=== PATIENT | female | born 1945 | race Caucasian/White ===

== ENCOUNTER 2020-11-16 09:16 | Outpatient (CLI) | payer MEDICARE, SELFPAY ==
--- NOTE | ~2020-11-16 | MM_ITS ---
EXAMINATION: MM screening [facility] w george HISTORY: Screening TECHNIQUE: Craniocaudal and mediolateral oblique 3-D tomosynthesis images were obtained and synthetic 2-D images were generated. CAD analysis was submitted and interpreted. COMPARISON: Comparison to multiple prior studies sequentially, with oldest reviewed study dated 11/12. BREAST PARENCHYMAL COMPOSITION: There are scattered areas of fibroglandular density. FINDINGS: There is no evidence of suspicious mass, calcification, or architectural distortion to sugg est malignancy in either breast. There has been no suspicious interval change. IMPRESSION: 1. No mammographic evidence of malignancy. 2. Recommend routine screening mammography in one year. BI-RADS Category 1: Negative Reviewed, dictated and finalized at location A. EDICAL SCIENTIST
== END 2020-11-16 09:17 | disposition home or self-care (01) ==
LOC: ANHIMG 09:18
PROVIDERS: PCP Family Medicine; Visit Provider Family Medicine
DX: Z12.31 Encounter for screening mammogram for malignant neoplasm of breast (principal)
CPT/HCPCS: 77063; 77067

== ENCOUNTER → 2021-09-26 15:28 | Outpatient (CLI) | payer MEDICARE, SELFPAY ==
--- NOTE | ~2021-09-26 | XR_ITS ---
EXAMINATION: XR knee RT min 4V EXAM DATE: 09/26/2021 16:11 INDICATION: Pain in right knee, Unspecified fall, initial encounter. Bruising and swelling in right k nee. Feels like it once to give out. TECHNIQUE: Right knee lateral, frontal AP, frontal PA tunnel, sunrise projections. Comparison is made to prior examination from 06/03/2019. FINDINGS: No evidence osteochondral defect or joint body in the right knee joint. There is moderate to severe patellofemoral and medial tibial femoral, moderate lateral tibiofemoral primary osteoarthr itis. No sizable joint effusion. There are no acute fractures identified. Compared to 2019, the tibi ofemoral compartment osteoarthritis has progressed. IMPRESSION: Moderate to severe right knee osteoarthritis. Reviewed, dictated and finalized at location A. ID WORKER
--- NOTE | ~2021-09-26 | XR_ITS ---
EXAMINATION: XR ribs RT 2V w CXR 2V EXAM DATE: 09/26/2021 16:10 INDICATION: Pleurodynia. Pt fell on Sunday and again on Sunday. Rib pain under right breast. Bruisi ng and swelling on right knee. Pt states her right knee feels like it wants to give out on her. TECHNIQUE: Frontal projection of the upper right ribs, frontal projection of the lower right ribs, ob lique projection of the right ribs, frontal and lateral chest x-ray(s) for interpretation. Compariso n is made to prior examination from 06/15/2016. FINDINGS: There are no displaced acute right rib fractures identified. Consider educating patient th at even if there is a radiographically occult nondisplaced rib fracture, there is no specific treatme nt other than to refrain from activity that prevents healing. There is no soft tissue abnormality seen. No confluent consolidation, pneumothorax or pleural effus ion suspected. Large bridging endplate osteophytes at some lumbar levels. IMPRESSION: No displaced right rib fractures. Reviewed, dictated and finalized at location A. IKISHA DRIVER
== END ==
PROVIDERS: PCP Family Medicine; Visit Provider Family Medicine
DX: M25.561 Pain in right knee (principal); R07.81 Pleurodynia; W19.XXXA Unspecified fall, initial encounter; M17.11 Unilateral primary osteoarthritis, right knee
CPT/HCPCS: 71046; 71100; 73564

== ENCOUNTER → 2022-01-30 12:12 | Outpatient (CLI) | payer MEDICARE, SELFPAY ==
--- NOTE | ~2022-01-30 | XR_ITS ---
EXAMINATION: XR lumbar spine 2-3V EXAM DATE: 01/30/2022 12:49 INDICATION: Pleurodynia, Dorsalgia . States fall several months ago. TECHNIQUE: Lumber spine frontal, lateral, lateral L5-S1 projections for interpretation. There is no prior study for comparison. FINDINGS: No acute fracture line identified. There is grade 2-3 anterolisthesis L5 on S1, with expect ed to be bilateral pars defects at L5 to allow for this but this is not directly visualized. There is severe mid and lower lumbar facet arthropathy. There is 4 mm anterolisthesis L3 on L4. The vertebral bodies are otherwise aligned. Moderate to severe disc disease from L3 through S1, moderate at L2-3. Large endplate osteophytes. Pelvic surgical clips from lymph node dissection. Paraspinal soft tissue is unremarkable. IMPRESSION: 1. Rowe 2-3 anterolisthesis L5 on S1. 2. Moderate to severe disc disease. 3. Severe facet arthropathy. Reviewed, dictated and finalized at location B.
--- NOTE | ~2022-01-30 | XR_ITS ---
EXAM: XR ribs RT 2V w CXR 2V HISTORY: Pleursoynia, Dorsalgia COMPARISON: 09/26/2021 FINDINGS: Lungs are clear. Unremarkable cardiomediastinal silhouette. Severe degenerative changes in the thoracolumbar spine. No fracture or dislocation. IMPRESSION: No acute cardiopulmonary process. No rib fracture. Reviewed, dictated and finalized at location K.
--- NOTE | ~2022-01-30 | XR_ITS ---
EXAMINATION: XR thoracic spine 2V EXAM DATE: 01/30/2022 12:49 INDICATION: Pleurodynia, Dorsalgia . States fell several months ago. TECHNIQUE: Frontal and lateral projections of the thoracic spine as well as lateral swimmers projecti on of the upper thoracic spine for interpretation. There is no prior study for comparison. FINDINGS: Large bridging endplate osteophytes, diffuse idiopathic skeletal hyperostosis. There is mi ld to moderate mid and lower thoracic disc disease. No fracture line identified through the osteophyt es or vertebral bodies. Paraspinal soft tissue is unremarkable. IMPRESSION: 1. No acute thoracic findings. 2. Large bridging endplate osteophytes. 3. Mild to moderate disc disease. Reviewed, dictated and finalized at location B.
== END ==
PROVIDERS: PCP Family Medicine; Visit Provider Family Medicine
DX: M54.50 Low back pain, unspecified (principal); R07.81 Pleurodynia; M47.814 Spondylosis without myelopathy or radiculopathy, thoracic region; M47.815 Spondylosis without myelopathy or radiculopathy, thoracolumbar region
CPT/HCPCS: 71046; 71100; 72070; 72100

== ENCOUNTER 2022-03-28 15:22 | Outpatient (CLI) | payer MEDICARE, SELFPAY ==
--- NOTE | ~2022-03-28 | MM_ITS ---
EXAMINATION: MM screening [facility] BI w george HISTORY: Screening mammogram TECHNIQUE: Craniocaudal and mediolateral oblique 3-D tomosynthesis images were obtained and synthetic 2-D images were generated. CAD analysis was submitted and interpreted. COMPARISON: 11/16/2020, 10/30/2019. 10/24/2018 BREAST PARENCHYMAL COMPOSITION: The breasts are almost entirely fatty. FINDINGS: Scattered benign-appearing calcifications are present. There is no suspicious mass, calcifi cation, or architectural distortion to suggest malignancy in either breast. There has been no suspici ous interval change. IMPRESSION: 1. No mammographic evidence of malignancy. 2. Recommend routine screening mammography in one year. BI-RADS Category 2: Benign finding(s). Reviewed, dictated and finalized at location A.
--- NOTE | ~2022-03-28 | DEXA_ITS ---
Bone Density Report Name: SOFÍA VANCE Age: 76 Sex: Female Ethnicity: White Date of : 1945 Indication: postmenopausal; screening for osteoporosis; height loss; cancer; hysterectomy; Referring Provider: LILY WARD Study: Bone densitometry was performed. Exam Date: March 28, 2022 Accession number: [id number] Bone Density: Region BMD T-score Z-score Classification AP Spine(L1, L4) 1.376 3.1 5.6 Normal Femoral Neck (Left) 0.888 0.3 2.5 Normal Total Hip (Left) 1.003 0.5 2.4 Normal Femoral Neck (Right) 0.948 0.9 3.0 Normal Total Hip (Right) 0.991 0.4 2.3 Normal Total Hip Mean 0.997 0.5 2.4 Normal World Health Organization criteria for BMD impression classify patients as: Normal (T-score at or above -1.0), Osteopenia (T-score between -1.0 and -2.5), or Osteoporosis (T-score at or below -2.5). 10-year Fracture Risk: FRAX not reported because: All T-scores for Spine Total, Hip Total, Femoral Neck at or above -1.0 Previous Exams: Region Exam Age BMD T-score BMD Change BMD Change Date g/cm2 vs Baseline vs Previous AP Spine (L1,L4) 03/28/2022 76 1.376 3.1 0.028 (2.1%)# 0.028 (2.1%)# 10/06/2011 66 1.348 2.8 Total Hip(Left) 03/28/2022 76 1.003 0.5 -0.150 (-13.0% -0.155 (-13.4% 09/28/2016 71 1.158 1.8 0.004 (0.4%)# 0.004 (0.4%)# 10/06/2011 66 1.154 1.7 Total Hip(Right) 03/28/2022 76 0.991 0.4 -0.105 (-9.6%) -0.158 (-13.8% 09/28/2016 71 1.149 1.7 0.053 (4.8%)# 0.053 (4.8%)# 10/06/2011 66 1.096 1.3 *Denotes significance at 95% confidence level, LSC for AP Spine = 0.022 g/cm2, LSC for Total Hip = 0.027 g/cm2 # Denotes dissimilar scan types or analysis methods Clinical Information Provided by Patient: Has used the following medications: Vitamin D Has the following medical conditions: Cancer, Hysterectomy Patient maximum height was 64 Menopause Age: 58 No regular weight bearing exercise Drinks caffeinated beverages Onset of menses at age 13 Number of children 4 Impression: The patient has normal bone mass. The BMD for the Total Hip(Left) decreased, changing by -13.4% since the last DXA exam. The BMD for the Total Hip(Right) decreased, changing by -13.8% since the last DXA exam. Discussion: LOW RISK OF FRACTURE; BONE DENSITY IS WELL ABOVE THE MINIMUM DESIRABLE LEVEL AND ABOVE AVERAGE FOR AGE AND SEX AT ALL SKELETAL SITES TESTED. This person's bone density is above expecte
== END 2022-03-28 15:23 | disposition home or self-care (01) ==
PROVIDERS: PCP Family Medicine; Visit Provider Physician Assistant
DX: Z12.31 Encounter for screening mammogram for malignant neoplasm of breast (principal); Z78.0 Asymptomatic menopausal state
CPT/HCPCS: 77063; 77067; 77080

== ENCOUNTER → 2022-09-25 16:13 | Outpatient (CLI) | payer MEDICARE, SELFPAY ==
--- NOTE | ~2022-09-25 | XR_ITS ---
XR hip BI wo pelvis DATE: 09/25/2022 16:38 INDICATION: Repeated falls TECHNIQUE: AP and lateral views of each hip COMPARISON: 01/04/2018 CT abdomen pelvis FINDINGS: There is patchy sclerosis and flattening and loss of left femoral head volume, with virtual obliteration of left hip joint space and prominent spurring. The findings suggest left femoral head avascular necrosis with prominent secondary osteoarthritis. There is mild to Normal alignment at the pubic symphysis and sacroiliac joints. Severe degenerative disc disease and i ncluded L5-S1. Status post ventral lower anterior abdominal wall repair. 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 CUTTER IMPRESSION: Avascular necrosis of left femoral head with severe secondary osteo arthritis Mild to moderate right hip osteoarthritis Severe degenerative disc disease at L5-S1
== END ==
PROVIDERS: PCP Family Medicine; Visit Provider Internal Medicine
DX: M25.559 Pain in unspecified hip (principal); M87.852 Other osteonecrosis, left femur; M16.0 Bilateral primary osteoarthritis of hip; M51.37 Other intervertebral disc degeneration, lumbosacral region; R29.6 Repeated falls
CPT/HCPCS: 73521

== ENCOUNTER 2022-09-30 11:20 | Emergency (ER) | payer MEDICARE, SELFPAY ==
[2022-09-30 11:25] VITALS: BP 147/66; PULSE 84; RESP 16; TEMP 36.8; O2SAT 99
[2022-09-30 11:56] VITALS: BP 149/90; PULSE 85; RESP 16; O2SAT 99
--- NOTE | 2022-09-30 12:19 | ED.LOWEXIN ---
HPI - Extremity Injury (Lower) General Chief Complaint: Extremity Injury, Lower Stated Complaint: left hip pain Time Seen by Provider: 09/30/22 12:01 History of Present Illness HPI Narrative: Patient is a 77-year-old female presenting with left hip pain. Patient states that she has had ongoing left hip pain for some time. States that she had a fall approximately 5 days ago. She is currently in physical therapy and they were concerned that she may have broken it so they obtained an outpatient x-ray but the patient has not received any of these results. Patient states that she has been ambulatory but she has to walk very slowly with her walker. States that she needs pain control so that she can sleep. Denies any new falls since the outpatient x-ray. Denies further injuries or complaints. Related Data Home Medications Medication Instructions Recorded Confirmed acetaminophen 650 mg 650 mg PO Q8H 09/12/19 08/25/22 tablet,extended release (Tylenol 8 Hour) aspirin 325 mg tablet 325 mg PO DAILY 09/12/19 08/25/22 cholecalciferol (vitamin D3) 50 2,000 unit PO DAILY 09/12/19 08/25/22 mcg (2,000 unit) tablet Allergies Allergy/AdvReac Type Severity Reaction Status Date / Time No Known Allergies Allergy Verified 09/15/22 09:56 Review of Systems Review of Systems: All systems reviewed & are unremarkable except as noted in HPI and below PMFSH Past Medical History Medical History Adhesive capsulitis of left shoulder (~06/2021) Arthritis Bilateral hand pain Carpal tunnel syndrome Degenerative joint disease (DJD) of lumbar spine Depression Gallbladder disease Generalized osteoarthritis of multiple sites (~2007) GERD (gastroesophageal reflux disease) Hepatitis C antibody test negative (~08/2017) Hypertension IBS (irritable bowel syndrome) Recurrent falls Rheumatoid arthritis with rheumatoid factor of multiple sites without organ or systems involvement (~1999) Weakness Surgical History Surgical History H/O cataract extraction H/O dilation and curettage H/O hernia repair H/O: hysterectomy History of appendectomy Hx of cholecystectomy Family History Family History Father Diabetes mellitus Hypertension Family history of elevated blood lipids, Onset Age: 74 Acute myocardial infarction, Onset Age: 74 Cerebrovascular accident Family history of coronary artery disease Mother Hypertension Family history of elevated blood lipids Cerebrovascular accident Family history of primary malignant neoplasm of liver Family history of malignant neoplasm of ovary Social History Social History Smoking status: Never smoker Alcohol intake: current Alcohol use details: Mixed drinks occasionally Lack of Transportation: No Lack of Food: Never True Current Housing: I Have Housing Concerned About Future Housing: No Difficulty Paying Gas/Electric Bills: No Difficulty Paying for Meds: No Currently Unemployed: No Education: High School Diploma/GED Difficulty w/ Childcare or Family Care: No Exam Narrative: GENERAL: Well-appearing, well-nourished, and in no acute distress. HEAD: Normocephalic, atraumatic. EYES: PERRLA and EOMI. ENT: Nares clear, no rhinorrhea or epistaxis. Mucous membranes moist. NECK: Supple. CHEST: Clear to auscultation. No respiratory distress. HEART: Regular rate and rhythm. No murmur heard. Normal peripheral pulses. ABDOMEN: Soft, nontender, nondistended, normal active bowel sounds. EXTREMITIES: Normal range of motion. No edema. SKIN: Warm, dry, no rash. NEURO: No focal deficits. Alert and oriented x3. PSYCH: Normal mood and affect. Course Vital Signs Vital signs: Vital Signs Temperature 98.2 F 09/30/22 11:25 Pulse Rate 84 09/30/22
[2022-09-30] MEDS: HYDROcodone/acetaminophen (*CRX) 5-325 MG TABLET 1 TAB PO (12:25)
[2022-09-30 14:00] VITALS: RESP 18
== END 2022-09-30 14:00 | disposition home or self-care (01) ==
PROVIDERS: Emergency Provider Emergency Medicine; PCP Family Medicine
DX: M87.052 Idiopathic aseptic necrosis of left femur (principal); M16.12 Unilateral primary osteoarthritis, left hip; I13.10 Hypertensive heart and chronic kidney disease without heart failure, with stage 1 through stage 4 chronic kidney disease, or unspecified chronic kidney disease; N18.30 Chronic kidney disease, stage 3 unspecified; W19.XXXA Unspecified fall, initial encounter
CPT/HCPCS: 99283; A9270

== ENCOUNTER 2022-10-07 22:43 | Emergency (ER) | payer MEDICARE, SELFPAY ==
--- NOTE | ~2022-10-07 | XR_ITS ---
EXAMINATION: XR abdomen/kub 1V INDICATION: Constipation TECHNIQUE: Supine views of the abdomen were obtained on three radiographs. COMPARISON: 09/25/2022, 01/30/2022 FINDINGS: There is a moderate volume of colonic stool. No dilated loops of bowel are evident. There a re surgical clips at the pelvic inlet. Changes of mesh hernia repair are noted in the right pelvis. T here is advanced osteoarthritis of the left hip which demonstrates significant interval worsening sin ce the comparison dated 01/30/2022. Severe lumbar spondylosis is noted. IMPRESSION: 1. Constipation. 2. Advanced osteoarthritis of the left hip with significant interval worsening since 01/30/2022. Reviewed, dictated and finalized at location A. ROOM OPERATOR
[2022-10-07 22:44] VITALS: BP 106/66; PULSE 87; RESP 26; TEMP 36.6; O2SAT 100
[2022-10-07 22:58] LABS: Basophils Percent Auto 0.3 % (0.2-1.2); Eosinophils Percent Auto 0.6 % (0-4.4); Hematocrit 38.9 % (37.0-47.0); Hemoglobin 12.9 g/dL (12.0-15.0); Immature Granulocyte Absolute 0.07 K/mm3 (0.00-0.031); Lymphocytes Percent Auto 15.8 % (18.3-44.2); Mean Corpuscular HGB Conc 33.2 g/dl (32-36); Mean Corpuscular Hemoglobin 32.5 pg (26-34); Mean Platelet Volume 8.1 fl (7.4-10.4); Monocytes Absolute Auto 0.6 K/mm3 (0.1-0.6); Neutrophils Absolute Auto 5.2 K/mm3 (1.3-6.7); Neutrophils Percent Auto 74.3 % (45.5-73.1); Nucleated Red Blood Cells Perc 0.4 % (0.0-0.2); Platelet Count Result 354 k/mm3 (150-375); Red Blood Count 3.97 M/mm3 (4.2-5.4); Red Cell Distribution Width 14.2 % (11.5-14.5)
[2022-10-07 23:09] LABS: Alanine Aminotransferase 20 U/L (6-35); Albumin Level 4.6 g/dL (3.5-5.1); Alkaline Phosphatase 99 U/L (38-126); Anion Gap 13 mmol/L (8-16); Aspartate Amino Transferase 34 U/L (14-36); Bilirubin,Total 0.5 mg/dL (0.2-1.3); Blood Urea Nitrogen 29 mg/dL (7-17); Calcium 9.6 mg/dL (8.4-10.2); Carbon Dioxide 22 mmol/L (22-30); Chloride 94 mmol/L (98-107); Estimated CRCL calculation 33 ml/min; Estimated Glomerular Filt Rate 36; Glucose 153 mg/dL (65-110); Lipase 126 U/L (23-300); Sodium 129 mmol/L (137-145)
[2022-10-08] MEDS: SODIUM CHLORIDE 0.9% IV 1,000 ML 999 ML IV CONT (01:58)
[2022-10-08] MEDS: METHYLNALTREXONE 12 MG/0.6 ML VIAL SUB-Q (01:58)
--- NOTE | 2022-10-08 03:19 | ED.NAVMDI ---
HPI - Nausea/Vomiting/Diarrhea General Chief complaint: Nausea/Vomiting/Diarrhea Stated complaint: N/V/D Time Seen by Provider: 10/08/22 01:22 History of Present Illness HPI Narrative: Patient is a 77-year-old female who presents ER with constipation. Patient recently was seen for a hip injury. She was then evaluated by orthopedic surgery. She has been taking oxycodone to control her pain. She has not been able have a bowel movement for several days. She has been taking evac-bwe-qoghbyy stool softeners without improvement. She has some nausea. No abdominal distention. No fevers or chills or sweats. Related Data Home Medications Medication Instructions Recorded Confirmed acetaminophen 650 mg 650 mg PO Q8H 09/12/19 10/03/22 tablet,extended release (Tylenol 8 Hour) aspirin 325 mg tablet 325 mg PO DAILY 09/12/19 10/03/22 cholecalciferol (vitamin D3) 50 2,000 unit PO DAILY 09/12/19 10/03/22 mcg (2,000 unit) tablet Allergies Allergy/AdvReac Type Severity Reaction Status Date / Time No Known Allergies Allergy Verified 10/03/22 15:00 Review of Systems Review of Systems: All systems reviewed & are unremarkable except as noted in HPI and below Constitutional: Constitutional: Denies chills, Denies fatigue and Denies fever(s) ENT: Denies dysphagia and Denies nasal congestion Cardiovascular: Cardiovascular: Denies chest pain, Denies rapid heart rate and Denies radiating jaw, neck or arm pain Respiratory: Respiratory: Denies cough and Denies dyspnea Gastrointestinal: Gastrointestinal: Reports abdominal pain, Reports constipation, Reports nausea and Denies vomiting Genitourinary: Genitourinary: Denies nocturia and Denies dysuria [facility] Past Medical History Medical History Adhesive capsulitis of left shoulder (~06/2021) Arthritis Bilateral hand pain Carpal tunnel syndrome 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 Depression Gallbladder disease Generalized osteoarthritis of multiple sites (~2007) GERD (gastroesophageal reflux disease) Hepatitis C antibody test negative (~08/2017) HTN (hypertension) Hypertension IBS (irritable bowel syndrome) Recurrent falls Rheumatoid arthritis with rheumatoid factor of multiple sites without organ or systems involvement (~1999) Weakness Surgical History Surgical History H/O cataract extraction H/O dilation and curettage H/O hernia repair H/O: hysterectomy History of appendectomy Hx of cholecystectomy Family History Family History Father Diabetes mellitus Hypertension Family history of elevated blood lipids, Onset Age: 74 Acute myocardial infarction, Onset Age: 74 Cerebrovascular accident Family history of coronary artery disease Mother Hypertension Family history of elevated blood lipids Cerebrovascular accident Family history of primary malignant neoplasm of liver Family history of malignant neoplasm of ovary Social History Social History Smoking status: Never smoker Alcohol intake: current Alcohol use details: Mixed drinks occasionally Lack of Transportation: No Lack of Food: Never True Current Housing: I Have Housing Concerned About Future Housing: No Difficulty Paying Gas/Electric Bills: No Difficulty Paying for Meds: No Currently Unemployed: No Education: High School Diploma/GED Difficulty w/ Childcare or Family Care: No Exam Narrative: GENERAL: Well-appearing, well-nourished, and in no acute distress. HEAD: Normocephalic, atraumatic. EYES: PERRL and EOMI. CHEST: Clear to auscultation. No respiratory distress. HEART: Regular rate and rhythm. Normal peripheral pulses. ABDOMEN: Soft, nontender, nondistended, normal active bowel sounds. EXTREMITIES:
[2022-10-08 04:12] LABS: Mucus Urine Rare /lpf; RBC Urine 0-2 /hpf (0-2); WBC Urine 0-3 /hpf
[2022-10-08 05:39] LABS: Appearance Urine Clear (Clear); Bilirubin Urine 2+ (Negative); Blood Urine Negative (Negative); Glucose Urine UA Negative (Negative); Ketones Urine 1+ mg/dL (Negative); Leukocyte Esterase Ur Negative LEU/UL (Negative); Nitrate Urine Positive (Negative); Protein Urine Trace mg/dL (Negative); Specific Grav Ur >= 1.030 (1.001-1.035)
[2022-10-08 05:41] LABS: Add Urine Microscopic? YES; Color Urine Light Brown (Yellow)
== END 2022-10-08 05:01 | disposition home or self-care (01) ==
PROVIDERS: Emergency Provider Emergency Medicine; PCP Family Medicine
DX: K59.03 Drug induced constipation (principal); T40.2X5A Adverse effect of other opioids, initial encounter; I10 Essential (primary) hypertension; M19.90 Unspecified osteoarthritis, unspecified site; M16.12 Unilateral primary osteoarthritis, left hip; M47.816 Spondylosis without myelopathy or radiculopathy, lumbar region; K21.9 Gastro-esophageal reflux disease without esophagitis; K58.9 Irritable bowel syndrome, unspecified; F32.A Depression, unspecified; Z79.82 Long term (current) use of aspirin; M05.79 Rheumatoid arthritis with rheumatoid factor of multiple sites without organ or systems involvement; Z98.49 Cataract extraction status, unspecified eye; Z90.710 Acquired absence of both cervix and uterus
CPT/HCPCS: 36415; 51701; 74018; 80053; 81001; 83690; 85025; 96360; 96372; 99283; J2212; J7030

== ENCOUNTER 2022-11-10 13:51 | Outpatient (CLI) | payer MEDICARE, SELFPAY ==
--- NOTE | 2022-11-10 15:23 | ECG_ITS ---
Measurements Intervals [place] Rate: 87 P: 95 OR: 134 QRS: 28 QRSD: 83 T: 32 QT: 345 QTc: 415 Interpretive Statements SINUS RHYTHM NONSPECIFIC T-WAVE ABNORMALITY- INFERIOR LEADS BASELINE ARTIFACT- I, II, III, AVR, AVL, AVF, V1-V6 BORDERLINE ECG NO PREVIOUS ECG AVAILABLE FOR COMPARISON Electronically Signed On 11-10-2022 16:03:48 CHILD CARE SITTER by Fletcher Terry D.O.
[2022-11-10 16:20] LABS: Appearance Urine Clear (Clear); Bilirubin Urine Negative (Negative); Blood Urine 1+ (Negative); Color Urine Yellow (Yellow); Glucose Urine UA Negative (Negative); Ketones Urine Negative (Negative); Leukocyte Esterase Ur Trace LEU/UL (Negative); Nitrate Urine Negative (Negative); Protein Urine 1+ mg/dL (Negative); Specific Grav Ur >= 1.030 (1.001-1.035); Urobilinogen Urine 0.2 mg/dL (<2.0); pH Urine 5.5 (5.0-9.0)
[2022-11-10 16:24] LABS: INR 0.9; Prothrombin Time 12.1 Seconds (11.1-14.7)
[2022-11-10 16:25] LABS: Partial Thromboplastin Time 25.1 SECONDS (22.3-36.8)
[2022-11-10 16:26] LABS: Anion Gap 7 mmol/L (8-16); Blood Urea Nitrogen 22 mg/dL (7-17); Calcium 9.3 mg/dL (8.4-10.2); Carbon Dioxide 26 mmol/L (22-30); Chloride 101 mmol/L (98-107); Estimated Glomerular Filt Rate > 60; Glucose 75 mg/dL (65-110); Potassium 4.1 mmol/L (3.4-5.0); Sodium 134 mmol/L (137-145)
[2022-11-10 16:28] LABS: Hemoglobin A1C 5.1 % (<5.7)
[2022-11-10 16:32] LABS: Bacteria Urine Trace /hpf; Mucus Urine Rare /lpf; Squamous Epithelial Cell Urine Occasional /hpf (Few)
[2022-11-10 16:33] LABS: Add Urine Microscopic? YES
[2022-11-10 16:34] LABS: Urine Cotinine NEGATIVE
== END 2022-11-10 13:52 | disposition home or self-care (01) ==
PROVIDERS: Orthopaedic Surgery; PCP Family Medicine; Visit Provider Orthopaedic Surgery
DX: M16.12 Unilateral primary osteoarthritis, left hip (principal); I10 Essential (primary) hypertension; Z01.818 Encounter for other preprocedural examination
CPT/HCPCS: 80048; 80307; 81001; 83036; 85610; 85730; 87077; 87081; 87086; 87186; 93005

== ENCOUNTER 2023-01-04 13:25 | Outpatient (CLI) | payer MEDICARE, SELFPAY ==
[2023-01-04 14:47] LABS: Basophils Percent Auto 0.6 % (0.2-1.2); Hematocrit 35.4 % (37.0-47.0); Hemoglobin 11.5 g/dL (12.0-15.0); Immature Granulocyte Absolute 0.03 K/mm3 (0.00-0.031); Immature Granulocyte Percent A 0.6 % (0-0.5); Lymphocytes Absolute Auto 1.78 K/mm3 (0.9-3.2); Mean Corpuscular HGB Conc 32.5 g/dl (32-36); Mean Corpuscular Hemoglobin 32.8 pg (26-34); Mean Corpuscular Volume 100.9 fl (80-100); Mean Platelet Volume 8.2 fl (7.4-10.4); Monocytes Absolute Auto 0.5 K/mm3 (0.1-0.6); Monocytes Percent Auto 9.1 % (2.6-8.5); Neutrophils Absolute Auto 3.1 K/mm3 (1.3-6.7); Neutrophils Percent Auto 56.7 % (45.5-73.1); Platelet Count Result 324 k/mm3 (150-375); Red Blood Count 3.51 M/mm3 (4.2-5.4); White Blood Count 5.4 K/mm3 (4.5-10.0)
[2023-01-04 15:00] LABS: Albumin Level 4.5 g/dL (3.5-5.1); Anion Gap 8 mmol/L (8-16); Blood Urea Nitrogen 17 mg/dL (7-17); Calcium 9.2 mg/dL (8.4-10.2); Carbon Dioxide 27 mmol/L (22-30); Chloride 98 mmol/L (98-107); Estimated Glomerular Filt Rate > 60; Glucose 109 mg/dL (65-110); Potassium 3.7 mmol/L (3.4-5.0); Sodium 133 mmol/L (137-145)
[2023-01-04 15:05] LABS: Prothrombin Time 12.3 Seconds (11.1-14.7)
[2023-01-04 15:19] LABS: Urine Cotinine NEGATIVE
[2023-01-04 15:55] LABS: Appearance Urine Clear (Clear); Bacteria Urine None Seen /hpf; Bilirubin Urine Negative (Negative); Blood Urine 1+ (Negative); Color Urine Yellow (Yellow); Glucose Urine UA Negative (Negative); Ketones Urine Trace mg/dL (Negative); Leukocyte Esterase Ur Negative LEU/UL (Negative); Need Manual Microscopic Reviewed; Nitrate Urine Negative (Negative); Protein Urine Negative (Negative); Specific Grav Ur 1.018 (1.001-1.035); Squamous Epithelial Cell Urine None seen /hpf (Few); Urobilinogen Urine 0.2 mg/dL (<2.0); WBC Urine 0-5 /hpf
[2023-01-04 15:58] LABS: Add Urine Microscopic? YES
== END 2023-01-04 13:26 | disposition home or self-care (01) ==
LOC: ANHSURGERY 13:31
PROVIDERS: PCP Family Medicine; Visit Provider Orthopaedic Surgery
DX: Z01.812 Encounter for preprocedural laboratory examination (principal); M16.12 Unilateral primary osteoarthritis, left hip
CPT/HCPCS: 80048; 80307; 81001; 82040; 85025; 85610; 85730; 86850; 86900; 86901; 87081

== ENCOUNTER 2023-01-11 09:04 | Observation (INO) | payer MEDICARE, SELFPAY ==
[2022-11-10 14:33] VITALS: BP 135/68; PULSE 82; RESP 16; TEMP 36.6; O2SAT 99; BMI 33.1
--- NOTE | 2022-11-10 14:51 | PC.NURSE ---
Report to the Outpatient Waiting Room, entrance under the green pavilion located off [facility], at time __6:00AM on date __11/24/22 . Planned Procedure Time: _7:30AM . Time changes happen often and if your time is changed the preop area will call you the afternoon before. - You and your visitor will be asked to self-screen and do not enter if you have any COVID symptoms. - Only one visitor is requested with a max of two and NO children visitors are allowed at this time. - The patient visitor may be requested to leave or wait in car when not with patient due to distancing restrictions. - A mask is optional within the hospital. Patients may have clear liquids (water, carbonated beverages, clear teas, apple juice) until 3 hours prior to surgery with a maximum of 20 ounces. - No food from midnight until time of surgery Take the following medications with a SIP of water the morning of surgery: ___NIFEDIPINE, OXYCODONE, VENLAFAXINE Medications to discontinue per physician ___HOLD ASPIRIN & DICLOFENAC PER DR ARGUETA, HOLD ALL VITAMINS/SUPPLEMENTS 3 DAYS PRE-OP- LAST DOSE 11/20/22 Please no make-up, nail equatorial guinean, hairspray, perfume, deodorant, or body powder the day of surgery. No jewelry (including any body piercings) or valuables the day of surgery, leave them at home. Please take a shower or bath the night before, or the morning of, surgery with an antibacterial soap. Wear comfortable, loose fitting clothing. Children are encouraged to wear pajamas. - Jewelry must be removed prior to entering the operating room. Rings and piercings that are not removed may be cut off. - The hospital will not accept responsibility for valuables. - Please leave all valuables, including medications, at home the day of surgery. If you are going home after surgery, a licensed after school driver must drive you home. - NO public transportation without another adult if you receive anesthesia. - We recommend that an adult stay with you for 24 hours following discharge. - We also recommend that you do not drive, make important decision, drink alcoholic beverages, or take any drugs that were not prescribed by your health care provider for at least 24 hours after your discharge time. Follow any additional instructions given to you from your surgeon. If you or anyone in your household have experienced Covid symptoms in the past week, please notify your surgeon or the nurse liaison at the phone number below for possible testing. Telephone instructions given to _PATIENT & SON___and asked if any additional questions and then verbalized understanding. Patient advised to call surgeon office or pre surgery nurse liaison [phone] if any additional questions.
--- NOTE | 2023-01-01 09:30 | PC.NURSE ---
PRE-OP INSTRUCTIONS, PLEASE READ CAREFULLY Report to the Outpatient Waiting Room, entrance under the green pavilion located off [facility], at time _0900_ on date _01/09/23_. Planned Procedure Time: _1100_. PACK SMALL OVERNIGHT BAG AND LEAVE IN THE CAR ALONG WITH YOUR WALKER Time changes happen often and if your time is changed the preop area will call you the afternoon before. - You and your visitor will be asked to self-screen and do not enter if you have any COVID symptoms. - Only one visitor is requested with a max of two and NO children visitors are allowed at this time. - The patient visitor may be requested to leave or wait in car when not with patient due to distancing restrictions. - A mask is optional within the hospital at this time. -VISITING HOURS 8AM-8PM Patients may have clear liquids (water, carbonated beverages, clear teas, apple juice) until 3 hours prior to surgery (0800 AM) with a maximum of 20 ounces. - No food from midnight until time of surgery Take the following medications with a SIP of water the morning of surgery: _NIFEDIPINE, VENLAFAXINE & PAIN PILL IF NEEDED_ DO NOT STOP ANY OF YOUR OTHER PRESCRIPTION MEDICATIONS PRIOR TO SURGERY ?EXCEPT THE FOLLOWING Medications to discontinue per DR. ARGUETA'S INSTRUCTIONS - _ASPIRIN, Date to take last dose 01/04/23 & DICLOFENAC & RINVOQ Date to take last dose 01/05/23 _ Please no make-up, nail monegasque, hairspray, perfume, deodorant, or body powder the day of surgery. No jewelry (including any body piercings) or valuables the day of surgery, leave them at home. Please take a shower or bath the night before, or the morning of, surgery with an antibacterial soap. Wear comfortable, loose fitting clothing. - Jewelry must be removed prior to entering the operating room. Rings and piercings that are not removed may be cut off. - The hospital will not accept responsibility for valuables. - Please leave all valuables, including medications, at home the day of surgery. If you are going home after surgery, a licensed national dedicated truck driver must drive you home. - NO public transportation without another adult if you receive anesthesia. - We recommend that an adult stay with you for 24 hours following discharge. - We also recommend that you do not drive, make important decision, drink alcoholic beverages, or take any drugs that were not prescribed by your health care provider for at least 24 hours after your discharge time. Follow any additional instructions given to you from your surgeon. - CHLORHEXIDINE SHOWER DIRECTED If you or anyone in your household have experienced Covid symptoms in the past week, please notify your surgeon or the nurse liaison at the phone number below for possible testing. Telephone instructions given to _PATIENT_and asked if any additional questions and then verbalized understanding. Patient advised to call surgeon office or pre surgery nurse liaison [phone] if any additional questions.
[2023-01-01 09:37] VITALS: BMI 33.1
--- NOTE | 2023-01-08 10:08 | WPDANESEPPF ---
Anes - Initial Pre Proc Eval Procedure: Operation Date: 01/09/23 07:30 Proposed Procedures p Left Total Hip Arthroplasty - Bryce Ayala MD Date/Time: 01/08/23 10:08 Surgeon: Bryce Ayala MD Pre Op Diagnosis: Left Hip DJD Patient Data Age: 77 Gender: F Height: 1.6 m Weight: 84.9 kg Last Vital Signs Temp 36.6 C 11/10/22 14:33 Pulse 82 11/10/22 14:33 Resp 16 11/10/22 14:33 BP 135/68 11/10/22 14:33 Pulse Ox 99 11/10/22 14:33 O2 Del Method Room Air 11/10/22 14:33 Allergies Allergy/AdvReac Type Severity Reaction Status Date / Time No Known Allergies Allergy Verified 01/01/23 09:24 Home Medications Medication Instructions Recorded Confirmed Type acetaminophen 650 mg 1,300 mg PO BID PRN Pain 09/12/19 01/01/23 History tablet,extended release (Tylenol 8 Hour) aspirin 325 mg tablet 325 mg PO DAILY 09/12/19 01/01/23 History cholecalciferol (vitamin D3) 50 4,000 unit PO DAILY 09/12/19 01/01/23 History mcg (2,000 unit) tablet upadacitinib 15 mg tablet,extended 15 mg PO DAILY #90 tabs 06/06/21 01/01/23 Rx release 24 hr (Rinvoq) atorvastatin 40 mg tablet See Rx Instructions .Route 05/23/22 01/01/23 Rx .COMPLEX #90 tabs diclofenac sodium 1 % topical gel See Rx Instructions .Route 07/24/22 01/01/23 Rx .COMPLEX #100 grams hydroxychloroquine 200 mg tablet 400 mg PO DAILY #180 tabs 09/15/22 01/01/23 Rx (Plaquenil) polyethylene glycol 3350 17 17 g PO DAILY #238 grams 10/08/22 01/01/23 Rx gram/dose oral powder (Miralax) calcium carbonate 500 mg calcium 500 mg PO DAILY PRN Indigestion 11/10/22 01/01/23 History (1,250 mg) chewable tablet nifedipine 60 mg tablet,extended 60 mg PO BID 11/10/22 01/01/23 History release 24 hr sennosides 8.6 mg-docusate sodium 2 tab-cap PO DAILY 11/10/22 01/01/23 History 50 mg tablet chlorhexidine gluconate 4 % 1 applic topical ONCE #237 mL 11/17/22 01/01/23 Rx topical liquid (Hibiclens) oxycodone-acetaminophen 7.5 mg-325 1 tablet PO Q6H PRN pain #30 tabs 11/17/22 01/01/23 Rx mg tablet lisinopril 40 mg tablet 40 mg PO QAM #90 tabs 12/07/22 01/01/23 Rx venlafaxine 75 mg capsule,extended 75 mg PO QAM #90 caps 12/20/22 01/01/23 Rx release 24 hr Patient hx anesthesia problems: none Family hx anesthesia problems: none Results Review: All pre-operative results and documents have been reviewed as part of the pre-operative evaluation. 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 Depression Gallbladder disease Generalized osteoarthritis of multiple sites (~2007) GERD (gastroesophageal reflux disease) Hepatitis C antibody test negative (~08/2017) HTN (hypertension) Hypertension IBS (irritable bowel syndrome) Obstructive sleep apnea (adult) (pediatric) Panic attack Recurrent falls Rheumatoid arthritis with rheumatoid factor of multiple sites without organ or systems involvement (~1999) Weakness Surgical History Surgical History H/O cataract extraction H/O dilation and curettage H/O hernia repair H/O: hysterectomy History of appendectomy Hx of cholecystectomy Family History Family History Father Diabetes mellitus Hypertension Family history of elevated blood lipids, Onset Age: 74 Acute myocardial infarction, Onset Age: 74 Cerebrovascular accident Family history of coronary artery disease Mother Hypertension Family history of elevated blood lipids Cerebrovascular accident Family history of primary malignant neoplasm of liver Family history of malignant neoplasm of ovary Social History Soci
[2023-01-09] VITALS (13 sets, daily range): BP systolic 111–162; BP diastolic 40–87; PULSE 80–98; RESP 15–19; TEMP 36.3–37.3; O2SAT 92–100; BMI 33.5
[2023-01-09] MEDS: ACETAMINOPHEN 500 MG TABLET 1000 MG PO (06:51)
[2023-01-09] MEDS: LACTATED RINGERS 1,000 ML 30 ML IV CONT ×2 (07:00→10:17)
[2023-01-09] MEDS: TRANEXAMIC ACID 1,000MG/ISO100 1,000 MG/100 ML BAG 200 MG IVPB (07:07)
--- NOTE | 2023-01-09 07:11 | WPDHPUPDATE1 ---
History and Physical Update Update Date/Time: 01/09/23 07:11 History and Physical has been reviewed, including an updated exam of the patient. There are NO changes in the patient's condition. Risks, benefits, and alternatives have been discussed and questions answered. Patient agrees to proceed with procedure.
[2023-01-09] MEDS: ceFAZolin 2 GM/D5W 50 ML 2 GM/50 ML BAG IVPB ×3 (07:29→20:50)
[2023-01-09] MEDS: TRANEXAMIC ACID 1,000 MG/10 ML AMPUL 1000 MG IV PUSH (09:38)
--- NOTE | 2023-01-09 10:08 | W.PM.PROC2 ---
Procedure Note - Detailed Date of Procedure 01/09/23 Pre-op Diagnosis Left Hip DJD Post-op Diagnosis Same Procedure Performed L WILLIAM Surgeon Bryce Ayala MD Anesthesia General Description of Procedure THE PATIENT WAS TAKEN TO THE OPERATING ROOM IN STABLE CONDITION AND WAS PLACED IN THE LATERAL DECUBITUS AND THE LEFT LOWER EXTREMITY WAS PREPPED AND DRAPED IN THE STERILE FASHION. INCISION WAS MADE IN THE POSTERIOR LATERAL SIDE OF THE HIP, DOWN TO THE FASCIA LAYER. THE FASCIA WAS INCISED. THE HIP WAS EXPOSED. THE SHORT EXTERNAL ROTATORS WERE EXPOSED. THE SCIATIC NERVE WAS IDENTIFIED. INCISION WAS MADE THROUGH THE SHORT EXTERNAL ROTATORS AND THE CAPSULE OF THE HIP JOINT. THE HIP WAS DISLOCATED. AN OSTEOTOMY WAS MADE TO THE FEMORAL NECK ABOUT 1 CM PROXIMAL TO THE LESSER TROCHANTER. THE ACETABULUM WAS EXPOSED. THERE WAS SEVERE DJD SEEN. THE LATERAL WALL WAS DEFICIENT AND DYSPLASTIC. BEGINNING WITH A 48 REAMER THE ACETABULUM WAS REAMED TO 53 MM. A 53 MM TRIAL WAS PLACED IN 35 DEG OF ABDUCTION AND ANTEVERSION WAS IN ALIGNMENT WITH THE TRANS ACETABULAR LIGAMENT. THE FIT WAS GOOD. THE TRIAL WAS REMOVED. A 54 MM BIOMET G7 COMPONENT WAS THEN TAPPED IN TO PLACE IN 35 DEG OF ABDUCTION AND ANTEVERSION IN ALIGNMENT WITH THE TRANSVERSE ACETABULAR LIGAMENT. THE FIT WAS GOOD. 2 SCREWS WERE PLACED IN THE ACETABULAR COMPONENT AND HAD EXCELLENT BITES. THE CUP WAS STABLE. AN INTRAOPERATIVE XRAY WAS TAKEN AND IT WAS FOUND THAT THE CUP POSITION WAS STABLE AND COVERAGE WAS ACCEPTABLE. THE SCREWS WERE IN GOOD POSITION WELL. THE ACETABULAR LINER WAS PLACED AND CHECKED FOR STABILITY. NEXT THE FEMUR WAS PREPARED WITH INITIAL CANAL FINDER THEN SEQUENTIAL BROACHING WITH A TAPERLOC HIP SYSTEM, UNTIL AN 11 BROACH FIT WELL IN 15 OF ANTEVERSION. A HIGH OFFSET NECK WITH A +6 NECK AND WITH 36 MM HEAD TRIAL WAS PLACED. THE SHUCK TEST WAS EXCELLENT AND THE STABILITY IN FLEXION AND ROTATION WAS EXCELLENT. LEG LENGTHS WERE GROSSLY EQUAL. TRIALS WERE REMOVED. A BIOMET TAPERLOC 11 STEM WAS PLACED WITH A HIGH OFFSET NECK. THE FIT WAS EXCELLENT IN 15 DEG OF ANTEVERSION. A +6 CERAMIC 36 MM CERAMIC HEAD WAS PLACED. THE HIP WAS TRIALED AND THE STABILITY WAS EXCELLENT WERE THE LEG LENGTHS AND THE SHUCK TEST. THE WOUND WAS IRRIGATED WITH STERILE BETADINE AND WATER FOR 3 MIN. THEN WASHED AGAIN. THE CAPSULE AND THE EXTERNAL ROTATORS WERE APPROXIMATED WITH NUMBER 1 VICRYL. THE FASCIA WITH No 2 QUIL AND THE SUB CUTANEOUS LAYER WITH 2-0 ABSORBABLE SUTURE WITH A RUNNING 3-0 SUBCUTICULAR LAYER WELL. DERMABOND WAS PLACED AND STERILE DRESSING WAS APPLIED. PATIENT WAS PLACED BACK ON TO THE SUPINE POSITION AND WAS EXTUBATED Estimated Blood Loss 100 Complications No immediate complications Condition Stable Disposition PACU
[2023-01-09] MEDS: fentaNYL CITRATE INJ (*CRX) 100 MCG/2 ML VIAL 25 MCG IV PUSH ×2 (10:22→10:30)
--- NOTE | 2023-01-09 11:50 | ADMGEN ---
This patient, Shiloh Hester, was admitted to Medical Room 344-01. Patient/family oriented to hospital policies and general routines including ID bracelet, bed and alarms, visiting hours, pain management, procedures, bathroom and other care routines, personal items, smoking policy, room service/diet, and visiting hours. Information on how to activate the Rapid Response Team has been discussed. Patient/Family are encouraged to report perceived risks to care and to ask questions if they do not understand what they are told or what they should do.
[2023-01-09] MEDS: ATORVASTATIN 40 MG TABLET BY MOUTH (12:45)
[2023-01-09] MEDS: PROPARACAINE HCL 0.5% 15 ML OPHTH SOLN 1 DROP EACH EYE (15:21)
[2023-01-09] MEDS: ASPIRIN 325 MG TABLET PO ×2 (15:25→17:28)
[2023-01-09] MEDS: SENNA/DOCUSATE SODIUM TABLET 2 TAB PO (17:27)
[2023-01-09] MEDS: POLYMYXIN/TRIMETHOPRIM OPHTH 10 ML DROPS 1 DROP EACH EYE ×2 (17:28→20:49)
[2023-01-09] MEDS: DICLOFENAC SODIUM 0.1% OPHTH SOLN 2.5 ML BOTTLE 1 DROP EACH EYE (20:49)
[2023-01-09] MEDS: FAMOTIDINE 20 MG TABLET PO (20:50)
[2023-01-10] VITALS (8 sets, daily range): BP systolic 111–135; BP diastolic 47–79; PULSE 58–88; RESP 16–18; TEMP 36.8–37.1; O2SAT 93–99
[2023-01-10] MEDS: HYDROcodone/acetaminophen (*CRX) 7.5-325 MG TABLET 1 TAB PO ×2 (03:41→08:23)
[2023-01-10 05:55] LABS: Basophils Percent Auto 0.3 % (0.2-1.2); Eosinophils Absolute Auto 0.2 K/mm3 (0-0.3); Eosinophils Percent Auto 2.2 % (0-4.4); Hematocrit 24.1 % (37.0-47.0); Immature Granulocyte Absolute 0.02 K/mm3 (0.00-0.031); Immature Granulocyte Percent A 0.2 % (0-0.5); Lymphocytes Absolute Auto 0.62 K/mm3 (0.9-3.2); Lymphocytes Percent Auto 7.2 % (18.3-44.2); Mean Corpuscular HGB Conc 33.2 g/dl (32-36); Mean Corpuscular Hemoglobin 32.8 pg (26-34); Mean Corpuscular Volume 98.8 fl (80-100); Mean Platelet Volume 8.5 fl (7.4-10.4); Monocytes Absolute Auto 1.1 K/mm3 (0.1-0.6); Monocytes Percent Auto 13.2 % (2.6-8.5); Neutrophils Absolute Auto 6.6 K/mm3 (1.3-6.7); Neutrophils Percent Auto 76.9 % (45.5-73.1); Nucleated Red Blood Cells Perc 0.2 % (0.0-0.2); Platelet Count Result 235 k/mm3 (150-375); Red Blood Count 2.44 M/mm3 (4.2-5.4); Red Cell Distribution Width 14.8 % (11.5-14.5); White Blood Count 8.6 K/mm3 (4.5-10.0)
[2023-01-10] MEDS: ceFAZolin 2 GM/D5W 50 ML 2 GM/50 ML BAG IVPB (05:59)
[2023-01-10] MEDS: DICLOFENAC SODIUM 0.1% OPHTH SOLN 2.5 ML BOTTLE 1 DROP EACH EYE ×3 (05:59→20:31)
[2023-01-10] MEDS: POLYMYXIN/TRIMETHOPRIM OPHTH 10 ML DROPS 1 DROP EACH EYE ×5 (05:59→20:30)
[2023-01-10 06:10] LABS: Anion Gap 3 mmol/L (8-16); Blood Urea Nitrogen 19 mg/dL (7-17); Calcium 8.3 mg/dL (8.4-10.2); Carbon Dioxide 26 mmol/L (22-30); Chloride 99 mmol/L (98-107); Estimated CRCL calculation 60 ml/min; Estimated Glomerular Filt Rate > 60; Glucose 114 mg/dL (65-110); Potassium 4.4 mmol/L (3.4-5.0); Sodium 128 mmol/L (137-145)
[2023-01-10] MEDS: polyethylene glycoL 3350 17 GM POWD.PACK PO (08:24)
[2023-01-10] MEDS: SENNA/DOCUSATE SODIUM TABLET 2 TAB PO ×2 (08:24→17:18)
[2023-01-10] MEDS: VENLAFAXINE HCL XR 75 MG CAP.ER.24H PO (08:24)
[2023-01-10] MEDS: ATORVASTATIN 40 MG TABLET BY MOUTH (08:24)
[2023-01-10] MEDS: CHOLECALCIFEROL 1,000 UNITS TABLET 4000 UNITS PO (08:24)
[2023-01-10] MEDS: NIFEdipine 30 MG TAB.ER.24 60 MG PO ×2 (08:24→17:18)
[2023-01-10] MEDS: CELECOXIB 200 MG CAPSULE PO (08:25)
[2023-01-10] MEDS: FAMOTIDINE 20 MG TABLET PO ×2 (08:25→20:31)
[2023-01-10] MEDS: ASPIRIN 325 MG TABLET PO ×2 (08:25→17:18)
[2023-01-10] MEDS: HYDROXYCHLOROQUINE SULFATE 200 MG TABLET 400 MG PO (08:25)
[2023-01-10] MEDS: lisinopriL 20 MG TABLET 40 MG PO (08:25)
[2023-01-10 12:54] LABS: Glucose Point of Care 107 mg/dl (65-105)
--- NOTE | 2023-01-10 15:00 | PM.PNORT ---
Progress Note: A&P Assessment and Plan (1) Degenerative joint disease of left hip: Qualifiers: Osteoarthritis type: other secondary Qualified Code(s): M16.7 - Other unilateral secondary osteoarthritis of hip Code(s): M16.12 - Unilateral primary osteoarthritis, left hip Status: Acute Assessment and Plan: POD 1 DOING WELL BUT SHE WILL NEED REHAB AND THE BEST SITUATION FOR HER WOULD BE [facility]. STEVEN WILL PLAN FOR DC TOMORROW IF STABLE. Subjective Subjective Date/Time Seen: 01/10/23 15:00 POD 1 DOING WELL. SHE IS HAVING SLOW PROGRESS WITH PT AND WILL REQUIRE REHAB. NO CALF PAIN Exam Extrem: Other: VSS AFEBRILE DRESSING DRY NV INTACT NEG HOMANS SIGN CALF SOFT NON TENDER THIGH NON TENDER Objective Data Vital Signs Vital Signs: Vital Signs - 24 hr 01/09/23 15:27 01/09/23 20:00 01/09/23 21:23 Temperature 36.9 C 37.3 C Pulse Rate 91 80 86 Respiratory Rate 18 17 Blood Pressure 118/73 138/62 Pulse Oximetry 97 98 92 Oxygen Delivery 01/10/23 03:16 01/10/23 05:23 01/10/23 08:00 Temperature 37.1 C Pulse Rate 78 84 Respiratory Rate 18 Blood Pressure 135/61 Pulse Oximetry 99 93 Oxygen Delivery Room Air 01/10/23 10:43 01/10/23 09:23 Temperature 36.9 C Pulse Rate 87 Respiratory Rate 16 Blood Pressure 121/79 Pulse Oximetry 95 99 Oxygen Delivery Room Air Intake/Output Intake/Output: Intake & Output 01/07/23 01/08/23 01/09/23 01/10/23 23:59 23:59 23:59 23:59 Intake Total 730 360 Balance 730 360 Meds/Results Medications: Active Medications Generic Name Dose Route Start Last Admin Trade Name Freq PRN Reason Stop Dose Admin Acetaminophen 650 mg 01/09/23 11:38 Acetaminophen 325 Mg Tablet PO Q6H PRN Mild Pain (1-3) or Fever Hydrocodone Bitart/Acetaminophen 1 tab 01/09/23 11:38 01/10/23 08:23 Hydrocodone/Acetaminophen (*Crx) 7.5-325 Mg Tablet PO 1 tab Q3H PRN Administration Pain Rated 4-6 Hydrocodone Bitart/Acetaminophen 2 tab 01/09/23 11:38 Hydrocodone/Acetaminophen (*Crx) 7.5-325 Mg Tablet PO Q6H PRN Pain Rated 7-10 Artificial Tears 1 drop 01/09/23 14:19 Artificial Tears Ophth Soln 15 Ml Bottle EACH EYE Q2H PRN Dry Eye(s) Aspirin 325 mg 01/09/23 13:05 01/10/23 08:25 Aspirin 325 Mg Tablet PO 325 mg BID NEETA Administration Atorvastatin Calcium 40 mg 01/09/23 11:38 01/10/23 08:24 Atorvastatin 40 Mg Tablet BY MOUTH 40 mg DAILY NEETA Administration Calcium Carbonate 200 mg 01/09/23 11:38 Calcium Carbonate (Tums) 500 Mg (200 Mg Elemental) PO DAILY PRN Indigestion Celecoxib 200 mg 01/10/23 09:00 01/10/23 08:25 Celecoxib 200 Mg Capsule PO 200 mg DAILY NEETA Administration Diazepam 5 mg 01/09/23 11:38 Diazepam (*Crx) 5 Mg Tablet PO Q6H PRN Anxiety/Muscle Spasm Diclofenac Sodium 1 drop 01/09/23 22:00 01/10/23 14:59 Diclofenac Sodium 0.1% Ophth Soln 2.5 Ml Bottle EACH EYE 01/13/23 21:59 1 drop Q8HR NEETA Administration Famotidine 20 mg 01/09/23 21:00 01/10/23 08:25 Famotidine 20 Mg Tablet PO 20 mg Q12HR NEETA Administration Hydroxychloroquine Sulfate 400 mg 01/10/23 09:00 01/10/23 08:25 Hydroxychloroquine Sulfate 200 Mg Tablet PO 400 mg DAILY NEETA Administration Lisinopril 40 mg 01/10/23 09:00 01/10/23 08:25 Lisinopril 20 Mg Tablet PO 40 mg QAM NEETA Administration Naloxone HCl 0.1 mg 01/09/23 11:38 Naloxone Hcl 0.4 Mg/Ml Vial IV PUSH Q2M PRN Opiate Reversal Nifedipine 60 mg 01/09/23 17:00 01/10/23 08:24 Nifedipine 30 Mg Tab.Er.24 PO 60 mg BID NEETA Administration Non-Formulary Medication 1 tablet 01/09/23 11:38 Oxycodone-Acetaminophen PO Q6H PRN pain Ondansetron HCl 4 mg 01/09/23 11:38 Ondansetron Inj 4 Mg/2 Ml Vial IV PUSH Q4H PRN Nausea And Vomiting Polyethylene Glycol 17 gm 01/10/23 09:00 01/10/
--- NOTE | 2023-01-10 15:19 | P.PNAN_ITS ---
Anes - Prog Note Post-Op Date/Time: 01/10/23 15:19 Cardiovascular status: normal Respiratory status: normal Airway patency: baseline Mental status: baseline Post-Op hydration status: normal Vital Signs: Last Vital Signs Temp 37.1 C 01/10/23 13:23 Pulse 58 L 01/10/23 13:23 Resp 18 01/10/23 13:23 BP 111/68 01/10/23 13:23 Pulse Ox 99 01/10/23 13:23 O2 Del Method Room Air 01/10/23 10:43 O2 Flow Rate 6 01/09/23 10:30 Pain Score (VAS): 12/29 I/O: Intake & Output 01/09/23 01/10/23 01/10/23 23:59 07:59 15:59 Intake Total 340 360 Balance 340 360 Laboratory Tests 01/10/23 05:28 01/10/23 05:28 01/10/23 01/10/23 01/10/23 05:28 05:28 12:28 WBC 8.6 RBC 2.44 L Hgb 8.0 L D Hct 24.1 L MCV 98.8 MCH 32.8 MCHC 33.2 RDW 14.8 H Plt Count 235 MPV 8.5 Immature Gran % (Auto) 0.2 Neut % (Auto) 76.9 H Lymph % (Auto) 7.2 L [place] % (Auto) 13.2 H Eos % (Auto) 2.2 Baso % (Auto) 0.3 Lymph # (Auto) 0.62 L [place] # (Auto) 1.1 H Eos # (Auto) 0.2 Baso # (Auto) 0.0 Abs Immat Gran (auto) 0.02 Absolute Neuts (auto) 6.6 Absolute Nucleated RBC 0.0 Nucleated RBC % 0.2 Sodium 128 L Potassium 4.4 Chloride 99 Carbon Dioxide 26 Anion Gap 3 L BUN 19 H Creatinine 0.70 Estim Creat Clear Calc 60 Estimated GFR > 60 Glucose 114 H POC Capillary Glucose 107 H Calcium 8.3 L Post-procedural complaints: none Patient Feedback: Patient satisfied with anesthetic care.
[2023-01-10] MEDS: HYDROcodone/acetaminophen (*CRX) 7.5-325 MG TABLET 2 TAB PO (22:59)
[2023-01-11] VITALS (7 sets, daily range): BP systolic 105–146; BP diastolic 52–80; PULSE 87–88; RESP 16–20; TEMP 36.2; O2SAT 97–99
--- NOTE | ~2023-01-11 | XR_ITS ---
Left Hip Technique: Portable AP and lateral views Clinical History: Status post hip arthroplasty Findings: Patient is status post left hip arthroplasty. Orthopedic hardware alignment appears anatomi c. No hardware complication is evident. Subcutaneous emphysema and swelling is likely postoperative i n nature. No acute osseous fracture is seen. Impression: Status post total left hip arthroplasty, without evidence of hardware complication. Reviewed, dictated and finalized at location . Impression: Status post total left hip arthroplasty, without evidence of hardware complicat ion.
--- NOTE | ~2023-01-11 | XR_ITS ---
EXAMINATION: XR surgery orthopedic DATE: 01/09/2023 10:33 INDICATION: Left total hip arthroplasty TECHNIQUE: Single intraoperative portable frontal view of the left hip was obtained. COMPARISON: 11/17/2022 FINDINGS: Interval resection of the left femoral head and neck and placement of an acetabular component for a p lanned left total hip arthroplasty. Acetabular component is in expected position affixed with at leas t 2 screws. No acute fractures identified. Lucent gas is seen at the surgical wound. Small amount of heterotopic ossification along the left ischial tuberosity. Postoperative change of prior pelvic vent ral hernia mesh repair along with additional surgical clips in the pelvis. IMPRESSION: 1. Expected appearance during a left total hip arthroplasty. See procedure note for further detail. Reviewed, dictated and finalized at location A.
[2023-01-11] MEDS: DICLOFENAC SODIUM 0.1% OPHTH SOLN 2.5 ML BOTTLE 1 DROP EACH EYE ×2 (05:24→22:29)
[2023-01-11] MEDS: POLYMYXIN/TRIMETHOPRIM OPHTH 10 ML DROPS 1 DROP EACH EYE ×4 (05:25→20:14)
[2023-01-11] MEDS: CHOLECALCIFEROL 1,000 UNITS TABLET 4000 UNITS PO (09:32)
[2023-01-11] MEDS: CELECOXIB 200 MG CAPSULE PO (09:32)
[2023-01-11] MEDS: ATORVASTATIN 40 MG TABLET BY MOUTH (09:44)
[2023-01-11] MEDS: VENLAFAXINE HCL XR 75 MG CAP.ER.24H PO (09:44)
[2023-01-11] MEDS: ASPIRIN 325 MG TABLET PO ×2 (09:44→16:41)
[2023-01-11] MEDS: HYDROXYCHLOROQUINE SULFATE 200 MG TABLET 400 MG PO (09:44)
[2023-01-11] MEDS: lisinopriL 20 MG TABLET 40 MG PO (09:44)
[2023-01-11] MEDS: NIFEdipine 30 MG TAB.ER.24 60 MG PO ×2 (09:45→16:41)
[2023-01-11] MEDS: polyethylene glycoL 3350 17 GM POWD.PACK PO (09:45)
[2023-01-11] MEDS: FAMOTIDINE 20 MG TABLET PO ×2 (09:45→20:14)
[2023-01-11] MEDS: SENNA/DOCUSATE SODIUM TABLET 2 TAB PO ×2 (09:45→16:41)
[2023-01-11 10:34] LABS: Basophils Percent Auto 0.2 % (0.2-1.2); Eosinophils Percent Auto 0.1 % (0-4.4); Hematocrit 25.5 % (37.0-47.0); Hemoglobin 8.3 g/dL (12.0-15.0); Immature Granulocyte Absolute 0.05 K/mm3 (0.00-0.031); Immature Granulocyte Percent A 0.5 % (0-0.5); Lymphocytes Percent Auto 8.9 % (18.3-44.2); Mean Corpuscular HGB Conc 32.5 g/dl (32-36); Mean Corpuscular Hemoglobin 32.7 pg (26-34); Mean Corpuscular Volume 100.4 fl (80-100); Mean Platelet Volume 8.5 fl (7.4-10.4); Monocytes Absolute Auto 1.1 K/mm3 (0.1-0.6); Neutrophils Percent Auto 79.3 % (45.5-73.1); Platelet Count Result 248 k/mm3 (150-375); Red Blood Count 2.54 M/mm3 (4.2-5.4); Red Cell Distribution Width 14.9 % (11.5-14.5); White Blood Count 10.1 K/mm3 (4.5-10.0)
[2023-01-11 10:47] LABS: Anion Gap 4 mmol/L (8-16); Blood Urea Nitrogen 16 mg/dL (7-17); Calcium 8.6 mg/dL (8.4-10.2); Carbon Dioxide 28 mmol/L (22-30); Chloride 98 mmol/L (98-107); Estimated CRCL calculation 69 ml/min; Estimated Glomerular Filt Rate > 60; Glucose 139 mg/dL (65-110); Potassium 3.7 mmol/L (3.4-5.0); Sodium 130 mmol/L (137-145)
--- NOTE | 2023-01-11 13:07 | PM.PNORT ---
Progress Note: A&P Assessment and Plan (1) S/P total hip arthroplasty: Qualifiers: Laterality: left Qualified Code(s): Z96.642 - Presence of left artificial hip joint Code(s): Z96.649 - Presence of unspecified artificial hip joint Status: Acute Assessment and Plan: POD #2 : Left WILLIAM HgB Stable. NA improving. Recommended orthostatics given dizziness with PT. Orders placed. Continue PT/OT. WBAT. Walker. HIGH FALL RISK. Continue pain control. Ice hip. Protect skin. DVT prophylaxis with Aspirin. SCDs. Incentive Spirometry Use reviewed. Monitor Dressing. Change prior to discharge. Bowel Regimen. Dispo: SUE vs. Home with Home Health pending progress with PT/OT Subjective Subjective Date/Time Seen: 01/11/ 13:07 Post Op day: 2 Interval history: POD #2: Left WILLIAM Patient reports dizziness with PT. Slow progress with PT/OT. Concerned about going home with home health. Would like more assistance at discharge. Review of Systems Constitutional: Constitutional: Denies chills, Denies fatigue, Denies fever(s), Denies night sweats and Denies weakness Cardiovascular: Cardiovascular: Denies chest pain, Denies lightheadedness, Denies palpitations and Denies dyspnea Respiratory: Respiratory: Denies cough, Denies dyspnea and Denies wheezing Gastrointestinal: Gastrointestinal: Denies abdominal pain, Denies diarrhea, Denies nausea and Denies vomiting Musculoskeletal: Musculoskeletal: Reports arthralgias (left hip ), Reports joint swelling (left hip ) and Denies numbness Neurologic: Denies numbness and Denies weakness Endocrine: Endocrine: Denies fatigue and Denies palpitations Allergic/Immunologic: Allergic/Immunologic: Denies wheezing Exam Const: General: comfortable and no acute distress Orientation/consciousness: patient oriented x3 Limitations: no limitations Resp: Effort & Inspection: normal respiratory effort Cardio: Rate: regular rate Rhythm: regular rhythm GI: Inspection: non-distended Skin: General skin exam: normal color and wounds noted (incision left hip C/D/I ) Wounds: wounds noted (incision left hip C/D/I ) Neuro: General: patient oriented x3 Extrem: Left lower extremity: hip/thigh Details: tenderness Location: of the hip Location: laterally and anteriorly, swelling (thigh soft ) Location: of the hip (lateral. ), abnormal ROM (limitations with internal/external rotation and flexion/extension due to recent surgical intervention ) and other (incision lateral hip c/d/i. ), knee Details: normal to inspection and normal ROM; no tenderness and no swelling, lower leg (Negative Precious's Sign ) Details: no edema, ankle (+ankle dorsiflexion/plantarflexion ) Details: normal to inspection, no edema and normal ROM; no tenderness, no swelling and no warmth and foot Details: normal capillary refill, toes with normal ROM, vascular exam Details: dorsalis pedis pulse present and motor-sensory exam light-touch normal in all toes; no tenderness, no ecchymosis and no crepitus Psych: Mental Status: mental status grossly normal Affect: normal affect Objective Data Vital Signs Vital Signs: Vital Signs - 24 hr 01/10/23 13:23 01/10/23 21:11 01/10/23 20:00 Temperature 37.1 C 36.8 C Pulse Rate 58 L 88 88 Respiratory Rate 18 18 18 Blood Pressure 111/68 111/47 L Pulse Oximetry 99 95 95 Oxygen Delivery Room Air 01/10/23 21:45 01/11/23 04:50 01/11/23 09:45 Temperature 36.2 C L Pulse Rate 71 88 Respiratory Rate 18 Blood Pressure 105/73 Pulse Oximetry 98 99 Oxygen Delivery Room Air Intake/Output Intake/Output: Intake & Output 01/08/23 01/09/23 01/10/23 01/11/23 23:59 23:59 23:59 23:59 Intake Total 730 1460 660 Balance 730 1460 660 Meds/Results Medications: Active Medications Generic Name Dose Route Start Last Admin Trade Name Freq PRN Reason Stop Dose Admin Acetaminophen 650 mg 01/09/23 11:38 Acetaminophen 325 Mg Tablet PO Q6H PRN
[2023-01-11] MEDS: HYDROcodone/acetaminophen (*CRX) 7.5-325 MG TABLET 1 TAB PO (22:28)
[2023-01-12 04:59] VITALS: BP 98/58; PULSE 92; RESP 18; TEMP 36.6; O2SAT 95
[2023-01-12] MEDS: DICLOFENAC SODIUM 0.1% OPHTH SOLN 2.5 ML BOTTLE 1 DROP EACH EYE (06:57)
[2023-01-12] MEDS: POLYMYXIN/TRIMETHOPRIM OPHTH 10 ML DROPS 1 DROP EACH EYE (06:57)
[2023-01-12 08:00] VITALS: BP 110/60; PULSE 97; RESP 20; TEMP 36.3; O2SAT 95
--- NOTE | 2023-01-12 09:30 | PM.PNORT ---
Progress Note: A&P Assessment and Plan (1) S/P total hip arthroplasty: Qualifiers: Laterality: left Qualified Code(s): Z96.642 - Presence of left artificial hip joint Code(s): Z96.649 - Presence of unspecified artificial hip joint Status: Acute Assessment and Plan: POD #3: Left WILLIAM Orthostatic BP negative. Dizziness could be related to narcotic use. Continue PT/OT. WBAT. Walker. HIGH FALL RISK. Continue pain control. Ice hip. Protect skin. DVT prophylaxis with Aspirin. SCDs. Incentive Spirometry Use reviewed. Monitor Dressing. Change prior to discharge. Bowel Regimen. Dispo: SUE vs. Home with Home Health pending progress with PT/OT Time Spent With Patient Time: Reviewed postoperative labs, BP, dizziness with PT and discharge planning with attending MD, Dr. Ayala. Agrees with current plan as indicated above. No further recommendations. Subjective Subjective Date/Time Seen: 01/12/ 09:30 Post Op day: 3 Interval history: POD #3: Left WILLIAM Patient reports improvement with dizziness with PT. Slow progress with PT/OT. Concerned about going home with home health. Would like more assistance at discharge. Review of Systems Constitutional: Constitutional: Denies chills, Denies fatigue, Denies fever(s), Denies night sweats and Denies weakness Cardiovascular: Cardiovascular: Denies chest pain, Denies lightheadedness, Denies palpitations and Denies dyspnea Respiratory: Respiratory: Denies cough, Denies dyspnea and Denies wheezing Gastrointestinal: Gastrointestinal: Denies abdominal pain, Denies diarrhea, Denies nausea and Denies vomiting Musculoskeletal: Musculoskeletal: Reports arthralgias (left hip ), Reports joint swelling (left hip ) and Denies numbness Neurologic: Denies numbness and Denies weakness Endocrine: Endocrine: Denies fatigue and Denies palpitations Allergic/Immunologic: Allergic/Immunologic: Denies wheezing Exam Const: General: comfortable and no acute distress Orientation/consciousness: patient oriented x3 Limitations: no limitations Resp: Effort & Inspection: normal respiratory effort Cardio: Rate: regular rate Rhythm: regular rhythm GI: Inspection: non-distended Skin: General skin exam: normal color and wounds noted (incision left hip C/D/I ) Wounds: wounds noted (incision left hip C/D/I ) Neuro: General: patient oriented x3 Extrem: Left lower extremity: hip/thigh Details: tenderness Location: of the hip Location: laterally and anteriorly, swelling (thigh soft ) Location: of the hip (lateral. ), abnormal ROM (limitations with internal/external rotation and flexion/extension due to recent surgical intervention ) and other (incision lateral hip c/d/i. ), knee Details: normal to inspection and normal ROM; no tenderness and no swelling, lower leg (Negative Precious's Sign ) Details: no edema, ankle (+ankle dorsiflexion/plantarflexion ) Details: normal to inspection, no edema and normal ROM; no tenderness, no swelling and no warmth and foot Details: normal capillary refill, toes with normal ROM, vascular exam Details: dorsalis pedis pulse present and motor-sensory exam light-touch normal in all toes; no tenderness, no ecchymosis and no crepitus Psych: Mental Status: mental status grossly normal Affect: normal affect Objective Data Vital Signs Vital Signs: Vital Signs - 24 hr 01/11/23 09:45 01/11/23 13:06 01/11/23 13:48 Temperature Pulse Rate Respiratory Rate Blood Pressure 126/52 L 124/70 Pulse Oximetry Oxygen Delivery Room Air 01/11/23 13:48 01/11/23 14:00 01/11/23 20:36 Temperature 36.2 C L Pulse Rate 87 Respiratory Rate 20 Blood Pressure 146/72 H 126/52 L Pulse Oximetry 98 98 Oxygen Delivery Room Air 01/11/23 21:06 01/11/23 23:18 01/12/23 04:59 Temperature 36.2 C L 36.6 C Pulse Rate 88 87 92 Respiratory Rate 16 18 Blood Pressure 107/80 98/58 L Pulse Oximetry 97 98 95 Oxygen Delivery Intake/Out
[2023-01-12] MEDS: lisinopriL 20 MG TABLET 40 MG PO (10:04)
[2023-01-12] MEDS: polyethylene glycoL 3350 17 GM POWD.PACK PO (10:04)
[2023-01-12] MEDS: SENNA/DOCUSATE SODIUM TABLET 2 TAB PO (10:04)
[2023-01-12] MEDS: HYDROXYCHLOROQUINE SULFATE 200 MG TABLET 400 MG PO (10:04)
[2023-01-12] MEDS: ASPIRIN 325 MG TABLET PO (10:05)
[2023-01-12] MEDS: CELECOXIB 200 MG CAPSULE PO (10:05)
[2023-01-12] MEDS: CHOLECALCIFEROL 1,000 UNITS TABLET 4000 UNITS PO (10:05)
[2023-01-12] MEDS: VENLAFAXINE HCL XR 75 MG CAP.ER.24H PO (10:05)
[2023-01-12] MEDS: ATORVASTATIN 40 MG TABLET BY MOUTH (10:05)
[2023-01-12] MEDS: FAMOTIDINE 20 MG TABLET PO (10:06)
[2023-01-12 11:54] VITALS: BP 120/58
[2023-01-12 16:46] LABS: EDCOVIDSCREEN Negative (Negative)
--- NOTE | 2023-02-12 14:36 | PM.DS ---
DS: Admitting Diagnosis Discharge Date 01/12/23 Admitting Diagnosis Left Hip DJD DS: Discharge Diagnosis Discharge Diagnosis (1) S/P total hip arthroplasty: Qualifiers: Laterality: left Qualified Code(s): Z96.642 - Presence of left artificial hip joint Code(s): Z96.649 - Presence of unspecified artificial hip joint Status: Acute Assessment and Plan: POD #3: Left WILLIAM Orthostatic BP negative. Dizziness could be related to narcotic use. Continue PT/OT. WBAT. Walker. HIGH FALL RISK. Continue pain control. Ice hip. Protect skin. DVT prophylaxis with Aspirin. SCDs. Incentive Spirometry Use reviewed. Monitor Dressing. Change prior to discharge. Bowel Regimen. Dispo: SUE vs. Home with Home Health pending progress with PT/OT DS: Summary Hospital Course Reason for hospitalization: Left WILLIAM Hospital Course: 77 year old female admitted s/p Left WILLIAM for postoperative medical management, pain control and mobilization with PT/OT. Patient progressed well with PT/OT. Pain and vitals remained stable throughout. The patient has been cleared to be discharged to a alf facility at this time due to more need for assistance with mobility and living alone. All discharge care instructions reviewed at depth. New medications reviewed. Follow up planned for 3 weeks in the outpatient orthopedic clinic with Dr. Ayala. Status at Discharge Functional status at discharge: uses cane/walker Overall status at discharge: patient is progressing back to baseline (slow progress, requiring more help. ) Time Spent with Patient Time attestation: Total time spent providing and/or coordinating discharge services: Exam Const: General: comfortable and no acute distress Orientation/consciousness: patient oriented x3 Limitations: no limitations Resp: Effort & Inspection: normal respiratory effort Cardio: Rate: regular rate Rhythm: regular rhythm GI: Inspection: non-distended Skin: General skin exam: normal color and wounds noted (incision left hip C/D/I ) Wounds: wounds noted (incision left hip C/D/I ) Neuro: General: patient oriented x3 Extrem: Left lower extremity: hip/thigh Details: tenderness Location: of the hip Location: laterally and anteriorly, swelling (thigh soft ) Location: of the hip (lateral. ), abnormal ROM (limitations with internal/external rotation and flexion/extension due to recent surgical intervention ) and other (incision lateral hip c/d/i. ), knee Details: normal to inspection and normal ROM; no tenderness and no swelling, lower leg (Negative Precious's Sign ) Details: no edema, ankle (+ankle dorsiflexion/plantarflexion ) Details: normal to inspection, no edema and normal ROM; no tenderness, no swelling and no warmth and foot Details: normal capillary refill, toes with normal ROM, vascular exam Details: dorsalis pedis pulse present and motor-sensory exam light-touch normal in all toes; no tenderness, no ecchymosis and no crepitus Psych: Mental Status: mental status grossly normal Affect: normal affect Discharge Plan Discharge Attending physician on discharge: Bryce Ayala Consulting providers: Nicko Quinn ; Nataliya Marquez ; Gregg Salcido ; Sai Mercedes ; Amanda Moon Discharging Clinician: Nataliya Marquez Patient Disposition: Inpatient Rehab Facility Activity: may shower, no driving and follow weight bearing status Diet: as tolerated Wound Care Instructions: follow printed instructions Discharge Instructions: Post Op Total Hip Replacement Instructions Dr. Bryce Ayala [phone] Your dressing will be changed prior to your discharge. You will be sent home with one additional dressing to be changed on post op day 7 by the home health RN. You may remove the dressing on post op day 14. Your incision was closed with dermabond, allow the dermabond to fall off naturally once your dressing is removed. Do not pull at the dermabond or disrupt inci
== END 2023-01-12 17:15 ==
LOC: ANHSURGERY 09:23 → ANH3MED 09:23
PROVIDERS: Nurse Practitioner Family; Admitting Provider Orthopaedic Surgery; PCP Family Medicine; Visit Provider Orthopaedic Surgery
PROC: (CPT 27130; principal; 2023-01-09 07:30)
DX: M16.12 Unilateral primary osteoarthritis, left hip (principal); M16.7 Other unilateral secondary osteoarthritis of hip; I12.9 Hypertensive chronic kidney disease with stage 1 through stage 4 chronic kidney disease, or unspecified chronic kidney disease; N18.30 Chronic kidney disease, stage 3 unspecified; M47.816 Spondylosis without myelopathy or radiculopathy, lumbar region; F32.A Depression, unspecified; K21.9 Gastro-esophageal reflux disease without esophagitis; Z20.822 Contact with and (suspected) exposure to COVID-19; K58.9 Irritable bowel syndrome, unspecified; R29.6 Repeated falls; G47.33 Obstructive sleep apnea (adult) (pediatric); R53.1 Weakness; F10.90 Alcohol use, unspecified, uncomplicated; Z87.891 Personal history of nicotine dependence; Z79.1 Long term (current) use of non-steroidal anti-inflammatories (NSAID); Z79.82 Long term (current) use of aspirin; Z79.891 Long term (current) use of opiate analgesic; Z79.899 Other long term (current) drug therapy; Z82.49 Family history of ischemic heart disease and other diseases of the circulatory system
CPT/HCPCS: 27130; 36415; 73502; 80048; 80307; 81001; 82040; 82948; 85025; 85610; 85730; 86850; 86900; 86901; 87081; 87426; 97110; 97116; 97161; 97165; 97530; 97535; 99199; A9270; C1713; C1776; C9803; G0378; J0171; J0330; J0690; J1100; J1170; J1885; J2270; J2405; J2704; J2710; J2795; J3010; J7120

== ENCOUNTER 2023-03-06 17:38 | Observation (INO) | payer MEDICARE, SELFPAY ==
--- NOTE | ~2023-03-06 | XR_ITS ---
Lumbosacral Spine: AP and lateral views Clinical History: Pain COMPARISON: 01/30/2022 Findings: 2 cm anterolisthesis of L5 over S1 present, similar to prior exam. Suspected underlying par s defects at L5. There is severe degenerative disc narrowing at L4-L5 and L5-S1 with moderate to adva nced degenerative disc narrowing at remaining lumbar levels. There is severe facet arthropathy throug hout the lumbar spine. The sacroiliac joints are normally outlined. Impression: 2 cm anterolisthesis of L5 over S1, similar to prior exam, with suspected underlying pars interarticu mark defects at L5. Severe degenerative spondylosis of the lumbar spine, as noted above. Reviewed, dictated and finalized at location . Impression: 2 cm anterolisthesis of L5 over S1, similar to prior exam, with suspected under lying pars interarticularis defects at L5. Severe degenerative spondylosis of the lumbar spine, as noted above.
--- NOTE | ~2023-03-06 | US_ITS ---
EXAMINATION: US venous doppler [facility] DATE: 03/12/2023 13:40 INDICATION: Deep vein thrombosis involving a left peroneal vein. Abdominal pain. TECHNIQUE: Grayscale ultrasound images without and with compression and Doppler ultrasound images of the left lower extremity veins were obtained. COMPARISON: Ultrasound 03/06/2023 FINDINGS: The visualized portions of left common femoral vein, profunda (deep) femoral vein, femoral vein, popl iteal vein, peroneal veins, posterior tibial veins, and greater saphenous vein outflow are patent. IMPRESSION: 1. No deep venous thrombosis. Reviewed, dictated and finalized at location A.
--- NOTE | ~2023-03-06 | US_ITS ---
EXAMINATION: US venous doppler [facility] DATE: 03/06/2023 20:33 INDICATION: Bilateral lower limb pain TECHNIQUE: Grayscale ultrasound images without and with compression and Doppler ultrasound images of the bilateral lower extremity veins were obtained. COMPARISON: None. FINDINGS: The visualized portions of right common femoral vein, profunda (deep) femoral vein, femoral vein, pop liteal vein, posterior tibial veins, peroneal veins, gastrocnemius vein and greater saphenous vein ou tflow are patent. 4.4 x 1.8 x 2.4 cm Lin's cyst at the right popliteal fossa. Noncompressible occlusive appearing deep venous thrombosis in the left peroneal vein. The visualized portions of left common femoral vein, profunda femoral vein, femoral vein, popliteal vein, posterior tibial veins, gastrocnemius vein and greater saphenous vein outflow are patent. IMPRESSION: 1. Icegi-sfr-idst deep venous thrombosis in the left peroneal vein. 2. No deep venous thrombosis in the right lower limb. 3. Moderate-sized Lin's cyst at the left popliteal fossa. Reviewed, dictated and finalized at location A. IMPRESSION: 1. Irmgm-uck-mnsh deep venous thrombosis in the left peroneal vein. 2. No deep venous thrombosis in the right lower limb. 3. Moderate-sized Lin's cyst at the left popliteal fossa.
--- NOTE | ~2023-03-06 | CT_ITS ---
EXAMINATION: CT lumbar spine wo con, CT pelvis wo con DATE: 03/06/2023 19:49 INDICATION: Bilateral low back pain radiating down both legs TECHNIQUE: 1. Computed tomography (CT) of the lumbar spine was performed without intravenous contrast. Automated exposure control and iterative reconstruction technique were employed. The dose-length product was 1 274.59 mGy-cm. 2. CT of the pelvis was performed without intravenous contrast. Automated exposure control and iterat glen reconstruction technique were employed. The dose-length product was 580.79 mGy-cm. COMPARISON: Lumbar spine radiographs dated 01/30/2022 and pelvis and left hip radiographs dated 023 FINDINGS: Lumbar spine: Chronic L5 spondylolysis with bilateral pars intra-articular is defects and no significant interval c hange in a 12 mm anterolisthesis L5 on S1. Alignment is otherwise normal. Severe associated disc heig ht loss at L5-S1 with likely secondary posterior endplate remodeling and mild posterior vertebral bod y height loss at L5. Additional chronic appearing mild compression fracture along the right anterior superior endplate of L3 with up to 20% vertebral body height loss. No typical appearing likely physio logic mild anterior wedging at T11 and T12. No acute fractures identified. There are bridging or near ly bridging osteophytes at multiple levels in the lower thoracic and upper lumbar spine, consistent w ith diffuse idiopathic skeletal hyperostosis (DISH). There is additional moderate to severe disc heig ht loss at L4-L5, moderate disc height loss at T9-T10, T10-T11, L2-L3 and L3-L4 and mild disc height loss at T11-T12 through L1-L2. There is vacuum phenomenon associated with many of the disc spaces. Pa rtially visualized 4.8 cm right renal cyst. Retroperitoneal surgical clips extending cephalad from th e pelvis likely related to prior bilateral pelvic lymph node dissections. The following disc levels a re specifically discussed: T11-T12: Disc is mildly bulging with small focus of gas at the right neural foramen slightly cephalad to the level of the inferior endplate of T11 likely representing vacuum phenomena eccentric annular fissure into a small disc extrusion. There is mild bilateral facet joint osteoarthritis. There is mil d bilateral neural foraminal stenosis. There is mild central canal stenosis. T12-L1: Disc is bulging. There is left and moderate right facet joint osteoarthritis. There is mild r ight and moderate left neural foraminal stenosis. There is mild central canal stenosis. L1-L2: Disc is bulging. There is moderate bilateral facet joint osteoarthritis. There is moderate yarely ateral neural foraminal stenosis. There is moderate central canal stenosis. L2-L3: Disc is bulging. There is severe bilateral facet joint osteoarthritis. There is moderate right and mild left neural foraminal stenosis. There is severe central canal stenosis. L3-L4: Disc is bulging. There is severe bilateral facet joint osteoarthritis. There is severe left an d moderate to severe right neural foraminal stenosis. There is severe central canal stenosis. L4-L5: Disc is bulging. There is severe bilateral facet joint osteoarthritis. There is moderate bilat eral neural foraminal stenosis. There is mild central canal stenosis. L5-S1: Disc is bulging. There is moderate bilateral facet joint osteoarthritis along with bilateral p ars intra-articular is defects. There is moderate to severe bilateral neural foraminal stenosis. Ther e is mild central canal stenosis. Pelvis: Partially visualized left total hip arthroplasty which appears well seated in near-anatomic alignment . There is an 8.5 x 2.6 x 8.3 cm loculated thick-walled fluid collection overlying the left greater t rochanter which is concerning for infection and abscess. There appears be osteolysis with increased l ucency surrounding the acetabular component with periprosthetic fracture extending across the midport
--- NOTE | ~2023-03-06 | XR_ITS ---
AP view of the pelvis and AP and lateral views of the left hip Clinical history: Pain Findings: Left hip arthroplasty is in place. There is a probable healing fracture of left acetabulum with probable partial callus formation as compared to prior exam. Right hip joint space is preserved. Possible mild erosive changes of the left ischium. Soft tissues are unremarkable. Impression: Left acetabular fracture with partial interval healing as compared to 02/05/2023. Possible erosive changes of the left ischium. This could reflect osteolysis or osteomyelitis. Left hip arthroplasty hardware in place. Right hip joint is preserved. Please note that sacral insufficiency fractures seen on CT scan dated 03/06/2023 are not clearly visib le on plain radiography. Reviewed, dictated and finalized at [facility]. Impression: Left acetabular fracture with partial interval healing as compared to 02/05/2023 . Possible erosive changes of the left ischium. This could reflect osteolysis or osteomyelitis. Left hip arthroplasty hardware in place. Right hip joint is preserved. Please note that sacral insufficiency fractures seen on CT scan dated 03/06/2023 are not clearly visible on plain radiography.
--- NOTE | ~2023-03-06 | MR_ITS ---
MRI of the lumbar spine Clinical History: Spinal fractures Technique: Axial T2-weighted images, and sagittal T1-weighted, T2-weighted, and T2 fat-sat images wer e acquired. Findings: There are chronic bilateral L5 pars and articularis defects, with associated 1 cm anterolis thesis of L5 over S1. Extensive marrow edema in the bilateral sacral alae is consistent with bilatera l sacral insufficiency fractures. No other fracture evident. At L1-L2, there is moderate degenerative disc narrowing. There is mild disc bulge and advanced facet arthropathy. There is minimal central canal stenosis. There is preservation of bilateral neural kristal munir. At L2-L3, there is advanced degenerative disc narrowing. Disc bulge and severe facet arthropathy resu lt in severe spinal canal stenosis/thecal sac compression. There is moderate to advanced right neural foraminal narrowing. Left neural foramen is preserved. L3-L4, there is advanced degenerative disc narrowing. Disc bulge and severe facet arthropathy result in severe central canal stenosis/thecal sac compression. There is severe bilateral neural foraminal c ompromise. At L4-L5, there is moderate to advanced degenerative disc narrowing. Diffuse disc bulge and moderate to advanced facet arthropathy are present, with probable bilateral lateral recess stenosis, right wor se than left. There is severe right neural foraminal narrowing and moderate left neural foraminal deisy rowing. At L5-S1, there is diffuse disc bulge/disc uncovering with advanced facet arthropathy. There is sever e bilateral neural foraminal compromise. No definite central canal stenosis. Paravertebral soft tissues are unremarkable. Impression: Bilateral sacral alar insufficiency fractures. Chronic L5 pars interarticularis defects with 1 cm anterolisthesis of L5 over S1. Severe degenerative spondylosis throughout the lumbar spine, as detailed above. There is severe centr al canal stenosis at L2-L3 and L3-L4, with multilevel neural foraminal narrowing. Reviewed, dictated and finalized at location . Impression: Bilateral sacral alar insufficiency fractures. Chronic L5 pars interarticularis defects with 1 cm anterolisthesis of L5 over S 1. Severe degenerative spondylosis throughout the lumbar spine, as detailed above. There is severe central canal stenosis at L2-L3 and L3-L4, with multilevel dajuan ral foraminal narrowing.
--- NOTE | ~2023-03-06 | CT_ITS ---
EXAMINATION: CT abdomen pelvis wo con DATE: 03/12/2023 13:26 INDICATION: Abdominal pain. TECHNIQUE: Computed tomography (CT) of the abdomen and pelvis was performed without intravenous contr ast. Automated exposure control and iterative reconstruction technique were employed. The dose-length product was 716.84 mGy-cm. COMPARISON: CT abdomen and pelvis 01/04/2018, CT pelvis 03/06/2023 FINDINGS: The visualized portions of the lung bases demonstrate minimal atelectasis. No pleural effus ion. The heart size is normal. No pericardial effusion. There is a small sliding hiatal hernia. The l iver and spleen are normal. There are calcifications in the pancreas, consistent with chronic pancrea titis. Right adrenal gland is normal. There is a 13 mm mass of left adrenal gland measuring low-atten uation, consistent with an adenoma. There are cysts in the kidneys measuring up to 4.9 cm on the righ t. There is diverticulosis of the colon without evidence of diverticulitis. There is a large volume o f stool in the colon. The appendix is not visualized. There is an infraumbilical ventral hernia repai r. There is an infraumbilical ventral hernia containing fat. There are chronic bilateral L5 pars defe cts. There is 12 mm anterolisthesis of L5 on S1. There is a chronic compression fracture of L3. There is mild chronic anterior wedging of T11 and T12 vertebral bodies. There is severe lumbar spondylosis . There is a total left hip arthroplasty. There is a transverse fracture of left acetabulum with call us formation. There is a 5.7 x 2.5 cm x 13.2 cm hematoma lateral to proximal left femur. There are in sufficiency fractures of the bilateral sacral ala. Osteitis pubis is noted. There is moderate osteoar thritis. IMPRESSION: 1. Healing transverse periprosthetic fracture of left acetabulum. 2. Insufficiency fractures of bilateral sacral ala again seen. 3. 5.7 x 2.5 x 13.2 cm hematoma lateral to the proximal left femur with mild improvement. 4. Infraumbilical ventral hernia containing fat. Reviewed, dictated and finalized at location A. IMPRESSION: 1. Healing transverse periprosthetic fracture of left acetabulum. 2. Insufficiency fractures of bilateral sacral ala again seen. 3. 5.7 x 2.5 x 13.2 cm hematoma lateral to the proximal left femur with mild im provement. 4. Infraumbilical ventral hernia containing fat.
[2023-03-06 17:51] VITALS: BP 95/67; PULSE 99; RESP 17; TEMP 36.7; O2SAT 100
[2023-03-06] MEDS: SODIUM CHLORIDE 0.9% IV 1,000 ML 999 ML IV CONT (19:29)
[2023-03-06] MEDS: ONDANSETRON INJ 4 MG/2 ML VIAL IV PUSH (19:29)
[2023-03-06] MEDS: MORPHINE SULFATE (*CRX) 4 MG/ML INJ IV PUSH ×2 (19:30→21:27)
--- NOTE | 2023-03-06 19:34 | ED.BACK ---
HPI - Back Pain/Injury General Chief Complaint: Back Pain/Injury <CARMEN Mann Filed: 03/07/23 01:12> Stated Complaint: Back pain <CARMEN Mann Last Filed: 03/07/23 01:12> Time Seen by Provider: 03/06/23 18:49 <CARMEN Mann Last Filed: 03/07/23 01:12> Source: patient and family <CARMEN Mann Filed: 03/07/23 01:12> Mode of arrival: ambulatory <CARMEN Mann Filed: 03/07/23 01:12> Limitations: no limitations <CARMEN Mann Filed: 03/07/23 01:12> History of Present Illness HPI Narrative: Patient is a 77 y/o female who presents to the ED with c/o lower back pain radiating down BLE. Patient reports a recent L hip replacement on 01/[address] Ayala. She has been undergoing therapy and doing relatively well since then. She developed pain in her lower back, radiating down her posterior legs bilaterally. She states the pain goes all the way down to her ankles. The pain seems to be slightly worse on the left side than the right. She has been able to ambulate, but has pain with this. She tried taking leftover OxyContin twice today, did report relief with the first pill, but was unable to find relief this afternoon, which prompted her presentation. She denies any numbness, tingling, weakness, saddle anesthesia, incontinence, retention, abdominal pain, nausea, vomiting, fevers. <CARMEN Mann Last Filed: 03/07/23 01:12> Related Data Home Medications: Home Medications Medication Instructions Recorded Confirmed acetaminophen 650 mg 1,300 mg PO BID PRN Pain 09/12/19 03/07/23 tablet,extended release (Tylenol 8 Hour) aspirin 325 mg tablet 325 mg PO DAILY 09/12/19 03/07/23 cholecalciferol (vitamin D3) 50 4,000 unit PO DAILY 09/12/19 03/07/23 mcg (2,000 unit) tablet calcium carbonate 500 mg calcium 500 mg PO DAILY PRN Indigestion 11/10/22 03/07/23 (1,250 mg) chewable tablet nifedipine 60 mg tablet,extended 60 mg PO BID 11/10/22 03/07/23 release 24 hr atorvastatin 40 mg tablet (Lipitor) 40 mg PO DAILY 03/07/23 03/07/23 polyethylene glycol 3350 17 17 g PO PRN PRN Constipation 03/07/23 03/07/23 gram/dose oral powder (Miralax) <CARMEN Mann Last Filed: 03/07/23 01:12> Allergies/Adverse Reactions: Allergies Allergy/AdvReac Type Severity Reaction Status Date / Time No Known Allergies Allergy Verified 03/06/23 18:59 <CARMEN Mann Last Filed: 03/07/23 01:12> Review of Systems Review of Systems: CONSTITUTIONAL: Denies fever, chills, or sweats. CARDIOVASCULAR: Denies chest pain. RESPIRATORY: Denies dyspnea. GASTROINTESTINAL: Denies abdominal pain, nausea, vomiting, or diarrhea. MUSCULOSKELETAL: See HPI. NEUROLOGIC: See HPI. 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
[2023-03-06 21:23] LABS: Basophils Percent Auto 0.4 % (0.2-1.2); Hematocrit 28.2 % (37.0-47.0); Hemoglobin 8.7 g/dL (12.0-15.0); Immature Granulocyte Absolute 0.06 K/mm3 (0.00-0.031); Immature Granulocyte Percent A 0.6 % (0-0.5); Lymphocytes Absolute Auto 0.41 K/mm3 (0.9-3.2); Lymphocytes Percent Auto 4.1 % (18.3-44.2); Mean Corpuscular HGB Conc 30.9 g/dl (32-36); Mean Platelet Volume 8.2 fl (7.4-10.4); Monocytes Absolute Auto 0.7 K/mm3 (0.1-0.6); Monocytes Percent Auto 6.6 % (2.6-8.5); Neutrophils Absolute Auto 8.9 K/mm3 (1.3-6.7); Neutrophils Percent Auto 88.3 % (45.5-73.1); Platelet Count Result 411 k/mm3 (150-375); Red Cell Distribution Width 16.7 % (11.5-14.5)
[2023-03-06] MEDS: CEFEPIME 2 GM/NS 50 ML 2 GM/50 ML BAG IVPB (21:27)
[2023-03-06 21:39] VITALS: PULSE 100; RESP 15; O2SAT 97
[2023-03-06 21:51] LABS: Alanine Aminotransferase 23 U/L (6-35); Albumin Level 4.5 g/dL (3.5-5.1); Alkaline Phosphatase 152 U/L (38-126); Anion Gap 10 mmol/L (8-16); Aspartate Amino Transferase 40 U/L (14-36); Bilirubin,Total 0.5 mg/dL (0.2-1.3); Blood Urea Nitrogen 15 mg/dL (7-17); Calcium 8.9 mg/dL (8.4-10.2); Carbon Dioxide 22 mmol/L (22-30); Chloride 101 mmol/L (98-107); Estimated CRCL calculation 69 ml/min; Estimated Glomerular Filt Rate > 60; Glucose 97 mg/dL (65-110); Sodium 133 mmol/L (137-145)
[2023-03-06 22:15] VITALS: BP 149/72; PULSE 95; RESP 17; O2SAT 93
[2023-03-06 22:28] LABS: Erythrocyte Sedimentation Rate 49 mm/hr (0-20)
--- NOTE | 2023-03-06 23:45 | PC.NURSE ---
Spoke with Myra AGEE about Vancomycin IV being DC'd. Per Myra AGEE finish the bag of Vancomycin.
[2023-03-07] VITALS (7 sets, daily range): BP systolic 102–148; BP diastolic 59–90; PULSE 78–99; RESP 18; TEMP 36.3–37.2; O2SAT 96–100; BMI 28.9
[2023-03-07 00:46] LABS: Estimated CRCL calculation 69 ml/min; Estimated Glomerular Filt Rate > 60; Prothrombin Time 14.1 Seconds (11.1-14.7)
[2023-03-07 00:47] LABS: Partial Thromboplastin Time 26.6 SECONDS (22.3-36.8)
--- NOTE | 2023-03-07 07:52 | PM.IMHP ---
H&P: HPI History of Present Illness Date/Time: 03/07/23 07:52 Chief Complaint: Back pain Narrative: 77-year-old female with a past medical history of chronic back pain, essential hypertension, obstructive sleep apnea, hyperlipidemia and depression who presented to the ER with complaints of low back pain. She denies any specific known injury but states that she was cleaning the house tonight for in thing she may have pulled something. Pain starts in lower back and radiates down the back of both lower extremities. She has been undergoing physical therapy as she recently had a left hip replacement. She reports that she has been doing relatively well since then until the . The patient cannot tell me of the pain goes all way down to her calves. She does states that it hurts. She cannot give me a quality to the pain. She had some leftover OxyContin and took that twice prior to coming to the ER. The 1st dose of OxyContin relieved her pain but when the pain returned in the afternoon the 2nd dose of pain medication did not relieve her pain. She denies any loss of bowel or bladder control. She reports that is been a couple of days since he has had a bowel movement for she denies any constipation. She denies any dysuria, hematuria, hematochezia or melena. The patient was noted to be markedly restless in the bed kicking her legs back and forth and also had some restless movements of her upper extremities. She reports that she thinks she does this when she gets nervous. She denies history of restless leg syndrome. She is moving all extremities equally. Strength is good. The patient would joke with me but when I tried to get further details about her pain including quality and radiation she was not providing me the history thus some of the HPI came from ER report. She does not give me a level or intensity of her pain. The patient was snoring quite loudly when room eats that she has a sleep apnea and uses CPAP at home. However, she declined my offer to supply a CPAP while she is hospitalized. Review of Systems Review of Systems: 12 systems were reviewed with pertinent positives and negatives per HPI. Except as documented in the HPI, all other systems were reviewed and are negative. 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 Depression Endometrial cancer Generalized osteoarthritis of multiple sites (~2007) GERD (gastroesophageal reflux disease) Hepatitis C antibody test negative (~08/2017) Hypertension IBS (irritable bowel syndrome) Metabolic syndrome Obstructive sleep apnea on CPAP Panic attack Recurrent falls Rheumatoid arthritis with rheumatoid factor of multiple sites without organ or systems involvement (~1999) Vitamin D deficiency Surgical History Surgical History (Updated 03/07/23 @ 08:16 by Karlie Morales DO) H/O dilation and curettage History of appendectomy History of bilateral carpal tunnel release History of left hip replacement History of total hysterectomy with bilateral salpingo-oophorectomy (BSO) History of umbilical hernia repair Hx of cholecystectomy Status post cataract extraction of both eyes with insertion of intraocular lens Family History Family History Father Diabetes mellitus Hypertension Family history of elevated blood lipids, Onset Age: 74 Acute myocardial infarction, Onset Age: 74 Cerebrovascular accident Family history of coronary artery disease Mother Hypertension Family history of elevated blood lipids Cerebrovascular accident Family history of primary malignant neoplasm of liver Family history of malignant neoplasm of ovary Social History Social History (Updated 03/07/23 @ 0
[2023-03-07 08:29] LABS: Hematocrit 25.6 % (37.0-47.0); Hemoglobin 7.9 g/dL (12.0-15.0); Mean Corpuscular HGB Conc 30.9 g/dl (32-36); Mean Corpuscular Hemoglobin 28.9 pg (26-34); Mean Corpuscular Volume 93.8 fl (80-100); Mean Platelet Volume 8.4 fl (7.4-10.4); Platelet Count Result 370 k/mm3 (150-375); Red Blood Count 2.73 M/mm3 (4.2-5.4); Red Cell Distribution Width 16.7 % (11.5-14.5); White Blood Count 8.7 K/mm3 (4.5-10.0)
[2023-03-07 08:32] LABS: Anion Gap 6 mmol/L (8-16); Blood Urea Nitrogen 13 mg/dL (7-17); Calcium 8.8 mg/dL (8.4-10.2); Carbon Dioxide 26 mmol/L (22-30); Chloride 99 mmol/L (98-107); Estimated CRCL calculation 67 ml/min; Estimated Glomerular Filt Rate > 60; Glucose 94 mg/dL (65-110); Potassium 3.7 mmol/L (3.4-5.0); Sodium 131 mmol/L (137-145)
[2023-03-07] MEDS: HYDROXYCHLOROQUINE SULFATE 200 MG TABLET 400 MG PO (10:23)
[2023-03-07] MEDS: ATORVASTATIN 40 MG TABLET PO (10:23)
[2023-03-07] MEDS: ASPIRIN 325 MG TABLET PO (10:23)
[2023-03-07] MEDS: CHOLECALCIFEROL 1,000 UNITS TABLET 4000 UNITS PO (10:23)
[2023-03-07] MEDS: NIFEdipine 30 MG TAB.ER.24 60 MG PO ×2 (10:24→17:46)
[2023-03-07] MEDS: lisinopriL 20 MG TABLET 40 MG PO (10:24)
[2023-03-07] MEDS: VENLAFAXINE HCL XR 75 MG CAP.ER.24H PO (10:24)
--- NOTE | 2023-03-07 11:03 | PM.CNOR ---
Assessment and Plan Assessment and plan (1) Bilateral lumbar radiculopathy: Code(s): M54.16 - Radiculopathy, lumbar region Status: Acute Assessment and Plan: SOFÍA IS 6 WEEKS S/P LEFT WILLIAM AND WITH BILATERAL LOW BACK PAIN. HER EXAM IS CONSISTENT WITH LOW BACK RADICULOPATHY AND STRESS REACTION TO THE SACRA. SHE CURRENTLY HAS NO CLINICAL SIGN OF SEPSIS TO THE LEFT HIP. CT SCAN IS CONSISTENT WITH OPERATIVE CHANGES WITH BONE GRATING. HER FINDING OF FLUID MAY BE CONSISTENT WITH POSTOP SEROMA. FROM HER CLINICAL PICTURE THE POSSIBILITY OF AN ABSCESS IS LESS LIKELY HOWEVER THERE IS ALWAYS A POSSIBILITY OF EARLY SEPSIS. HISTORY, EXAM AND RADIOGRAPHS REVIEWED WITH THE PATIENT. REFERRING PHYSICIAN RECORDS AND IMAGES REVIEWED. CONDITION, NATURE, ETIOLOGY AND COURSE OF NATURAL HISTORY REVIEWED. CONSERVATIVE AND OPERATIVE TREATMENT OPTIONS REVIEWED WELL THE RISKS AND BENEFITS OF EACH. RECOMMENDATION IS FOR OBSERVATION OF THE HIP FOR NOW. SHE WILL HAVE PT WELL. RECOMMEND PARTIAL WEIGHT BEARING FOR THE LEFT HIP. WE WILL FOLLOW THE PATIENT WHILE SHE IS ADMITTED FOR ANY CHANGES. (2) S/P total hip arthroplasty: Qualifiers: Laterality: left Qualified Code(s): Z96.642 - Presence of left artificial hip joint Code(s): Z96.649 - Presence of unspecified artificial hip joint Status: Acute History of Present Illness HPI Consult date: 03/07/23 Consult reason: low back pain Chief complaint: lumbar radiculopathy,recent l hip arthroplasty,l p Narrative: SOFÍA WAS SEEN IN THE ED LAST NIGHT COMPLAINING OF LOW BACK PAIN. SHE HAD A LEFT WILLIAM 6 WEEKS AGO AND WAS DOING VERY WELL WITH PARTIAL WEIGHT BEARING. A FEW DAYS PRIOR SHE WAS VACUUMING HER FLOOR. THE NEXT DAY SHE BEGAN HAVING SACRAL ILIAC TYPE PAIN WITH RADIATION DOWN BOTH HER LEGS. SHE WAS NOT HAVING ACTUAL HIP PAIN. HILARY WAS SEEN IN THE ED. CT SCAN WAS TAKEN SHOWING OPERATIVE CHANGES TO THE LEFT HIP. ALSO FOUND WAS BILATERAL SACRAL STRESS FRACTURES AND SEVERE LUMBAR DEGENERATIVE DISEASE. ON EXAM BY THE ED PHYSICIAN PATIENT WAS NOTED TO HAVE A WELL HEALED INCISION AND NO OTHER SIGN OF INFECTION. HER PAIN WAS LOCATED MOSTLY IN THE LOW BACK. I SPOKE TO THE PATIENT ON THE PHONE LAST NIGHT WELL. IT WAS UNEQUIVOCAL WHETHER THE PAIN WAS TRUE HIP PAIN VS LOW BACK RADICULAR TYPE PAIN. THE PATIENT WAS ADMITTED FOR OBSERVATION. TODAY I SAW THE PATIENT AND SHE WAS C/O LOW BACK PAIN WHICH IS IMPROVING FROM YESTERDAY. SHE GERI ANY LEFT HIP PAIN. SHE WAS TENDER ALONG THE SACRAL ILIAC REGION. SHE WAS ABLE TO ACTIVELY MOVE THE HIP IN ALL DIRECTIONS WITH NO EVIDENCE OF PAIN. SHE PREFORMED A SLR WELL WITH NO PAIN. THE HIP REGION HAD NO SIGN OF ABSCESS AND SHE HAD NO PAIN WITH PROM OF THE HIP. OF COURSE WE CANNOT R/O A POSSIBLE EARLY SEPTIC PROCESS AT THIS TIME BUT FROM A CLINICAL STANDPOINT THIS DOES NOT APPEAR TO BE THE CASE OF YET. HER XRAYS SHOW COMPONENTS IN GOOD POSITION WITH NO SIGN OF LOOSENING. THERE IS NO CHANGE IN COMPONENT POSITION FROM HER LAST XRAYS. SHE ALSO SHOWS SIGNS OF HEALING BONE GRAFT IN THE ACETABULUM. I REVIEWED THE CT SCAN WHICH IN MY OPINION SHOWS HEALING BONE GRAFT AND OPERATIVE CHANGES OF HIP ARTHROPLASTY. PATIENTS WBC COUNT IS NORMAL. HER CRP IS SLIGHTLY ELEVATED. THIS COULD BE A NON SPECIFIC FINDING. WE SHOULD WATCH THIS CLOSELY WELL FOR ANY CHANGE. FROM A CLINICAL STAND POINT SHE DOES NOT APPEAR TO HAVE A HIP ABSCESS OR MECHANICAL PROBLEM WITH HER HIP ARTHROPLASTY. HER MAIN AND REPRODUCIBLE PAIN APPEARS TO BE ORIGINATING FROM THE LOW BACK REGION. 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
[2023-03-07] MEDS: HYDROcodone/acetaminophen (*CRX) 5-325 MG TABLET 1 TAB PO ×2 (12:50→17:45)
--- NOTE | 2023-03-07 15:34 | WPDPN ---
Progress Note: A&P Assessment and Plan (1) Bilateral lumbar radiculopathy: Code(s): M54.16 - Radiculopathy, lumbar region Status: Acute (2) Acute deep vein thrombosis of left peroneal vein: Code(s): I82.452 - Acute embolism and thrombosis of left peroneal vein Status: Acute (3) S/P total hip arthroplasty: Qualifiers: Laterality: left Qualified Code(s): Z96.642 - Presence of left artificial hip joint Code(s): Z96.649 - Presence of unspecified artificial hip joint Status: Acute (4) Obstructive sleep apnea on CPAP: Code(s): G47.33 - Obstructive sleep apnea (adult) (pediatric); Z99.89 - Dependence on other enabling machines and devices Status: Acute Plan Patient is having back pain her pain pattern is most consistent with lumbar radiculopathy and she does have known severe lumbar degenerative disc disease. This is most likely cause for the patient's pain. The CT of the patient's pelvis was read as possible infection however patient is not having any significant localizing pain over her left hip on palpation or with movement. Also the distribution the patient's pain is not consistent with what I would expect for and infected joint. The patient does not have any fever, leukocytosis or other evidence of infection. The patient's COPD is also unremarkable. Clinical presentation is most consistent with lumbar radiculopathy. Will await further recommendations from Orthopedic surgery. Patient does have a [id number] left peroneal vein DVT. Will hold off on anticoagulants into the patient evaluated by Orthopedic surgery per Orthopedic surgeon request. Distal DVTs can be managed without anticoagulants uncertain settings. Will continue monitor. Avoid SCDs are compression devices. Patient does have obstructive sleep apnea but is refusing CPAP while hospitalized. 03/07/2023 interval history: 77-year-old female status post left hip surgery and present with complaint of low back pain concern the pain may be originating recent surgery however patient was seen by her orthopedic surgeon examine the patient does not suspect that the back pain coming from left hip rather recommended to consult spine surgeon further recommendation, will continue to monitor will start the patient gabapentin to control her pain and further recommendation to follow. Subjective Date/time seen: 03/07/23 15:34 Interval history: Patient is having back pain her pain pattern is most consistent with lumbar radiculopathy and she does have known severe lumbar degenerative disc disease. This is most likely cause for the patient's pain. The CT of the patient's pelvis was read as possible infection however patient is not having any significant localizing pain over her left hip on palpation or with movement. Also the distribution the patient's pain is not consistent with what I would expect for and infected joint. The patient does not have any fever, leukocytosis or other evidence of infection. The patient's COPD is also unremarkable. Clinical presentation is most consistent with lumbar radiculopathy. Will await further recommendations from Orthopedic surgery. Patient does have a [id number] left peroneal vein DVT. Will hold off on anticoagulants into the patient evaluated by Orthopedic surgery per Orthopedic surgeon request. Distal DVTs can be managed without anticoagulants uncertain settings. Will continue monitor. Avoid SCDs are compression devices. Patient does have obstructive sleep apnea but is refusing CPAP while hospitalized. 03/07/2023 interval history: 77-year-old female status post left hip surgery and present with complaint of low back pain concern the pain may be originating recent surgery however patient was seen by her orthopedic surgeon examine the patient does not suspect that the back pain coming from left hip rather recommended to consult spine surgeon further recommendation, will continue to monit
[2023-03-07] MEDS: GABAPENTIN 300 MG CAPSULE PO (17:46)
--- NOTE | 2023-03-07 21:59 | PHAR ---
DRUG NAME: BETHQ INGREDIENTS: UPADACITINIB -- 15 MG COLOR: PURPLE SHAPE: OBLONG IMPRINT: A15 FORM: ORAL TABLET, EXTENDED RELEASE
[2023-03-08 06:00] VITALS: BP 115/70; PULSE 92; RESP 18; TEMP 36.5; O2SAT 99
[2023-03-08] MEDS: GABAPENTIN 300 MG CAPSULE PO ×3 (09:11→17:07)
[2023-03-08] MEDS: NIFEdipine 30 MG TAB.ER.24 60 MG PO ×2 (09:11→17:07)
[2023-03-08] MEDS: HYDROXYCHLOROQUINE SULFATE 200 MG TABLET 400 MG PO (09:11)
[2023-03-08] MEDS: VENLAFAXINE HCL XR 75 MG CAP.ER.24H PO (09:11)
[2023-03-08] MEDS: ATORVASTATIN 40 MG TABLET PO (09:11)
[2023-03-08] MEDS: CHOLECALCIFEROL 1,000 UNITS TABLET 4000 UNITS PO (09:11)
[2023-03-08] MEDS: lisinopriL 20 MG TABLET 40 MG PO (09:11)
[2023-03-08] MEDS: ASPIRIN 325 MG TABLET PO (09:12)
[2023-03-08 09:58] LABS: Estimated CRCL calculation 79 ml/min; Estimated Glomerular Filt Rate > 60
[2023-03-08 10:00] LABS: Vancomycin Trough 5.1 ug/mL (10.0-20.0)
[2023-03-08] MEDS: HYDROcodone/acetaminophen (*CRX) 5-325 MG TABLET 1 TAB PO ×3 (10:45→23:51)
--- NOTE | 2023-03-08 13:38 | PM.PNORT ---
Progress Note: A&P Assessment and Plan (1) S/P total hip arthroplasty: Qualifiers: Laterality: left Qualified Code(s): Z96.642 - Presence of left artificial hip joint Code(s): Z96.649 - Presence of unspecified artificial hip joint Status: Acute Assessment and Plan: 6 weeks s/p left WILLIAM. Patient returns to the hospital with right sided lower back pain. Pelvic CT revealed concerns for septic arthritis vs. osteomyelitis at the recently placed left WILLIAM with an associated fluid collection. Dr. Ayala has evaluated the patient. Given patient has no pain with AROM/PROM of the left hip, no open wounds, no erythema, incision is well healed, thigh is soft, tissue surrounding incision is soft as well, it has been determined that there is not an immediate concern for septic arthritis/joint infection from a clinical standpoint. Patient continues to complain of lumbar spine pain. MRI today reviewed. Awaiting work up by neurosurgery. In the interim, we will continue to monitor patient for signs of left hip infection. Continue pain control. PT/OT with PWB of the LLE. No immediate surgical indication from an orthopedic standpoint. Appreciate neurosurgery recommendations. (2) Lumbar radiculopathy: Code(s): M54.16 - Radiculopathy, lumbar region Status: Acute Assessment and Plan: Lumbar spine MRI from today reveals bilateral sacral alar insufficiency fractures, chronic L5 pars interarticularis defects with 1 cm anterolisthesis of L5 over S1 and severe degenerative spondylosis throughout the lumbar spine. There is severe central canal stenosis at L2-L3 and L3-L4, with multilevel neural foraminal narrowing. Neurosurgery has been consulted by the primary medicine team. Awaiting consult/evaluation at this time. Subjective Subjective Date/Time Seen: 03/08/23 13:38 Interval history: Patient continues to deny left hip pain. Complains of right lower/lateral sided lumbar spine pain. Does not feel current pain medication regimen is alleviating her pain. Awaiting further recommendations from neurosurgery after lumbar spine MRI results today. Review of Systems Constitutional: Constitutional: Reports no additional constitutional complaints, Denies excessive sweating, Denies fever(s) and Denies weight gain Eyes: Eyes: Reports no additional eye complaints and Denies change in vision ENT: Reports system reviewed and no additional complaints, except as documented and Reports Normal hearing present Cardiovascular: Cardiovascular: Denies chest pain, Denies diaphoresis, Denies leg ulcers and Denies dyspnea on exertion Respiratory: Respiratory: Reports no additional respiratory complaints, Denies cough and Denies dyspnea on exertion Gastrointestinal: Gastrointestinal: Reports no additional gastrointestinal complaints, Denies abdominal pain, Denies constipation, Denies nausea and Denies vomiting Genitourinary: Genitourinary: Denies hematuria and Denies urinary frequency Musculoskeletal: Musculoskeletal: Reports as per HPI Neurologic: Reports Normal hearing present Endocrine: Endocrine: Reports no additional endocrine complaints, Denies change in body appearance, Denies excessive sweating, Denies polyphagia, Denies polydipsia and Denies polyuria Exam Const: General: comfortable and no acute distress Resp: Effort & Inspection: normal respiratory effort Cardio: Rate: regular rate Rhythm: regular rhythm Back/Spine/Pelvis: Back: back tenderness (Right lumbar ) Thoracic/Lumbar Spine: lumbar spinal tenderness at L3, at L4 and at L5 Skin: Wounds: no wounds Neuro: Speech: normal speech Sensory Exam: normal sensation Extrem: Left lower extremity: hip/thigh Details: normal to inspection and normal ROM; no tenderness, no swelling, no abrasions, no lacerations, no ecchymosis, no crepitus and no deformity, knee Details: normal to inspection and normal ROM; no tenderness, no swelling, no deformity and no unus
[2023-03-08 14:00] VITALS: BP 118/51; PULSE 86; RESP 16; TEMP 37; O2SAT 99
--- NOTE | 2023-03-08 16:28 | WPDNEUROSGCN ---
Assessment and Plan Assessment and plan (1) Acute deep vein thrombosis of left peroneal vein: Code(s): I82.452 - Acute embolism and thrombosis of left peroneal vein Status: Acute (2) Lumbar stenosis without neurogenic claudication: Code(s): M48.061 - Spinal stenosis, lumbar region without neurogenic claudication Status: Acute (3) Spondylolisthesis, lumbar region: Code(s): M43.16 - Spondylolisthesis, lumbar region Status: Acute Plan HPI: Shiloh Hester is a 77 year old female with history of hypertension, sleep apnea, hyperlipidemia, and depression who presented to the ER 2 days ago with intractable right-sided lower back pain. The patient underwent a left hip replacement on January 09 which was uncomplicated. She discharged to rehab and has been partial weight-bearing status on the left leg since surgery. Three days ago, she insidiously developed significant back pain in the lower back to the right of midline which radiated straight down to her coccygeal region. She denied any pain into the right hip or leg. She came to the ER the following day where imaging was performed that was concerning for septic arthritis and abscess formation at her surgical site. There was also demonstration of a DVT in the left peroneal vein. the patient has been evaluated by Orthopedic surgery who does not feel that she has an infection of her left hip given her lack of fevers,elevated white count, or incisional drainage or erythema, or that her symptoms are related to this. Further evaluation was then performed for her lumbar spine. The patient is somewhat of a poor historian and has some difficulty describing her symptoms prior to this most recent hospitalization. It sounds that she has a long history of low back pain and would sometimes get pain down the backs legs. She said both that this was not significantly bothersome for her and that her physicians did not take her seriously when she complained about it. She thinks that any trouble that she had walking prior to her hip surgery was related to her hip not her back. She indicated that she has some paresthesias in her legs but that this is from neuropathy and has been present for some time. Assessment: Ms. Hester is a 77-year-old female who underwent a left hip replacement on January 09 who presented to the ER on March 06 with intractable right paramedian lumbar back pain radiating to the coccyx. Imaging workup on admission was concerning for septic arthritis and an abscess at the site of her hip replacement as well as an acute left peroneal vein DVT. At this time, Orthopedics does not believe the joint is infected and does not believe that presenting pain is related to the hip. The patient is somewhat of a poor historian, and I have difficulty determining the significance of her symptoms prior to her hip surgery, particularly whether she had any claudicatory symptoms and the specific location, severity, and frequency of her radicular leg pain. As she has been only partial weight-bearing since surgery, I do not think that she can give an accurate picture of her neurologic symptoms recently. MRI lumbar spine does show a significant spondylolisthesis at L5-S1 with neuroforaminal stenosis at this level. There is also significant central stenosis at L2-3 and L3-4 with multilevel facet arthropathy and neuroforaminal stenosis. These findings are very chronic in origin, and given that she is only about 2 months out from a hip replacement, particularly as there was a question of whether she could have an infection of her left hip and as she was just diagnosed with a DVT, I would not recommend any surgical intervention at this time for her lumbar spine. Additionally, her imaging indicates that she has bilateral sacral fractures. I do wonder whether this could be contributing to her pain particularly given the region that she describes her pain to me today. Without her having radicular pain into t
--- NOTE | 2023-03-08 17:07 | WPDPN ---
Progress Note: A&P Assessment and Plan (1) Bilateral lumbar radiculopathy: Code(s): M54.16 - Radiculopathy, lumbar region Status: Acute (2) Acute deep vein thrombosis of left peroneal vein: Code(s): I82.452 - Acute embolism and thrombosis of left peroneal vein Status: Acute (3) S/P total hip arthroplasty: Qualifiers: Laterality: left Qualified Code(s): Z96.642 - Presence of left artificial hip joint Code(s): Z96.649 - Presence of unspecified artificial hip joint Status: Acute (4) Obstructive sleep apnea on CPAP: Code(s): G47.33 - Obstructive sleep apnea (adult) (pediatric); Z99.89 - Dependence on other enabling machines and devices Status: Acute Plan Patient is having back pain her pain pattern is most consistent with lumbar radiculopathy and she does have known severe lumbar degenerative disc disease. This is most likely cause for the patient's pain. The CT of the patient's pelvis was read as possible infection however patient is not having any significant localizing pain over her left hip on palpation or with movement. Also the distribution the patient's pain is not consistent with what I would expect for and infected joint. The patient does not have any fever, leukocytosis or other evidence of infection. The patient's COPD is also unremarkable. Clinical presentation is most consistent with lumbar radiculopathy. Will await further recommendations from Orthopedic surgery. Patient does have a [id number] left peroneal vein DVT. Will hold off on anticoagulants into the patient evaluated by Orthopedic surgery per Orthopedic surgeon request. Distal DVTs can be managed without anticoagulants uncertain settings. Will continue monitor. Avoid SCDs are compression devices. Patient does have obstructive sleep apnea but is refusing CPAP while hospitalized. 03/08/2023 interval history:??77-year-old female status post left hip surgery and present with complaint of low back pain concern the pain may be originating recent surgery however patient was seen by her orthopedic surgeon examine the patient does not suspect that the back pain coming from left hip rather recommended to consult spine surgeon further recommendation, patient had MRI of lumbar spine and was seen by and his spine surgery service patient does not need any surgical interval recommended pain managed, will continue to monitor started the patient on gabapentin to control her pain and and/or of PT OT for the patient, further recommendation to follow. Subjective Date/time seen: 03/08/23 17:07 Interval history: Patient is having back pain her pain pattern is most consistent with lumbar radiculopathy and she does have known severe lumbar degenerative disc disease.? This is most likely cause for the patient's pain.? The CT of the patient's pelvis was read as possible infection however patient is not having any significant localizing pain over her left hip on palpation or with movement.? Also the distribution the patient's pain is not consistent with what I would expect for and infected joint. ? The patient does not have any fever, leukocytosis or other evidence of infection.? The patient's COPD is also unremarkable.? Clinical presentation is most consistent with lumbar radiculopathy.? Will await further recommendations from Orthopedic surgery. Patient does have a [id number] left peroneal vein DVT.? Will hold off on anticoagulants into the patient evaluated by Orthopedic surgery per Orthopedic surgeon request.? Distal DVTs can be managed without anticoagulants uncertain settings.? Will continue monitor.? Avoid SCDs are compression devices. Patient does have obstructive sleep apnea but is refusing CPAP while hospitalized. 03/08/2023 interval history:??77-year-old female status post left hip surgery and present with complaint of low back pain concern the pain may be originating recent surgery however patient was seen by her ort
[2023-03-08 20:00] VITALS: PULSE 84; RESP 18; O2SAT 95
[2023-03-08 20:13] VITALS: BP 119/51; PULSE 84; RESP 18; TEMP 36.6; O2SAT 95
[2023-03-09 05:15] VITALS: BP 122/73; PULSE 83; RESP 18; TEMP 36.6; O2SAT 99
[2023-03-09 06:06] LABS: Estimated CRCL calculation 79 ml/min; Estimated Glomerular Filt Rate > 60
[2023-03-09] MEDS: ASPIRIN 325 MG TABLET PO (08:06)
[2023-03-09] MEDS: lisinopriL 20 MG TABLET 40 MG PO (08:06)
[2023-03-09] MEDS: HYDROXYCHLOROQUINE SULFATE 200 MG TABLET 400 MG PO (08:07)
[2023-03-09] MEDS: NIFEdipine 30 MG TAB.ER.24 60 MG PO ×2 (08:07→18:04)
[2023-03-09] MEDS: CHOLECALCIFEROL 1,000 UNITS TABLET 4000 UNITS PO (08:07)
[2023-03-09] MEDS: GABAPENTIN 300 MG CAPSULE PO ×3 (08:07→18:04)
[2023-03-09] MEDS: ATORVASTATIN 40 MG TABLET PO (08:08)
[2023-03-09] MEDS: HYDROcodone/acetaminophen (*CRX) 5-325 MG TABLET 2 TAB PO ×3 (08:14→18:04)
[2023-03-09] MEDS: VENLAFAXINE HCL XR 75 MG CAP.ER.24H PO (08:17)
--- NOTE | 2023-03-09 15:03 | WPDPN ---
Progress Note: A&P Assessment and Plan (1) Bilateral lumbar radiculopathy: Code(s): M54.16 - Radiculopathy, lumbar region Status: Acute (2) Acute deep vein thrombosis of left peroneal vein: Code(s): I82.452 - Acute embolism and thrombosis of left peroneal vein Status: Acute (3) S/P total hip arthroplasty: Qualifiers: Laterality: left Qualified Code(s): Z96.642 - Presence of left artificial hip joint Code(s): Z96.649 - Presence of unspecified artificial hip joint Status: Acute (4) Obstructive sleep apnea on CPAP: Code(s): G47.33 - Obstructive sleep apnea (adult) (pediatric); Z99.89 - Dependence on other enabling machines and devices Status: Acute Plan Patient is having back pain her pain pattern is most consistent with lumbar radiculopathy and she does have known severe lumbar degenerative disc disease. This is most likely cause for the patient's pain. The CT of the patient's pelvis was read as possible infection however patient is not having any significant localizing pain over her left hip on palpation or with movement. Also the distribution the patient's pain is not consistent with what I would expect for and infected joint. The patient does not have any fever, leukocytosis or other evidence of infection. The patient's COPD is also unremarkable. Clinical presentation is most consistent with lumbar radiculopathy. Will await further recommendations from Orthopedic surgery. Patient does have a ocnly-oau-vlgi left peroneal vein DVT. Will hold off on anticoagulants into the patient evaluated by Orthopedic surgery per Orthopedic surgeon request. Distal DVTs can be managed without anticoagulants uncertain settings. Will continue monitor. Avoid SCDs are compression devices. Patient does have obstructive sleep apnea but is refusing CPAP while hospitalized. 03/09/2023 interval history:??77-year-old female status post left hip surgery and present with complaint of low back pain concern the pain may be originating recent surgery however patient was seen by her orthopedic surgeon examine the patient does not suspect that the back pain coming from left hip rather recommended to consult spine surgeon further recommendation, patient had MRI of lumbar spine and was seen by and seen by spine surgery service patient does not need any surgical interval recommended pain managed, and patient will benefit with [facility] is evaluating the patient, will continue to monitor started the patient on gabapentin to control her pain and and/or of PT OT for the patient, further recommendation to follow. Subjective Date/time seen: 03/09/23 15:03 Interval history: Patient is having back pain her pain pattern is most consistent with lumbar radiculopathy and she does have known severe lumbar degenerative disc disease.? This is most likely cause for the patient's pain.? The CT of the patient's pelvis was read as possible infection however patient is not having any significant localizing pain over her left hip on palpation or with movement.? Also the distribution the patient's pain is not consistent with what I would expect for and infected joint. ? The patient does not have any fever, leukocytosis or other evidence of infection.? The patient's COPD is also unremarkable.? Clinical presentation is most consistent with lumbar radiculopathy.? Will await further recommendations from Orthopedic surgery. Patient does have a jmalr-gij-covp left peroneal vein DVT.? Will hold off on anticoagulants into the patient evaluated by Orthopedic surgery per Orthopedic surgeon request.? Distal DVTs can be managed without anticoagulants uncertain settings.? Will continue monitor.? Avoid SCDs are compression devices. Patient does have obstructive sleep apnea but is refusing CPAP while hospitalized. 03/09/2023 interval history:??77-year-old female status post left hip surgery and present with complaint of
[2023-03-09 15:27] VITALS: BP 110/51; PULSE 84; RESP 18; TEMP 36.6; O2SAT 97
[2023-03-09 21:03] VITALS: BP 129/54; PULSE 87; RESP 18; TEMP 36.9; O2SAT 97
[2023-03-10] MEDS: HYDROcodone/acetaminophen (*CRX) 5-325 MG TABLET 2 TAB PO ×5 (04:28→23:59)
[2023-03-10 05:42] VITALS: BP 124/61; PULSE 80; RESP 16; TEMP 36.6; O2SAT 97
[2023-03-10] MEDS: NIFEdipine 30 MG TAB.ER.24 60 MG PO ×2 (08:47→16:13)
[2023-03-10] MEDS: lisinopriL 20 MG TABLET 40 MG PO (08:47)
[2023-03-10] MEDS: ASPIRIN 325 MG TABLET PO (08:47)
[2023-03-10] MEDS: ATORVASTATIN 40 MG TABLET PO (08:47)
[2023-03-10] MEDS: CHOLECALCIFEROL 1,000 UNITS TABLET 4000 UNITS PO (08:47)
[2023-03-10] MEDS: GABAPENTIN 300 MG CAPSULE PO ×3 (08:48→16:13)
[2023-03-10] MEDS: HYDROXYCHLOROQUINE SULFATE 200 MG TABLET 400 MG PO (08:48)
[2023-03-10] MEDS: VENLAFAXINE HCL XR 75 MG CAP.ER.24H PO (09:08)
--- NOTE | 2023-03-10 13:19 | WPDPN ---
Progress Note: A&P Assessment and Plan (1) Bilateral lumbar radiculopathy: Code(s): M54.16 - Radiculopathy, lumbar region Status: Acute (2) Acute deep vein thrombosis of left peroneal vein: Code(s): I82.452 - Acute embolism and thrombosis of left peroneal vein Status: Acute (3) S/P total hip arthroplasty: Qualifiers: Laterality: left Qualified Code(s): Z96.642 - Presence of left artificial hip joint Code(s): Z96.649 - Presence of unspecified artificial hip joint Status: Acute (4) Obstructive sleep apnea on CPAP: Code(s): G47.33 - Obstructive sleep apnea (adult) (pediatric); Z99.89 - Dependence on other enabling machines and devices Status: Acute Plan Patient is having back pain her pain pattern is most consistent with lumbar radiculopathy and she does have known severe lumbar degenerative disc disease. This is most likely cause for the patient's pain. The CT of the patient's pelvis was read as possible infection however patient is not having any significant localizing pain over her left hip on palpation or with movement. Also the distribution the patient's pain is not consistent with what I would expect for and infected joint. The patient does not have any fever, leukocytosis or other evidence of infection. The patient's COPD is also unremarkable. Clinical presentation is most consistent with lumbar radiculopathy. Will await further recommendations from Orthopedic surgery. Patient does have a [id number]-tcs-icwa left peroneal vein DVT. Will hold off on anticoagulants into the patient evaluated by Orthopedic surgery per Orthopedic surgeon request. Distal DVTs can be managed without anticoagulants uncertain settings. Will continue monitor. Avoid SCDs are compression devices. Patient does have obstructive sleep apnea but is refusing CPAP while hospitalized. 03/10/2023 interval history:??77-year-old female status post left hip surgery and present with complaint of low back pain concern the pain may be originating recent surgery however patient was seen by her orthopedic surgeon examine the patient does not suspect that the back pain coming from left hip rather recommended to consult spine surgeon further recommendation, patient had MRI of lumbar spine and was seen by and seen by spine surgery service patient does not need any surgical interval recommended pain managed, and patient will benefit with physical therapy at [facility] is evaluating the patient, pending insurance approval, patient is pain is better controlled with [place] 10 mg, will continue to monitor started the patient on gabapentin to control her pain and and/or of PT OT for the patient, further recommendation to follow. Subjective Date/time seen: 03/10/23 13:19 Interval history: Patient is having back pain her pain pattern is most consistent with lumbar radiculopathy and she does have known severe lumbar degenerative disc disease.? This is most likely cause for the patient's pain.? The CT of the patient's pelvis was read as possible infection however patient is not having any significant localizing pain over her left hip on palpation or with movement.? Also the distribution the patient's pain is not consistent with what I would expect for and infected joint. ? The patient does not have any fever, leukocytosis or other evidence of infection.? The patient's COPD is also unremarkable.? Clinical presentation is most consistent with lumbar radiculopathy.? Will await further recommendations from Orthopedic surgery. Patient does have a oiwgc-gwy-xihd left peroneal vein DVT.? Will hold off on anticoagulants into the patient evaluated by Orthopedic surgery per Orthopedic surgeon request.? Distal DVTs can be managed without anticoagulants uncertain settings.? Will continue monitor.? Avoid SCDs are compression devices. Patient does have obstructive sleep apnea but is refusing CPAP while hospitalized. 03/10/2023 inte
[2023-03-10 14:00] VITALS: BP 123/56; PULSE 84; RESP 16; TEMP 37; O2SAT 94
[2023-03-10 20:22] VITALS: BP 140/61; PULSE 82; RESP 18; TEMP 36.6; O2SAT 100
[2023-03-10 23:30] VITALS: PULSE 87; O2SAT 95
[2023-03-11 05:27] LABS: Estimated CRCL calculation 67 ml/min; Estimated Glomerular Filt Rate > 60
[2023-03-11 06:00] VITALS: BP 134/63; PULSE 86; RESP 20; TEMP 36.7; O2SAT 95
[2023-03-11] MEDS: CHOLECALCIFEROL 1,000 UNITS TABLET 4000 UNITS PO (08:47)
[2023-03-11] MEDS: ATORVASTATIN 40 MG TABLET PO (08:47)
[2023-03-11] MEDS: HYDROXYCHLOROQUINE SULFATE 200 MG TABLET 400 MG PO (08:47)
[2023-03-11] MEDS: ASPIRIN 325 MG TABLET PO (08:47)
[2023-03-11] MEDS: lisinopriL 20 MG TABLET 40 MG PO (08:48)
[2023-03-11] MEDS: NIFEdipine 30 MG TAB.ER.24 60 MG PO ×2 (08:48→17:40)
[2023-03-11] MEDS: VENLAFAXINE HCL XR 75 MG CAP.ER.24H PO (08:48)
[2023-03-11] MEDS: GABAPENTIN 300 MG CAPSULE PO ×3 (08:59→17:40)
[2023-03-11] MEDS: HYDROcodone/acetaminophen (*CRX) 5-325 MG TABLET 1 TAB PO (10:36)
--- NOTE | 2023-03-11 10:49 | PM.IMPN ---
Progress Note: A&P Assessment and Plan (1) Bilateral lumbar radiculopathy: Code(s): M54.16 - Radiculopathy, lumbar region Status: Acute (2) Acute deep vein thrombosis of left peroneal vein: Code(s): I82.452 - Acute embolism and thrombosis of left peroneal vein Status: Acute (3) S/P total hip arthroplasty: Qualifiers: Laterality: left Qualified Code(s): Z96.642 - Presence of left artificial hip joint Code(s): Z96.649 - Presence of unspecified artificial hip joint Status: Acute (4) Obstructive sleep apnea on CPAP: Code(s): G47.33 - Obstructive sleep apnea (adult) (pediatric); Z99.89 - Dependence on other enabling machines and devices Status: Acute Plan Patient is having back pain her pain pattern is most consistent with lumbar radiculopathy and she does have known severe lumbar degenerative disc disease. This is most likely cause for the patient's pain. The CT of the patient's pelvis was read as possible infection however patient is not having any significant localizing pain over her left hip on palpation or with movement. Also the distribution the patient's pain is not consistent with what I would expect for and infected joint. The patient does not have any fever, leukocytosis or other evidence of infection. The patient's COPD is also unremarkable. Clinical presentation is most consistent with lumbar radiculopathy. Will await further recommendations from Orthopedic surgery. Patient does have a irsyl-hmp-qpli left peroneal vein DVT. Will hold off on anticoagulants into the patient evaluated by Orthopedic surgery per Orthopedic surgeon request. Distal DVTs can be managed without anticoagulants uncertain settings. Will continue monitor. Avoid SCDs are compression devices. Patient does have obstructive sleep apnea but is refusing CPAP while hospitalized. 03/10/2023 interval history:??77-year-old female status post left hip surgery and present with complaint of low back pain concern the pain may be originating recent surgery however patient was seen by her orthopedic surgeon examine the patient does not suspect that the back pain coming from left hip rather recommended to consult spine surgeon further recommendation, patient had MRI of lumbar spine and was seen by and seen by spine surgery service patient does not need any surgical interval recommended pain managed, and patient will benefit with physical therapy at [facility] is evaluating the patient, pending insurance approval, patient is pain is better controlled with [place] 10 mg, will continue to monitor started the patient on gabapentin to control her pain and and/or of PT OT for the patient, further recommendation to follow. 03/11/2023 77-year-old female status post left 5th surgery in end of December presented with right-sided low back pain. Left hip healing well. Orthopedic was consulted. CT lumbar spine and pelvis showed likely septic arthritis and osteomyelitis with recently placed left hip arthroplasty with osteolysis most prominent the acetabulum and secondary pathological transverse acetabular fracture. Associated 8.5 x 2.6 x 8.3 cm loculated fluid collection suspicious for abscess overlying the left greater trochanter with additional possible colitis and underlying greater trochanter and calcar. Likely coincidental nondisplaced insufficiency fractures of the bilateral sacral alae and right pubic body. Severe lumbar spondylosis with chronic L5 spondylosis and grade 2 anterolisthesis on S1. Venous duplex with updja-fwq-ecso DVT and left peroneal vein. Lumbar MRI showed bilateral sacral alar insufficiency fractures. Chronic L5 pars interarticularis defects with 1 cm anterolisthesis of L5 over S1. Severe degenerative spondylosis throughout the lumbar spine with severe central canal stenosis at L2-L3 and L3-L4 with multilevel neural foraminal narrowing. Blood culture negative to date. Orthopedic was consulted with [facility]
[2023-03-11 14:48] VITALS: BP 110/60; PULSE 92; RESP 17; TEMP 36.6; O2SAT 100
[2023-03-11] MEDS: HYDROcodone/acetaminophen (*CRX) 5-325 MG TABLET 2 TAB PO ×2 (17:52→23:21)
[2023-03-11 17:53] VITALS: BP 134/58
[2023-03-11] MEDS: polyethylene glycoL 3350 17 GM POWD.PACK PO ×2 (18:47)
[2023-03-11 20:04] VITALS: BP 121/51; PULSE 85; RESP 20; TEMP 36.7; O2SAT 98
[2023-03-12 01:30] VITALS: PULSE 84; O2SAT 99
[2023-03-12] MEDS: HYDROcodone/acetaminophen (*CRX) 5-325 MG TABLET 2 TAB PO (05:59)
[2023-03-12 06:00] VITALS: BP 126/90; PULSE 82; RESP 20; TEMP 36.7; O2SAT 97
[2023-03-12 06:01] LABS: Basophils Absolute Auto 0.1 K/mm3 (0.0-0.1); Basophils Percent Auto 0.6 % (0.2-1.2); Hematocrit 28.9 % (37.0-47.0); Hemoglobin 8.7 g/dL (12.0-15.0); Immature Granulocyte Absolute 0.05 K/mm3 (0.00-0.031); Immature Granulocyte Percent A 0.6 % (0-0.5); Lymphocytes Percent Auto 28.6 % (18.3-44.2); Mean Corpuscular HGB Conc 30.1 g/dl (32-36); Mean Corpuscular Volume 92.9 fl (80-100); Mean Platelet Volume 9.1 fl (7.4-10.4); Monocytes Absolute Auto 0.8 K/mm3 (0.1-0.6); Monocytes Percent Auto 10.3 % (2.6-8.5); Neutrophils Absolute Auto 4.6 K/mm3 (1.3-6.7); Neutrophils Percent Auto 59.9 % (45.5-73.1); Platelet Count Result 408 k/mm3 (150-375); Red Blood Count 3.11 M/mm3 (4.2-5.4); Red Cell Distribution Width 16.7 % (11.5-14.5); White Blood Count 7.7 K/mm3 (4.5-10.0)
[2023-03-12 06:11] LABS: Alanine Aminotransferase 21 U/L (6-35); Albumin Level 3.7 g/dL (3.5-5.1); Alkaline Phosphatase 104 U/L (38-126); Anion Gap 8 mmol/L (8-16); Aspartate Amino Transferase 31 U/L (14-36); Bilirubin,Total 0.3 mg/dL (0.2-1.3); Blood Urea Nitrogen 23 mg/dL (7-17); Calcium 9.1 mg/dL (8.4-10.2); Carbon Dioxide 27 mmol/L (22-30); Chloride 99 mmol/L (98-107); Estimated CRCL calculation 67 ml/min; Estimated Glomerular Filt Rate > 60; Glucose 90 mg/dL (65-110); Potassium 4.7 mmol/L (3.4-5.0); Sodium 134 mmol/L (137-145)
[2023-03-12 09:20] VITALS: BP 131/63
[2023-03-12] MEDS: ASPIRIN 325 MG TABLET PO (09:25)
[2023-03-12] MEDS: lisinopriL 20 MG TABLET 40 MG PO (09:25)
[2023-03-12] MEDS: CHOLECALCIFEROL 1,000 UNITS TABLET 4000 UNITS PO (09:25)
[2023-03-12] MEDS: HYDROXYCHLOROQUINE SULFATE 200 MG TABLET 400 MG PO (09:25)
[2023-03-12] MEDS: ATORVASTATIN 40 MG TABLET PO (09:25)
[2023-03-12] MEDS: ENOXAPARIN 40 MG/0.4 ML SYRINGE SUB-Q (09:25)
[2023-03-12] MEDS: GABAPENTIN 300 MG CAPSULE PO ×3 (09:25→17:30)
[2023-03-12] MEDS: VENLAFAXINE HCL XR 75 MG CAP.ER.24H PO (09:26)
[2023-03-12] MEDS: NIFEdipine 30 MG TAB.ER.24 60 MG PO ×2 (09:26→17:31)
[2023-03-12] MEDS: HYDROcodone/acetaminophen (*CRX) 5-325 MG TABLET 1 TAB PO (10:24)
--- NOTE | 2023-03-12 11:10 | PCNFU ---
Nutrition Follow-Up Complete: Unintended weight loss as related to limited appetite/post surgery as evidenced by 16 ibs weight loss in 6 weeks reported. Goal: Inadequate Intake of at least 75% of meals/supplements Patient is progressing towards goal. Pt current nutrition is Regular. Nutrition recommendation: Nutritional Ice cream BID Last recorded weight is 76.5 kg. Bowel Motility: small BM noted 03/11 Labs Reviewed:BUN 23, Cr 0.6, Na 134 Meds Noted:Miralax Skin: WNL Additional Notes: Nutrition follow up. Patient tolerating regular diet. Intake 50-100% of most meals. Patient ate cinnamon roll that family brought in. She would like to try the nutritional ice cream. Orders for supplements added per MD orders. Ice cream providing an additional 300 kcals and 9 gms protein. Agree with diet orders. Monitor: RD will monitor every 5 days.
--- NOTE | 2023-03-12 11:48 | P.PNIM_ITS ---
Progress Note: A&P Assessment and Plan (1) Bilateral lumbar radiculopathy: Code(s): M54.16 - Radiculopathy, lumbar region Status: Acute (2) Acute deep vein thrombosis of left peroneal vein: Code(s): I82.452 - Acute embolism and thrombosis of left peroneal vein Status: Acute (3) S/P total hip arthroplasty: Qualifiers: Laterality: left Qualified Code(s): Z96.642 - Presence of left artificial hip joint Code(s): Z96.649 - Presence of unspecified artificial hip joint Status: Acute (4) Obstructive sleep apnea on CPAP: Code(s): G47.33 - Obstructive sleep apnea (adult) (pediatric); Z99.89 - Dependence on other enabling machines and devices Status: Acute Plan Patient is having back pain her pain pattern is most consistent with lumbar radiculopathy and she does have known severe lumbar degenerative disc disease. This is most likely cause for the patient's pain. The CT of the patient's pelvis was read as possible infection however patient is not having any significant localizing pain over her left hip on palpation or with movement. Also the distribution the patient's pain is not consistent with what I would expect for and infected joint. The patient does not have any fever, leukocytosis or other evidence of infection. The patient's COPD is also unremarkable. Clinical presentation is most consistent with lumbar radiculopathy. Will await further recommendations from Orthopedic surgery. Patient does have a izrfr-jbp-beos left peroneal vein DVT. Will hold off on anticoagulants into the patient evaluated by Orthopedic surgery per Orthopedic surgeon request. Distal DVTs can be managed without anticoagulants uncertain settings. Will continue monitor. Avoid SCDs are compression devices. Patient does have obstructive sleep apnea but is refusing CPAP while hospitalized. 03/10/2023 interval history:??77-year-old female status post left hip surgery and present with complaint of low back pain concern the pain may be originating recent surgery however patient was seen by her orthopedic surgeon examine the patient does not suspect that the back pain coming from left hip rather recommended to consult spine surgeon further recommendation, patient had MRI of lumbar spine and was seen by and seen by spine surgery service patient does not need any surgical interval recommended pain managed, and patient will benefit with physical therapy at [facility] is evaluating the patient, pending insurance approval, patient is pain is better controlled with [place] 10 mg, will continue to monitor started the patient on gabapentin to control her pain and and/or of PT OT for the patient, further recommendation to follow. 03/11/2023 77-year-old female status post left 5th surgery in end of December presented with right-sided low back pain. Left hip healing well. Orthopedic was consulted. CT lumbar spine and pelvis showed likely septic arthritis and osteomyelitis with recently placed left hip arthroplasty with osteolysis most prominent the acetabulum and secondary pathological transverse acetabular fracture. Associated 8.5 x 2.6 x 8.3 cm loculated fluid collection suspicious for abscess overlying the left greater trochanter with additional possible colitis and underlying greater trochanter and calcar. Likely coincidental nondisplaced insufficiency fractures of the bilateral sacral alae and right pubic body. Severe lumbar spondylosis with chronic L5 spondylosis and grade 2 anterolisthesis on S1. Venous duplex with svvum-oqq-rjxc DVT and left peroneal vein. Lumbar MRI showed bilateral sacral alar insufficiency fractures. Chronic L5 pars interarticularis defects with 1 cm anterolisthesis
[2023-03-12 14:00] VITALS: BP 128/60; PULSE 85; RESP 18; TEMP 36.3; O2SAT 98
[2023-03-12] MEDS: predniSONE 20 MG TABLET 40 MG PO (15:04)
[2023-03-12 22:00] VITALS: BP 130/57; PULSE 97; RESP 18; TEMP 36.6; O2SAT 97
[2023-03-12 23:15] VITALS: PULSE 86; O2SAT 97
[2023-03-13 06:00] VITALS: BP 131/59; PULSE 79; RESP 20; TEMP 36.5; O2SAT 98
[2023-03-13 06:37] LABS: Estimated CRCL calculation 79 ml/min; Estimated Glomerular Filt Rate > 60
[2023-03-13 08:25] VITALS: BP 139/97
[2023-03-13] MEDS: NIFEdipine 30 MG TAB.ER.24 60 MG PO ×2 (08:28→18:25)
[2023-03-13] MEDS: CHOLECALCIFEROL 1,000 UNITS TABLET 4000 UNITS PO (08:28)
[2023-03-13] MEDS: VENLAFAXINE HCL XR 75 MG CAP.ER.24H PO (08:28)
[2023-03-13] MEDS: HYDROXYCHLOROQUINE SULFATE 200 MG TABLET 400 MG PO (08:28)
[2023-03-13] MEDS: ASPIRIN 325 MG TABLET PO (08:28)
[2023-03-13] MEDS: ATORVASTATIN 40 MG TABLET PO (08:28)
[2023-03-13] MEDS: predniSONE 20 MG TABLET 40 MG PO (08:28)
[2023-03-13] MEDS: lisinopriL 20 MG TABLET 40 MG PO (08:28)
[2023-03-13] MEDS: GABAPENTIN 300 MG CAPSULE PO ×2 (08:28→18:25)
[2023-03-13] MEDS: ENOXAPARIN 40 MG/0.4 ML SYRINGE SUB-Q (08:29)
[2023-03-13] MEDS: HYDROcodone/acetaminophen (*CRX) 5-325 MG TABLET 2 TAB PO (08:34)
--- NOTE | 2023-03-13 11:05 | PM.IMPN ---
Progress Note: A&P Assessment and Plan (1) Bilateral lumbar radiculopathy: Code(s): M54.16 - Radiculopathy, lumbar region Status: Acute (2) Acute deep vein thrombosis of left peroneal vein: Code(s): I82.452 - Acute embolism and thrombosis of left peroneal vein Status: Acute (3) S/P total hip arthroplasty: Qualifiers: Laterality: left Qualified Code(s): Z96.642 - Presence of left artificial hip joint Code(s): Z96.649 - Presence of unspecified artificial hip joint Status: Acute (4) Obstructive sleep apnea on CPAP: Code(s): G47.33 - Obstructive sleep apnea (adult) (pediatric); Z99.89 - Dependence on other enabling machines and devices Status: Acute Plan Patient is having back pain her pain pattern is most consistent with lumbar radiculopathy and she does have known severe lumbar degenerative disc disease. This is most likely cause for the patient's pain. The CT of the patient's pelvis was read as possible infection however patient is not having any significant localizing pain over her left hip on palpation or with movement. Also the distribution the patient's pain is not consistent with what I would expect for and infected joint. The patient does not have any fever, leukocytosis or other evidence of infection. The patient's COPD is also unremarkable. Clinical presentation is most consistent with lumbar radiculopathy. Will await further recommendations from Orthopedic surgery. Patient does have a kbavt-[id number]-jmtz left peroneal vein DVT. Will hold off on anticoagulants into the patient evaluated by Orthopedic surgery per Orthopedic surgeon request. Distal DVTs can be managed without anticoagulants uncertain settings. Will continue monitor. Avoid SCDs are compression devices. Patient does have obstructive sleep apnea but is refusing CPAP while hospitalized. 03/10/2023 interval history:??77-year-old female status post left hip surgery and present with complaint of low back pain concern the pain may be originating recent surgery however patient was seen by her orthopedic surgeon examine the patient does not suspect that the back pain coming from left hip rather recommended to consult spine surgeon further recommendation, patient had MRI of lumbar spine and was seen by and seen by spine surgery service patient does not need any surgical interval recommended pain managed, and patient will benefit with physical therapy at [facility] is evaluating the patient, pending insurance approval, patient is pain is better controlled with [place] 10 mg, will continue to monitor started the patient on gabapentin to control her pain and and/or of PT OT for the patient, further recommendation to follow. 03/11/2023 77-year-old female status post left 5th surgery in end of December presented with right-sided low back pain. Left hip healing well. Orthopedic was consulted. CT lumbar spine and pelvis showed likely septic arthritis and osteomyelitis with recently placed left hip arthroplasty with osteolysis most prominent the acetabulum and secondary pathological transverse acetabular fracture. Associated 8.5 x 2.6 x 8.3 cm loculated fluid collection suspicious for abscess overlying the left greater trochanter with additional possible colitis and underlying greater trochanter and calcar. Likely coincidental nondisplaced insufficiency fractures of the bilateral sacral alae and right pubic body. Severe lumbar spondylosis with chronic L5 spondylosis and grade 2 anterolisthesis on S1. Venous duplex with pnqjq-qzj-agub DVT and left peroneal vein. Lumbar MRI showed bilateral sacral alar insufficiency fractures. Chronic L5 pars interarticularis defects with 1 cm anterolisthesis of L5 over S1. Severe degenerative spondylosis throughout the lumbar spine with severe central canal stenosis at L2-L3 and L3-L4 with multilevel neural foraminal narrowing. Blood culture negative to date. Orthopedic was consulted with ebony
[2023-03-13 14:25] VITALS: BP 129/64; PULSE 93; RESP 18; TEMP 36.8; O2SAT 97
[2023-03-13 18:23] VITALS: BP 120/68
[2023-03-13 20:32] VITALS: BP 109/53; PULSE 89; RESP 18; TEMP 36.6; O2SAT 100
[2023-03-13 23:10] VITALS: PULSE 79; O2SAT 97
[2023-03-14] VITALS (7 sets, daily range): BP systolic 97–144; BP diastolic 47–73; PULSE 82–99; RESP 16–18; TEMP 36.2–36.6; O2SAT 96–100
[2023-03-14 06:07] LABS: Basophils Percent Auto 0.2 % (0.2-1.2); Hematocrit 25.2 % (37.0-47.0); Hemoglobin 7.8 g/dL (12.0-15.0); Immature Granulocyte Absolute 0.05 K/mm3 (0.00-0.031); Immature Granulocyte Percent A 0.6 % (0-0.5); Lymphocytes Absolute Auto 2.19 K/mm3 (0.9-3.2); Mean Corpuscular Hemoglobin 28.3 pg (26-34); Mean Corpuscular Volume 91.3 fl (80-100); Mean Platelet Volume 8.6 fl (7.4-10.4); Monocytes Percent Auto 11.6 % (2.6-8.5); Neutrophils Absolute Auto 5.2 K/mm3 (1.3-6.7); Neutrophils Percent Auto 61.6 % (45.5-73.1); Platelet Count Result 434 k/mm3 (150-375); Red Blood Count 2.76 M/mm3 (4.2-5.4); Red Cell Distribution Width 16.8 % (11.5-14.5); White Blood Count 8.4 K/mm3 (4.5-10.0)
[2023-03-14 06:14] LABS: Alanine Aminotransferase 20 U/L (6-35); Albumin Level 3.6 g/dL (3.5-5.1); Alkaline Phosphatase 112 U/L (38-126); Anion Gap 3 mmol/L (8-16); Aspartate Amino Transferase 28 U/L (14-36); Bilirubin,Total 0.2 mg/dL (0.2-1.3); Blood Urea Nitrogen 21 mg/dL (7-17); Calcium 8.7 mg/dL (8.4-10.2); Carbon Dioxide 32 mmol/L (22-30); Chloride 99 mmol/L (98-107); Estimated CRCL calculation 58 ml/min; Estimated Glomerular Filt Rate > 60; Glucose 78 mg/dL (65-110); Magnesium 2.1 mg/dL (1.6-2.3); Sodium 134 mmol/L (137-145)
[2023-03-14] MEDS: ENOXAPARIN 40 MG/0.4 ML SYRINGE SUB-Q (08:50)
[2023-03-14] MEDS: predniSONE 20 MG TABLET 40 MG PO (08:50)
[2023-03-14] MEDS: ATORVASTATIN 40 MG TABLET PO (08:50)
[2023-03-14] MEDS: ASPIRIN 325 MG TABLET PO (08:50)
[2023-03-14] MEDS: GABAPENTIN 300 MG CAPSULE PO ×3 (08:50→17:35)
[2023-03-14] MEDS: CHOLECALCIFEROL 1,000 UNITS TABLET 4000 UNITS PO (08:50)
[2023-03-14] MEDS: NIFEdipine 30 MG TAB.ER.24 60 MG PO ×2 (08:51→17:36)
[2023-03-14] MEDS: lisinopriL 20 MG TABLET 40 MG PO (08:51)
[2023-03-14] MEDS: VENLAFAXINE HCL XR 75 MG CAP.ER.24H PO (08:51)
[2023-03-14] MEDS: polyethylene glycoL 3350 17 GM POWD.PACK PO (08:51)
[2023-03-14] MEDS: HYDROXYCHLOROQUINE SULFATE 200 MG TABLET 400 MG PO (08:51)
[2023-03-14] MEDS: BISACODYL 5 MG TABLET EC PO (08:56)
[2023-03-14] MEDS: HYDROcodone/acetaminophen (*CRX) 5-325 MG TABLET 1 TAB PO (08:57)
[2023-03-14] MEDS: HYDROcodone/acetaminophen (*CRX) 5-325 MG TABLET 2 TAB PO ×2 (13:04→22:14)
--- NOTE | 2023-03-14 13:41 | PM.IMPN ---
Progress Note: A&P Assessment and Plan (1) Bilateral lumbar radiculopathy: Code(s): M54.16 - Radiculopathy, lumbar region Status: Acute Assessment and Plan: CT lumbar spine and pelvis showed likely septic arthritis and osteomyelitis with recently placed left hip arthroplasty with osteolysis most prominent the escitalopram and secondary pathological transfers testable or fracture. Associated 8.5 x 2.6 x 8.3 cm loculated fluid collection suspicious for abscess overlying the left greater trochanter with additional possible colitis and underlying greater trochanter and calcar. Likely coincidental nondisplaced insufficiency fractures of the bilateral sacral alae and right pubic body. Severe lumbar spondylosis with chronic L5 spondylosis and grade 2 anterolisthesis on S1. Venous duplex with [id number] DVT and left peroneal vein. Lumbar MRI showed bilateral sacral alar insufficiency fractures. Chronic L5 pars interarticularis defects with 1 cm anterolisthesis of L5 over S1. Severe degenerative spondylosis throughout the lumbar spine with severe central canal stenosis at L2-L3 and L3-L4 with multilevel neural foraminal narrowing. Blood culture negative to date. Orthopedic was consulted with regard to abnormal CT scan suggestive of septic arthritis versus osteomyelitis. Not clinically no such finding was noted and hence further surgery deferred since her pain is noted on right low back along with findings from lumbar MRI most likely pain related to her degenerated disc disease/spondylosis and anterolisthesis of L5 over S1. There also bilateral sacral alar insufficiency fractures. Neurosurgery has been consulted with regard to severe central canal stenosis and multilevel neuroforaminal narrowing. They have recommended outpatient pain management and epidural injections and no surgical intervention recommended. Her pain is controlled with [place] currently. still not able to ambulate needs rehabilitation. She will need to see pain management as an outpatient basis. She is awaiting rehab placement currently . (2) Acute deep vein thrombosis of left peroneal vein: Code(s): I82.452 - Acute embolism and thrombosis of left peroneal vein Status: Acute Assessment and Plan: Venous duplex repeat negative for peroneal vein DVT or any other DVT. Continues on DVT prophylaxis Lovenox. (3) S/P total hip arthroplasty: Qualifiers: Laterality: left Qualified Code(s): Z96.642 - Presence of left artificial hip joint Code(s): Z96.649 - Presence of unspecified artificial hip joint Status: Acute (4) Obstructive sleep apnea on CPAP: Code(s): G47.33 - Obstructive sleep apnea (adult) (pediatric); Z99.89 - Dependence on other enabling machines and devices Status: Acute Plan Awaiting insurance authorization and acceptance at [facility] Subjective Date/time seen: 03/14/23 13:41 Interval history: No issues overnight Review of Systems Review of Systems: All systems reviewed & are unremarkable except as noted in HPI and below Exam Narrative: Patient is comfortable, NAD HEENT: eyes are clear and none icteric LUNGS: Normal respiratory effort ABD: Not distended Nontender Lower extremities: no edema MS: Bilateral lower extremity symmetric there is no internal or external rotation SKIN: nonjaundiced Neuro: grossly intact. Objective Data Vital Signs Vital Signs: Vital Signs - 24 hr 03/13/23 14:25 03/13/23 18:23 03/13/23 20:32 Temperature 98.2 F 98 F Pulse Rate 93 89 Respiratory Rate 18 18 Blood Pressure 129/64 120/68 109/53 L Pulse Oximetry 97 100 Oxygen Delivery 03/13/23 20:00 03/13/23 23:10 03/14/23 02:29 Temperature Pulse Rate 79 82 Respiratory Rate Blood Pressure Pulse Oximetry 97 96 Oxygen Delivery Room Air CPAP CPAP 03/14/23 05:23 03/14/23 08:57 03/14/23 08:45 Temperature 97.8 F Pulse Rate 87 Respiratory Rate 16 Blood Pressu
[2023-03-15 05:31] VITALS: BP 136/56; PULSE 85; RESP 16; TEMP 36.2; O2SAT 99
[2023-03-15 06:00] LABS: Estimated CRCL calculation 58 ml/min; Estimated Glomerular Filt Rate > 60
[2023-03-15] MEDS: CHOLECALCIFEROL 1,000 UNITS TABLET 4000 UNITS PO (09:21)
[2023-03-15] MEDS: HYDROcodone/acetaminophen (*CRX) 5-325 MG TABLET 2 TAB PO ×2 (09:21→13:35)
[2023-03-15] MEDS: HYDROXYCHLOROQUINE SULFATE 200 MG TABLET 400 MG PO (09:21)
[2023-03-15] MEDS: NIFEdipine 30 MG TAB.ER.24 60 MG PO (09:21)
[2023-03-15] MEDS: ENOXAPARIN 40 MG/0.4 ML SYRINGE SUB-Q (09:22)
[2023-03-15] MEDS: ASPIRIN 325 MG TABLET PO (09:22)
[2023-03-15] MEDS: GABAPENTIN 300 MG CAPSULE PO ×2 (09:22→12:29)
[2023-03-15] MEDS: predniSONE 20 MG TABLET 40 MG PO (09:22)
[2023-03-15] MEDS: lisinopriL 20 MG TABLET 40 MG PO (09:22)
[2023-03-15] MEDS: VENLAFAXINE HCL XR 75 MG CAP.ER.24H PO (09:22)
[2023-03-15] MEDS: ATORVASTATIN 40 MG TABLET PO (09:23)
--- NOTE | 2023-03-15 12:03 | PM.IMPN ---
Progress Note: A&P Assessment and Plan (1) Bilateral lumbar radiculopathy: Code(s): M54.16 - Radiculopathy, lumbar region Status: Acute Assessment and Plan: CT lumbar spine and pelvis showed likely septic arthritis and osteomyelitis with recently placed left hip arthroplasty with osteolysis most prominent the escitalopram and secondary pathological transfers testable or fracture. Associated 8.5 x 2.6 x 8.3 cm loculated fluid collection suspicious for abscess overlying the left greater trochanter with additional possible colitis and underlying greater trochanter and calcar. Likely coincidental nondisplaced insufficiency fractures of the bilateral sacral alae and right pubic body. Severe lumbar spondylosis with chronic L5 spondylosis and grade 2 anterolisthesis on S1. Venous duplex with [id number] DVT and left peroneal vein. Lumbar MRI showed bilateral sacral alar insufficiency fractures. Chronic L5 pars interarticularis defects with 1 cm anterolisthesis of L5 over S1. Severe degenerative spondylosis throughout the lumbar spine with severe central canal stenosis at L2-L3 and L3-L4 with multilevel neural foraminal narrowing. Blood culture negative to date. Orthopedic was consulted with regard to abnormal CT scan suggestive of septic arthritis versus osteomyelitis. Not clinically no such finding was noted and hence further surgery deferred since her pain is noted on right low back along with findings from lumbar MRI most likely pain related to her degenerated disc disease/spondylosis and anterolisthesis of L5 over S1. There also bilateral sacral alar insufficiency fractures. Neurosurgery has been consulted with regard to severe central canal stenosis and multilevel neuroforaminal narrowing. They have recommended outpatient pain management and epidural injections and no surgical intervention recommended. She is awaiting rehab placement currently . (2) Acute deep vein thrombosis of left peroneal vein: Code(s): I82.452 - Acute embolism and thrombosis of left peroneal vein Status: Acute Assessment and Plan: Venous duplex repeat negative for peroneal vein DVT or any other DVT. Continues on DVT prophylaxis Lovenox. (3) S/P total hip arthroplasty: Qualifiers: Laterality: left Qualified Code(s): Z96.642 - Presence of left artificial hip joint Code(s): Z96.649 - Presence of unspecified artificial hip joint Status: Acute (4) Obstructive sleep apnea on CPAP: Code(s): G47.33 - Obstructive sleep apnea (adult) (pediatric); Z99.89 - Dependence on other enabling machines and devices Status: Acute Plan Awaiting insurance authorization and acceptance at [facility] Subjective Date/time seen: 03/15/23 12:03 Interval history: Patient working with therapy Review of Systems Review of Systems: All systems reviewed & are unremarkable except as noted in HPI and below Exam Narrative: Patient is comfortable, NAD HEENT: eyes are clear and none icteric LUNGS: Normal respiratory effort ABD: Not distended Nontender Lower extremities: no edema MS: Bilateral lower extremity symmetric there is no internal or external rotation SKIN: nonjaundiced Neuro: grossly intact. Objective Data Vital Signs Vital Signs: Vital Signs - 24 hr 03/14/23 15:59 03/14/23 17:34 03/14/23 20:08 Temperature 97.3 F L 97.1 F L Pulse Rate 99 89 Respiratory Rate 16 18 Blood Pressure 128/73 144/64 H 97/47 L Pulse Oximetry 98 99 Oxygen Delivery 03/15/23 05:31 03/14/23 23:15 03/15/23 09:30 Temperature 97.2 F L Pulse Rate 85 87 Respiratory Rate 16 Blood Pressure 136/56 L Pulse Oximetry 99 98 Oxygen Delivery CPAP Room Air Intake/Output Intake/Output: Intake & Output 03/12/23 03/13/23 03/14/23 03/15/23 23:59 23:59 23:59 23:59 Intake Total 2230 / 2230 2560 / 2560 1170 / 1170 490 / 490 Output Total 2900 / 2900 2350 / 2350 1150 / 1150 800 / 800 Balance -670 /
--- NOTE | 2023-03-15 13:13 | PM.DS ---
DS: Admitting Diagnosis Discharge Date 03/15/23 Admitting Diagnosis lumbar radiculopathy DS: Discharge Diagnosis Discharge Diagnosis (1) Lumbar stenosis without neurogenic claudication: Code(s): M48.061 - Spinal stenosis, lumbar region without neurogenic claudication Status: Acute (2) Lumbar radiculopathy: Code(s): M54.16 - Radiculopathy, lumbar region Status: Acute (3) S/P total hip arthroplasty: Qualifiers: Laterality: left Qualified Code(s): Z96.642 - Presence of left artificial hip joint Code(s): Z96.649 - Presence of unspecified artificial hip joint Status: Acute (4) Chronic kidney disease, stage 3 (moderate): Qualifiers: Chronic kidney disease stage 3 subtype: stage 3a (GFR 45-59) Qualified Code(s): N18.31 - Chronic kidney disease, stage 3a Code(s): N18.3 - Chronic kidney disease, stage 3 (moderate) Status: Chronic DS: Summary Hospital Course Hospital Course: 77-year-old female status post left hip surgery in end of December presented with right-sided low back pain. left hip healing well. orthopedic was consulted.? CT lumbar spine and pelvis showed likely septic arthritis and osteomyelitis with recently placed left hip arthroplasty with osteolysis most prominent the escitalopram and secondary pathological transfers testable or fracture.? Associated 8.5 x 2.6 x 8.3 cm loculated fluid collection suspicious for abscess overlying the left greater trochanter with additional possible colitis and underlying greater trochanter and calcar.? Likely coincidental nondisplaced insufficiency fractures of the bilateral sacral alae and right pubic body.? Severe lumbar spondylosis with chronic L5 spondylosis and grade 2 anterolisthesis on S1.? Venous duplex with [id number] DVT and left peroneal vein.? Lumbar MRI showed bilateral sacral alar insufficiency fractures.? Chronic L5 pars interarticularis defects with 1 cm anterolisthesis of L5 over S1.? Severe degenerative spondylosis throughout the lumbar spine with severe central canal stenosis at L2-L3 and L3-L4 with multilevel neural foraminal narrowing.? Blood culture negative to date.? Orthopedic was consulted with regard to abnormal CT scan suggestive of septic arthritis versus osteomyelitis.? Not clinically no such finding was noted and hence further surgery deferred since her pain is noted on right low back along with findings from lumbar MRI most likely pain related to her degenerated disc disease/spondylosis and anterolisthesis of L5 over S1.? There also bilateral sacral alar insufficiency fractures.? Neurosurgery has been consulted with regard to severe central canal stenosis and multilevel neuroforaminal narrowing.? They have recommended outpatient pain management and epidural injections and no surgical intervention recommended.? Her pain is controlled with [place] currently. still not able to ambulate needs rehabilitation.? She will need to see pain management as an outpatient basis.? Reports right lower quadrant pain ? CT abdomen pelvis with no intra-abdominal pathology.? She does have bilateral insufficiency fracture sacral ala. left periprosthetic acetabular fracture is healing.? She is on hydrocodone and Flexeril.? Pulse steroid with 5 days course of prednisone ordered.? She will need continued PT OT.? Venous duplex? repeat negative for peroneal vein DVT or any other DVT.? Continues on DVT prophylaxis Lovenox.? Needs to go to rehab facility for further rehabilitation.? being dischareged to SNF Time Spent with Patient Time attestation: Total time spent providing and/or coordinating discharge services: Exam Narrative: Patient is comfortable, NAD HEENT: eyes are clear and none icteric LUNGS: Normal respiratory effort ABD: Not distended Nontender Lower extremities: no edema MS: Bilateral lower extremity symmetric there is no internal or external rotation SKIN: nonjaundiced Neuro: grossly intact. DS: Data Data
[2023-03-15 14:00] VITALS: BP 107/66; PULSE 87; RESP 16; TEMP 36.4; O2SAT 100
[2023-03-15 14:03] LABS: EDCOVIDSCREEN Negative (Negative)
== END 2023-03-15 17:30 ==
LOC: ANHED 03-07 00:39 → ANH3MED 03-07 02:15
PROVIDERS: Internal Medicine; Admitting Provider Internal Medicine; Emergency Provider Physician Assistant; PCP Family Medicine; Visit Provider Hospitalist
DX: M48.061 Spinal stenosis, lumbar region without neurogenic claudication (principal); M54.16 Radiculopathy, lumbar region; I82.452 Acute embolism and thrombosis of left peroneal vein; Z96.642 Presence of left artificial hip joint; I12.9 Hypertensive chronic kidney disease with stage 1 through stage 4 chronic kidney disease, or unspecified chronic kidney disease; N18.30 Chronic kidney disease, stage 3 unspecified; G47.33 Obstructive sleep apnea (adult) (pediatric); Z99.89 Dependence on other enabling machines and devices; Z20.822 Contact with and (suspected) exposure to COVID-19; M43.16 Spondylolisthesis, lumbar region; M71.22 Synovial cyst of popliteal space [Baker], left knee; I95.9 Hypotension, unspecified; D64.9 Anemia, unspecified; M47.816 Spondylosis without myelopathy or radiculopathy, lumbar region; F32.A Depression, unspecified; M15.9 Polyosteoarthritis, unspecified; K21.9 Gastro-esophageal reflux disease without esophagitis; E55.9 Vitamin D deficiency, unspecified; K58.9 Irritable bowel syndrome, unspecified; R29.6 Repeated falls; Z87.891 Personal history of nicotine dependence; F10.90 Alcohol use, unspecified, uncomplicated; F12.90 Cannabis use, unspecified, uncomplicated; Z79.1 Long term (current) use of non-steroidal anti-inflammatories (NSAID); Z79.82 Long term (current) use of aspirin; Z79.899 Other long term (current) drug therapy; Z82.49 Family history of ischemic heart disease and other diseases of the circulatory system
CPT/HCPCS: 36415; 72100; 72131; 72148; 72192; 73502; 74176; 80048; 80053; 80202; 82565; 83605; 83735; 85025; 85027; 85610; 85652; 85730; 86140; 86850; 86900; 86901; 87040; 87426; 93970; 93971; 96361; 96365; 96366; 96367; 96372; 96375; 96376; 97110; 97162; 97165; 97530; 97535; 99285; A9270; C9803; G0378; J0692; J1650; J2270; J2405; J3370; J7030; J7512

== ENCOUNTER 2023-03-23 22:17 | Observation (INO) | payer MEDICARE, SELFPAY ==
--- NOTE | ~2023-03-23 | XR_ITS ---
EXAMINATION: XR chest 2V DATE: 03/23/2023 22:45 INDICATION: Weakness TECHNIQUE: frontal and lateral views of the chest were obtained. COMPARISON: Chest radiograph dated 01/30/2022 FINDINGS: The lungs remain clear with no focal airspace opacities, pulmonary edema, pleural effusion or pneumot horax. The cardiomediastinal silhouette is normal. There are bridging osteophytes at multiple levels in the spine, consistent with diffuse idiopathic skeletal hyperostosis (DISH). Bilateral rotator cuff arthropathy. IMPRESSION: 1. No acute cardiopulmonary disease. Reviewed, dictated and finalized at location A.
--- NOTE | ~2023-03-23 | XR_ITS ---
EXAMINATION: XR hip RT min 2V DATE: 03/24/2023 00:54 INDICATION: Right hip pain. TECHNIQUE: 2 views of right hip were obtained. COMPARISON: Right hip radiographs 09/25/2022 FINDINGS: Bone alignment is normal. No fracture. There is mild right hip osteoarthritis. Osteitis pub is is noted. Surgical clips overlie the pelvis. IMPRESSION: 1. Mild right hip osteoarthritis. Reviewed, dictated and finalized at location E.
--- NOTE | ~2023-03-23 | CT_ITS ---
CT of the Abdomen and Pelvis: Indication: Abdominal Technique: 2.5 mm axial scans were obtained through the abdomen and pelvis following intravenous adm inistration of 100 cc of Omnipaque 350. Dose reduction technique was used on this scan by utilizing a utomated exposure control and iterative reconstruction technique. The dose-length product (DLP) was 9 74.02 mGy-cm. COMPARISON: 03/12/2023 Findings: Scans through the lung bases are unremarkable. The liver, spleen, adrenals and kidneys are within normal limits. Gallbladder not visualized. Calcifi cations of the pancreatic head could reflect chronic pancreatitis. No evidence of aortic aneurysm. N o lymphadenopathy. No bowel obstruction or bowel wall thickening. There is no evidence to suggest acute appendicitis. Sm all ventral fat-containing hernia present, just right of midline at the umbilicus. Images through the pelvis are degraded by streak artifact from left hip arthroplasty. Urinary bladder appears unremarkable. Evidence of presumed prior herniorrhaphy. Patient appears to be post hysterect jose. No adnexal mass seen. No ascites. There is advanced degenerative spondylosis of the lumbar spine, with underlying bilateral L5 pars int erarticularis defects. Healing periprosthetic left acetabular fracture is present present, similar to prior exam. Bilateral sacral insufficiency fractures are also essentially unchanged. Impression: No acute abnormality evident. Stable periprosthetic left acetabular fracture with some callus formation. Bilateral sacral insuffici ency fractures also unchanged. Chronic pancreatitis. Small ventral fat-containing hernia, as detailed above. Bilateral L5 pars interarticularis defects, with advanced degenerative spondylosis of the lumbar spin e. Reviewed, dictated and finalized at [facility]. Impression: No acute abnormality evident. Stable periprosthetic left acetabular fracture with some callus formation. Bila teral sacral insufficiency fractures also unchanged. Chronic pancreatitis. Small ventral fat-containing hernia, as detailed above. Bilateral L5 pars interarticularis defects, with advanced degenerative spondylo sis of the lumbar spine.
[2023-03-23 22:18] VITALS: BP 109/52; PULSE 94; RESP 16; TEMP 36.7; O2SAT 99
--- NOTE | 2023-03-23 22:25 | ECG_ITS ---
Measurements Intervals [place] Rate: 93 P: 43 AL: 143 QRS: 31 QRSD: 85 T: 32 QT: 344 QTc: 428 Interpretive Statements SINUS RHYTHM LOW QRS VOLTAGE IN EXTREMITY LEADS [QRS DEFLECTION < 0.5 mV IN LIMB LEADS] MINIMAL ST DEPRESSION [0.025+ mV ST DEPRESSION] COMPARED TO ECG 11/10/2022 15:52:36 NO SIGNIFICANT CHANGES Electronically Signed On 03-24-2023 9:40:19 CDT by Yamileth Barnes M.D.
--- NOTE | 2023-03-23 22:33 | PC.NURSE ---
Per Shelby at [facility], patient was confused yesterday so they ordered at which was inconclusive so they ordered labs today. Shelby got a critical result today of hgb 3.0 and hct 9.8. patient has been complaining of being more tired.
[2023-03-23 22:50] LABS: Alanine Aminotransferase 117 U/L (6-35); Alkaline Phosphatase 98 U/L (38-126); Anion Gap 6 mmol/L (8-16); Aspartate Amino Transferase 96 U/L (14-36); Bilirubin,Total 0.3 mg/dL (0.2-1.3); Blood Urea Nitrogen 56 mg/dL (7-17); Carbon Dioxide 23 mmol/L (22-30); Chloride 98 mmol/L (98-107); Estimated CRCL calculation 50 ml/min; Estimated Glomerular Filt Rate > 60; Glucose 107 mg/dL (65-110); Potassium 4.4 mmol/L (3.4-5.0); Sodium 127 mmol/L (137-145)
[2023-03-24] VITALS (30 sets, daily range): BP systolic 93–152; BP diastolic 34–90; PULSE 87–105; RESP 14–22; TEMP 36–37.2; O2SAT 92–100; BMI 29.7
--- NOTE | 2023-03-24 00:09 | ED.RECABL ---
HPI - Recheck/Abnormal Lab/Rx General Chief Complaint: Recheck/Abnormal Lab/Rx <Juliann Lopez PA-C - Last Filed: 03/25/23 09:25> Stated Complaint: abnormal labs <Juliann Lopez PA-C - Last Filed: 03/25/23 09:25> Time Seen by Provider: 03/23/23 23:53 <Juliann Lopez PA-C - Last Filed: 03/25/23 09:25> History of Present Illness HPI narrative: 77-year-old female with a history of SARAH, CKD, hyponatremia, hyperlipidemia, lumbar stenosis with neurogenic claudication reports for evaluation from [facility] for a low hemoglobin. Patient presents with her sons who assist with history. Per the patient's sons, patient underwent left hip replacement on 01/09 and at [facility] and was then discharged home to [facility]. States after undergoing rehab at [facility], she was discharged home and then later brought back to the emergency department for back pain. At that time she was admitted for 9 days and discharged back to [facility] for rehab. Patient reports since that time, she is felt tired and reports generalized weakness. She states [facility] lupe labs after dinner tonight and sent her to the emergency department due to hemoglobin of 3.3. She is complaining of generalized abdominal pain, right hip pain and generalized weakness. Patient has been ambulating with a wheelchair secondary to the left hip replacement and back pain. She denies known fevers, chest pain or shortness of breath, vision changes, focal numbness or weakness, urinary complaints. States last bowel movement was yesterday. She reports feeling constipated secondary to pain medications. Denies melena, hematochezia, hemoptysis, hematemesis, n/v/d. <Juliann Lopez PA-C - Last Filed: 03/25/23 09:25> Related Data Home Medications: Home Medications Medication Instructions Recorded Confirmed acetaminophen 650 mg 1,300 mg PO BID PRN pain or fever 09/12/19 03/24/23 tablet,extended release (Tylenol 8 Hour) aspirin 325 mg tablet 325 mg PO DAILY 09/12/19 03/24/23 cholecalciferol (vitamin D3) 50 4,000 unit PO BID 09/12/19 03/24/23 mcg (2,000 unit) tablet calcium carbonate 500 mg calcium 500 mg PO DAILY PRN Indigestion 11/10/22 03/24/23 (1,250 mg) chewable tablet nifedipine 60 mg tablet,extended 60 mg PO BID 11/10/22 03/24/23 release 24 hr atorvastatin 40 mg tablet (Lipitor) 40 mg PO DAILY 03/07/23 03/24/23 polyethylene glycol 3350 17 17 g PO PRN PRN Constipation 03/07/23 03/24/23 gram/dose oral powder (Miralax) gabapentin 300 mg capsule 300 mg PO BID 03/24/23 03/24/23 ondansetron 4 mg disintegrating 4 mg PO Q6H PRN Nausea And Vomiting 03/24/23 03/24/23 tablet <Juliann Lopez PA-C - Last Filed: 03/25/23 09:25> Allergies/Adverse Reactions: Allergies Allergy/AdvReac Type Severity Reaction Status Date / Time No Known Allergies Allergy Verified 03/06/23 18:59 <Juliann Lopez PA-C - Last Filed: 03/25/23 09:25> Review of Systems Review of Systems: CONSTITUTIONAL: Denies fever, chills EYES: Denies visual changes, redness, or discharge. ENT: Denies rhinorrhea, congestion, sore throat, or otalgia. CARDIOVASCULAR: Denies chest pain, palpitations, or edema. RESPIRATORY: Denies cough or dyspnea. GASTROINTESTINAL: See HPI GENITOURINARY: Denies dysuria or hematuria. SKIN: Denies rash or itching. MUSCULOSKELETAL: See HPI NEUROLOGIC: Denies headache, numbness, dizziness, or weakness. PSYCHIATRIC: Denies anxiety or depression. <Juliann Lopez PA-C - Last Filed: 03/25/23 09:25> [facility] Past Medical History Medical History: Medical History (Updated 03/25/23 @ 09:25 by Juliann Lopez PA-C) Acute on chronic anemia Adhesive capsulitis of left shoulder (~06/2021) Chronic anemia Chronic kidney disease, stage 3 (moderate) 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 Depression Endometrial cancer Generalized osteoarthritis of
[2023-03-24] MEDS: SODIUM CHLORIDE 0.9% IV 1,000 ML 999 ML IV CONT (00:23)
[2023-03-24] MEDS: ONDANSETRON INJ 4 MG/2 ML VIAL IV PUSH (00:24)
[2023-03-24] MEDS: fentaNYL CITRATE INJ (*CRX) 100 MCG/2 ML VIAL 25 MCG IV PUSH (00:24)
[2023-03-24 01:16] LABS: Lipase 81 U/L (23-300)
[2023-03-24 01:29] LABS: Troponin I < 0.012 ng/mL (0.000-0.034)
[2023-03-24 02:06] LABS: INR 1.1; Prothrombin Time 15.2 Seconds (11.1-14.7)
[2023-03-24 02:16] LABS: Alveolar/Arterial O2 Gradient 18.9 mmHg; Base Excess ABG -4.2 mEq/l (+/-2.0); Fractional Inspired Oxygen 21 %; HCO3 ABG 19.5 mEq/l (22.0-26.0); Oxygen Content ABG 4.4 %vol (16.0-22.0); Oxygen Saturation ABG 97.9 % (95.0-100.0); Oxyhemoglobin 92.7 % THb (90.0-100.0); PCO2 ABG 27.4 mmHg (35.0-45.0); PO2 FiO2 Ratio Arterial Blood 4.67 %; pH ABG 7.471 (7.350-7.450)
[2023-03-24 02:19] LABS: Total Hemoglobin 3.2 g/dL (12.0-18.0)
[2023-03-24 02:20] LABS: Modified Allen's Test Pass; Site Drawn LEFT RADIAL
[2023-03-24] MEDS: TUBING, BLOOD PLUM PUMP TUBING 1 EACH XX (04:24)
[2023-03-24] MEDS: SODIUM CHLORIDE 0.9% IV 250 ML 30 ML IV CONT ×2 (04:25→07:00)
--- NOTE | 2023-03-24 04:43 | PM.IMHP ---
H&P: HPI History of Present Illness Date/Time: 03/24/23 04:43 Chief Complaint: Abnormal lab work Narrative: This is a 77-year-old female with past medical history significant for spinal stenosis, neurogenic claudication, recent left hip arthroplasty, chronic back pain, hypertension, lumbar region spondylolisthesis, GERD, obstructive sleep apnea on CPAP, recurrent falls. Patient present from [facility] where she has been for a 2nd time 1st time after hip replacement 2nd time due to back pain recurrent falls and neurogenic claudication. Patient states that she has been feeling fatigued, short of breath, tired, lab work showed a hemoglobin of 3 and patient was brought for evaluation. Denies any melena, coffee-ground emesis, hematemesis, bright red blood per rectum. A CT of abdomen and pelvis was reported as. CT of the Abdomen and Pelvis: Indication: Abdominal Technique:? 2.5 mm axial scans were obtained through the abdomen and pelvis following intravenous administration of 100 cc of Omnipaque 350. Dose reduction technique was used on this scan by utilizing automated exposure control and iterative reconstruction technique. The dose-length product (DLP) was 974.02 mGy-cm. COMPARISON: 03/12/2023 Findings:? Scans through the lung bases are unremarkable. The liver, spleen, adrenals and kidneys are within normal limits. Gallbladder not visualized. Calcifications of the pancreatic head could reflect chronic pancreatitis. No evidence of aortic aneurysm.? No lymphadenopathy. No bowel obstruction or bowel wall thickening. There is no evidence to suggest acute appendicitis. Small ventral fat-containing hernia present, just right of midline at the umbilicus. Images through the pelvis are degraded by streak artifact from left hip arthroplasty. Urinary bladder appears unremarkable. Evidence of presumed prior herniorrhaphy. Patient appears to be post hysterectomy. No adnexal mass seen. No ascites. There is advanced degenerative spondylosis of the lumbar spine, with underlying bilateral L5 pars interarticularis defects. Healing periprosthetic left acetabular fracture is present present, similar to prior exam. Bilateral sacral insufficiency fractures are also essentially unchanged. Impression: No acute abnormality evident. Stable periprosthetic left acetabular fracture with some callus formation. Bilateral sacral insufficiency fractures also unchanged. Chronic pancreatitis. Small ventral fat-containing hernia, as detailed above. Bilateral L5 pars interarticularis defects, with advanced degenerative spondylosis of the lumbar spine. Review of Systems Review of Systems: Abnormal lab work with hemoglobin of 3, fatigue, tired, poor appetite, constipation. Constitutional: Constitutional: Denies chills, Reports fatigue, Denies fever(s), Reports frequent falls, Reports poor appetite and Reports weakness Eyes: Eyes: Denies change in vision ENT: Denies dysphagia and Denies odynophagia Cardiovascular: Cardiovascular: Denies chest pain, Reports lightheadedness, Reports palpitations, Reports dyspnea and Reports dyspnea on exertion Respiratory: Respiratory: Denies chest congestion, Denies cough and Denies excessive phlegm production Gastrointestinal: Gastrointestinal: Reports abdominal pain, Denies melena, Denies hematochezia, Denies coffee ground emesis, Reports constipation, Denies dyspepsia, Denies heartburn, Denies diarrhea, Denies nausea, Denies vomiting and Denies hematemesis Genitourinary: Genitourinary: Denies dysuria Musculoskeletal: Musculoskeletal: Reports back pain Integumentary/Breasts: Skin/Breast: Denies rash Neurologic: Denies focal weakness and Denies Sensory deficit (Neuro) Psychiatric: Psychiatric: Reports no additional psychiatric complaints and Reports as per HPI Endocrine: Endocrine: Denies cold intolerance, Denies flushing, Denies heat intolerance, Denies polyphag
[2023-03-24 04:56] LABS: Appearance Urine Clear (Clear); Bacteria Urine None Seen /hpf; Bilirubin Urine Negative (Negative); Color Urine Yellow (Yellow); Glucose Urine UA Negative (Negative); Ketones Urine Negative (Negative); Leukocyte Esterase Ur Trace LEU/UL (Negative); Nitrate Urine Negative (Negative); Non Pathogenic Casts 0-2; Protein Urine Negative (Negative); RBC Urine 0-2 /hpf (0-2); Specific Grav Ur 1.033 (1.001-1.035); Squamous Epithelial Cell Urine None seen /hpf (Few); WBC Urine 0-5 /hpf
[2023-03-24 05:06] LABS: Add Urine Microscopic? YES
--- NOTE | 2023-03-24 05:19 | ADMGEN ---
This patient, Shlioh Hester, was admitted to IMU Room 206-01. Patient/family oriented to hospital policies and general routines including ID bracelet, bed and alarms, visiting hours, pain management, procedures, bathroom and other care routines, personal items, smoking policy, room service/diet, and visiting hours. Information on how to activate the Rapid Response Team has been discussed. Patient/Family are encouraged to report perceived risks to care and to ask questions if they do not understand what they are told or what they should do.
[2023-03-24 06:43] LABS: Basophils Percent Auto 0.2 % (0.2-1.2); Immature Granulocyte Absolute 0.17 K/mm3 (0.00-0.031); Immature Granulocyte Percent A 1.9 % (0-0.5); Lymphocytes Absolute Auto 1.09 K/mm3 (0.9-3.2); Lymphocytes Percent Auto 11.9 % (18.3-44.2); Mean Corpuscular HGB Conc 30.8 g/dl (32-36); Mean Corpuscular Hemoglobin 29.1 pg (26-34); Mean Corpuscular Volume 94.4 fl (80-100); Mean Platelet Volume 8.8 fl (7.4-10.4); Monocytes Absolute Auto 0.9 K/mm3 (0.1-0.6); Monocytes Percent Auto 9.6 % (2.6-8.5); Neutrophils Percent Auto 76.4 % (45.5-73.1); Nucleated Red Blood Cells Perc 0.4 % (0.0-0.2); Platelet Count Result 232 k/mm3 (150-375); Red Blood Count 1.79 M/mm3 (4.2-5.4); Red Cell Distribution Width 17.9 % (11.5-14.5); White Blood Count 9.1 K/mm3 (4.5-10.0)
[2023-03-24 06:45] LABS: Hematocrit 16.9 % (37.0-47.0); Hemoglobin 5.2 g/dL (12.0-15.0)
--- NOTE | 2023-03-24 09:01 | WPDGICN ---
Assessment and Plan Assessment and plan (1) Acute on chronic anemia: Code(s): D64.9 - Anemia, unspecified Status: Acute Assessment and Plan: will need to assess with colonoscopy and egd, probably Sunday she is stable ok to have diet and tomorrow will order bowel prep (2) Occult blood in stools: Code(s): R19.5 - Other fecal abnormalities Status: Acute Assessment and Plan: without overt gib also had previous hip surgery with hematoma, could explain part of anemia (3) Lumbar stenosis without neurogenic claudication: Code(s): M48.061 - Spinal stenosis, lumbar region without neurogenic claudication Status: Acute Assessment and Plan: on therapy (4) Obstructive sleep apnea on CPAP: Code(s): G47.33 - Obstructive sleep apnea (adult) (pediatric); Z99.89 - Dependence on other enabling machines and devices Status: Acute (5) Back pain: Code(s): M54.9 - Dorsalgia, unspecified Status: Acute GI Consult Note Consult date/time: 03/24/23 09:01 Reason for consult: acute on chronic anemia HPI: Shiloh Hester is a 77 year old female with past medical history significant for spinal stenosis, neurogenic claudication, recent left hip arthroplasty, chronic back pain on pain killer, hypertension, obstructive sleep apnea on CPAP.? Patient present from [facility] where she has been for rehabilitation. She had left hip surgery end of December then found to have hematoma in that area and also severe degenerative spondylosis throughout the lumbar spine with severe central canal stenosis at L2-L3 and L3-L4 with multilevel neural foraminal narrowing, evaluated by NSG and treated with physical therapy. She is here with progressive fatigue and found to have low Hgb.??Repeat hgb 5 (around 8 during recent hospitalization). FOBT +, denies overt gib. Had colonoscopy about 5 years ago, egd several years ago. Review of Systems Constitutional: Constitutional: Reports fatigue Eyes: Eyes: Denies blurry vision ENT: Reports Normal hearing present Cardiovascular: Cardiovascular: Denies chest pain Respiratory: Respiratory: Denies cough Gastrointestinal: Gastrointestinal: Denies abdominal pain Genitourinary: Genitourinary: Denies urinary incontinence Musculoskeletal: Musculoskeletal: Reports back pain Integumentary/Breasts: Skin/Breast: Denies rash Neurologic: Denies Abnormal speech present Psychiatric: Psychiatric: Denies behavioral changes PMFSH Past Medical History Medical History (Updated 03/24/23 @ 09:06 by Leland Guerrero MD) Acute on chronic anemia Adhesive capsulitis of left shoulder (~06/2021) Chronic anemia Chronic kidney disease, stage 3 (moderate) 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 Depression Endometrial cancer Generalized osteoarthritis of multiple sites (~2007) GERD (gastroesophageal reflux disease) Hepatitis C antibody test negative (~08/2017) Hypertension IBS (irritable bowel syndrome) Lumbar radiculopathy Metabolic syndrome Obstructive sleep apnea on CPAP Occult blood in stools Panic attack Recurrent falls Rheumatoid arthritis with rheumatoid factor of multiple sites without organ or systems involvement (~1999) Vitamin D deficiency Surgical History Surgical History H/O dilation and curettage History of appendectomy History of bilateral carpal tunnel release History of left hip replacement History of total hysterectomy with bilateral salpingo-oophorectomy (BSO) History of umbilical hernia repair Hx of cholecystectomy Status post cataract extraction of both eyes with insertion of intraocular lens Family History Family History (Updated 03/24/23 @ 05:45 by Halie Paige RN) Father Family history of elevated blood lipids, Onset Age: 74 Diabetes mellitus Acute myocardial infarction, Onset Age: 74 Family
--- NOTE | 2023-03-24 12:30 | PM.IMPN ---
Progress Note: A&P Assessment and Plan (1) Acute blood loss anemia: Code(s): D62 - Acute posthemorrhagic anemia Status: Acute Assessment and Plan: Admit to IMU Transfuse as needed H&H q.6 hours Supportive care GI consult -plan for EGD and colonoscopy on Sunday (2) Obstructive sleep apnea on CPAP: Code(s): G47.33 - Obstructive sleep apnea (adult) (pediatric); Z99.89 - Dependence on other enabling machines and devices Status: Acute Assessment and Plan: Continue CPAP at nighttime (3) HTN (hypertension): Code(s): I10 - Essential (primary) hypertension Status: Acute Assessment and Plan: Hold blood pressure medications patient with hypotension in emergency room Restart as needed (4) Chronic kidney disease, stage 3 (moderate): Qualifiers: Chronic kidney disease stage 3 subtype: stage 3a (GFR 45-59) Qualified Code(s): N18.31 - Chronic kidney disease, stage 3a Code(s): N18.3 - Chronic kidney disease, stage 3 (moderate) Status: Chronic Assessment and Plan: creatinine at patient's baseline BUN is elevated (5) S/P total hip arthroplasty: Qualifiers: Laterality: left Qualified Code(s): Z96.642 - Presence of left artificial hip joint Code(s): Z96.649 - Presence of unspecified artificial hip joint Status: Acute Assessment and Plan: Patient has undergone rehabilitation (6) Rheumatoid arthritis with rheumatoid factor of multiple sites without organ or systems involvement: Onset Date: ~1999 Code(s): M05.79 - Rheumatoid arthritis with rheumatoid factor of multiple sites without organ or systems involvement Status: Acute Assessment and Plan: Currently on DMARDs Subjective Date/time seen: 03/24/23 12:30 Interval history: No active bleeding. Mild abdominal pain and cramping. Vital signs stable Exam Narrative: Patient is laying in a stretcher Const: General: cooperative, comfortable, no acute distress, well developed, alert, awake, ill appearing, tired appearing, average body habitus, overweight and other (Generalized pallor) Nutritional Appearance: average body habitus and overweight Orientation/consciousness: patient oriented x3 HENMT: Head: normal to inspection, normocephalic and atraumatic Ears: hearing grossly normal bilaterally Face/Nose/Sinus: normal facial exam Face and sinus: normal facial exam Eyes: General: appearance normal, both eyes and all related structures Pupils: Equal, round and reactive pupils present EOM: EOMs intact bilaterally Neck: Neck: full ROM, no lymphadenopathy and no JVD Thyroid: thyroid normal Lymphatic: no lymphadenopathy noted Resp: Effort & Inspection: normal respiratory effort and able to speak in complete sentences Auscultation: clear to auscultation bilaterally Cardio: Jugular venous distension: no JVD Rate: regular rate Rhythm: regular rhythm Heart sounds: S1 normal heart sound present and S2 normal heart sound present : General: Yes deferred Skin: Rashes: no rashes Wounds: no wounds Neuro: General: patient oriented x3, CN's II-XI intact bilaterally and Unable to assess gait Cranial nerves: Yes CN's II-XII intact bilaterally and Yes Equal, round and reactive pupils present Cognition (Neuro): normal cognition Speech: normal speech Gait exam (Neuro): Unable to assess gait Motor exam (neuro): 5/5 motor strength present throughout Sensory Exam: No Sensory deficit (Neuro) Extrem: General: normal to inspection, full ROM, no joint enlargement and no pedal edema Left lower extremity: hip/thigh Details: ecchymosis (Resolving) Objective Data Vital Signs Vital Signs: Vital Signs - 24 hr 03/23/23 22:18 03/24/23 03:14 03/24/23 03:30 Temperature 98.1 F 98.5 F 98.5 F Pulse Rate 94 92 96 Respiratory Rate 16 17 15 Blood Pressure 109/52 L 105/34 L 100/41 L Pulse Oximetry 99 97 98 Oxygen Delivery Room Air 03/24/23 03:46
[2023-03-24 17:29] LABS: Hemoglobin 8.7 g/dL (12.0-15.0)
--- NOTE | 2023-03-24 21:00 | PC.NURSE ---
This patient, Shiloh Hester, was transferred to [ [facility]] on 03/24/23 at 2050. Personal belongings sent with patient. Report given to [Lan ]. Appropriate documentation sent with patient.
[2023-03-24] MEDS: NIFEdipine 30 MG TAB.ER.24 60 MG PO (21:33)
[2023-03-25] VITALS (10 sets, daily range): BP systolic 100–133; BP diastolic 45–74; PULSE 82–91; RESP 14–20; TEMP 36.5–37.3; O2SAT 98–100
[2023-03-25 01:03] LABS: Hematocrit 24.8 % (37.0-47.0); Hemoglobin 8.3 g/dL (12.0-15.0)
[2023-03-25 05:56] LABS: Basophils Percent Auto 0.3 % (0.2-1.2); Eosinophils Percent Auto 0.1 % (0-4.4); Hematocrit 24.7 % (37.0-47.0); Hemoglobin 8.1 g/dL (12.0-15.0); Immature Granulocyte Absolute 0.19 K/mm3 (0.00-0.031); Immature Granulocyte Percent A 2.1 % (0-0.5); Lymphocytes Absolute Auto 1.22 K/mm3 (0.9-3.2); Lymphocytes Percent Auto 13.5 % (18.3-44.2); Mean Corpuscular HGB Conc 32.8 g/dl (32-36); Mean Corpuscular Hemoglobin 28.1 pg (26-34); Mean Corpuscular Volume 85.8 fl (80-100); Mean Platelet Volume 9.4 fl (7.4-10.4); Monocytes Absolute Auto 0.9 K/mm3 (0.1-0.6); Monocytes Percent Auto 9.9 % (2.6-8.5); Neutrophils Absolute Auto 6.7 K/mm3 (1.3-6.7); Neutrophils Percent Auto 74.1 % (45.5-73.1); Nucleated Red Blood Cells Absolute Auto 0.1 K/mm3 (0.0-0.012); Platelet Count Result 208 k/mm3 (150-375); Red Blood Count 2.88 M/mm3 (4.2-5.4); Red Cell Distribution Width 17.4 % (11.5-14.5)
[2023-03-25 06:19] LABS: Anion Gap 2 mmol/L (8-16); Blood Urea Nitrogen 27 mg/dL (7-17); Calcium 7.7 mg/dL (8.4-10.2); Carbon Dioxide 26 mmol/L (22-30); Chloride 101 mmol/L (98-107); Estimated CRCL calculation 59 ml/min; Estimated Glomerular Filt Rate > 60; Glucose 80 mg/dL (65-110); Potassium 3.9 mmol/L (3.4-5.0); Sodium 129 mmol/L (137-145)
[2023-03-25] MEDS: CHOLECALCIFEROL 1,000 UNITS TABLET 4000 UNITS PO ×2 (09:12→17:47)
[2023-03-25] MEDS: HYDROXYCHLOROQUINE SULFATE 200 MG TABLET 400 MG PO (09:12)
[2023-03-25] MEDS: VENLAFAXINE HCL XR 75 MG CAP.ER.24H PO (09:12)
[2023-03-25] MEDS: HYDROcodone/acetaminophen (*CRX) 5-325 MG TABLET 1 TAB PO ×2 (09:13→13:09)
[2023-03-25] MEDS: lisinopriL 20 MG TABLET 40 MG PO (09:13)
[2023-03-25] MEDS: NIFEdipine 30 MG TAB.ER.24 60 MG PO ×2 (09:13→20:31)
[2023-03-25] MEDS: GABAPENTIN 300 MG CAPSULE PO ×2 (09:13→17:47)
[2023-03-25] MEDS: ATORVASTATIN 40 MG TABLET PO (09:13)
[2023-03-25] MEDS: DICLOFENAC SODIUM 1% 100 GM GEL (*BKC) TOPICAL ×4 (09:14→20:33)
--- NOTE | 2023-03-25 10:18 | PM.IMPN ---
Progress Note: A&P Assessment and Plan (1) Acute blood loss anemia: Code(s): D62 - Acute posthemorrhagic anemia Status: Acute Assessment and Plan: Admit to IMU Transfuse as needed H&H q.6 hours Supportive care GI consult (2) Obstructive sleep apnea on CPAP: Code(s): G47.33 - Obstructive sleep apnea (adult) (pediatric); Z99.89 - Dependence on other enabling machines and devices Status: Acute Assessment and Plan: Continue CPAP at nighttime (3) HTN (hypertension): Code(s): I10 - Essential (primary) hypertension Status: Acute Assessment and Plan: Hold blood pressure medications patient with hypotension in emergency room Restart as needed (4) Chronic kidney disease, stage 3 (moderate): Qualifiers: Chronic kidney disease stage 3 subtype: stage 3a (GFR 45-59) Qualified Code(s): N18.31 - Chronic kidney disease, stage 3a Code(s): N18.3 - Chronic kidney disease, stage 3 (moderate) Status: Chronic Assessment and Plan: creatinine at patient's baseline BUN is elevated (5) S/P total hip arthroplasty: Qualifiers: Laterality: left Qualified Code(s): Z96.642 - Presence of left artificial hip joint Code(s): Z96.649 - Presence of unspecified artificial hip joint Status: Acute Assessment and Plan: Patient has undergone rehabilitation (6) Rheumatoid arthritis with rheumatoid factor of multiple sites without organ or systems involvement: Onset Date: ~1999 Code(s): M05.79 - Rheumatoid arthritis with rheumatoid factor of multiple sites without organ or systems involvement Status: Acute Assessment and Plan: Currently on DMARDs Subjective Date/time seen: 03/25/23 10:18 Interval history: No complaints Exam Narrative: Patient is laying in a stretcher Const: General: cooperative, comfortable, no acute distress, well developed, alert, awake, ill appearing, tired appearing, average body habitus, overweight and other (Generalized pallor) Nutritional Appearance: average body habitus and overweight Orientation/consciousness: patient oriented x3 HENMT: Head: normal to inspection, normocephalic and atraumatic Ears: hearing grossly normal bilaterally Face/Nose/Sinus: normal facial exam Face and sinus: normal facial exam Eyes: General: appearance normal, both eyes and all related structures Pupils: Equal, round and reactive pupils present EOM: EOMs intact bilaterally Neck: Neck: full ROM, no lymphadenopathy and no JVD Thyroid: thyroid normal Lymphatic: no lymphadenopathy noted Resp: Effort & Inspection: normal respiratory effort and able to speak in complete sentences Auscultation: clear to auscultation bilaterally Cardio: Jugular venous distension: no JVD Rate: regular rate Rhythm: regular rhythm Heart sounds: S1 normal heart sound present and S2 normal heart sound present : General: Yes deferred Skin: Rashes: no rashes Wounds: no wounds Neuro: General: patient oriented x3, CN's II-XI intact bilaterally and Unable to assess gait Cranial nerves: Yes CN's II-XII intact bilaterally and Yes Equal, round and reactive pupils present Cognition (Neuro): normal cognition Speech: normal speech Gait exam (Neuro): Unable to assess gait Motor exam (neuro): 5/5 motor strength present throughout Sensory Exam: No Sensory deficit (Neuro) Extrem: General: normal to inspection, full ROM, no joint enlargement and no pedal edema Left lower extremity: hip/thigh Details: ecchymosis (Resolving) Objective Data Vital Signs Vital Signs: Vital Signs - 24 hr 03/24/23 11:00 03/24/23 11:32 03/24/23 12:00 Temperature 97.4 F L 97.5 F L 96.9 F L Pulse Rate 101 H 95 93 Respiratory Rate 20 18 18 Blood Pressure 137/51 L 146/52 H 141/60 H Pulse Oximetry 100 100 100 Oxygen Delivery 03/24/23 13:00 03/24/23 12:00 03/24/23 13:37 Temperature 96.9 F L 98.7 F Pulse Rate 94 92 87 Respiratory R
--- NOTE | 2023-03-25 14:34 | PCOTNOTE ---
Spoke with Dr. Pacheco over the phone, who confirmed change of pt. weight bearing status remaining from last visit at [facility] Weight Bearing to Partial Weight Bearing Status (50%) on this date.
--- NOTE | 2023-03-25 17:14 | PC.NURSE ---
03/25/23 15:10pm Called Dr. Drummond to verify that patient is scheduled for colonoscopy and EGD tomorrow. Dr. Drummond verified that she is scheduled tomorrow. Ordered for her to be clear liquid diet till midnight and NPO after midnight. Stated he will put in orders for bowel prep.
[2023-03-25] MEDS: polyethylene glycoL 3350 238 GM BOTTLE PO (19:19)
[2023-03-25] MEDS: BISACODYL 5 MG TABLET EC 20 MG PO (19:19)
--- NOTE | 2023-03-25 19:35 | WPDGIPROGNO ---
Progress Note: A&P Assessment and Plan (1) Acute blood loss anemia: Code(s): D62 - Acute posthemorrhagic anemia Status: Acute Assessment and Plan: will proceed with egd and colonoscopy tomorrow noted occult blood in stools no overt gib (2) Occult blood in stools: Code(s): R19.5 - Other fecal abnormalities Status: Acute Assessment and Plan: monitor for signs of bleeding (3) Lumbar stenosis without neurogenic claudication: Code(s): M48.061 - Spinal stenosis, lumbar region without neurogenic claudication Status: Acute (4) Obstructive sleep apnea on CPAP: Code(s): G47.33 - Obstructive sleep apnea (adult) (pediatric); Z99.89 - Dependence on other enabling machines and devices Status: Acute (5) HTN (hypertension): Code(s): I10 - Essential (primary) hypertension Status: Acute Subjective Date/time seen: 03/25/23 19:35 Interval history: no changes, she is doing ok Review of Systems Review of Systems: All systems reviewed & are unremarkable except as noted in HPI and below Exam Const: General: comfortable and no acute distress HENMT: Face/Nose/Sinus: Normal nares present Eyes: General: appearance normal, both eyes and all related structures Neck: Neck: no JVD Resp: Auscultation: clear to auscultation bilaterally Cardio: Rate: regular rate Rhythm: regular rhythm GI: Inspection: non-distended GI Palp: Yes Soft to palpation and No Guarding due to palpation present (GI) Auscultation: normal bowel sounds Skin: Other: pale Neuro: Speech: normal speech Extrem: General: normal to inspection Psych: Mental Status: mental status grossly normal Objective Data Vital Signs Vital Signs: Vital Signs - 24 hr 03/24/23 19:46 03/24/23 19:53 03/24/23 20:00 Temperature 98.5 F Pulse Rate 88 88 Respiratory Rate 20 Blood Pressure 123/87 Pulse Oximetry 100 Oxygen Delivery Room Air 03/25/23 00:00 03/25/23 04:00 03/25/23 04:44 Temperature 99.1 F Pulse Rate 91 88 87 Respiratory Rate 20 Blood Pressure 133/59 L Pulse Oximetry 100 Oxygen Delivery 03/25/23 08:00 03/25/23 09:18 03/25/23 09:13 Temperature Pulse Rate 84 87 Respiratory Rate 14 Blood Pressure 114/45 L Pulse Oximetry 100 Oxygen Delivery Room Air 03/25/23 13:38 03/25/23 14:27 03/25/23 12:00 Temperature 98.2 F Pulse Rate 85 88 Respiratory Rate 18 Blood Pressure 100/63 Pulse Oximetry 98 Oxygen Delivery Room Air 03/25/23 16:00 Temperature Pulse Rate 84 Respiratory Rate Blood Pressure Pulse Oximetry Oxygen Delivery Intake/Output Intake/Output: Intake & Output 03/22/23 03/23/23 03/24/23 03/25/23 23:59 23:59 23:59 23:59 Intake Total 2690 970 Output Total 1800 1500 Balance 890 -530 Meds/Results Medications: Active Medications Generic Name Dose Route Start Last Admin Trade Name Freq PRN Reason Stop Dose Admin Acetaminophen 650 mg 03/24/23 04:37 Acetaminophen 325 Mg Tablet PO Q4H PRN Mild Pain (1-3) or Fever Acetaminophen 1,300 mg 03/24/23 20:21 Acetaminophen 325 Mg Tablet PO BID PRN pain or fever Hydrocodone Bitart/Acetaminophen 1 tab 03/24/23 20:21 03/25/23 13:09 Hydrocodone/Acetaminophen (*Crx) 5-325 Mg Tablet PO 1 tab Q4H PRN Administration Pain Rated 4-6 Atorvastatin Calcium 40 mg 03/25/23 09:00 03/25/23 09:13 Atorvastatin 40 Mg Tablet PO 40 mg DAILY NEETA Administration Calcium Carbonate 200 mg 03/24/23 20:21 Calcium Carbonate (Tums) 500 Mg (200 Mg Elemental) PO DAILY PRN Indigestion Diclofenac Sodium 0 applic 03/24/23 21:00 03/25/23 17:47 Diclofenac Sodium 1% 100 Gm Gel (*Bkc) TOPICAL 2 applic QID NEETA Administration Gabapentin 300 mg 03/25/23 09:00 03/25/23 17:47 Gabapentin 300 Mg Capsule PO 300 mg BID NEETA Administration Hydroxychloroquine Sulfate 400 mg 03/25/23 0
[2023-03-26] VITALS (13 sets, daily range): BP systolic 97–125; BP diastolic 45–59; PULSE 70–88; RESP 17–24; TEMP 36.7–37.2; O2SAT 97–100; BMI 29.5
[2023-03-26 06:00] LABS: Basophils Percent Auto 0.3 % (0.2-1.2); Eosinophils Percent Auto 0.2 % (0-4.4); Hematocrit 25.3 % (37.0-47.0); Hemoglobin 8.2 g/dL (12.0-15.0); Immature Granulocyte Absolute 0.16 K/mm3 (0.00-0.031); Immature Granulocyte Percent A 1.6 % (0-0.5); Lymphocytes Absolute Auto 1.32 K/mm3 (0.9-3.2); Lymphocytes Percent Auto 13.4 % (18.3-44.2); Mean Corpuscular HGB Conc 32.4 g/dl (32-36); Mean Corpuscular Hemoglobin 28.3 pg (26-34); Mean Corpuscular Volume 87.2 fl (80-100); Mean Platelet Volume 9.5 fl (7.4-10.4); Monocytes Absolute Auto 1.1 K/mm3 (0.1-0.6); Monocytes Percent Auto 11.3 % (2.6-8.5); Neutrophils Absolute Auto 7.2 K/mm3 (1.3-6.7); Neutrophils Percent Auto 73.2 % (45.5-73.1); Nucleated Red Blood Cells Absolute Auto 0.1 K/mm3 (0.0-0.012); Nucleated Red Blood Cells Perc 0.7 % (0.0-0.2); Platelet Count Result 216 k/mm3 (150-375); Red Cell Distribution Width 17.8 % (11.5-14.5); White Blood Count 9.8 K/mm3 (4.5-10.0)
--- NOTE | 2023-03-26 08:39 | PCPTNOTE ---
Patient refused treatment this session due to patient waiting to go down for colonoscopy. Patient reported she was waiting to go down for her colonoscopy this morning and did not want to work with PT.
--- NOTE | 2023-03-26 10:21 | PM.IMPN ---
Progress Note: A&P Assessment and Plan (1) Acute blood loss anemia: Code(s): D62 - Acute posthemorrhagic anemia Status: Acute Assessment and Plan: Admit to IMU Transfuse as needed H&H q.6 hours Supportive care GI consult -EGD and colonoscopy planned. (2) Obstructive sleep apnea on CPAP: Code(s): G47.33 - Obstructive sleep apnea (adult) (pediatric); Z99.89 - Dependence on other enabling machines and devices Status: Acute Assessment and Plan: Continue CPAP at nighttime (3) HTN (hypertension): Code(s): I10 - Essential (primary) hypertension Status: Acute Assessment and Plan: Hold blood pressure medications patient with hypotension in emergency room Restart as needed (4) Chronic kidney disease, stage 3 (moderate): Qualifiers: Chronic kidney disease stage 3 subtype: stage 3a (GFR 45-59) Qualified Code(s): N18.31 - Chronic kidney disease, stage 3a Code(s): N18.3 - Chronic kidney disease, stage 3 (moderate) Status: Chronic Assessment and Plan: creatinine at patient's baseline BUN is elevated (5) S/P total hip arthroplasty: Qualifiers: Laterality: left Qualified Code(s): Z96.642 - Presence of left artificial hip joint Code(s): Z96.649 - Presence of unspecified artificial hip joint Status: Acute Assessment and Plan: Patient has undergone rehabilitation (6) Rheumatoid arthritis with rheumatoid factor of multiple sites without organ or systems involvement: Onset Date: ~1999 Code(s): M05.79 - Rheumatoid arthritis with rheumatoid factor of multiple sites without organ or systems involvement Status: Acute Assessment and Plan: Currently on DMARDs Subjective Date/time seen: 03/26/23 10:21 Interval history: no complaints No bleeding noted. Exam Narrative: Patient is laying in a stretcher Const: General: cooperative, comfortable, no acute distress, well developed, alert, awake, ill appearing, tired appearing, average body habitus, overweight and other (Generalized pallor) Nutritional Appearance: average body habitus and overweight Orientation/consciousness: patient oriented x3 HENMT: Head: normal to inspection, normocephalic and atraumatic Ears: hearing grossly normal bilaterally Face/Nose/Sinus: normal facial exam Face and sinus: normal facial exam Eyes: General: appearance normal, both eyes and all related structures Pupils: Equal, round and reactive pupils present EOM: EOMs intact bilaterally Neck: Neck: full ROM, no lymphadenopathy and no JVD Thyroid: thyroid normal Lymphatic: no lymphadenopathy noted Resp: Effort & Inspection: normal respiratory effort and able to speak in complete sentences Auscultation: clear to auscultation bilaterally Cardio: Jugular venous distension: no JVD Rate: regular rate Rhythm: regular rhythm Heart sounds: S1 normal heart sound present and S2 normal heart sound present : General: Yes deferred Skin: Rashes: no rashes Wounds: no wounds Neuro: General: patient oriented x3, CN's II-XI intact bilaterally and Unable to assess gait Cranial nerves: Yes CN's II-XII intact bilaterally and Yes Equal, round and reactive pupils present Cognition (Neuro): normal cognition Speech: normal speech Gait exam (Neuro): Unable to assess gait Motor exam (neuro): 5/5 motor strength present throughout Sensory Exam: No Sensory deficit (Neuro) Extrem: General: normal to inspection, full ROM, no joint enlargement and no pedal edema Left lower extremity: hip/thigh Details: ecchymosis (Resolving) Objective Data Vital Signs Vital Signs: Vital Signs - 24 hr 03/25/23 13:38 03/25/23 14:27 03/25/23 12:00 Temperature 98.2 F Pulse Rate 85 88 Respiratory Rate 18 Blood Pressure 100/63 Pulse Oximetry 98 Oxygen Delivery Room Air 03/25/23 16:00 03/25/23 20:29 03/25/23 20:00 Temperature 97.7 F Pulse Rate 84 85 82 Respiratory Rat
[2023-03-26] MEDS: LACTATED RINGERS 1,000 ML 150 ML IV CONT (10:39)
--- NOTE | 2023-03-26 10:53 | WPDANESEPPF ---
Anes - Initial Pre Proc Eval Procedure: Operation Date: 03/26/23 11:45 Proposed Procedures p Esophagogastroduodenoscopy & Colonoscopy - Leland Guerrero MD Date/Time: 03/26/23 10:53 Surgeon: Med Shannon MD Pre Op Diagnosis: anemia Patient Data Age: 77 Gender: F Height: 1.63 m Weight: 78 kg Last Vital Signs Temp 36.7 C 03/26/23 10:33 Pulse 88 03/26/23 10:33 Resp 18 03/26/23 10:33 BP 122/55 L 03/26/23 10:33 Pulse Ox 100 03/26/23 10:33 O2 Del Method Room Air 03/26/23 10:33 Allergies Allergy/AdvReac Type Severity Reaction Status Date / Time No Known Allergies Allergy Verified 03/26/23 10:31 Home Medications Medication Instructions Recorded Confirmed Type acetaminophen 650 mg 1,300 mg PO BID PRN pain or fever 09/12/19 03/24/23 History tablet,extended release (Tylenol 8 Hour) aspirin 325 mg tablet 325 mg PO DAILY 09/12/19 03/24/23 History cholecalciferol (vitamin D3) 50 4,000 unit PO BID 09/12/19 03/24/23 History mcg (2,000 unit) tablet upadacitinib 15 mg tablet,extended 15 mg PO DAILY #90 tabs 06/06/21 03/24/23 Rx release 24 hr (Rinvoq) diclofenac sodium 1 % topical gel See Rx Instructions .Route 07/24/22 03/24/23 Rx .COMPLEX #100 grams hydroxychloroquine 200 mg tablet 400 mg PO DAILY #180 tabs 09/15/22 03/24/23 Rx (Plaquenil) calcium carbonate 500 mg calcium 500 mg PO DAILY PRN Indigestion 11/10/22 03/24/23 History (1,250 mg) chewable tablet nifedipine 60 mg tablet,extended 60 mg PO BID 11/10/22 03/24/23 History release 24 hr venlafaxine 75 mg capsule,extended 75 mg PO QAM #90 caps 12/20/22 03/24/23 Rx release 24 hr lisinopril 40 mg tablet 40 mg PO QAM #90 tabs 02/13/23 03/24/23 Rx atorvastatin 40 mg tablet (Lipitor) 40 mg PO DAILY 05/17/23 06/03/23 History polyethylene glycol 3350 17 17 g PO PRN PRN Constipation 03/07/23 03/24/23 History gram/dose oral powder (Miralax) hydrocodone 5 mg-acetaminophen 325 1 tablet PO Q4H PRN Pain Rated 4-6 03/15/23 03/24/23 Rx mg tablet #10 tabs gabapentin 300 mg capsule 300 mg PO BID 03/24/23 03/24/23 History ondansetron 4 mg disintegrating 4 mg PO Q6H PRN Nausea And Vomiting 03/24/23 03/24/23 History tablet Laboratory Tests 03/26/23 05:27 WBC 9.8 K/mm3 (4.5-10.0) RBC 2.90 L M/mm3 (4.2-5.4) Hgb 8.2 L g/dL (12.0-15.0) Hct 25.3 L % (37.0-47.0) MCV 87.2 fl (80-100) MCH 28.3 pg (26-34) MCHC 32.4 g/dl (32-36) RDW 17.8 H % (11.5-14.5) Plt Count 216 k/mm3 (150-375) MPV 9.5 fl (7.4-10.4) Immature Gran % (Auto) 1.6 H % (0-0.5) Neut % (Auto) 73.2 H % (45.5-73.1) Lymph % (Auto) 13.4 L % (18.3-44.2) [place] % (Auto) 11.3 H % (2.6-8.5) Eos % (Auto) 0.2 % (0-4.4) Baso % (Auto) 0.3 % (0.2-1.2) Lymph # (Auto) 1.32 K/mm3 (0.9-3.2) [place] # (Auto) 1.1 H K/mm3 (0.1-0.6) Eos # (Auto) 0.0 K/mm3 (0-0.3) Baso # (Auto) 0.0 K/mm3 (0.0-0.1) Abs Immat Gran (auto) 0.16 H K/mm3 (0.00-0.031) Absolute Neuts (auto) 7.2 H K/mm3 (1.3-6.7) Absolute Nucleated RBC 0.1 H K/mm3 (0.0-0.012) Nucleated RBC % 0.7 H % (0.0-0.2) Patient hx anesthesia problems: none Family hx anesthesia problems: none Results Review: All pre-operative results and documents have been reviewed as part of the pre-operative evaluation. 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
--- NOTE | 2023-03-26 11:14 | SUR.OPER ---
EGD end 1108 COLONOSCOPY start 111
--- NOTE | 2023-03-26 11:46 | PM.DS ---
DS: Admitting Diagnosis Discharge Date 03/26/23 Admitting Diagnosis anemia, gi bleed DS: Discharge Diagnosis Discharge Diagnosis (1) Acute blood loss anemia: Code(s): D62 - Acute posthemorrhagic anemia Status: Acute Assessment and Plan: Admit to IMU Transfuse as needed H&H q.6 hours Supportive care GI consult -EGD and colonoscopy planned. (2) Obstructive sleep apnea on CPAP: Code(s): G47.33 - Obstructive sleep apnea (adult) (pediatric); Z99.89 - Dependence on other enabling machines and devices Status: Acute Assessment and Plan: Continue CPAP at nighttime (3) HTN (hypertension): Code(s): I10 - Essential (primary) hypertension Status: Acute Assessment and Plan: Hold blood pressure medications patient with hypotension in emergency room Restart as needed (4) Chronic kidney disease, stage 3 (moderate): Qualifiers: Chronic kidney disease stage 3 subtype: stage 3a (GFR 45-59) Qualified Code(s): N18.31 - Chronic kidney disease, stage 3a Code(s): N18.3 - Chronic kidney disease, stage 3 (moderate) Status: Chronic Assessment and Plan: creatinine at patient's baseline BUN is elevated (5) S/P total hip arthroplasty: Qualifiers: Laterality: left Qualified Code(s): Z96.642 - Presence of left artificial hip joint Code(s): Z96.649 - Presence of unspecified artificial hip joint Status: Acute Assessment and Plan: Patient has undergone rehabilitation (6) Rheumatoid arthritis with rheumatoid factor of multiple sites without organ or systems involvement: Onset Date: ~1999 Code(s): M05.79 - Rheumatoid arthritis with rheumatoid factor of multiple sites without organ or systems involvement Status: Acute Assessment and Plan: Currently on DMARDs DS: Summary Hospital Course Hospital Course: admitted for gi bleed and anemia - hgb stabilized - egd and colonoscopy performed, no active bleeding ppi on dc - gu with gi as needed other pmh stable during hospitalization Time Spent with Patient Time attestation: Total time spent providing and/or coordinating discharge services: Exam Narrative: Patient is laying in a stretcher Const: General: cooperative, comfortable, no acute distress, well developed, alert, awake, ill appearing, tired appearing, average body habitus, overweight and other (Generalized pallor) Nutritional Appearance: average body habitus and overweight Orientation/consciousness: patient oriented x3 HENMT: Head: normal to inspection, normocephalic and atraumatic Ears: hearing grossly normal bilaterally Face/Nose/Sinus: normal facial exam Face and sinus: normal facial exam Eyes: General: appearance normal, both eyes and all related structures Pupils: Equal, round and reactive pupils present EOM: EOMs intact bilaterally Neck: Neck: full ROM, no lymphadenopathy and no JVD Thyroid: thyroid normal Lymphatic: no lymphadenopathy noted Resp: Effort & Inspection: normal respiratory effort and able to speak in complete sentences Auscultation: clear to auscultation bilaterally Cardio: Jugular venous distension: no JVD Rate: regular rate Rhythm: regular rhythm Heart sounds: S1 normal heart sound present and S2 normal heart sound present : General: Yes deferred Skin: Rashes: no rashes Wounds: no wounds Neuro: General: patient oriented x3, CN's II-XI intact bilaterally and Unable to assess gait Cranial nerves: Yes CN's II-XII intact bilaterally and Yes Equal, round and reactive pupils present Cognition (Neuro): normal cognition Speech: normal speech Gait exam (Neuro): Unable to assess gait Motor exam (neuro): 5/5 motor strength present throughout Sensory Exam: No Sensory deficit (Neuro) Extrem: General: normal to inspection, full ROM, no joint enlargement and no pedal edema Left lower extremity: hip/thigh Details: ecchymosis (Resolving) DS: Data Data Completed and Pen
[2023-03-26] MEDS: GABAPENTIN 300 MG CAPSULE PO ×2 (13:47→16:54)
[2023-03-26] MEDS: ATORVASTATIN 40 MG TABLET PO (13:47)
[2023-03-26] MEDS: CHOLECALCIFEROL 1,000 UNITS TABLET 4000 UNITS PO ×2 (13:47→16:53)
--- NOTE | 2023-03-26 13:47 | PCPTNOTE ---
Attempted to see patient for PT, however patient declined.
[2023-03-26] MEDS: HYDROXYCHLOROQUINE SULFATE 200 MG TABLET 400 MG PO (13:48)
[2023-03-26] MEDS: VENLAFAXINE HCL XR 75 MG CAP.ER.24H PO (13:49)
[2023-03-26] MEDS: NIFEdipine 30 MG TAB.ER.24 60 MG PO ×2 (13:49→20:11)
[2023-03-26] MEDS: DICLOFENAC SODIUM 1% 100 GM GEL (*BKC) TOPICAL ×3 (13:53→20:11)
[2023-03-26] MEDS: PANTOPRAZOLE 40 MG TABLET PO (20:11)
[2023-03-27] VITALS (11 sets, daily range): BP systolic 106–119; BP diastolic 42–47; PULSE 77–98; RESP 14–17; TEMP 36.9–37.1; O2SAT 95–99
[2023-03-27] MEDS: ATORVASTATIN 40 MG TABLET PO (08:48)
[2023-03-27] MEDS: NIFEdipine 30 MG TAB.ER.24 60 MG PO ×2 (08:48→21:06)
[2023-03-27] MEDS: CHOLECALCIFEROL 1,000 UNITS TABLET 4000 UNITS PO ×2 (08:48→18:19)
[2023-03-27] MEDS: VENLAFAXINE HCL XR 75 MG CAP.ER.24H PO (08:48)
[2023-03-27] MEDS: lisinopriL 20 MG TABLET 40 MG PO (08:48)
[2023-03-27] MEDS: DICLOFENAC SODIUM 1% 100 GM GEL (*BKC) TOPICAL ×4 (08:49→21:05)
[2023-03-27] MEDS: GABAPENTIN 300 MG CAPSULE PO ×2 (08:49→18:19)
[2023-03-27] MEDS: PANTOPRAZOLE 40 MG TABLET PO ×2 (08:49→21:06)
[2023-03-27] MEDS: HYDROXYCHLOROQUINE SULFATE 200 MG TABLET 400 MG PO (08:49)
[2023-03-27] MEDS: HYDROcodone/acetaminophen (*CRX) 5-325 MG TABLET 1 TAB PO (08:51)
--- NOTE | 2023-03-27 10:23 | PM.IMPN ---
Progress Note: A&P Assessment and Plan (1) Acute blood loss anemia: Code(s): D62 - Acute posthemorrhagic anemia Status: Acute Assessment and Plan: Admit to IMU Transfuse as needed H&H q.6 hours Supportive care GI consult -EGD and colonoscopy noted awaiting auth for dc (2) Obstructive sleep apnea on CPAP: Code(s): G47.33 - Obstructive sleep apnea (adult) (pediatric); Z99.89 - Dependence on other enabling machines and devices Status: Acute Assessment and Plan: Continue CPAP at nighttime (3) HTN (hypertension): Code(s): I10 - Essential (primary) hypertension Status: Acute Assessment and Plan: Hold blood pressure medications patient with hypotension in emergency room Restart as needed (4) Chronic kidney disease, stage 3 (moderate): Qualifiers: Chronic kidney disease stage 3 subtype: stage 3a (GFR 45-59) Qualified Code(s): N18.31 - Chronic kidney disease, stage 3a Code(s): N18.3 - Chronic kidney disease, stage 3 (moderate) Status: Chronic Assessment and Plan: creatinine at patient's baseline BUN is elevated (5) S/P total hip arthroplasty: Qualifiers: Laterality: left Qualified Code(s): Z96.642 - Presence of left artificial hip joint Code(s): Z96.649 - Presence of unspecified artificial hip joint Status: Acute Assessment and Plan: Patient has undergone rehabilitation (6) Rheumatoid arthritis with rheumatoid factor of multiple sites without organ or systems involvement: Onset Date: ~1999 Code(s): M05.79 - Rheumatoid arthritis with rheumatoid factor of multiple sites without organ or systems involvement Status: Acute Assessment and Plan: Currently on DMARDs Subjective Date/time seen: 03/27/23 10:23 Interval history: no complaints Exam Narrative: Patient is laying in a stretcher Const: General: cooperative, comfortable, no acute distress, well developed, alert, awake, ill appearing, tired appearing, average body habitus, overweight and other (Generalized pallor) Nutritional Appearance: average body habitus and overweight Orientation/consciousness: patient oriented x3 HENMT: Head: normal to inspection, normocephalic and atraumatic Ears: hearing grossly normal bilaterally Face/Nose/Sinus: normal facial exam Face and sinus: normal facial exam Eyes: General: appearance normal, both eyes and all related structures Pupils: Equal, round and reactive pupils present EOM: EOMs intact bilaterally Neck: Neck: full ROM, no lymphadenopathy and no JVD Thyroid: thyroid normal Lymphatic: no lymphadenopathy noted Resp: Effort & Inspection: normal respiratory effort and able to speak in complete sentences Auscultation: clear to auscultation bilaterally Cardio: Jugular venous distension: no JVD Rate: regular rate Rhythm: regular rhythm Heart sounds: S1 normal heart sound present and S2 normal heart sound present : General: Yes deferred Skin: Rashes: no rashes Wounds: no wounds Neuro: General: patient oriented x3, CN's II-XI intact bilaterally and Unable to assess gait Cranial nerves: Yes CN's II-XII intact bilaterally and Yes Equal, round and reactive pupils present Cognition (Neuro): normal cognition Speech: normal speech Gait exam (Neuro): Unable to assess gait Motor exam (neuro): 5/5 motor strength present throughout Sensory Exam: No Sensory deficit (Neuro) Extrem: General: normal to inspection, full ROM, no joint enlargement and no pedal edema Left lower extremity: hip/thigh Details: ecchymosis (Resolving) Objective Data Vital Signs Vital Signs: Vital Signs - 24 hr 03/26/23 10:33 03/26/23 11:30 03/26/23 11:40 Temperature 98.1 F Pulse Rate 88 76 77 Respiratory Rate 18 24 H 18 Blood Pressure 122/55 L 105/59 L 97/49 L Pulse Oximetry 100 97 97 Oxygen Delivery Room Air Room Air Room Air 03/26/23 11:50 03/26/23 12:00 03/26/23 14:00 Temperature
--- NOTE | 2023-03-27 17:12 | WPDGIPROGNO ---
Progress Note: A&P Assessment and Plan (1) Duodenal ulcer: Code(s): K26.9 - Duodenal ulcer, unspecified as acute or chronic, without hemorrhage or perforation Status: Acute Assessment and Plan: no more bleeding will need alf PPI consider egd in 3-4 months to assess for healing will follow [place], call if questions (2) Acute blood loss anemia: Code(s): D62 - Acute posthemorrhagic anemia Status: Acute Assessment and Plan: stable now (3) Occult blood in stools: Code(s): R19.5 - Other fecal abnormalities Status: Acute Assessment and Plan: from egd findings colonoscopy significant findings (4) Lumbar stenosis without neurogenic claudication: Code(s): M48.061 - Spinal stenosis, lumbar region without neurogenic claudication Status: Acute Assessment and Plan: she is hoping to go back to SNF Subjective Date/time seen: 03/27/23 17:12 Interval history: doing well, waiting for SNF evaluation Review of Systems Review of Systems: All systems reviewed & are unremarkable except as noted in HPI and below Exam Const: General: comfortable and no acute distress HENMT: Face/Nose/Sinus: Normal nares present Eyes: General: appearance normal, both eyes and all related structures Neck: Neck: no JVD Resp: Auscultation: clear to auscultation bilaterally Cardio: Rate: regular rate Rhythm: regular rhythm GI: Inspection: non-distended GI Palp: Yes Soft to palpation and No Guarding due to palpation present (GI) Auscultation: normal bowel sounds Skin: General skin exam: no rashes or lesions noted Neuro: Speech: normal speech Extrem: General: normal to inspection Psych: Mental Status: mental status grossly normal Objective Data Vital Signs Vital Signs: Vital Signs - 24 hr 03/26/23 20:29 03/26/23 20:00 03/27/23 00:00 Temperature 98.8 F Pulse Rate 82 83 89 Respiratory Rate 17 Blood Pressure 125/47 L Pulse Oximetry 97 03/27/23 04:00 03/27/23 05:05 03/27/23 08:46 Temperature 98.4 F Pulse Rate 77 79 87 Respiratory Rate 17 14 Blood Pressure 106/47 L 119/46 L Pulse Oximetry 99 97 03/27/23 13:42 Temperature 98.7 F Pulse Rate 80 Respiratory Rate 16 Blood Pressure 117/46 L Pulse Oximetry 99 Intake/Output Intake/Output: Intake & Output 03/24/23 03/25/23 03/26/23 03/27/23 23:59 23:59 23:59 23:59 Intake Total 2690 970 290 980 Output Total 1800 1500 400 800 Balance 890 -530 -110 180 Meds/Results Medications: Active Medications Generic Name Dose Route Start Last Admin Trade Name Freq PRN Reason Stop Dose Admin Acetaminophen 650 mg 03/24/23 04:37 Acetaminophen 325 Mg Tablet PO Q4H PRN Mild Pain (1-3) or Fever Acetaminophen 1,300 mg 03/24/23 20:21 Acetaminophen 325 Mg Tablet PO BID PRN pain or fever Hydrocodone Bitart/Acetaminophen 1 tab 03/24/23 20:21 03/27/23 08:51 Hydrocodone/Acetaminophen (*Crx) 5-325 Mg Tablet PO 1 tab Q4H PRN Administration Pain Rated 4-6 Atorvastatin Calcium 40 mg 03/25/23 09:00 03/27/23 08:48 Atorvastatin 40 Mg Tablet PO 40 mg DAILY NEETA Administration Calcium Carbonate 200 mg 03/24/23 20:21 Calcium Carbonate (Tums) 500 Mg (200 Mg Elemental) PO DAILY PRN Indigestion Diclofenac Sodium 0 applic 03/24/23 21:00 03/27/23 12:56 Diclofenac Sodium 1% 100 Gm Gel (*Bkc) TOPICAL 2 applic QID NEETA Administration Gabapentin 300 mg 03/25/23 09:00 03/27/23 08:49 Gabapentin 300 Mg Capsule PO 300 mg BID NEETA Administration Hydroxychloroquine Sulfate 400 mg 03/25/23 09:00 03/27/23 08:49 Hydroxychloroquine Sulfate 200 Mg Tablet PO 400 mg DAILY NEETA Administration Lisinopril 40 mg 03/25/23 09:00 03/27/23 08:48 Lisinopril 20 Mg Tablet PO 40 mg QAM NEETA Administration Nifedipine 60 mg 03/24/23 21:00 03/27/23 08:48 Nifedipine 30 Mg Tab.Er.24 PO 60 mg Q12HR
[2023-03-28] VITALS: PULSE 81
[2023-03-28 04:00] VITALS: PULSE 76
[2023-03-28 05:30] VITALS: BP 118/49; PULSE 77; RESP 18; TEMP 37; O2SAT 99
[2023-03-28] MEDS: lisinopriL 20 MG TABLET 40 MG PO (09:19)
[2023-03-28] MEDS: ATORVASTATIN 40 MG TABLET PO (09:19)
[2023-03-28] MEDS: HYDROXYCHLOROQUINE SULFATE 200 MG TABLET 400 MG PO (09:19)
[2023-03-28] MEDS: GABAPENTIN 300 MG CAPSULE PO (09:19)
[2023-03-28] MEDS: CHOLECALCIFEROL 1,000 UNITS TABLET 4000 UNITS PO (09:19)
[2023-03-28] MEDS: PANTOPRAZOLE 40 MG TABLET PO (09:20)
[2023-03-28] MEDS: VENLAFAXINE HCL XR 75 MG CAP.ER.24H PO (09:20)
[2023-03-28] MEDS: NIFEdipine 30 MG TAB.ER.24 60 MG PO (09:20)
[2023-03-28] MEDS: HYDROcodone/acetaminophen (*CRX) 5-325 MG TABLET 1 TAB PO ×2 (09:25→13:17)
--- NOTE | 2023-03-28 10:31 | PM.DS ---
DS: Admitting Diagnosis Discharge Date 03/28/2023 Admitting Diagnosis Lower GI bleed Anemia DS: Discharge Diagnosis Discharge Diagnosis (1) Duodenal ulcer: Code(s): K26.9 - Duodenal ulcer, unspecified as acute or chronic, without hemorrhage or perforation Status: Acute (2) Acute on chronic anemia: Code(s): D64.9 - Anemia, unspecified Status: Acute (3) Chronic kidney disease, stage 3 (moderate): Qualifiers: Chronic kidney disease stage 3 subtype: stage 3a (GFR 45-59) Qualified Code(s): N18.31 - Chronic kidney disease, stage 3a Code(s): N18.3 - Chronic kidney disease, stage 3 (moderate) Status: Chronic DS: Summary Hospital Course Hospital Course: Assessment and Plan (1) Duodenal ulcer: ?Code(s): K26.9 - Duodenal ulcer, unspecified as acute or chronic, without hemorrhage or perforation ?Status:?Acute ?Assessment and Plan: no more bleeding will need continuous churn buttermaker PPI consider egd in 3-4 months to assess for healing EGD and colonoscopy were done by GI and did not show any active bleeding (2) Acute blood loss anemia: ?Code(s): D62 - Acute posthemorrhagic anemia ?Status:?Acute ?Assessment and Plan: stable now (3) Occult blood in stools: ?Code(s): R19.5 - Other fecal abnormalities ?Status:?Acute ?Assessment and Plan: from egd findings colonoscopy significant findings (4) Lumbar stenosis without neurogenic claudication: ?Code(s): M48.061 - Spinal stenosis, lumbar region without neurogenic claudication ?Status:?Acute ?Assessment and Plan: Patient is clinically stable and is being discharged to SNF Time Spent with Patient Time attestation: Total time spent providing and/or coordinating discharge services: DS: Data Data Completed and Pending Completed studies during hospitalization: Pending at discharge 03/26/23 11:29 Surgical [PTH] Routine Discharge Plan Discharge Attending physician on discharge: Misha Singh Consulting providers: Leland Guerrero Discharging Clinician: Jemal Soares Anticipated Discharge Date/Time: 03/28/23 10:30 Patient Disposition: SNF Activity: as tolerated Diet: as tolerated Patient Instructions: Pain Management (DC), Chronic Hypertension (DC), Anemia (DC) Stand Alone Forms: General Discharge Information Follow-up/Referrals: Leland Guerrero MD [Physician] - Freya Hernandez DO [Primary Care Provider] - Discharge Medications: New pantoprazole [Protonix] 40 mg tablet,delayed release (DR/EC) 40 mg PO BID Qty: 60 0RF Continued acetaminophen [Tylenol 8 Hour] 650 mg tablet extended release 1,300 mg PO BID PRN (Reason: pain or fever) cholecalciferol (vitamin D3) 2,000 unit tablet 4,000 unit PO BID hydroxychloroquine [Plaquenil] 200 mg tablet 400 mg PO DAILY Qty: 180 1RF atorvastatin [Lipitor] 40 mg tablet 40 mg PO DAILY Rx Instructions: TAKE 1 TABLET DAILY polyethylene glycol 3350 [Miralax] 17 gram/dose powder 17 g PO PRN PRN (Reason: Constipation) hydrocodone-acetaminophen 5-325 mg Tablet 1 tablet PO Q4H PRN (Reason: Pain Rated 4-6) Qty: 10 0RF gabapentin 300 mg Capsule 300 mg PO BID ondansetron 4 mg Tablet,Disintegrating 4 mg PO Q6H PRN (Reason: Nausea And Vomiting) nifedipine 60 mg tablet extended release 24hr 60 mg PO BID Rx Instructions: Hold if SBP<90 calcium carbonate 500 mg calcium (1,250 mg) Tablet,Chewable 500 mg PO DAILY PRN (Reason: Indigestion) Rinvoq 15 mg tablet extended release 24 hr 15 mg PO DAILY Qty: 90 11RF Hold Instructions: Resume on 01/20/23. Per RA doctor, resume 10 days post op. diclofenac sodium 1 % gel See Rx Instructions .ROUTE .COMPLEX Qty: 100 6RF Hold Instructions: Resume on 02/06/23. Dose Instruction: APPLY 2 GRAMS TOPICALLY 4 TIMES A DAY Rx Instructions: APPLY 2 G
[2023-03-28 12:46] LABS: EDCOVIDSCREEN Negative (Negative)
[2023-03-28] MEDS: DICLOFENAC SODIUM 1% 100 GM GEL (*BKC) TOPICAL (13:18)
== END 2023-03-28 13:25 ==
LOC: ANHED 23:53 → ANHIMU 03-24 05:10 → ANH2MED 03-24 21:06
PROVIDERS: Chiropractor; Emergency Medicine; Internal Medicine Gastroenterology; Admitting Provider Internal Medicine; Emergency Provider Physician Assistant; PCP Family Medicine; Visit Provider Hospitalist
PROC: 0DJ08ZZ Inspection of Upper Intestinal Tract, Via Natural or Artificial Opening Endoscopic (ICD-10-PCS; CPT 43235; principal; 2023-03-26 11:45)
DX: K21.00 Gastro-esophageal reflux disease with esophagitis, without bleeding (principal); K26.9 Duodenal ulcer, unspecified as acute or chronic, without hemorrhage or perforation; K29.70 Gastritis, unspecified, without bleeding; K29.80 Duodenitis without bleeding; K57.30 Diverticulosis of large intestine without perforation or abscess without bleeding; K64.8 Other hemorrhoids; D50.9 Iron deficiency anemia, unspecified; D62 Acute posthemorrhagic anemia; R19.5 Other fecal abnormalities; R53.1 Weakness; Z20.822 Contact with and (suspected) exposure to COVID-19; G47.33 Obstructive sleep apnea (adult) (pediatric); Z99.89 Dependence on other enabling machines and devices; I12.9 Hypertensive chronic kidney disease with stage 1 through stage 4 chronic kidney disease, or unspecified chronic kidney disease; N18.31 Chronic kidney disease, stage 3a; E87.1 Hypo-osmolality and hyponatremia; M48.062 Spinal stenosis, lumbar region with neurogenic claudication; K86.1 Other chronic pancreatitis; M54.9 Dorsalgia, unspecified; R29.6 Repeated falls; M05.79 Rheumatoid arthritis with rheumatoid factor of multiple sites without organ or systems involvement; M25.551 Pain in right hip; Z96.642 Presence of left artificial hip joint; E66.3 Overweight; Z68.29 Body mass index [BMI] 29.0-29.9, adult; F32.A Depression, unspecified; M15.9 Polyosteoarthritis, unspecified; K21.9 Gastro-esophageal reflux disease without esophagitis; K58.9 Irritable bowel syndrome, unspecified; E55.9 Vitamin D deficiency, unspecified; Z87.891 Personal history of nicotine dependence; F10.90 Alcohol use, unspecified, uncomplicated; F12.90 Cannabis use, unspecified, uncomplicated; Z79.1 Long term (current) use of non-steroidal anti-inflammatories (NSAID); Z79.82 Long term (current) use of aspirin; Z79.899 Other long term (current) drug therapy; Z82.49 Family history of ischemic heart disease and other diseases of the circulatory system
CPT/HCPCS: 43239; 45378; 36415; 36430; 36600; 71046; 73502; 74177; 80048; 80053; 81001; 82805; 83690; 84484; 85014; 85018; 85025; 85610; 85730; 86850; 86900; 86901; 86923; 87081; 87426; 88305; 93005; 96361; 96374; 96375; 97110; 97161; 97166; 97530; 97535; 99285; A9270; C9803; G0378; J2405; J2704; J3010; J7030; J7050; J7120; P9016; Q9967

== ENCOUNTER 2023-05-17 12:40 | Emergency (ER) | payer MEDICARE, SELFPAY ==
[2023-05-17 12:52] VITALS: BP 131/52; PULSE 88; RESP 18; TEMP 37.1; O2SAT 97
--- NOTE | 2023-05-17 13:10 | ED.WOUNDLAC ---
HPI - Wound/Laceration General Chief Complaint: Skin/Abscess/Foreign Body Stated Complaint: suture check Time Seen by Provider: 05/17/23 12:55 Source: patient Mode of arrival: ambulatory Limitations: no limitations History of Present Illness HPI narrative: 77 y/o female presented for c/o wound to left hip. States she does not know how long it has been there, but noticed part of the scab fell off in the shower 5 days ago. She showed the wound to her physical therapist who recommended evaluation. Endorses mild drainage from the site. Patient is s/p left hip replacement 12/2022, and has been in wheelchair primarily. She lives at home and utilizes walker, sitting in a lift chair as well. Denies significant pain to the site, patient did not know anything was there until the scab fell off. Patient admits to leaning onto the left hip more often due to recent sciatica of the right leg. Denies any other concerns. Related Data Home Medications Medication Instructions Recorded Confirmed acetaminophen 650 mg 1,300 mg PO BID PRN pain or fever 09/12/19 05/07/23 tablet,extended release (Tylenol 8 Hour) aspirin 325 mg tablet 325 mg PO DAILY 09/12/19 05/07/23 cholecalciferol (vitamin D3) 50 4,000 unit PO BID 09/12/19 05/07/23 mcg (2,000 unit) tablet calcium carbonate 500 mg calcium 500 mg PO DAILY PRN Indigestion 11/10/22 05/07/23 (1,250 mg) chewable tablet atorvastatin 40 mg tablet (Lipitor) 40 mg PO DAILY 03/07/23 05/07/23 polyethylene glycol 3350 17 17 g PO PRN PRN Constipation 03/07/23 05/07/23 gram/dose oral powder (Miralax) Allergies Allergy/AdvReac Type Severity Reaction Status Date / Time No Known Allergies Allergy Verified 05/07/23 09:14 Review of Systems Review of Systems: CONSTITUTIONAL: Denies body aches, fever, chills, or sweats. EYES: Denies visual changes, redness, or discharge. ENT: Denies rhinorrhea, congestion CARDIOVASCULAR: Denies chest pain, palpitations, or edema. RESPIRATORY: Denies cough or dyspnea. GASTROINTESTINAL: Denies abdominal pain, nausea, vomiting, or diarrhea. SKIN: reports left hip wound MUSCULOSKELETAL: Denies back pain, joint pain, or myalgia. NEUROLOGIC: Denies headache, numbness, tingling, or weakness. 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 Depression Duodenal ulcer Endometrial cancer Generalized osteoarthritis of multiple sites (~2007) GERD (gastroesophageal reflux disease) Hepatitis C antibody test negative (~08/2017) Hypertension IBS (irritable bowel syndrome) Lumbar radiculopathy Metabolic syndrome Obstructive sleep apnea on CPAP Occult blood in stools Panic attack Recurrent falls Rheumatoid arthritis with rheumatoid factor of multiple sites without organ or systems involvement (~1999) Vitamin D deficiency Surgical History Surgical History H/O dilation and curettage History of appendectomy History of bilateral carpal tunnel release History of left hip replacement History of total hysterectomy with bilateral salpingo-oophorectomy (BSO) History of umbilical hernia repair Hx of cholecystectomy Status post cataract extraction of both eyes with insertion of intraocular lens Family History Family History Father Family history of elevated blood lipids, Onset Age: 74 Diabetes mellitus Acute myocardial infarction, Onset Age: 74 Family history of coronary artery disease Hypertension Cerebrovascular accident Mother Family history of primary malignant neoplasm of liver Family history of malignant neoplasm of ovary Family history of elevated blood lipids Hypertension Ce
== END 2023-05-17 13:23 | disposition home or self-care (01) ==
PROVIDERS: Emergency Provider Nurse Practitioner Family; PCP Family Medicine
DX: S71.002A Unspecified open wound, left hip, initial encounter (principal); X58.XXXA Exposure to other specified factors, initial encounter; Z87.891 Personal history of nicotine dependence; F12.90 Cannabis use, unspecified, uncomplicated; I12.9 Hypertensive chronic kidney disease with stage 1 through stage 4 chronic kidney disease, or unspecified chronic kidney disease; N18.30 Chronic kidney disease, stage 3 unspecified; M47.816 Spondylosis without myelopathy or radiculopathy, lumbar region; M16.12 Unilateral primary osteoarthritis, left hip; K21.9 Gastro-esophageal reflux disease without esophagitis; G47.33 Obstructive sleep apnea (adult) (pediatric); M05.79 Rheumatoid arthritis with rheumatoid factor of multiple sites without organ or systems involvement; Z96.642 Presence of left artificial hip joint; Z98.42 Cataract extraction status, left eye; Z98.41 Cataract extraction status, right eye; Z96.1 Presence of intraocular lens
CPT/HCPCS: 99213; G0463

== ENCOUNTER 2023-06-12 03:02 | Day surgery (SDC) | payer MEDICARE, SELFPAY ==
--- NOTE | 2023-06-11 14:37 | WPDANESEPPF ---
Anes - Initial Pre Proc Eval Procedure: Operation Date: 06/12/23 11:00 Proposed Procedures p Esophagogastroduodenoscopy - Leland Guerrero MD Date/Time: 06/11/23 14:37 Surgeon: Leland Guerrero MD Pre Op Diagnosis: Duodenal Ulcer Patient Data Age: 77 Gender: F Height: 1.6 m Weight: Allergies Allergy/AdvReac Type Severity Reaction Status Date / Time No Known Allergies Allergy Verified 06/12/23 09:54 Home Medications Medication Instructions Recorded Confirmed Type acetaminophen 650 mg 1,300 mg PO BID PRN pain or fever 09/12/19 05/30/23 History tablet,extended release (Tylenol 8 Hour) cholecalciferol (vitamin D3) 50 4,000 unit PO BID 09/12/19 05/30/23 History mcg (2,000 unit) tablet upadacitinib 15 mg tablet,extended 15 mg PO DAILY #90 tabs 06/06/21 05/30/23 Rx release 24 hr (Rinvoq) diclofenac sodium 1 % topical gel See Rx Instructions .Route 07/24/22 05/30/23 Rx .COMPLEX #100 grams hydroxychloroquine 200 mg tablet 400 mg PO DAILY #180 tabs 09/15/22 05/30/23 Rx (Plaquenil) calcium carbonate 500 mg calcium 500 mg PO DAILY PRN Indigestion 11/10/22 05/30/23 History (1,250 mg) chewable tablet atorvastatin 40 mg tablet (Lipitor) 40 mg PO DAILY 03/07/23 05/30/23 History polyethylene glycol 3350 17 17 g PO PRN PRN Constipation 03/07/23 05/30/23 History gram/dose oral powder (Miralax) nifedipine 60 mg tablet,extended 60 mg PO BID #90 tabs 05/08/23 05/30/23 Rx release 24 hr venlafaxine 75 mg capsule,extended 75 mg PO QAM #90 caps 05/08/23 05/30/23 Rx release 24 hr lisinopril 40 mg tablet 40 mg PO QAM #90 tabs 05/16/23 05/30/23 Rx aspirin 81 mg tablet,delayed 81 mg PO DAILY 05/24/23 05/30/23 History release (Adult Aspirin Regimen) mupirocin 2 % topical ointment 1 applic topical BID #15 grams 05/24/23 05/30/23 Rx pantoprazole 40 mg tablet,delayed 40 mg PO .daily #90 tabs 06/12/23 06/12/23 Rx release (Protonix) Patient hx anesthesia problems: none Family hx anesthesia problems: none Results Review: All pre-operative results and documents have been reviewed as part of the pre-operative evaluation. 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 Depression Duodenal ulcer Endometrial cancer Generalized osteoarthritis of multiple sites (~2007) GERD (gastroesophageal reflux disease) Hypertension IBS (irritable bowel syndrome) Lumbar radiculopathy Metabolic syndrome Obstructive sleep apnea on CPAP Occult blood in stools Panic attack Recurrent falls Rheumatoid arthritis with rheumatoid factor of multiple sites without organ or systems involvement (~1999) Vitamin D deficiency Surgical History Surgical History H/O dilation and curettage History of appendectomy History of bilateral carpal tunnel release History of left hip replacement History of total hysterectomy with bilateral salpingo-oophorectomy (BSO) History of umbilical hernia repair Hx of cholecystectomy Status post cataract extraction of both eyes with insertion of intraocular lens Family History Family History Father Family history of elevated blood lipids, Onset Age: 74 Diabetes mellitus Acute myocardial infarction, Onset Age: 74 Family history of coronary artery disease Hypertension Cerebrovascular accident Mother Family history of primary malignant neoplasm of liver Family history of malignant neoplasm of ovary Family history of elevated blood lipids Hypertension Cerebrovascular accident Son Cancer Social History Social History (Reviewed 05/24/23 @ 13:14 by DEVYN MccartneyC
[2023-06-12 09:57] VITALS: BP 146/65; PULSE 85; RESP 18; TEMP 36.2; O2SAT 99
--- NOTE | 2023-06-12 10:09 | PM.HPGS ---
History of Present Illness History of Present Illness Consent: Risks, benefits, and alternatives have been discussed and questions answered. Patient agrees to proceed with procedure. Chief complaint: Duodenal Ulcer Narrative: Shiloh Hester is a 77 year old female with anemia and found to have duodenal ulcer 03/2023, no h pylori, here to reassess. doing ok Review of Systems Constitutional: Constitutional: Denies headache(s) and Denies weakness Eyes: Eyes: Denies blurry vision ENT: Reports Normal hearing present, Denies headache(s) and Denies neck pain Cardiovascular: Cardiovascular: Denies chest pain and Denies dyspnea Respiratory: Respiratory: Denies dyspnea Gastrointestinal: Gastrointestinal: Reports no additional gastrointestinal complaints Genitourinary: Genitourinary: Denies dysuria Musculoskeletal: Musculoskeletal: Denies neck pain Integumentary/Breasts: Skin/Breast: Denies dry skin Neurologic: Reports Normal hearing present, Denies headache(s) and Denies weakness Psychiatric: Psychiatric: Denies anxiety Endocrine: Endocrine: Denies change in body appearance Hematologic/Lymphatic: Hematologic/Lymphatic: Denies easy bleeding Allergic/Immunologic: Allergic/Immunologic: Denies urticaria PMFSH Past Medical History Medical History (Updated 06/12/23 @ 10:00 by Nicko Quinn DO) Acute on chronic anemia Adhesive capsulitis of left shoulder (~06/2021) Chronic anemia Chronic kidney disease, stage 3 (moderate) 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 Depression Duodenal ulcer Endometrial cancer Generalized osteoarthritis of multiple sites (~2007) GERD (gastroesophageal reflux disease) Hypertension IBS (irritable bowel syndrome) Lumbar radiculopathy Metabolic syndrome Obstructive sleep apnea on CPAP Occult blood in stools Panic attack Recurrent falls Rheumatoid arthritis with rheumatoid factor of multiple sites without organ or systems involvement (~1999) Vitamin D deficiency Surgical History Surgical History H/O dilation and curettage History of appendectomy History of bilateral carpal tunnel release History of left hip replacement History of total hysterectomy with bilateral salpingo-oophorectomy (BSO) History of umbilical hernia repair Hx of cholecystectomy Status post cataract extraction of both eyes with insertion of intraocular lens Family History Family History Father Family history of elevated blood lipids, Onset Age: 74 Diabetes mellitus Acute myocardial infarction, Onset Age: 74 Family history of coronary artery disease Hypertension Cerebrovascular accident Mother Family history of primary malignant neoplasm of liver Family history of malignant neoplasm of ovary Family history of elevated blood lipids Hypertension Cerebrovascular accident Son Cancer Social History Social History Social History: She has been since 2007. She lives alone. She has a small dog. Code status: Full code Surrogate decision maker: Stoney (son) Smoking packs per day: 0.4 Smoking cigarettes per day: 8.0 Years smoked: 4 Smoking pack-years: 1.60 Smoking status: Former smoker Tobacco type: cigarettes Smoking end date: 04/21/82 Additional smoking assessment comments: PT DENIES ALL FORMS OF TOBACCO USE Alcohol intake: never Alcohol use details: Mixed drinks occasionally Substance use: current Substance use type: marijuana Other substance usage details: medical marijuana for sleep Last use: 01-08-23 Lack of Transportation: No Lack of Food: Never True Current Housing: I Have Housing Concerned About Future Housing: No Difficulty Paying Gas/Electric Bills: No Difficulty Paying for Meds: No Currently Unemployed: No Education: D
[2023-06-12] MEDS: LACTATED RINGERS 1,000 ML 150 ML IV CONT (10:11)
[2023-06-12 10:27] VITALS: BP 110/60; PULSE 73; RESP 22; O2SAT 98
[2023-06-12 10:37] VITALS: BP 122/63; PULSE 76; RESP 19; O2SAT 97
[2023-06-12 10:47] VITALS: BP 139/72; PULSE 74; RESP 18; O2SAT 98
== END 2023-06-12 11:08 | disposition home or self-care (01) ==
PROVIDERS: PCP Family Medicine; Visit Provider Internal Medicine Gastroenterology
PROC: 0DJ08ZZ Inspection of Upper Intestinal Tract, Via Natural or Artificial Opening Endoscopic (ICD-10-PCS; CPT 43235; principal; 2023-06-12 11:00)
DX: K26.9 Duodenal ulcer, unspecified as acute or chronic, without hemorrhage or perforation (principal); K44.9 Diaphragmatic hernia without obstruction or gangrene; K29.70 Gastritis, unspecified, without bleeding; Z87.891 Personal history of nicotine dependence; K21.9 Gastro-esophageal reflux disease without esophagitis; N18.30 Chronic kidney disease, stage 3 unspecified; I12.9 Hypertensive chronic kidney disease with stage 1 through stage 4 chronic kidney disease, or unspecified chronic kidney disease; E55.9 Vitamin D deficiency, unspecified
CPT/HCPCS: 43235; J2704; J7120

== ENCOUNTER 2023-07-07 14:30 | Emergency (ER) | payer MEDICARE, SELFPAY ==
[2023-07-07 14:58] VITALS: BP 108/64; PULSE 81; RESP 16; TEMP 37; O2SAT 100
--- NOTE | 2023-07-07 16:21 | ED.EXTPRO ---
HPI - Extremity Problem General Chief complaint: Extremity Problem,Nontraumatic Stated complaint: warm, swollen bruise to left shoulder Time Seen by Provider: 07/07/23 15:57 History of Present Illness HPI Narrative: Patient is a 77-year-old female presenting with left shoulder swelling. Patient states that she has chronic mobility issues with the shoulder related to a rotator cuff tear that is inoperable. States that over the last few days she has noticed that it is more swollen than normal. She and her family noticed some redness and bruising on it so they became concerned and brought her in for evaluation. She denies any recent injuries. She denies pain or decreased ROM from baseline. She denies fevers or other infectious symptoms. Patient states that she does have to use her arms a lot because she is walker and wheelchair dependent related to hip problems. Related Data Home Medications Medication Instructions Recorded Confirmed acetaminophen 650 mg 1,300 mg PO BID PRN pain or fever 09/12/19 07/10/23 tablet,extended release (Tylenol 8 Hour) cholecalciferol (vitamin D3) 50 4,000 unit PO BID 09/12/19 07/10/23 mcg (2,000 unit) tablet calcium carbonate 500 mg calcium 500 mg PO DAILY PRN Indigestion 11/10/22 07/10/23 (1,250 mg) chewable tablet atorvastatin 40 mg tablet (Lipitor) 40 mg PO DAILY 03/07/23 07/10/23 polyethylene glycol 3350 17 17 g PO PRN PRN Constipation 03/07/23 07/10/23 gram/dose oral powder (Miralax) aspirin 81 mg tablet,delayed 81 mg PO DAILY 05/24/23 07/10/23 release (Adult Aspirin Regimen) Allergies Allergy/AdvReac Type Severity Reaction Status Date / Time No Known Allergies Allergy Verified 07/10/23 08:20 Review of Systems Review of Systems: All systems reviewed & are unremarkable except as noted in HPI and below PMFSH Past Medical History Medical History Acute on chronic anemia Adhesive capsulitis of left shoulder (~06/2021) Chronic anemia Chronic kidney disease, stage 3 (moderate) 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 Depression Duodenal ulcer Endometrial cancer Generalized osteoarthritis of multiple sites (~2007) GERD (gastroesophageal reflux disease) Hypertension IBS (irritable bowel syndrome) Lumbar radiculopathy Metabolic syndrome Obstructive sleep apnea on CPAP Occult blood in stools Panic attack Recurrent falls Rheumatoid arthritis with rheumatoid factor of multiple sites without organ or systems involvement (~1999) Vitamin D deficiency Surgical History Surgical History H/O dilation and curettage History of appendectomy History of bilateral carpal tunnel release History of left hip replacement History of total hysterectomy with bilateral salpingo-oophorectomy (BSO) History of umbilical hernia repair Hx of cholecystectomy Status post cataract extraction of both eyes with insertion of intraocular lens Family History Family History Father Family history of elevated blood lipids, Onset Age: 74 Diabetes mellitus Acute myocardial infarction, Onset Age: 74 Family history of coronary artery disease Hypertension Cerebrovascular accident Mother Family history of primary malignant neoplasm of liver Family history of malignant neoplasm of ovary Family history of elevated blood lipids Hypertension Cerebrovascular accident Son Cancer Social History Social History Social History: She has been since 2007. She lives alone. She has a small dog. Code status: Full code Surrogate decision maker: Stoney (son) Smoking packs per day: 0.4 Smoking cigarettes per day: 8.0 Years smoked: 4 Smoking pack-years: 1.60 Smoking status: Former smoker Tobacco type: cigarettes Smokin
== END 2023-07-07 16:40 | disposition home or self-care (01) ==
LOC: ANHED 16:34
PROVIDERS: Emergency Provider Emergency Medicine; PCP Family Medicine
DX: M25.412 Effusion, left shoulder (principal); D64.9 Anemia, unspecified; I12.9 Hypertensive chronic kidney disease with stage 1 through stage 4 chronic kidney disease, or unspecified chronic kidney disease; N18.30 Chronic kidney disease, stage 3 unspecified; F32.A Depression, unspecified; M19.90 Unspecified osteoarthritis, unspecified site; K21.9 Gastro-esophageal reflux disease without esophagitis; G47.30 Sleep apnea, unspecified
CPT/HCPCS: 99282

== ENCOUNTER → 2023-07-10 08:11 | Outpatient (CLI) | payer MEDICARE, SELFPAY ==
--- NOTE | ~2023-07-10 | XR_ITS ---
EXAMINATION: XR shoulder LT min 2V DATE: 07/10/2023 08:25 INDICATION: Left shoulder pain and limited range of motion TECHNIQUE: AP internally and externally rotated, AP oblique externally rotated and transscapular Y vi ews of the left shoulder were obtained. COMPARISON: None FINDINGS: There is cephalad subluxation of the humeral head with respect to the glenoid consistent with likely rotator cuff tear. There is fragmentation of the acromial process with evidence of remodeling of the acromion with the largest fragment appearing thinned with curved undersurface. This appears to have p rogressed chronically when compared with chest radiographs dated 01/30/2022 and 03/23/2023. The cortical margins of the posterosuperior glenoid also appears indistinct suggesting additional advanced osteoa rthritis with osteolysis related to the cephalad subluxation of the humeral head. Moderate size sergio nal osteophytes about the humeral head. There is a large glenohumeral joint effusion likely contiguou s with the subacromial/subdeltoid bursa with small amount of dependent calcific debris situated along the posterolateral margin of the level of the neck the proximal humerus. No acute fracture. Severe c ervicothoracic spondylosis. Visualized portions of the left lung are clear. IMPRESSION: 1. Advanced rotator cuff arthropathy at the left shoulder with cephalad subluxation of the humeral he ad and secondary severe glenohumeral osteoarthritis with osteolysis along the posterior superior dom oid and prominent osteolysis and fragmentation of the acromion 2. Large left glenohumeral joint effusion likely contiguous with the subacromial/subdeltoid bursa. Reviewed, dictated and finalized at location A. IMPRESSION: 1. Advanced rotator cuff arthropathy at the left shoulder with cephalad subluxa tion of the humeral head and secondary severe glenohumeral osteoarthritis with osteolysis along the posterior superior glenoid and prominent osteolysis and fr agmentation of the acromion 2. Large left glenohumeral joint effusion likely contiguous with the subacromia l/subdeltoid bursa.
== END ==
PROVIDERS: PCP Family Medicine; Visit Provider Nurse Practitioner
DX: M25.462 Effusion, left knee (principal)
CPT/HCPCS: 73030

== ENCOUNTER 2023-07-12 10:11 | Outpatient (CLI) | payer MEDICARE, SELFPAY ==
[2023-07-12 10:40] LABS: Basophils Absolute Auto 0.1 K/mm3 (0.0-0.1); Basophils Percent Auto 0.6 % (0.2-1.2); Eosinophils Percent Auto 0.1 % (0-4.4); Hematocrit 28.4 % (37.0-47.0); Hemoglobin 8.4 g/dL (12.0-15.0); Immature Granulocyte Absolute 0.04 K/mm3 (0.00-0.031); Immature Granulocyte Percent A 0.5 % (0-0.5); Lymphocytes Absolute Auto 1.41 K/mm3 (0.9-3.2); Mean Corpuscular HGB Conc 29.6 g/dl (32-36); Mean Corpuscular Hemoglobin 25.1 pg (26-34); Mean Corpuscular Volume 84.8 fl (80-100); Mean Platelet Volume 8.7 fl (7.4-10.4); Monocytes Absolute Auto 0.7 K/mm3 (0.1-0.6); Monocytes Percent Auto 8.7 % (2.6-8.5); Neutrophils Absolute Auto 5.6 K/mm3 (1.3-6.7); Neutrophils Percent Auto 72.1 % (45.5-73.1); Platelet Count Result 398 k/mm3 (150-375); Red Blood Count 3.35 M/mm3 (4.2-5.4); Red Cell Distribution Width 20.5 % (11.5-14.5); White Blood Count 7.8 K/mm3 (4.5-10.0)
[2023-07-12 11:01] LABS: Anion Gap 6 mmol/L (8-16); Blood Urea Nitrogen 23 mg/dL (7-17); CRP 1.1 mg/dL (<1.0); Calcium 9.1 mg/dL (8.4-10.2); Carbon Dioxide 27 mmol/L (22-30); Chloride 101 mmol/L (98-107); Estimated Glomerular Filt Rate > 60; Glucose 90 mg/dL (65-110); Potassium 4.2 mmol/L (3.4-5.0); Sodium 134 mmol/L (137-145)
[2023-07-12 11:57] LABS: Platelet Estimate Adequate (Adequate)
[2023-07-12 11:58] LABS: Hypochromasia 1+ (NORMAL); Schistocytes None Seen (NORMAL); Target Cells 1+ (NORMAL)
== END 2023-07-12 10:12 | disposition home or self-care (01) ==
PROVIDERS: PCP Family Medicine; Visit Provider Orthopaedic Surgery
DX: M25.412 Effusion, left shoulder (principal)
CPT/HCPCS: 36415; 80048; 85025; 86140

== ENCOUNTER 2023-08-11 12:29 | Inpatient (IN) | payer MEDICARE, SELFPAY ==
[2023-08-11] VITALS (26 sets, daily range): BP systolic 82–114; BP diastolic 38–96; PULSE 73–100; RESP 16–31; TEMP 36.4–37.6; O2SAT 92–96
--- NOTE | ~2023-08-11 | CT_ITS ---
EXAMINATION: CT abdomen pelvis w con DATE: 08/11/2023 14:13 INDICATION: diarrhea TECHNIQUE: Computed tomography (CT) of the abdomen and pelvis was performed with 100 mL Omnipaque-350 intravenous contrast. Automated exposure control and iterative reconstruction technique were employe d. The dose-length product was 1228.76 mGy-cm. COMPARISON: None. FINDINGS: Lower thorax: Atelectasis/scar. Moderate hiatal hernia. Liver: Normal. Biliary/Gallbladder: Gallbladder is absent. Mild intra and extrahepatic bile duct dilation likely sec ondary to cholecystectomy Pancreas: No mass or duct dilation. Vascular versus chronic pancreatic calcifications. Spleen: Normal. Adrenals:No mass. Kidneys: No suspicious mass, obstructing stone, or hydronephrosis. GI tract: No small or large bowel dilation. Diffuse colonic wall edema. Appendix not confidently visu alized Diverticulosis without diverticulitis. Mesentery/Peritoneum: No ascites, mass, or free air. Retroperitoneum: No mass. Atherosclerotic abdominal aortic and/or arterial calcifications. Pelvis: Streak artifact. Unremarkable urinary bladder. Absent uterus. Soft Tissues: Soft tissues and body wall unremarkable. Lower abdominal hernia mesh. Uncomplicated inf raumbilical fat-containing ventral hernia. Bones: No acute osseous finding. Bilateral L5 pars defects. Old sacral insufficiency and left acetab ular fractures. Incompletely evaluated left hip arthroplasty. IMPRESSION: Diffuse colitis, likely on an infectious, inflammatory, or ischemic basis. Reviewed, dictated and finalized at location K.
--- NOTE | ~2023-08-11 | XR_ITS ---
EXAMINATION: XR chest 1V portable INDICATION: Shortness of breath TECHNIQUE: Portable AP chest at 0637 hours COMPARISON: 07/30/2023 FINDINGS: A right upper extremity PICC ends with its tip in the distal superior vena cava. The lungs are free of acute opacities. No pleural effusion or pneumothorax. The cardiomediastinal silhouette is normal. There is osteoarthritis of the shoulders with changes suggestive of chronic rotator cuff tea rs. IMPRESSION: 1. No acute cardiopulmonary abnormality. Reviewed, dictated and finalized at location F.
--- NOTE | ~2023-08-11 | CT_ITS ---
Clinical Indication: Colitis, perforation CT Scan of the Chest, Abdomen, and Pelvis without Contrast: Technique: Contiguous sections were acquired throughout the chest, abdomen, and pelvis without IV con trast administration. Dose reduction technique was used on this scan by utilizing automated exposure control and iterative reconstruction technique. The dose-length product (DLP) was 1794.28 mGy-cm. COMPARISON: 08/11/2023 Findings: There is no evidence of any significant mediastinal, hilar or axillary lymphadenopathy. The mediastin al soft tissues appear normal. No pericardial effusion. Small bilateral pleural effusions are present. The lungs are clear. No pulmonary nodules or infiltrates are noted. The liver, spleen, pancreas, adrenals and left kidney are within normal limits. Gallbladder is probab ly absent. Stable right renal cyst. No evidence of aortic aneurysm. No lymphadenopathy. Small amount of abdominopelvic ascites present, probable mesenteric edema. There is large bowel wall thickening, extensively involving the ascending and transverse colon in particular. No bowel obstruct ion. No abscess or free air evident. Evidence of prior lower abdominal herniorrhaphy. There is a smal l umbilical fat-containing hernia. There is streak artifact in the pelvis from left hip arthroplasty. Urinary bladder is unremarkable. P atient is probably post hysterectomy. There are bilateral L5 pars interarticularis defects, with 8 mm anterolisthesis of L5 over S1. There is advanced degenerative spondylosis throughout the lumbar spin e. Impression: Findings most consistent with infectious/inflammatory colitis, most prominent at the ascending and tr ansverse colon. No evidence for abscess or free air. Small amount of abdominopelvic ascites. Small bilateral pleural effusions. Small fat-containing umbilical hernia. Reviewed, dictated and finalized at location . Impression: Findings most consistent with infectious/inflammatory colitis, most prominent a t the ascending and transverse colon. No evidence for abscess or free air. Small amount of abdominopelvic ascites. Small bilateral pleural effusions. Small fat-containing umbilical hernia.
--- NOTE | ~2023-08-11 | NM_ITS ---
EXAMINATION: NM renal flow and function DATE: 08/22/2023 15:33 INDICATION: Unresolving acute renal insufficiency TECHNIQUE: 7.4 mCi Tc-99m MAG3 was administered IV. 40 mg furosemide was administered IV immediately afterward. The patient was scanned in the supine position. A posterior abdominal radionuclide angiog major was obtained. A subsequent time course of static images of the kidneys, ureters, and bladder was obtained. COMPARISON: None FINDINGS: The posterior abdominal radionuclide angiogram and sequential static images show normal size, positio n, and morphology of the kidneys. Peak renal parenchymal uptake was 27 min in left kidney and 23 min in right kidney (normal peak 3-5 minutes). The relative early renal uptake was 59% on the left and 4 1% on the right (<40% is abnormal). No abnormalities of the ureters or bladder are seen. T1/2 for clearance of is indeterminate on both the left and right with initially slowly rising and pinon bsequently plateaued renal activity curves. No photopenic defects at the renal domingo to suggest hydron ephrosis and no accumulation of excreted activity either at the renal pelvises sees or along the cour se of ureters. Notes on interpretation: T1/2 <10 minutes is normal, 10-15 minutes is low grade obstruction of questi onable clinical significance, 15-20 minutes is partial obstruction that is likely clinically signific ant, >20 minutes is high grade obstruction. Note that false positives may be seen with supine positio cl, dehydration, severely dilated nonobstructed kidney, atonic collecting system, poor renal functi on, and chronic furosemide use. IMPRESSION: 1. Markedly delayed time to peak in both kidneys without evident activity clearance likely related t o nonspecific nephropathy. 2. Asymmetric renal activity uptake which is at the upper limits of normal with 59% uptake in the lef t kidney, 41% in the right kidney. Reviewed, dictated and finalized at location A. IMPRESSION: 1. Markedly delayed time to peak in both kidneys without evident activity lena nik likely related to nonspecific nephropathy. 2. Asymmetric renal activity uptake which is at the upper limits of normal with 59% uptake in the left kidney, 41% in the right kidney.
--- NOTE | ~2023-08-11 | XR_ITS ---
EXAMINATION: XR chest 1V portable Exam Date/Time: 08/19/2023 20:15 CDT HISTORY: DREW Comparison: 03/23/2023. RESULT: Lines, tubes, and devices: None. Lungs and pleura: Lordotic positioning. Senescent changes. Streaky bibasilar atelectasis. Cardiomediastinal silhouette: Stable. Other: No acute osseous or upper abdominal finding. IMPRESSION: No acute cardiopulmonary process. Reviewed, dictated and finalized at location K.
[2023-08-11 13:10] LABS: Basophils Absolute Auto 0.1 K/mm3 (0.0-0.1); Basophils Percent Auto 0.4 % (0.2-1.2); Hematocrit 24.6 % (37.0-47.0); Hemoglobin 7.6 g/dL (12.0-15.0); Immature Granulocyte Absolute 1.27 K/mm3 (0.00-0.031); Lymphocytes Absolute Auto 0.57 K/mm3 (0.9-3.2); Lymphocytes Percent Auto 1.8 % (18.3-44.2); Mean Corpuscular HGB Conc 30.9 g/dl (32-36); Mean Corpuscular Hemoglobin 25.2 pg (26-34); Mean Corpuscular Volume 81.7 fl (80-100); Mean Platelet Volume 8.7 fl (7.4-10.4); Monocytes Absolute Auto 2.1 K/mm3 (0.1-0.6); Monocytes Percent Auto 6.6 % (2.6-8.5); Neutrophils Absolute Auto 27.9 K/mm3 (1.3-6.7); Neutrophils Percent Auto 87.2 % (45.5-73.1); Platelet Count Result 547 k/mm3 (150-375); Red Blood Count 3.01 M/mm3 (4.2-5.4); Red Cell Distribution Width 20.8 % (11.5-14.5)
--- NOTE | 2023-08-11 13:12 | ED.GENADULT ---
HPI - General Adult General Chief complaint: Nausea/Vomiting/Diarrhea Stated complaint: diarrhea Time Seen by Provider: 08/11/23 12:41 History of Present Illness HPI narrative: Patient is a 77-year-old female who presents ER with reports of diarrhea and dizziness. Reports she has been having diarrhea for the last 2 weeks. 6 episodes of diarrhea this morning. No fevers or chills. She reports when she goes from sitting to standing she gets very dizzy and feels like she is going to fall. She has not had any syncope. No blood in stool. She has not been on antibiotics previously. Related Data Home Medications Medication Instructions Recorded Confirmed acetaminophen 650 mg 1,300 mg PO BID PRN pain or fever 09/12/19 07/10/23 tablet,extended release (Tylenol 8 Hour) cholecalciferol (vitamin D3) 50 4,000 unit PO BID 09/12/19 07/10/23 mcg (2,000 unit) tablet calcium carbonate 500 mg calcium 500 mg PO DAILY PRN Indigestion 11/10/22 07/10/23 (1,250 mg) chewable tablet atorvastatin 40 mg tablet (Lipitor) 40 mg PO DAILY 03/07/23 07/10/23 polyethylene glycol 3350 17 17 g PO PRN PRN Constipation 03/07/23 07/10/23 gram/dose oral powder (Miralax) aspirin 81 mg tablet,delayed 81 mg PO DAILY 05/24/23 07/10/23 release (Adult Aspirin Regimen) Allergies Allergy/AdvReac Type Severity Reaction Status Date / Time No Known Allergies Allergy Verified 08/11/23 12:35 Review of Systems Review of Systems: All systems reviewed & are unremarkable except as noted in HPI and below Constitutional: Constitutional: Denies chills, Denies fatigue and Denies fever(s) ENT: Denies nasal congestion and Denies sore throat Cardiovascular: Cardiovascular: Denies chest pain and Denies radiating jaw, neck or arm pain Respiratory: Respiratory: Denies cough and Denies dyspnea Gastrointestinal: Gastrointestinal: Denies abdominal pain, Reports diarrhea, Denies nausea and Denies vomiting Genitourinary: Genitourinary: Denies nocturia and Denies dysuria [facility] Past Medical History Medical History Acute on chronic anemia Adhesive capsulitis of left shoulder (~06/2021) Chronic anemia Chronic kidney disease, stage 3 (moderate) 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 Depression Duodenal ulcer Effusion of left shoulder joint Endometrial cancer Generalized osteoarthritis of multiple sites (~2007) GERD (gastroesophageal reflux disease) Hypertension IBS (irritable bowel syndrome) Left anterior shoulder pain Lumbar radiculopathy Metabolic syndrome Obstructive sleep apnea on CPAP Occult blood in stools Panic attack Recurrent falls Rheumatoid arthritis with rheumatoid factor of multiple sites without organ or systems involvement (~1999) Rotator cuff arthropathy of left shoulder Stage II pressure ulcer Swelling of joint of left shoulder Vitamin D deficiency Surgical History Surgical History H/O dilation and curettage History of appendectomy History of bilateral carpal tunnel release History of left hip replacement History of total hysterectomy with bilateral salpingo-oophorectomy (BSO) History of umbilical hernia repair Hx of cholecystectomy Status post cataract extraction of both eyes with insertion of intraocular lens Family History Family History Father Family history of elevated blood lipids, Onset Age: 74 Diabetes mellitus Acute myocardial infarction, Onset Age: 74 Family history of coronary artery disease Hypertension Cerebrovascular accident Mother Family history of primary malignant neoplasm of liver Family history of malignant neoplasm of ovary Family history of elevated blood lipids Hypertension Cerebrovascular accident Son Cancer Social History Social History
[2023-08-11 13:23] LABS: Alanine Aminotransferase 18 U/L (6-35); Albumin Level 2.7 g/dL (3.5-5.1); Alkaline Phosphatase 69 U/L (38-126); Anion Gap 9 mmol/L (8-16); Aspartate Amino Transferase 26 U/L (14-36); Bilirubin,Total 0.4 mg/dL (0.2-1.3); Blood Urea Nitrogen 27 mg/dL (7-17); Calcium 7.9 mg/dL (8.4-10.2); Carbon Dioxide 19 mmol/L (22-30); Chloride 98 mmol/L (98-107); Estimated CRCL calculation 35 ml/min; Estimated Glomerular Filt Rate 44; Glucose 103 mg/dL (65-110); Lipase 22 U/L (23-300); Potassium 3.4 mmol/L (3.4-5.0); Sodium 126 mmol/L (137-145)
[2023-08-11] MEDS: SODIUM CHLORIDE 0.9% IV 1,000 ML 999 ML IV CONT ×2 (13:26→14:22)
[2023-08-11 13:56] LABS: Anisocytosis 2+ (NORMAL); Platelet Estimate Increased (Adequate); Schistocytes 1+ (NORMAL); Target Cells 1+ (NORMAL)
[2023-08-11 13:57] LABS: Ovalocytes 1+ (NORMAL); Tear Drop Cells 1+ (NORMAL)
[2023-08-11 15:07] LABS: Appearance Urine Clear (Clear); Bacteria Urine 4+ /hpf; Bilirubin Urine Negative (Negative); Color Urine Yellow (Yellow); Glucose Urine UA Negative (Negative); Ketones Urine Negative (Negative); Leukocyte Esterase Ur Trace LEU/UL (Negative); Need Manual Microscopic Reviewed; Nitrate Urine Negative (Negative); Protein Urine Negative (Negative); RBC Urine 0-2 /hpf (0-2); Specific Grav Ur 1.013 (1.001-1.035); Squamous Epithelial Cell Urine Occasional /hpf (Few)
[2023-08-11 15:15] LABS: Add Urine Microscopic? YES
--- NOTE | 2023-08-11 15:23 | PM.IMHP ---
H&P: HPI History of Present Illness Date/Time: 08/11/23 15:23 Chief Complaint: Diarrhea Narrative: Patient is a 77-year-old female with history of CKD stage 3, chronic anemia, GERD, duodenal ulcer, rheumatoid arthritis, hypertension, SARAH, on CPAP, present ED with chief complaint of diarrhea, lightheadedness, generally weak. Patient has been having diarrhea in past 2 weeks, watery, patient denies black emesis, melena, red per rectum. Patient has intermittent low-grade fever, temperature 99.4? at home and also has chills,. In past few more days, patient has feeling very and in the morning, patient could not get out of bed because of general weakness, and patient also has intermittent lightheadedness. Patient has had 6 bowel movement today. Patient denies focal weakness. Patient came to ED for evaluation, in the ED, patient was found have hypotension, tachycardia, and patient was also found have leukocytosis 32,000, chronic anemia 7.6, baseline 7.8 about 10 days ago, hyponatremia sodium 126, elevated BUN creatinine to examine 17/11.2, above baseline 0.85 creatinine August 02, 2023. CT abdomen pelvis reveals diffuse colitis, likely infectious, inflammatory, ischemia basis. 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 Depression Duodenal ulcer Effusion of left shoulder joint Endometrial cancer Generalized osteoarthritis of multiple sites (~2007) GERD (gastroesophageal reflux disease) Hypertension IBS (irritable bowel syndrome) Left anterior shoulder pain Lumbar radiculopathy Metabolic syndrome Obstructive sleep apnea on CPAP Occult blood in stools Panic attack Recurrent falls Rheumatoid arthritis with rheumatoid factor of multiple sites without organ or systems involvement (~1999) Rotator cuff arthropathy of left shoulder Stage II pressure ulcer Swelling of joint of left shoulder Vitamin D deficiency Surgical History Surgical History H/O dilation and curettage History of appendectomy History of bilateral carpal tunnel release History of left hip replacement History of total hysterectomy with bilateral salpingo-oophorectomy (BSO) History of umbilical hernia repair Hx of cholecystectomy Status post cataract extraction of both eyes with insertion of intraocular lens Family History Family History Father Family history of elevated blood lipids, Onset Age: 74 Diabetes mellitus Acute myocardial infarction, Onset Age: 74 Family history of coronary artery disease Hypertension Cerebrovascular accident Mother Family history of primary malignant neoplasm of liver Family history of malignant neoplasm of ovary Family history of elevated blood lipids Hypertension Cerebrovascular accident Son Cancer Social History Social History Social History: She has been since 2007. She lives alone. She has a small dog. Code status: Full code Surrogate decision maker: Stoney (son) Smoking packs per day: 0.4 Smoking cigarettes per day: 8.0 Years smoked: 4 Smoking pack-years: 1.60 Smoking status: Former smoker Tobacco type: cigarettes Smoking end date: 04/21/82 Additional smoking assessment comments: PT DENIES ALL FORMS OF TOBACCO USE Alcohol intake: never Alcohol use details: Mixed drinks occasionally Substance use: current Substance use type: marijuana Other substance usage details: medical marijuana for sleep Last use: 01-08-23 Lack of Transportation: No Lack of Food: Never True Current Housing:
[2023-08-11 15:55] LABS: Iron 11 ug/dL (37-170)
[2023-08-11] MEDS: PIPERACILLN/TAZ 3.375GM/NS50ML 3.375 GM/50 ML BAG IVPB (16:01)
[2023-08-11 16:04] LABS: Percent Iron Saturation 6 % (20-50)
[2023-08-11] MEDS: SODIUM CHLORIDE 0.9% IV 2,300 ML/1,000 ML BAG 999 ML IV CONT (16:06)
--- NOTE | 2023-08-11 16:06 | PC.NURSE ---
Pt had total 2300ml IV fluids.
[2023-08-11 16:15] LABS: Lactic Acid Reflex 2.6 mmol/L (0.7-2.0)
--- NOTE | 2023-08-11 16:43 | ADMGEN ---
This patient, Shiloh Hester, was admitted to IMU Room 232-01. Patient/family oriented to hospital policies and general routines including ID bracelet, bed and alarms, visiting hours, pain management, procedures, bathroom and other care routines, personal items, smoking policy, room service/diet, and visiting hours. Information on how to activate the Rapid Response Team has been discussed. Patient/Family are encouraged to report perceived risks to care and to ask questions if they do not understand what they are told or what they should do.
[2023-08-11] MEDS: SODIUM CHLORIDE 0.9% IV 1,000 ML 125 ML IV CONT (17:58)
[2023-08-11 19:04] LABS: Reflex Lactic Acid Yes or No Add Lactic
[2023-08-11 20:09] LABS: Lactic Acid 2.1 mmol/L (0.7-2.0)
[2023-08-12] VITALS (12 sets, daily range): BP systolic 104–130; BP diastolic 40–97; PULSE 81–99; RESP 16–20; TEMP 36.5–37.4; O2SAT 94–96
[2023-08-12] MEDS: PIPERACILLIN/TAZ 2.25G/NS 50ML 2.25 GM/50 ML BAG IVPB ×4 (00:21→17:13)
[2023-08-12] MEDS: SODIUM CHLORIDE 0.9% IV 1,000 ML 125 ML IV CONT ×3 (01:58→21:46)
[2023-08-12 05:30] LABS: IFOB Positive Control Positive; Immunochemical Fecal Occult Bl Positive (N)
[2023-08-12 06:09] LABS: Toxigenic C. Diff POSITIVE (NEGATIVE)
[2023-08-12] MEDS: VANCOMYCIN ORAL 125 MG/2.5 ML SYRUP 250 MG PO ×3 (07:12→17:14)
[2023-08-12] MEDS: FERROUS SULFATE 325 MG TABLET DR BY MOUTH ×2 (10:21→16:46)
[2023-08-12] MEDS: GABAPENTIN 300 MG CAPSULE PO ×2 (10:21→21:47)
[2023-08-12] MEDS: HYDROXYCHLOROQUINE SULFATE 200 MG TABLET 400 MG PO ×2 (10:21→21:47)
[2023-08-12] MEDS: PANTOPRAZOLE 40 MG TABLET PO ×2 (10:21→21:48)
--- NOTE | 2023-08-12 11:55 | PM.IMPN ---
Progress Note: A&P Assessment and Plan (1) Colitis: Code(s): K52.9 - Noninfective gastroenteritis and colitis, unspecified Status: Acute (2) Severe sepsis: Code(s): A41.9 - Sepsis, unspecified organism; R65.20 - Severe sepsis without septic shock Status: Acute (3) Acute on chronic renal failure: Code(s): N17.9 - Acute kidney failure, unspecified; N18.9 - Chronic kidney disease, unspecified Status: Acute (4) Hypotension due to hypovolemia: Code(s): I95.89 - Other hypotension; E86.1 - Hypovolemia Status: Acute (5) Obstructive sleep apnea on CPAP: Code(s): G47.33 - Obstructive sleep apnea (adult) (pediatric); Z99.89 - Dependence on other enabling machines and devices Status: Acute (6) HTN (hypertension): Code(s): I10 - Essential (primary) hypertension Status: Acute (7) Degenerative joint disease of left hip: Qualifiers: Osteoarthritis type: other secondary Qualified Code(s): M16.7 - Other unilateral secondary osteoarthritis of hip Code(s): M16.12 - Unilateral primary osteoarthritis, left hip Status: Acute (8) Hyponatremia: Code(s): E87.1 - Hypo-osmolality and hyponatremia Status: Acute (9) Acute hyponatremia: Code(s): E87.1 - Hypo-osmolality and hyponatremia Status: Acute (10) Mixed hyperlipidemia: Code(s): E78.2 - Mixed hyperlipidemia Status: Chronic (11) Rheumatoid arthritis with rheumatoid factor of multiple sites without organ or systems involvement: Onset Date: ~1999 Code(s): M05.79 - Rheumatoid arthritis with rheumatoid factor of multiple sites without organ or systems involvement Status: Acute Plan Colitis Cdiff positive oral vanc Severe sepsis, Patient has leukocytosis, tachycardia, hypotension, suspecting severe sepsis due to colitis Follow-up blood culture urine culture, urinalysis, stool culture Patient received a normal saline bolus, continue normal saline IV and 125 mL/hour Monitor blood pressure closely DREW on CKD, hyponatremia, hypovolemic hypotension Worsening kidney function, hyponatremia, hypertension, possible due to diarrhea and in adequate intake Follow urinalysis Received fluid resuscitation, continue normal saline IV Follow-up BMP Avoid nephrotoxic medication Hypertension Hold hypertension medication because of hypotension A chronic anemia Hemoglobin close to baseline Likely due to chronic inflammation of rheumatoid arthritis, but patient has history of peptic ulcer Order stool guaiac, ferritin, iron panel Transfuse as needed History of gERD, duodenal ulcer Continue prednisone 40 mg daily p.o. Patient may stay more than 2 midnights in the hospital Subjective Date/time seen: 08/12/23 11:55 Interval history: still having loose stools Exam Narrative: GENERAL: Well-appearing, well-nourished, and in no acute distress. HEAD: Normocephalic, atraumatic. EYES: PERRLA and EOMI. ENT: Mucous membranes moist. CHEST: Clear to auscultation. No respiratory distress. HEART: Regular rate and rhythm. Normal peripheral pulses. ABDOMEN: Soft, nontender, nondistended. EXTREMITIES: Normal range of motion. No edema. SKIN: Warm, dry, no rash. NEURO: Alert and oriented x3. PSYCH: Normal mood and affect. Objective Data Vital Signs Vital Signs: Vital Signs - 24 hr 08/11/23 12:36 08/11/23 12:57 08/11/23 12:58 Temperature 97.6 F Pulse Rate 100 81 Respiratory Rate 16 Blood Pressure 92/43 L 95/47 L 95/52 L Pulse Oximetry 96 Oxygen Delivery 08/11/23 12:59 08/11/23 12:57 08/11/23 12:58 Temperature Pulse Rate 94 77 79 Respiratory Rate 17 23 H Blood Pressure 82/63 L 95/47 L Pulse Oximetry Oxygen Delivery 08/11/23 12:59 08/11/23 13:00 08/11/23 13:02 Temperature Pulse Rate 82 84 91 Respiratory Rate 23 H 21 H 24 H Blood Pressure 95/52 L 82/63 L Pulse Oximetry Oxygen Deliv
--- NOTE | 2023-08-12 15:10 | PC.NURSE ---
Report received per telephone from IVAN Suárez RN.
--- NOTE | 2023-08-12 15:35 | PC.NURSE ---
Transfer received from IMU to room 300 per hospital bed. No complaints voiced. Belongings at bedside.
--- NOTE | 2023-08-12 15:40 | PC.NURSE ---
This patient, Shiloh Hester, was transferred to [facility] on 08/12/23 at 1526. Personal belongings sent with patient. Report given to Mirna CASTORENA. Appropriate documentation sent with patient. Family notified of room change.
[2023-08-12 18:34] LABS: Anion Gap 5 mmol/L (8-16); Blood Urea Nitrogen 16 mg/dL (7-17); Calcium 7.6 mg/dL (8.4-10.2); Carbon Dioxide 19 mmol/L (22-30); Chloride 102 mmol/L (98-107); Estimated CRCL calculation 61 ml/min; Estimated Glomerular Filt Rate > 60; Glucose 99 mg/dL (65-110); Potassium 3.2 mmol/L (3.4-5.0); Sodium 126 mmol/L (137-145)
[2023-08-13] MEDS: VANCOMYCIN ORAL 125 MG/2.5 ML SYRUP 250 MG PO ×2 (00:19→06:10)
[2023-08-13] MEDS: PIPERACILLIN/TAZ 2.25G/NS 50ML 2.25 GM/50 ML BAG IVPB ×2 (00:20→06:10)
[2023-08-13 03:54] VITALS: BP 116/46; PULSE 82; RESP 16; TEMP 36.9; O2SAT 96
[2023-08-13] MEDS: SODIUM CHLORIDE 0.9% IV 1,000 ML 125 ML IV CONT ×3 (06:10→23:59)
[2023-08-13 06:30] LABS: Basophils Absolute Auto 0.2 K/mm3 (0.0-0.1); Basophils Percent Auto 0.5 % (0.2-1.2); Hematocrit 23.7 % (37.0-47.0); Hemoglobin 7.3 g/dL (12.0-15.0); Immature Granulocyte Absolute 1.41 K/mm3 (0.00-0.031); Immature Granulocyte Percent A 3.9 % (0-0.5); Lymphocytes Absolute Auto 0.76 K/mm3 (0.9-3.2); Lymphocytes Percent Auto 2.1 % (18.3-44.2); Mean Corpuscular HGB Conc 30.8 g/dl (32-36); Mean Corpuscular Hemoglobin 25.3 pg (26-34); Mean Platelet Volume 8.6 fl (7.4-10.4); Monocytes Absolute Auto 2.1 K/mm3 (0.1-0.6); Monocytes Percent Auto 5.8 % (2.6-8.5); Neutrophils Absolute Auto 31.4 K/mm3 (1.3-6.7); Neutrophils Percent Auto 87.7 % (45.5-73.1); Platelet Count Result 525 k/mm3 (150-375); Red Blood Count 2.89 M/mm3 (4.2-5.4); Red Cell Distribution Width 20.7 % (11.5-14.5); White Blood Count 35.9 K/mm3 (4.5-10.0)
[2023-08-13 06:40] LABS: Anion Gap 7 mmol/L (8-16); Blood Urea Nitrogen 14 mg/dL (7-17); Calcium 7.4 mg/dL (8.4-10.2); Carbon Dioxide 18 mmol/L (22-30); Chloride 103 mmol/L (98-107); Estimated CRCL calculation 61 ml/min; Estimated Glomerular Filt Rate > 60; Glucose 87 mg/dL (65-110); Potassium 3.3 mmol/L (3.4-5.0); Sodium 128 mmol/L (137-145)
[2023-08-13 07:31] LABS: Anisocytosis 2+ (NORMAL); Burr Cells 1+ (NORMAL); Crenated RBC 1+ (NORMAL); Hypochromasia 1+ (NORMAL); Macrocytosis 1+ (NORMAL); Platelet Estimate Increased (Adequate); Schistocytes None Seen (NORMAL)
[2023-08-13 08:00] VITALS: BP 118/44; PULSE 83; RESP 16; TEMP 37.2; O2SAT 96
[2023-08-13] MEDS: GABAPENTIN 300 MG CAPSULE PO ×2 (10:29→21:40)
[2023-08-13] MEDS: FERROUS SULFATE 325 MG TABLET DR BY MOUTH ×2 (10:29→16:00)
[2023-08-13] MEDS: VENLAFAXINE HCL XR 75 MG CAP.ER.24H PO (10:29)
[2023-08-13] MEDS: ASPIRIN 81 MG ENTERIC TABLET PO (10:30)
[2023-08-13] MEDS: PANTOPRAZOLE 40 MG TABLET PO ×2 (10:30→21:40)
[2023-08-13] MEDS: HYDROXYCHLOROQUINE SULFATE 200 MG TABLET 400 MG PO ×2 (10:30→21:40)
--- NOTE | 2023-08-13 10:51 | PM.IMPN ---
Progress Note: A&P Assessment and Plan (1) Colitis: Code(s): K52.9 - Noninfective gastroenteritis and colitis, unspecified Status: Acute (2) Severe sepsis: Code(s): A41.9 - Sepsis, unspecified organism; R65.20 - Severe sepsis without septic shock Status: Acute (3) Acute on chronic renal failure: Code(s): N17.9 - Acute kidney failure, unspecified; N18.9 - Chronic kidney disease, unspecified Status: Acute (4) Hypotension due to hypovolemia: Code(s): I95.89 - Other hypotension; E86.1 - Hypovolemia Status: Acute (5) Obstructive sleep apnea on CPAP: Code(s): G47.33 - Obstructive sleep apnea (adult) (pediatric); Z99.89 - Dependence on other enabling machines and devices Status: Acute (6) HTN (hypertension): Code(s): I10 - Essential (primary) hypertension Status: Acute (7) Degenerative joint disease of left hip: Qualifiers: Osteoarthritis type: other secondary Qualified Code(s): M16.7 - Other unilateral secondary osteoarthritis of hip Code(s): M16.12 - Unilateral primary osteoarthritis, left hip Status: Acute (8) Hyponatremia: Code(s): E87.1 - Hypo-osmolality and hyponatremia Status: Acute (9) Acute hyponatremia: Code(s): E87.1 - Hypo-osmolality and hyponatremia Status: Acute (10) Mixed hyperlipidemia: Code(s): E78.2 - Mixed hyperlipidemia Status: Chronic (11) Rheumatoid arthritis with rheumatoid factor of multiple sites without organ or systems involvement: Onset Date: ~1999 Code(s): M05.79 - Rheumatoid arthritis with rheumatoid factor of multiple sites without organ or systems involvement Status: Acute Plan Colitis Cdiff positive oral vanc Severe sepsis, Patient has leukocytosis, tachycardia, hypotension, suspecting severe sepsis due to colitis Follow-up blood culture urine culture, urinalysis, stool culture Patient received a normal saline bolus, continue normal saline IV and 125 mL/hour Monitor blood pressure closely DREW on CKD, hyponatremia, hypovolemic hypotension Worsening kidney function, hyponatremia, hypertension, possible due to diarrhea and in adequate intake Follow urinalysis Received fluid resuscitation, continue normal saline IV Follow-up BMP Avoid nephrotoxic medication Hypertension Monitor A chronic anemia Hemoglobin close to baseline Likely due to chronic inflammation of rheumatoid arthritis, but patient has history of peptic ulcer Order stool guaiac, ferritin, iron panel Transfuse as needed History of gERD, duodenal ulcer Continue prednisone 40 mg daily p.o. +bc iv vanc ? contaminent Subjective Date/time seen: 08/13/23 10:51 Interval history: no new complaints Exam Narrative: GENERAL: Well-appearing, well-nourished, and in no acute distress. HEAD: Normocephalic, atraumatic. EYES: PERRLA and EOMI. ENT: Mucous membranes moist. CHEST: Clear to auscultation. No respiratory distress. HEART: Regular rate and rhythm. Normal peripheral pulses. ABDOMEN: Soft, nontender, nondistended. EXTREMITIES: Normal range of motion. No edema. SKIN: Warm, dry, no rash. NEURO: Alert and oriented x3. PSYCH: Normal mood and affect. Objective Data Vital Signs Vital Signs: Vital Signs - 24 hr 08/12/23 11:42 08/12/23 15:35 08/12/23 16:00 Temperature 98.5 F 99.3 F Pulse Rate 90 87 Respiratory Rate 17 20 Blood Pressure 106/87 128/97 H Pulse Oximetry 96 95 Oxygen Delivery Room Air 08/12/23 19:51 08/12/23 23:32 08/12/23 23:15 Temperature 99.0 F 98.9 F Pulse Rate 89 90 81 Respiratory Rate 18 18 Blood Pressure 113/62 130/46 L Pulse Oximetry 94 96 96 Oxygen Delivery 08/13/23 03:54 08/13/23 10:30 Temperature 98.4 F Pulse Rate 82 Respiratory Rate 16 Blood Pressure 116/46 L Pulse Oximetry 96 Oxygen Delivery Room Air Intake/Output Intake/Output: Intake & Output 08/10/23
--- NOTE | 2023-08-13 11:30 | PM.CNNEP ---
Assessment and Plan Assessment and plan (1) Hyponatremia: Code(s): E87.1 - Hypo-osmolality and hyponatremia Status: Acute Assessment and Plan: as noted on admission - sodium 126 at that time a bit better by recent testing (at 128) history would suggest hypovolemia as etiology.... could be related to medications -- on PPI and venlafaxine (but these are chronic medications) check urine studies, TSH, cortisol, SPEP, UPEP, and serum/urine osmo follow the trend of repeat sodium level (2) DREW (acute kidney injury): Code(s): N17.9 - Acute kidney failure, unspecified Status: Acute Assessment and Plan: noted on admission appears to have resolved if not improved related to prerenal factors and infection continue supportive therapy (3) Sepsis: Code(s): A41.9 - Sepsis, unspecified organism Status: Acute Assessment and Plan: as noted on admission noted elevated WBC, tachycardia, and hypotension presumable source is C. diff colitis +/- UTI culture data noted on antibiotics follow hemodynamics (4) C. difficile colitis: Code(s): A04.72 - Enterocolitis due to Clostridium difficile, not specified as recurrent Status: Acute Assessment and Plan: as noted by testing on oral vancomycin (5) Metabolic acidosis: Code(s): E87.20 - Acidosis, unspecified Status: Acute Assessment and Plan: due to GI losses and resolving DREW follow trend for now (6) HTN (hypertension): Code(s): I10 - Essential (primary) hypertension Status: Chronic Assessment and Plan: reasonable control follow trend of hemodynamcis (7) Anemia: Code(s): D64.9 - Anemia, unspecified Status: Chronic Assessment and Plan: likely due to iron deficiency and acute illness follow trend of H/H PRBC transfusion per protocol I will continue to follow the patient with you while she remains hospitalized to make further recommendations as needed. Thank you for allowing me to participate in the care of this patient. History of Present Illness Reason for Consult Consult date: 08/13/23 Reason for consult: hyponatremia Chief Complaint Chief complaint: Colitis, DREW, Hyponatremia History of Present Illness Narrative: The patient is a 77-year-old female with a past medical history as outlined below who presented to [facility] Emergency room with complaints of diarrhea, lightheadedness, and generalized weakness. The patient reports that she has been having diarrhea for the last two weeks if not longer. The diarrhea has been watery and without any evidence of bright red blood, or melena. . She denies any coffee-ground emesis or associated nausea / vomiting. She does indicate that she has had low-grade temperatures around 99.4 degrees at home in association with chills. As the symptoms have progressed, the patient is noted that she is becoming more fatigued, lightheaded, and week as noted by her inability to get out of bed and the sensation of dizziness. she reports on average at least six bowel movements a day if not more. Given these constellation of symptoms and the lack of improvement with supportive therapy, she came to the emergency room for further assessment. Workup and evaluation in the emergency room demonstrated the patient to be hypotensive in association with tachycardia. Routine blood tests were significant for a significant leukocytosis of 32,000, anemia which is somewhat chronic at 7.6, and hyponatremia with a sodium of 126 as well as an elevated BUN and creatinine of 27 and 1.2 mg/dL, respectively. Subsequent CT scan of the abdomen pelvis demonstrated diffuse colitis likely infectious and inflammatory in nature although ischemia could not be ruled out. After appropriate cultures were obtained including stool studies, the patient was started on aggressive IV fluid resuscitation and IV antibiotic t
--- NOTE | 2023-08-13 11:30 | P.CONNP_ITS ---
Assessment and Plan Assessment and plan (1) Hyponatremia: Code(s): E87.1 - Hypo-osmolality and hyponatremia Status: Acute Assessment and Plan: * as noted on admission - sodium 126 at that time * a bit better by recent testing (at 128) * history would suggest hypovolemia as etiology.... * could be related to medications -- on PPI and venlafaxine (but these are chronic medications) * check urine studies, TSH, cortisol, SPEP, UPEP, and serum/urine osmo * follow the trend of repeat sodium level (2) DREW (acute kidney injury): Code(s): N17.9 - Acute kidney failure, unspecified Status: Acute Assessment and Plan: * noted on admission * appears to have resolved if not improved * related to prerenal factors and infection * continue supportive therapy (3) Sepsis: Code(s): A41.9 - Sepsis, unspecified organism Status: Acute Assessment and Plan: * as noted on admission * noted elevated WBC, tachycardia, and hypotension * presumable source is C. diff colitis +/- UTI * culture data noted * on antibiotics * follow hemodynamics (4) C. difficile colitis: Code(s): A04.72 - Enterocolitis due to Clostridium difficile, not specified as recurrent Status: Acute Assessment and Plan: * as noted by testing * on oral vancomycin (5) Metabolic acidosis: Code(s): E87.20 - Acidosis, unspecified Status: Acute Assessment and Plan: * due to GI losses and resolving DREW * follow trend for now (6) HTN (hypertension): Code(s): I10 - Essential (primary) hypertension Status: Chronic Assessment and Plan: * reasonable control * follow trend of hemodynamcis (7) Anemia: Code(s): D64.9 - Anemia, unspecified Status: Chronic Assessment and Plan: * likely due to iron deficiency and acute illness * follow trend of H/H * PRBC transfusion per protocol I will continue to follow the patient with you while she remains hospitalized to make further recommendations as needed. Thank you for allowing me to participate in the care of this patient. History of Present Illness Reason for Consult Consult date: 08/13/23 Reason for consult: hyponatremia Chief Complaint Chief complaint: Colitis, DREW, Hyponatremia History of Present Illness Narrative: The patient is a 77-year-old female with a past medical history as outlined below who presented to [facility] Emergency room with complaints of diarrhea, lightheadedness, and generalized weakness. The patient reports that she has been having diarrhea for the last two weeks if not longer. The diarrhea has been watery and without any evidence of bright red blood, or melena. . She denies any coffee-ground emesis or associated nausea / vomiting. She does indicate that she has had low-grade temperatures around 99.4 degrees at home in association with chills. As the symptoms have progressed, the patient is noted that she is becoming more fatigued, lightheaded, and week as noted by her inability to get out of bed and the sensation of dizziness. she reports on average at least six bowel movements a day if not more. Given these constellation of symptoms and the lack of improvement with supportive therapy, she came to the emergency room for further assessment. Workup and evaluation in the emergency room demonstrated the patient to be hypotensive in association with tachycardia. Routine blood tests were significant for a significant leukocytosis of 32,000, anemia which is somewhat chronic at 7.6
[2023-08-13 12:00] VITALS: BP 120/50; PULSE 80; RESP 16; TEMP 37.1; O2SAT 96
[2023-08-13 16:00] VITALS: BP 122/58; PULSE 80; RESP 17; TEMP 36.9; O2SAT 97
[2023-08-13] MEDS: VANCOMYCIN ORAL 125 MG/2.5 ML SYRUP PO ×2 (19:11→23:57)
[2023-08-13 20:00] VITALS: BP 145/58; PULSE 88; RESP 16; TEMP 37.3; O2SAT 95
[2023-08-14] VITALS (14 sets, daily range): BP systolic 119–179; BP diastolic 43–94; PULSE 72–102; RESP 16–28; TEMP 36.8–37.5; O2SAT 94–98
[2023-08-14] MEDS: WATER FOR IRRIGATION, STERILE 1,000 ML BOTTLE 1000 ML (02:00)
[2023-08-14] MEDS: VANCOMYCIN 1,250 MG/NS 250 ML 1,250 MG/250 ML BAG 166.67 MG IVPB (05:51)
[2023-08-14] MEDS: VANCOMYCIN ORAL 125 MG/2.5 ML SYRUP PO ×4 (05:51→23:50)
[2023-08-14 06:36] LABS: Creatinine Urine 84.8 mg/dL; Urea Random Urine 288 MG/DL
[2023-08-14 06:39] LABS: Sodium Urine Random 18 meq/L
[2023-08-14 06:41] LABS: Hematocrit 21.7 % (37.0-47.0); Mean Corpuscular HGB Conc 30.9 g/dl (32-36); Mean Corpuscular Hemoglobin 25.2 pg (26-34); Mean Corpuscular Volume 81.6 fl (80-100); Mean Platelet Volume 8.6 fl (7.4-10.4); Platelet Count Result 459 k/mm3 (150-375); Red Blood Count 2.66 M/mm3 (4.2-5.4); Red Cell Distribution Width 20.8 % (11.5-14.5); White Blood Count 39.8 K/mm3 (4.5-10.0)
[2023-08-14 06:50] LABS: Alanine Aminotransferase 17 U/L (6-35); Albumin Level 1.9 g/dL (3.5-5.1); Alkaline Phosphatase 105 U/L (38-126); Anion Gap 5 mmol/L (8-16); Aspartate Amino Transferase 30 U/L (14-36); Bilirubin,Total 0.3 mg/dL (0.2-1.3); Blood Urea Nitrogen 17 mg/dL (7-17); Calcium 7.5 mg/dL (8.4-10.2); Carbon Dioxide 17 mmol/L (22-30); Chloride 103 mmol/L (98-107); Estimated CRCL calculation 32 ml/min; Estimated Glomerular Filt Rate 36; Glucose 75 mg/dL (65-110); Potassium 3.4 mmol/L (3.4-5.0); Sodium 125 mmol/L (137-145)
[2023-08-14 07:09] LABS: Hemoglobin 6.7 g/dL (12.0-15.0)
[2023-08-14 07:13] LABS: Band Neutrophils Percent 13 % (0-6); Neutrophils Percent Manual 87 % (46-73); Total Cells Counted 100
[2023-08-14 07:14] LABS: Platelet Estimate Increased (Adequate)
[2023-08-14 07:15] LABS: Burr Cells 2+ (NORMAL); Crenated RBC 2+ (NORMAL)
[2023-08-14 07:17] LABS: Schistocytes None Seen (NORMAL)
[2023-08-14 07:30] LABS: Eosinophil Urine None Seen % (None Seen); Urine Eos QC 2nd Tech Confirmed
[2023-08-14 07:31] LABS: Thyroid Stimulating Hormone Reflex 0.697 uIU/mL (0.465-4.68)
[2023-08-14] MEDS: VENLAFAXINE HCL XR 75 MG CAP.ER.24H PO (08:59)
[2023-08-14] MEDS: GABAPENTIN 300 MG CAPSULE PO ×2 (08:59→22:12)
[2023-08-14] MEDS: ASPIRIN 81 MG ENTERIC TABLET PO (08:59)
[2023-08-14] MEDS: HYDROXYCHLOROQUINE SULFATE 200 MG TABLET 400 MG PO ×2 (08:59→22:12)
[2023-08-14] MEDS: PANTOPRAZOLE 40 MG TABLET PO ×2 (08:59→22:12)
[2023-08-14] MEDS: FERROUS SULFATE 325 MG TABLET DR BY MOUTH ×2 (09:00→17:59)
[2023-08-14 09:16] LABS: Total Protein Urine Random 309 mg/dL; Ur Ttl Prot Creatinine Ratio 3.64 mg/mg (0-0.20)
--- NOTE | 2023-08-14 10:13 | P.PNNP_ITS ---
Progress Note: A&P Assessment and Plan (1) Hyponatremia: Code(s): E87.1 - Hypo-osmolality and hyponatremia Status: Acute Assessment and Plan: * continues to fluctuate * as noted on admission (admission sodium 126) * history would suggest hypovolemia as etiology.... * could be related to medications -- on PPI and venlafaxine (but these are chronic medications) * evaluation to date: * TSH and cortisol okay * urine electrolytes prerenal * SPEP/UPEP and serum/urine osmo pending * follow the trend of repeat sodium level (2) DREW (acute kidney injury): Code(s): N17.9 - Acute kidney failure, unspecified Status: Acute Assessment and Plan: * noted on admission * resolved initially with IVF hydration * now has worsened by AM labs today * suspect ongoing volume depletion coupled with infection/sepsis (from C. diff colits + UTI) * noted contrast exposure with CT done on 08/11 * evaluation to date: * urine electrolytes prerenal * CT imaging without obstruction of kidneys * UA c/w infection * urine eosinophils not done (would not be informative in the context of UTI) * continue current therapy (3) Sepsis: Code(s): A41.9 - Sepsis, unspecified organism Status: Acute Assessment and Plan: * as noted on admission * noted elevated WBC, tachycardia, and hypotension * presumable source is C. diff colitis +/- UTI * culture data noted * on antibiotics * follow hemodynamics (4) C. difficile colitis: Code(s): A04.72 - Enterocolitis due to Clostridium difficile, not specified as recurrent Status: Acute Assessment and Plan: * as noted by testing * on oral vancomycin (5) Urinary tract infection: Code(s): N39.0 - Urinary tract infection, site not specified Status: Acute Assessment and Plan: * as suggested by admission UA * urine culture with E. coli * on antibiotics (6) Metabolic acidosis: Code(s): E87.20 - Acidosis, unspecified Status: Acute Assessment and Plan: * due to GI losses and ongoing DREW * follow trend for now (7) HTN (hypertension): Code(s): I10 - Essential (primary) hypertension Status: Chronic Assessment and Plan: * reasonable control * follow trend of hemodynamcis (8) Anemia: Code(s): D64.9 - Anemia, unspecified Status: Chronic Assessment and Plan: * likely due to iron deficiency, DREW, and acute illness * follow trend of H/H * PRBC transfusion per protocol Will continue to follow. Subjective Date/time seen: 08/14/23 10:13 Interval history: Follow-up for acute on chronic hyponatremia. Sodium level continues to fluctuate as noted by AM labs and renal function has deteriorated in comparison to baseline; AM labs also noteable for worsening WBC and anemia as well; however, she does not appear in any acute distress. Exam Narrative: General: elderly but WD/WN female in NAD Heart: normal S1 and S2; no rub Lungs: clear to auscultation Abdomen: soft, nontender, nondistended, positive bowel sounds Extremities: no cyanosis or clubbing; no edema Skin: warm and dry Objective Data Vital Signs Vital Signs: Vital Signs Temp Pulse Resp BP Pulse Ox O2 Del Method 08/14/23 10:02 99.0 F 80 16 124/94 H 94 10
--- NOTE | 2023-08-14 10:13 | PM.PNNEP ---
Progress Note: A&P Assessment and Plan (1) Hyponatremia: Code(s): E87.1 - Hypo-osmolality and hyponatremia Status: Acute Assessment and Plan: continues to fluctuate as noted on admission (admission sodium 126) history would suggest hypovolemia as etiology.... could be related to medications -- on PPI and venlafaxine (but these are chronic medications) evaluation to date: TSH and cortisol okay urine electrolytes prerenal SPEP/UPEP and serum/urine osmo pending follow the trend of repeat sodium level (2) DREW (acute kidney injury): Code(s): N17.9 - Acute kidney failure, unspecified Status: Acute Assessment and Plan: noted on admission resolved initially with IVF hydration now has worsened by AM labs today suspect ongoing volume depletion coupled with infection/sepsis (from C. diff colits + UTI) noted contrast exposure with CT done on 08/11 evaluation to date: urine electrolytes prerenal CT imaging without obstruction of kidneys UA c/w infection urine eosinophils not done (would not be informative in the context of UTI) continue current therapy (3) Sepsis: Code(s): A41.9 - Sepsis, unspecified organism Status: Acute Assessment and Plan: as noted on admission noted elevated WBC, tachycardia, and hypotension presumable source is C. diff colitis +/- UTI culture data noted on antibiotics follow hemodynamics (4) C. difficile colitis: Code(s): A04.72 - Enterocolitis due to Clostridium difficile, not specified as recurrent Status: Acute Assessment and Plan: as noted by testing on oral vancomycin (5) Urinary tract infection: Code(s): N39.0 - Urinary tract infection, site not specified Status: Acute Assessment and Plan: as suggested by admission UA urine culture with E. coli on antibiotics (6) Metabolic acidosis: Code(s): E87.20 - Acidosis, unspecified Status: Acute Assessment and Plan: due to GI losses and ongoing DREW follow trend for now (7) HTN (hypertension): Code(s): I10 - Essential (primary) hypertension Status: Chronic Assessment and Plan: reasonable control follow trend of hemodynamcis (8) Anemia: Code(s): D64.9 - Anemia, unspecified Status: Chronic Assessment and Plan: likely due to iron deficiency, DREW, and acute illness follow trend of H/H PRBC transfusion per protocol Will continue to follow. Subjective Date/time seen: 08/14/23 10:13 Interval history: Follow-up for acute on chronic hyponatremia. Sodium level continues to fluctuate as noted by AM labs and renal function has deteriorated in comparison to baseline; AM labs also noteable for worsening WBC and anemia as well; however, she does not appear in any acute distress. Exam Narrative: General: elderly but WD/WN female in NAD Heart: normal S1 and S2; no rub Lungs: clear to auscultation Abdomen: soft, nontender, nondistended, positive bowel sounds Extremities: no cyanosis or clubbing; no edema Skin: warm and dry Objective Data Vital Signs Vital Signs: Vital Signs Temp Pulse Resp BP Pulse Ox O2 Del Method 08/14/23 10:02 99.0 F 80 16 124/94 H 94 08/14/23 09:00 80 95 Room Air 08/14/23 10:17 98.5 F 80 18 128/50 L 95 08/14/23 09:49 98.5 F 80 18 128/50 L 95 08/14/23 08:27 124/54 L 08/14/23 08:00 99.2 F 82 22 H 124/43 L 94 08/14/23 04:00 98.3 F 102 H 20 179/60 H 96 08/14/23 00:00 99.5 F 83 18 124/46 L 95 08/13/23 20:00 99.1 F 88 16 145/58 H 95 08/13/23 16:00 98.5 F 80 17 122/58 L 97 08/13/23 12:00 98.7 F 80 16 120/50 L 96 Intake/Output Intake/Output: Intake & Output 08/11/23 08/12/23 08/13/23 08/14/23 23:59 23:59 23:59 23:59 Intake Total 3530 4280 4230 1750 Output Total 210 150 0 Balance 3320 4130 4230 1750 Meds/Result
[2023-08-14] MEDS: SODIUM CHLORIDE 0.9% IV 250 ML 30 ML IV CONT (10:17)
[2023-08-14] MEDS: SODIUM CHLORIDE 0.9% IV 1,000 ML 125 ML IV CONT ×2 (11:32→23:52)
[2023-08-14] MEDS: CEPHALEXIN 500 MG CAPSULE PO ×3 (11:34→23:51)
--- NOTE | 2023-08-14 12:46 | PM.IMPN ---
Progress Note: A&P Assessment and Plan (1) Colitis: Code(s): K52.9 - Noninfective gastroenteritis and colitis, unspecified Status: Acute (2) Severe sepsis: Code(s): A41.9 - Sepsis, unspecified organism; R65.20 - Severe sepsis without septic shock Status: Acute (3) Acute on chronic renal failure: Code(s): N17.9 - Acute kidney failure, unspecified; N18.9 - Chronic kidney disease, unspecified Status: Acute (4) Hypotension due to hypovolemia: Code(s): I95.89 - Other hypotension; E86.1 - Hypovolemia Status: Acute (5) Obstructive sleep apnea on CPAP: Code(s): G47.33 - Obstructive sleep apnea (adult) (pediatric); Z99.89 - Dependence on other enabling machines and devices Status: Acute (6) HTN (hypertension): Code(s): I10 - Essential (primary) hypertension Status: Acute (7) Degenerative joint disease of left hip: Qualifiers: Osteoarthritis type: other secondary Qualified Code(s): M16.7 - Other unilateral secondary osteoarthritis of hip Code(s): M16.12 - Unilateral primary osteoarthritis, left hip Status: Acute (8) Hyponatremia: Code(s): E87.1 - Hypo-osmolality and hyponatremia Status: Acute (9) Acute hyponatremia: Code(s): E87.1 - Hypo-osmolality and hyponatremia Status: Acute (10) Mixed hyperlipidemia: Code(s): E78.2 - Mixed hyperlipidemia Status: Chronic (11) Rheumatoid arthritis with rheumatoid factor of multiple sites without organ or systems involvement: Onset Date: ~1999 Code(s): M05.79 - Rheumatoid arthritis with rheumatoid factor of multiple sites without organ or systems involvement Status: Acute Plan Colitis Cdiff positive oral vanc Severe sepsis, Patient has leukocytosis, tachycardia, hypotension, suspecting severe sepsis due to colitis Follow-up blood culture urine culture, urinalysis, stool culture Patient received a normal saline bolus, continue normal saline IV and 125 mL/hour Monitor blood pressure closely DREW on CKD, hyponatremia, hypovolemic hypotension Worsening kidney function, hyponatremia, hypertension, possible due to diarrhea and in adequate intake Follow urinalysis Received fluid resuscitation, continue normal saline IV Follow-up BMP Avoid nephrotoxic medication Hypertension Monitor A chronic anemia Hemoglobin close to baseline Likely due to chronic inflammation of rheumatoid arthritis, but patient has history of peptic ulcer Order stool guaiac, ferritin, iron panel Transfuse as needed History of gERD, duodenal ulcer Continue prednisone 40 mg daily p.o. +bc contaminent uti abx hyponatremia nephrology following asymptomatic Subjective Date/time seen: 08/14/23 12:46 Interval history: no new complaints Exam Narrative: GENERAL: Well-appearing, well-nourished, and in no acute distress. HEAD: Normocephalic, atraumatic. EYES: PERRLA and EOMI. ENT: Mucous membranes moist. CHEST: Clear to auscultation. No respiratory distress. HEART: Regular rate and rhythm. Normal peripheral pulses. ABDOMEN: Soft, nontender, nondistended. EXTREMITIES: Normal range of motion. No edema. SKIN: Warm, dry, no rash. NEURO: Alert and oriented x3. PSYCH: Normal mood and affect. Objective Data Vital Signs Vital Signs: Vital Signs - 24 hr 08/13/23 16:00 08/13/23 20:00 08/14/23 00:00 Temperature 98.5 F 99.1 F 99.5 F Pulse Rate 80 88 83 Respiratory Rate 17 16 18 Blood Pressure 122/58 L 145/58 H 124/46 L Pulse Oximetry 97 95 95 Oxygen Delivery 08/14/23 04:00 08/14/23 08:00 08/14/23 08:27 Temperature 98.3 F 99.2 F Pulse Rate 102 H 82 Respiratory Rate 20 22 H Blood Pressure 179/60 H 124/43 L 124/54 L Pulse Oximetry 96 94 Oxygen Delivery 08/14/23 09:49 08/14/23 10:17 08/14/23 09:00 Temperature 98.5 F 98.5 F Pulse Rate 80 80 80 Respiratory Rate 18 18 Blood Pressure 128/50 L 128/50 L Pu
[2023-08-14 13:38] LABS: Hematocrit 26.7 % (37.0-47.0); Hemoglobin 8.2 g/dL (12.0-15.0); Mean Corpuscular HGB Conc 30.7 g/dl (32-36); Mean Corpuscular Hemoglobin 26.1 pg (26-34); Mean Platelet Volume 8.5 fl (7.4-10.4); Platelet Count Result 479 k/mm3 (150-375); Red Blood Count 3.14 M/mm3 (4.2-5.4); Red Cell Distribution Width 20.9 % (11.5-14.5); White Blood Count 39.7 K/mm3 (4.5-10.0)
[2023-08-14 14:02] LABS: Band Neutrophils Percent 18 % (0-6); Monocytes Absolute Manual 0.79 K/mm3 (0.1-0.90); Monocytes Percent Manual 2 % (3-9); Myelocytes Percent 1 %; Neutrophils Percent Manual 79 % (46-73); Total Cells Counted 100
[2023-08-14 14:03] LABS: Anisocytosis 1+ (NORMAL); Crenated RBC 2+ (NORMAL); Platelet Estimate Increased (Adequate); Schistocytes Rare (NORMAL)
[2023-08-14 14:04] LABS: Poikilocytosis 1+ (NORMAL)
[2023-08-15] VITALS (7 sets, daily range): BP systolic 108–136; BP diastolic 52–61; PULSE 74–81; RESP 16–24; TEMP 36.8–37.4; O2SAT 95–98
[2023-08-15] MEDS: VANCOMYCIN ORAL 125 MG/2.5 ML SYRUP PO ×3 (05:02→17:34)
[2023-08-15] MEDS: CEPHALEXIN 500 MG CAPSULE PO ×2 (05:02→12:32)
[2023-08-15 06:13] LABS: Hematocrit 26.7 % (37.0-47.0); Hemoglobin 8.4 g/dL (12.0-15.0); Mean Corpuscular HGB Conc 31.5 g/dl (32-36); Mean Corpuscular Hemoglobin 26.1 pg (26-34); Mean Corpuscular Volume 82.9 fl (80-100); Mean Platelet Volume 8.2 fl (7.4-10.4); Platelet Count Result 394 k/mm3 (150-375); Red Blood Count 3.22 M/mm3 (4.2-5.4); Red Cell Distribution Width 20.4 % (11.5-14.5); White Blood Count 34.6 K/mm3 (4.5-10.0)
[2023-08-15 06:25] LABS: Alanine Aminotransferase 19 U/L (6-35); Albumin Level 1.9 g/dL (3.5-5.1); Alkaline Phosphatase 55 U/L (38-126); Anion Gap 4 mmol/L (8-16); Aspartate Amino Transferase 30 U/L (14-36); Bilirubin,Total 0.3 mg/dL (0.2-1.3); Blood Urea Nitrogen 22 mg/dL (7-17); Calcium 7.3 mg/dL (8.4-10.2); Carbon Dioxide 16 mmol/L (22-30); Chloride 103 mmol/L (98-107); Estimated CRCL calculation 19 ml/min; Estimated Glomerular Filt Rate 20; Glucose 66 mg/dL (65-110); Potassium 3.6 mmol/L (3.4-5.0); Sodium 123 mmol/L (137-145)
[2023-08-15 07:03] LABS: Band Neutrophils Percent 7 % (0-6); Lymphocytes Absolute Manual 0.34 K/mm3 (1.1-4.5); Metamyelocytes Percent 1 %; Monocytes Absolute Manual 1.38 K/mm3 (0.1-0.90); Monocytes Percent Manual 4 % (3-9); Neutrophils Absolute Manual 32.52 K/mm3 (1.7-7.2); Neutrophils Percent Manual 87 % (46-73); Total Cells Counted 100
[2023-08-15 07:04] LABS: Anisocytosis 2+ (NORMAL); Hypochromasia 2+ (NORMAL); Platelet Estimate Adequate (Adequate); Schistocytes None Seen (NORMAL); Target Cells 1+ (NORMAL)
[2023-08-15] MEDS: HYDROXYCHLOROQUINE SULFATE 200 MG TABLET 400 MG PO (08:36)
[2023-08-15] MEDS: FERROUS SULFATE 325 MG TABLET DR BY MOUTH ×2 (08:36→17:34)
[2023-08-15] MEDS: SODIUM CHLORIDE 0.9% IV 1,000 ML 70 ML IV CONT (08:36)
[2023-08-15] MEDS: GABAPENTIN 300 MG CAPSULE PO ×2 (08:36→21:28)
[2023-08-15] MEDS: SODIUM CHLORIDE 500 MG TABLET PO ×2 (08:36→17:34)
[2023-08-15] MEDS: VENLAFAXINE HCL XR 75 MG CAP.ER.24H PO (08:37)
[2023-08-15] MEDS: ASPIRIN 81 MG ENTERIC TABLET PO (08:37)
[2023-08-15] MEDS: PANTOPRAZOLE 40 MG TABLET PO ×2 (08:37→21:32)
[2023-08-15 10:07] LABS: Lactic Acid Reflex 1.1 mmol/L (0.7-2.0)
[2023-08-15] MEDS: metroNIDAZOLE 500 MG/ISO 100ML 500 MG/100 ML BAG 100 MG IVPB ×2 (12:31→21:32)
--- NOTE | 2023-08-15 13:28 | PM.PNNEP ---
Progress Note: A&P Assessment and Plan (1) Hyponatremia: Code(s): E87.1 - Hypo-osmolality and hyponatremia Status: Acute Assessment and Plan: continues to fluctuate as noted on admission (admission sodium 126) history would suggest hypovolemia as etiology (on admission) from ongoing GI losses/diarrhea however, now partly related to ongoing DREW/ARF as well could be related to medications -- on PPI and venlafaxine (but these are chronic medications) evaluation to date: TSH and cortisol okay urine electrolytes prerenal SPEP/UPEP and serum/urine osmo pending follow the trend of repeat sodium level (2) DREW (acute kidney injury): Code(s): N17.9 - Acute kidney failure, unspecified Status: Acute Assessment and Plan: noted on admission resolved initially with IVF hydration now has worsened as noted by trend of labs since 08/14/23 suspect ongoing volume depletion coupled with infection/sepsis (from C. diff colits + UTI) noted contrast exposure with CT done on 08/11 evaluation to date: urine electrolytes prerenal CT imaging without obstruction of kidneys UA c/w infection urine eosinophils not done (would not be informative in the context of UTI) continue current therapy (3) Sepsis: Code(s): A41.9 - Sepsis, unspecified organism Status: Acute Assessment and Plan: as noted on admission noted elevated WBC, tachycardia, and hypotension presumable source is C. diff colitis +/- UTI culture data noted on antibiotics follow hemodynamics (4) C. difficile colitis: Code(s): A04.72 - Enterocolitis due to Clostridium difficile, not specified as recurrent Status: Acute Assessment and Plan: as noted by testing on oral vancomycin; IV flagyl added follow symptoms and stool output (5) Urinary tract infection: Code(s): N39.0 - Urinary tract infection, site not specified Status: Acute Assessment and Plan: as suggested by admission UA urine culture with E. coli on antibiotics (6) Metabolic acidosis: Code(s): E87.20 - Acidosis, unspecified Status: Acute Assessment and Plan: due to GI losses and ongoing DREW add oral sodium bicarb...however, may need to consider bicarb gtt follow trend for now (7) HTN (hypertension): Code(s): I10 - Essential (primary) hypertension Status: Chronic Assessment and Plan: reasonable control follow trend of hemodynamcis (8) Anemia: Code(s): D64.9 - Anemia, unspecified Status: Chronic Assessment and Plan: likely due to iron deficiency, DREW, and acute illness follow trend of H/H PRBC transfusion per protocol Will continue to follow. Subjective Date/time seen: 08/15/23 13:28 Interval history: Follow-up for acute on chronc hyponatremia and acute kidney injury/acute renal failure. Sodium continues to fluctuate and renal function noted to be worsening as well; still reports ongoing diarrhea in association with abdominal discomfort; WBC still elevated despite current therapy; H/H better s/p PRBC transfusion; repeat imaging done earlier today due to concerns of ongoing infection/sepsis. Exam Narrative: General: elderly but WD/WN female in NAD Heart: normal S1 and S2; no rub Lungs: clear to auscultation Abdomen: soft, nontender, nondistended, positive bowel sounds Extremities: no cyanosis or clubbing; no edema Skin: warm and intact Objective Data Vital Signs Vital Signs: Vital Signs Temp Pulse Resp BP Pulse Ox O2 Del Method 08/15/23 12:00 98.9 F 76 22 H 122/53 L 97 08/15/23 08:00 Room Air 08/15/23 08:00 99.3 F 77 24 H 125/52 L 95 08/15/23 04:00 98.6 F 74 16 124/58 L 97 08/15/23 00:00 98.3 F 78 16 122/56 L 98 08/14/23 20:00 99.3 F 86 16 136/64 96 08/14/23 22:11 98 08/14/23 16:56 98.8 F 82 18 124/62 98 Intake/Ou
--- NOTE | 2023-08-15 13:28 | P.PNNP_ITS ---
Progress Note: A&P Assessment and Plan (1) Hyponatremia: Code(s): E87.1 - Hypo-osmolality and hyponatremia Status: Acute Assessment and Plan: * continues to fluctuate * as noted on admission (admission sodium 126) * history would suggest hypovolemia as etiology (on admission) from ongoing GI losses/diarrhea * however, now partly related to ongoing DREW/ARF as well * could be related to medications -- on PPI and venlafaxine (but these are chronic medications) * evaluation to date: * TSH and cortisol okay * urine electrolytes prerenal * SPEP/UPEP and serum/urine osmo pending * follow the trend of repeat sodium level (2) DREW (acute kidney injury): Code(s): N17.9 - Acute kidney failure, unspecified Status: Acute Assessment and Plan: * noted on admission * resolved initially with IVF hydration * now has worsened as noted by trend of labs since 08/14/23 * suspect ongoing volume depletion coupled with infection/sepsis (from C. diff colits + UTI) * noted contrast exposure with CT done on 08/11 * evaluation to date: * urine electrolytes prerenal * CT imaging without obstruction of kidneys * UA c/w infection * urine eosinophils not done (would not be informative in the context of UTI) * continue current therapy (3) Sepsis: Code(s): A41.9 - Sepsis, unspecified organism Status: Acute Assessment and Plan: * as noted on admission * noted elevated WBC, tachycardia, and hypotension * presumable source is C. diff colitis +/- UTI * culture data noted * on antibiotics * follow hemodynamics (4) C. difficile colitis: Code(s): A04.72 - Enterocolitis due to Clostridium difficile, not specified as recurrent Status: Acute Assessment and Plan: * as noted by testing * on oral vancomycin; IV flagyl added * follow symptoms and stool output (5) Urinary tract infection: Code(s): N39.0 - Urinary tract infection, site not specified Status: Acute Assessment and Plan: * as suggested by admission UA * urine culture with E. coli * on antibiotics (6) Metabolic acidosis: Code(s): E87.20 - Acidosis, unspecified Status: Acute Assessment and Plan: * due to GI losses and ongoing DREW * add oral sodium bicarb...however, may need to consider bicarb gtt * follow trend for now (7) HTN (hypertension): Code(s): I10 - Essential (primary) hypertension Status: Chronic Assessment and Plan: * reasonable control * follow trend of hemodynamcis (8) Anemia: Code(s): D64.9 - Anemia, unspecified Status: Chronic Assessment and Plan: * likely due to iron deficiency, DREW, and acute illness * follow trend of H/H * PRBC transfusion per protocol Will continue to follow. Subjective Date/time seen: 08/15/23 13:28 Interval history: Follow-up for acute on chronc hyponatremia and acute kidney injury/acute renal failure. Sodium continues to fluctuate and renal function noted to be worsening as well; still reports ongoing diarrhea in association with abdominal discomfort; WBC still elevated despite current therapy; H/H better s/p PRBC transfusion; repeat imaging done earlier today due to concerns of ongoing infection/sepsis. Exam Narrative: General: elderly but WD/WN female in NAD Heart: normal S1 and S2; no rub Lungs: clear to auscultation Abdomen: soft, nontender, nondistended, positive bowel sound
--- NOTE | 2023-08-15 14:08 | PM.IMPN ---
Progress Note: A&P Assessment and Plan (1) Colitis: Code(s): K52.9 - Noninfective gastroenteritis and colitis, unspecified Status: Acute (2) Severe sepsis: Code(s): A41.9 - Sepsis, unspecified organism; R65.20 - Severe sepsis without septic shock Status: Acute (3) Acute on chronic renal failure: Code(s): N17.9 - Acute kidney failure, unspecified; N18.9 - Chronic kidney disease, unspecified Status: Acute (4) Hypotension due to hypovolemia: Code(s): I95.89 - Other hypotension; E86.1 - Hypovolemia Status: Acute (5) Obstructive sleep apnea on CPAP: Code(s): G47.33 - Obstructive sleep apnea (adult) (pediatric); Z99.89 - Dependence on other enabling machines and devices Status: Acute (6) HTN (hypertension): Code(s): I10 - Essential (primary) hypertension Status: Acute (7) Degenerative joint disease of left hip: Qualifiers: Osteoarthritis type: other secondary Qualified Code(s): M16.7 - Other unilateral secondary osteoarthritis of hip Code(s): M16.12 - Unilateral primary osteoarthritis, left hip Status: Acute (8) Hyponatremia: Code(s): E87.1 - Hypo-osmolality and hyponatremia Status: Acute (9) Acute hyponatremia: Code(s): E87.1 - Hypo-osmolality and hyponatremia Status: Acute (10) Mixed hyperlipidemia: Code(s): E78.2 - Mixed hyperlipidemia Status: Chronic (11) Rheumatoid arthritis with rheumatoid factor of multiple sites without organ or systems involvement: Onset Date: ~1999 Code(s): M05.79 - Rheumatoid arthritis with rheumatoid factor of multiple sites without organ or systems involvement Status: Acute Plan Colitis Cdiff positive oral vanc Severe sepsis, Patient has leukocytosis, tachycardia, hypotension, suspecting severe sepsis due to colitis Follow-up blood culture urine culture, urinalysis, stool culture Repeat CT AP no perforations or abscess Continue IV fluid, continue oral vancomycin, Levaquin and Flagyl added. Monitor closely. DREW on CKD, hyponatremia, hypovolemic hypotension Worsening kidney function, hyponatremia, hypertension, possible due to diarrhea and in adequate intake Follow urinalysis Received fluid resuscitation, continue normal saline IV Follow-up BMP Avoid nephrotoxic medication Nephrology consulted Hypertension Monitor Iron-deficiency anemia I set the date, hemoglobin 8.4. Hemoglobin close to baseline Occult blood stool positive However patient has diffuse colitis Iron replacement when infection is under control. GI consulted History of gERD, duodenal ulcer Continue prednisone 40 mg daily p.o. +bc contaminent uti abx hyponatremia nephrology following asymptomatic Subjective Date/time seen: 08/15/23 14:08 Interval history: Comfortable at bedside, noted improvement in abd but still having diarrhea WBC still elevated Exam Narrative: GENERAL: Well-appearing, well-nourished, and in no acute distress. HEAD: Normocephalic, atraumatic. EYES: PERRLA and EOMI. ENT: Mucous membranes moist. CHEST: Clear to auscultation. No respiratory distress. HEART: Regular rate and rhythm. Normal peripheral pulses. ABDOMEN: Soft, nontender, nondistended. EXTREMITIES: Normal range of motion. No edema. SKIN: Warm, dry, no rash. NEURO: Alert and oriented x3. PSYCH: Normal mood and affect. Objective Data Vital Signs Vital Signs: Vital Signs - 24 hr 08/14/23 16:56 08/14/23 16:00 08/14/23 22:11 Temperature 98.8 F 98.5 F Pulse Rate 82 80 Respiratory Rate 18 28 H Blood Pressure 124/62 126/57 L Pulse Oximetry 98 97 98 08/14/23 20:00 08/15/23 00:00 08/15/23 04:00 Temperature 99.3 F 98.3 F 98.6 F Pulse Rate 86 78 74 Respiratory Rate 16 16 16 Blood Pressure 136/64 122/56 L 124/58 L Pulse Oximetry 96 98 97 08/15/23 08:00 Temperature 99.3 F Pulse Rate 77 Respiratory Rate 24 H Blood Press
[2023-08-15] MEDS: cefTRIAXone 2 GM/NS 100 ML 2 GM/100 ML BAG IVPB (15:33)
[2023-08-15] MEDS: ONDANSETRON INJ 4 MG/2 ML VIAL IV PUSH (18:26)
[2023-08-16] VITALS (8 sets, daily range): BP systolic 93–131; BP diastolic 49–81; PULSE 73–96; RESP 14–22; TEMP 36.5–37.5; O2SAT 94–100
[2023-08-16] MEDS: VANCOMYCIN ORAL 125 MG/2.5 ML SYRUP PO ×3 (01:01→12:15)
[2023-08-16] MEDS: SODIUM CHLORIDE 0.9% IV 1,000 ML 70 ML IV CONT (06:07)
[2023-08-16] MEDS: metroNIDAZOLE 500 MG/ISO 100ML 500 MG/100 ML BAG 100 MG IVPB ×3 (06:07→21:30)
[2023-08-16 06:13] LABS: Basophils Percent Auto 0.1 % (0.2-1.2); Eosinophils Percent Auto 0.1 % (0-4.4); Hemoglobin 8.5 g/dL (12.0-15.0); Immature Granulocyte Absolute 1.67 K/mm3 (0.00-0.031); Immature Granulocyte Percent A 5.2 % (0-0.5); Lymphocytes Absolute Auto 0.54 K/mm3 (0.9-3.2); Lymphocytes Percent Auto 1.7 % (18.3-44.2); Mean Corpuscular HGB Conc 31.5 g/dl (32-36); Mean Corpuscular Hemoglobin 26.4 pg (26-34); Mean Corpuscular Volume 83.9 fl (80-100); Mean Platelet Volume 8.6 fl (7.4-10.4); Monocytes Absolute Auto 2.2 K/mm3 (0.1-0.6); Neutrophils Absolute Auto 27.4 K/mm3 (1.3-6.7); Neutrophils Percent Auto 85.9 % (45.5-73.1); Platelet Count Result 405 k/mm3 (150-375); Red Blood Count 3.22 M/mm3 (4.2-5.4); Red Cell Distribution Width 20.9 % (11.5-14.5); White Blood Count 31.9 K/mm3 (4.5-10.0)
[2023-08-16 06:31] LABS: Lactic Acid Reflex 0.7 mmol/L (0.7-2.0)
[2023-08-16 06:34] LABS: Alanine Aminotransferase 18 U/L (6-35); Albumin Level 1.9 g/dL (3.5-5.1); Alkaline Phosphatase 89 U/L (38-126); Anion Gap 7 mmol/L (8-16); Aspartate Amino Transferase 29 U/L (14-36); Bilirubin,Total 0.3 mg/dL (0.2-1.3); Blood Urea Nitrogen 27 mg/dL (7-17); Calcium 7.5 mg/dL (8.4-10.2); Carbon Dioxide 14 mmol/L (22-30); Chloride 102 mmol/L (98-107); Estimated CRCL calculation 15 ml/min; Estimated Glomerular Filt Rate 15; Glucose 42 mg/dL (65-110); Magnesium 1.8 mg/dL (1.6-2.3); Potassium 3.6 mmol/L (3.4-5.0); Sodium 123 mmol/L (137-145)
[2023-08-16 06:42] LABS: Glucose Point of Care 75 mg/dl (65-105)
[2023-08-16 06:42] LABS: Glucose Point of Care 65 mg/dl (65-105)
[2023-08-16 06:42] LABS: Glucose Point of Care 64 mg/dl (65-105)
[2023-08-16 07:09] LABS: Glucose Point of Care 98 mg/dl (65-105)
[2023-08-16] MEDS: SODIUM CHLORIDE 500 MG TABLET PO (08:47)
[2023-08-16] MEDS: ASPIRIN 81 MG ENTERIC TABLET PO (08:47)
[2023-08-16] MEDS: VENLAFAXINE HCL XR 75 MG CAP.ER.24H PO (08:48)
[2023-08-16] MEDS: cefTRIAXone 2 GM/NS 100 ML 2 GM/100 ML BAG IVPB (08:48)
[2023-08-16] MEDS: GABAPENTIN 300 MG CAPSULE PO ×2 (08:48→21:30)
[2023-08-16] MEDS: FERROUS SULFATE 325 MG TABLET DR BY MOUTH ×2 (08:48→17:20)
[2023-08-16] MEDS: PANTOPRAZOLE 40 MG TABLET PO ×2 (08:52→21:30)
[2023-08-16 10:27] LABS: Glucose Point of Care 121 mg/dl (65-105)
--- NOTE | 2023-08-16 11:44 | P.PNNP_ITS ---
Progress Note: A&P Assessment and Plan (1) Hyponatremia: Code(s): E87.1 - Hypo-osmolality and hyponatremia Status: Acute Assessment and Plan: * continues to fluctuate * as noted on admission (admission sodium 126) * history would suggest hypovolemia as etiology (on admission) from ongoing GI losses/diarrhea * however, now partly related to ongoing DREW/ARF as well * could be related to medications -- on PPI and venlafaxine (but these are chronic medications) * evaluation to date: * TSH and cortisol okay * urine electrolytes prerenal * SPEP/UPEP and serum/urine osmo pending * follow the trend of repeat sodium level (2) DREW (acute kidney injury): Code(s): N17.9 - Acute kidney failure, unspecified Status: Acute Assessment and Plan: * continues to worsen.... * noted on admission * resolved initially with IVF hydration * but has been deteriorating as noted by trend of labs since 08/14/23 * suspect ongoing volume depletion coupled with infection/sepsis (from C. diff colits + UTI) * noted contrast exposure with CT done on 08/11 * evaluation to date: * urine electrolytes prerenal * CT imaging without obstruction of kidneys * UA c/w infection * urine eosinophils not done (would not be informative in the context of UTI) * continue current therapy (3) Sepsis: Code(s): A41.9 - Sepsis, unspecified organism Status: Acute Assessment and Plan: * as noted on admission * noted elevated WBC, tachycardia, and hypotension * presumable source is C. diff colitis +/- UTI * culture data noted * on antibiotics * follow hemodynamics (4) C. difficile colitis: Code(s): A04.72 - Enterocolitis due to Clostridium difficile, not specified as recurrent Status: Acute Assessment and Plan: * as noted by testing * on oral vancomycin; IV flagyl added * follow symptoms and stool output (5) Urinary tract infection: Code(s): N39.0 - Urinary tract infection, site not specified Status: Acute Assessment and Plan: * as suggested by admission UA * urine culture with E. coli * on antibiotics (6) Metabolic acidosis: Code(s): E87.20 - Acidosis, unspecified Status: Acute Assessment and Plan: * due to GI losses and ongoing DREW * start bicarb gtt + oral sodium bicarbonate to compensate * follow lactic acid levels * follow trend (7) HTN (hypertension): Code(s): I10 - Essential (primary) hypertension Status: Chronic Assessment and Plan: * reasonable control * follow trend of hemodynamcis (8) Anemia: Code(s): D64.9 - Anemia, unspecified Status: Chronic Assessment and Plan: * likely due to iron deficiency, DREW, and acute illness * follow trend of H/H * PRBC transfusion per protocol Will continue to follow. Subjective Date/time seen: 08/16/23 11:44 Interval history: Follow-up for acute on chronc hyponatremia and acute kidney injury/acute renal failure. Sodium about the same but renal function continues to deteriorate with worsening metabolic acidosis; WBC still elevated but a bit better by AM labs; GI consult pending; no apparent distress noted despite her worsening labs. Exam Narrative: General: elderly but WD/WN female in NAD Heart: normal S1 and S2; no rub Lungs: clear to auscultation Abdomen: soft, nontender, nondistended, positive bowel sounds Extremities: no cyanosis o
--- NOTE | 2023-08-16 11:44 | PM.PNNEP ---
Progress Note: A&P Assessment and Plan (1) Hyponatremia: Code(s): E87.1 - Hypo-osmolality and hyponatremia Status: Acute Assessment and Plan: continues to fluctuate as noted on admission (admission sodium 126) history would suggest hypovolemia as etiology (on admission) from ongoing GI losses/diarrhea however, now partly related to ongoing DREW/ARF as well could be related to medications -- on PPI and venlafaxine (but these are chronic medications) evaluation to date: TSH and cortisol okay urine electrolytes prerenal SPEP/UPEP and serum/urine osmo pending follow the trend of repeat sodium level (2) DREW (acute kidney injury): Code(s): N17.9 - Acute kidney failure, unspecified Status: Acute Assessment and Plan: continues to worsen.... noted on admission resolved initially with IVF hydration but has been deteriorating as noted by trend of labs since 08/14/23 suspect ongoing volume depletion coupled with infection/sepsis (from C. diff colits + UTI) noted contrast exposure with CT done on 08/11 evaluation to date: urine electrolytes prerenal CT imaging without obstruction of kidneys UA c/w infection urine eosinophils not done (would not be informative in the context of UTI) continue current therapy (3) Sepsis: Code(s): A41.9 - Sepsis, unspecified organism Status: Acute Assessment and Plan: as noted on admission noted elevated WBC, tachycardia, and hypotension presumable source is C. diff colitis +/- UTI culture data noted on antibiotics follow hemodynamics (4) C. difficile colitis: Code(s): A04.72 - Enterocolitis due to Clostridium difficile, not specified as recurrent Status: Acute Assessment and Plan: as noted by testing on oral vancomycin; IV flagyl added follow symptoms and stool output (5) Urinary tract infection: Code(s): N39.0 - Urinary tract infection, site not specified Status: Acute Assessment and Plan: as suggested by admission UA urine culture with E. coli on antibiotics (6) Metabolic acidosis: Code(s): E87.20 - Acidosis, unspecified Status: Acute Assessment and Plan: due to GI losses and ongoing DREW start bicarb gtt + oral sodium bicarbonate to compensate follow lactic acid levels follow trend (7) HTN (hypertension): Code(s): I10 - Essential (primary) hypertension Status: Chronic Assessment and Plan: reasonable control follow trend of hemodynamcis (8) Anemia: Code(s): D64.9 - Anemia, unspecified Status: Chronic Assessment and Plan: likely due to iron deficiency, DREW, and acute illness follow trend of H/H PRBC transfusion per protocol Will continue to follow. Subjective Date/time seen: 08/16/23 11:44 Interval history: Follow-up for acute on chronc hyponatremia and acute kidney injury/acute renal failure. Sodium about the same but renal function continues to deteriorate with worsening metabolic acidosis; WBC still elevated but a bit better by AM labs; GI consult pending; no apparent distress noted despite her worsening labs. Exam Narrative: General: elderly but WD/WN female in NAD Heart: normal S1 and S2; no rub Lungs: clear to auscultation Abdomen: soft, nontender, nondistended, positive bowel sounds Extremities: no cyanosis or clubbing; no edema Skin: no rash Objective Data Vital Signs Vital Signs: Vital Signs Temp Pulse Resp BP Pulse Ox O2 Del Method 08/16/23 08:48 94 Room Air 08/16/23 12:00 99.2 F 73 16 111/81 100 08/16/23 10:26 Room Air 08/16/23 08:00 98.7 F 76 16 131/49 L 96 08/16/23 04:00 97.7 F 76 16 126/56 L 97 08/15/23 22:50 97 08/16/23 00:00 98.0 F 77 22 H 126/51 L 97 08/15/23 20:00 99.2 F 81 18 136/59 L 97 Intake/Output Intake/Output: Intake & Output 08/13/23 08/14/23
--- NOTE | 2023-08-16 13:44 | PM.IMPN ---
Progress Note: A&P Assessment and Plan (1) Colitis: Code(s): K52.9 - Noninfective gastroenteritis and colitis, unspecified Status: Acute (2) Severe sepsis: Code(s): A41.9 - Sepsis, unspecified organism; R65.20 - Severe sepsis without septic shock Status: Acute (3) Acute on chronic renal failure: Code(s): N17.9 - Acute kidney failure, unspecified; N18.9 - Chronic kidney disease, unspecified Status: Acute (4) Hypotension due to hypovolemia: Code(s): I95.89 - Other hypotension; E86.1 - Hypovolemia Status: Acute (5) Obstructive sleep apnea on CPAP: Code(s): G47.33 - Obstructive sleep apnea (adult) (pediatric); Z99.89 - Dependence on other enabling machines and devices Status: Acute (6) HTN (hypertension): Code(s): I10 - Essential (primary) hypertension Status: Acute (7) Degenerative joint disease of left hip: Qualifiers: Osteoarthritis type: other secondary Qualified Code(s): M16.7 - Other unilateral secondary osteoarthritis of hip Code(s): M16.12 - Unilateral primary osteoarthritis, left hip Status: Acute (8) Hyponatremia: Code(s): E87.1 - Hypo-osmolality and hyponatremia Status: Acute (9) Acute hyponatremia: Code(s): E87.1 - Hypo-osmolality and hyponatremia Status: Acute (10) Mixed hyperlipidemia: Code(s): E78.2 - Mixed hyperlipidemia Status: Chronic (11) Rheumatoid arthritis with rheumatoid factor of multiple sites without organ or systems involvement: Onset Date: ~1999 Code(s): M05.79 - Rheumatoid arthritis with rheumatoid factor of multiple sites without organ or systems involvement Status: Acute Plan Colitis Cdiff positive oral vanc Severe sepsis, Patient has leukocytosis, tachycardia, hypotension, suspecting severe sepsis due to colitis Follow-up blood culture urine culture, urinalysis, stool culture Repeat CT AP no perforations or abscess Continue IV fluid, continue oral vancomycin, Levaquin and Flagyl added. Monitor closely. GI consulted DREW on CKD, hyponatremia, hypovolemic hypotension Worsening kidney function, hyponatremia, hypertension, possible due to diarrhea and in adequate intake Follow urinalysis Received fluid resuscitation, continue normal saline IV Follow-up BMP Avoid nephrotoxic medication Nephrology following Hypertension Monitor Iron-deficiency anemia I set the date, hemoglobin 8.4. Hemoglobin close to baseline Occult blood stool positive However patient has diffuse colitis Iron replacement when infection is under control. GI consulted History of gERD, duodenal ulcer Continue prednisone 40 mg daily p.o. +bc contaminent uti abx hyponatremia, na 123 nephrology following asymptomatic DVT prophylaxis on SCDs, no AC due to possible GI bleed Subjective Date/time seen: 08/16/23 13:44 Interval history: patient comfortable at bedside, no overnight events Leukocytosis improving 31.9 isat 6 awaiting infection control prior to starting iron infusion. hb 8.4 Creatinine 3.1 from 2.4 Exam Narrative: GENERAL: Well-appearing, well-nourished, and in no acute distress. HEAD: Normocephalic, atraumatic. EYES: PERRLA and EOMI. ENT: Mucous membranes moist. CHEST: Clear to auscultation. No respiratory distress. HEART: Regular rate and rhythm. Normal peripheral pulses. ABDOMEN: Soft, nontender, nondistended. EXTREMITIES: Normal range of motion. No edema. SKIN: Warm, dry, no rash. NEURO: Alert and oriented x3. PSYCH: Normal mood and affect. Objective Data Vital Signs Vital Signs: Vital Signs - 24 hr 08/15/23 16:00 08/15/23 16:10 08/15/23 20:00 Temperature 99 F 99.2 F Pulse Rate 75 81 Respiratory Rate 24 H 18 Blood Pressure 108/61 136/59 L Pulse Oximetry 98 97 Oxygen Delivery Room Air 08/16/23 00:00 08/15/23 22:50 08/16/23 04:00 Temperature 98.0 F 97.7 F Pulse Rate 77
[2023-08-16] MEDS: DEXTROSE 5%/0.9% SOD CHL 1,000 ML 70 ML IV CONT (14:23)
--- NOTE | 2023-08-16 14:46 | WPDGICN ---
Assessment and Plan Assessment and plan (1) Sepsis: Code(s): A41.9 - Sepsis, unspecified organism Status: Acute Assessment and Plan: on admission still persistent elevated wbc will use dificid instead vancomycin and continue with iv flagyl on rocephin because uti- hopefully can discontinue soon (2) C. difficile colitis: Code(s): A04.72 - Enterocolitis due to Clostridium difficile, not specified as recurrent Status: Acute Assessment and Plan: first episode will add dificid had recent colonoscopy that was mostly normal, no need to repeat (3) DREW (acute kidney injury): Code(s): N17.9 - Acute kidney failure, unspecified Status: Acute Assessment and Plan: worsening renal failure nephrology on board (4) Acute hyponatremia: Code(s): E87.1 - Hypo-osmolality and hyponatremia Status: Acute (5) Hypotension due to hypovolemia: Code(s): I95.89 - Other hypotension; E86.1 - Hypovolemia Status: Acute (6) Occult blood in stools: Code(s): R19.5 - Other fecal abnormalities Status: Acute Assessment and Plan: from colitis had recent scopes few months ago, no need to repeat (7) Acute on chronic anemia: Code(s): D64.9 - Anemia, unspecified Status: Acute Assessment and Plan: she has OBED, already had egd and colonoscopy probably will also benefit from hematology evaluation also anemia of chronic disease GI Consult Note Consult date/time: 08/16/23 14:46 Reason for consult: c diff colitis, OBED, + FOBT HPI: Shiloh Hester is a 77 year old female with past medical history significant for spinal stenosis, neurogenic claudication, left hip arthroplasty, chronic back pain on pain killer, hypertension, obstructive sleep apnea on CPAP.? She had left hip surgery end of December then found to have hematoma in that area and also severe degenerative spondylosis throughout the lumbar spine with severe central canal stenosis at L2-L3 and L3-L4 with multilevel neural foraminal narrowing. I met her during hospitalization 03/2023 when she presented with anemia hgb 5-6, colonoscopy diverticulosis without any findings or anything to explain anemia, egd showed duodenal ulcer (repeat 05/2023 no more ulcer). She was admitted 5 days ago with 2 weeks of diarrhea. She denies melena or bleeding. Also had intermittent low-grade fever with chills. She was admitted with generalized weakness, on arrival was hypotensive, had significant leukocytosis 32,000, anemia 7.6, hyponatremia NA 126, also DREW with creat 3 (normal at baseline). CT abdomen pelvis reveals diffuse colitis, likely infectious. C diff positive (first episode), also had UTI (E coli), currently on iv flagyl and vancomycin (also rocephin for uti), still with diarrhea Review of Systems Constitutional: Constitutional: Reports chills Eyes: Eyes: Denies blurry vision ENT: Reports Normal hearing present Cardiovascular: Cardiovascular: Denies chest pain Respiratory: Respiratory: Denies cough Gastrointestinal: Gastrointestinal: Reports diarrhea Genitourinary: Genitourinary: Denies urinary urgency Musculoskeletal: Musculoskeletal: Denies neck pain Integumentary/Breasts: Skin/Breast: Denies rash Neurologic: Denies Abnormal speech present Psychiatric: Psychiatric: Denies anxiety [facility] Past Medical History Medical History (Updated 08/16/23 @ 14:55 by Leland Guerrero MD) Acute on chronic anemia Adhesive capsulitis of left shoulder (~06/2021) C. 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
[2023-08-16 16:18] LABS: Albumin 1.5 g/dL (3.8-4.8); Alpha 1 Globulin 0.6 g/dL (0.2-0.3); Alpha 2 Globulin 0.8 g/dL (0.5-0.9); Beta 1 Globulin 0.2 g/dL (0.4-0.6); Gamma Globulin 0.4 g/dL (0.8-1.7); Protein, Total 3.8 g/dL (6.1-8.1)
[2023-08-16] MEDS: SODIUM BICARBONATE 8.4% 75 MEQ in DEXTROSE 5%/0.45% SOD CHL 1,000 ML 70 ML IV CONT (18:20)
[2023-08-16] MEDS: FIDAXOMICIN 200 MG TABLET PO (21:30)
[2023-08-17] VITALS: BP 134/61; PULSE 76; RESP 16; TEMP 36.4; O2SAT 98
[2023-08-17 01:02] LABS: Glucose Point of Care 112 mg/dl (65-105)
[2023-08-17 01:02] LABS: Glucose Point of Care 74 mg/dl (65-105)
[2023-08-17 04:00] VITALS: BP 123/50; PULSE 69; RESP 16; TEMP 36.2; O2SAT 97
[2023-08-17 05:30] LABS: Glucose Point of Care 87 mg/dl (65-105)
[2023-08-17] MEDS: metroNIDAZOLE 500 MG/ISO 100ML 500 MG/100 ML BAG 100 MG IVPB ×3 (05:55→23:29)
[2023-08-17 07:09] LABS: Hematocrit 27.2 % (37.0-47.0); Hemoglobin 8.6 g/dL (12.0-15.0); Mean Corpuscular HGB Conc 31.6 g/dl (32-36); Mean Corpuscular Hemoglobin 26.1 pg (26-34); Mean Corpuscular Volume 82.7 fl (80-100); Mean Platelet Volume 8.4 fl (7.4-10.4); Platelet Count Result 356 k/mm3 (150-375); Red Blood Count 3.29 M/mm3 (4.2-5.4); Red Cell Distribution Width 21.3 % (11.5-14.5); White Blood Count 23.8 K/mm3 (4.5-10.0)
[2023-08-17 07:18] LABS: Lactic Acid Reflex 1.1 mmol/L (0.7-2.0)
[2023-08-17 07:19] LABS: Alanine Aminotransferase 16 U/L (6-35); Albumin Level 1.8 g/dL (3.5-5.1); Alkaline Phosphatase 55 U/L (38-126); Anion Gap 7 mmol/L (8-16); Aspartate Amino Transferase 21 U/L (14-36); Bilirubin,Total 0.3 mg/dL (0.2-1.3); Blood Urea Nitrogen 32 mg/dL (7-17); Calcium 7.3 mg/dL (8.4-10.2); Carbon Dioxide 14 mmol/L (22-30); Chloride 102 mmol/L (98-107); Estimated CRCL calculation 13 ml/min; Estimated Glomerular Filt Rate 12; Glucose 70 mg/dL (65-110); Potassium 3.9 mmol/L (3.4-5.0); Sodium 123 mmol/L (137-145)
[2023-08-17 07:43] LABS: Band Neutrophils Percent 5 % (0-6); Burr Cells 2+ (NORMAL); Lymphocytes Absolute Manual 0.71 K/mm3 (1.1-4.5); Lymphocytes Percent Manual 3 % (18-44); Monocytes Absolute Manual 0.47 K/mm3 (0.1-0.90); Monocytes Percent Manual 2 % (3-9); Neutrophils Absolute Manual 22.61 K/mm3 (1.7-7.2); Neutrophils Percent Manual 90 % (46-73); Platelet Estimate Adequate (Adequate); Schistocytes Rare (NORMAL); Total Cells Counted 100
[2023-08-17 08:00] VITALS: BP 147/57; PULSE 78; RESP 16; TEMP 37.2; O2SAT 98
[2023-08-17] MEDS: cefTRIAXone 2 GM/NS 100 ML 2 GM/100 ML BAG IVPB (08:10)
[2023-08-17] MEDS: FIDAXOMICIN 200 MG TABLET PO ×2 (08:10→20:46)
[2023-08-17] MEDS: ASPIRIN 81 MG ENTERIC TABLET PO (08:10)
[2023-08-17] MEDS: SODIUM BICARBONATE TAB 650 MG TABLET PO ×2 (08:10→17:08)
[2023-08-17] MEDS: FERROUS SULFATE 325 MG TABLET DR BY MOUTH ×2 (08:11→17:08)
[2023-08-17] MEDS: PANTOPRAZOLE 40 MG TABLET PO ×2 (08:11→20:46)
[2023-08-17] MEDS: VENLAFAXINE HCL XR 75 MG CAP.ER.24H PO (08:11)
[2023-08-17] MEDS: GABAPENTIN 300 MG CAPSULE PO ×2 (08:11→20:46)
[2023-08-17 09:05] LABS: Hepatitis B Surface Antigen Negative (Negative)
[2023-08-17 09:22] LABS: Hepatitis B Surface Anti Res Negative
--- NOTE | 2023-08-17 09:23 | PM.IMPN ---
Progress Note: A&P Assessment and Plan (1) Colitis: Code(s): K52.9 - Noninfective gastroenteritis and colitis, unspecified Status: Acute (2) Severe sepsis: Code(s): A41.9 - Sepsis, unspecified organism; R65.20 - Severe sepsis without septic shock Status: Acute (3) Acute on chronic renal failure: Code(s): N17.9 - Acute kidney failure, unspecified; N18.9 - Chronic kidney disease, unspecified Status: Acute (4) Hypotension due to hypovolemia: Code(s): I95.89 - Other hypotension; E86.1 - Hypovolemia Status: Acute (5) Obstructive sleep apnea on CPAP: Code(s): G47.33 - Obstructive sleep apnea (adult) (pediatric); Z99.89 - Dependence on other enabling machines and devices Status: Acute (6) HTN (hypertension): Code(s): I10 - Essential (primary) hypertension Status: Acute (7) Degenerative joint disease of left hip: Qualifiers: Osteoarthritis type: other secondary Qualified Code(s): M16.7 - Other unilateral secondary osteoarthritis of hip Code(s): M16.12 - Unilateral primary osteoarthritis, left hip Status: Acute (8) Hyponatremia: Code(s): E87.1 - Hypo-osmolality and hyponatremia Status: Acute (9) Acute hyponatremia: Code(s): E87.1 - Hypo-osmolality and hyponatremia Status: Acute (10) Mixed hyperlipidemia: Code(s): E78.2 - Mixed hyperlipidemia Status: Chronic (11) Rheumatoid arthritis with rheumatoid factor of multiple sites without organ or systems involvement: Onset Date: ~1999 Code(s): M05.79 - Rheumatoid arthritis with rheumatoid factor of multiple sites without organ or systems involvement Status: Acute Plan Colitis Cdiff positive oral vanc, Dificid added by GI GI following Severe sepsis, Patient has leukocytosis, tachycardia, hypotension, suspecting severe sepsis due to colitis Follow-up blood culture urine culture, urinalysis, stool culture Repeat CT AP no perforations or abscess Continue IV fluid, continue oral vancomycin and Deficid, continue Rocephin and Flagyl for a total of 7 days Monitor closely. GI following and appreciate input DREW on CKD, hyponatremia, hypovolemic hypotension Worsening kidney function, hyponatremia, hypertension, possible due to diarrhea and in adequate intake Follow urinalysis Received fluid resuscitation, continue normal saline IV Follow-up BMP Avoid nephrotoxic medication Nephrology following Hypertension Monitor Iron-deficiency anemia I set the date, hemoglobin 8.4. Hemoglobin close to baseline Occult blood stool positive However patient has diffuse colitis Venofer 300mg iv once and continue PO replacement GI evaluated and noted patient has recent endoscopy and no need for repeat at this time History of gERD, duodenal ulcer Continue prednisone 40 mg daily p.o. +bc contaminant uti abx hyponatremia, na 123 nephrology following asymptomatic DVT prophylaxis on SCDs, no AC due to possible GI bleed Subjective Date/time seen: 08/17/23 09:23 Interval history: patient comfortable at bedside, no overnight events Leukocytosis improving 23 isat 6 start venofer 300mg once and continue oral replacement Creatinine 3.8 from 3.1 Exam Narrative: GENERAL: Well-appearing, well-nourished, and in no acute distress. HEAD: Normocephalic, atraumatic. EYES: PERRLA and EOMI. ENT: Mucous membranes moist. CHEST: Clear to auscultation. No respiratory distress. HEART: Regular rate and rhythm. Normal peripheral pulses. ABDOMEN: Soft, nontender, nondistended. EXTREMITIES: Normal range of motion. No edema. SKIN: Warm, dry, no rash. NEURO: Alert and oriented x3. PSYCH: Normal mood and affect. Objective Data Vital Signs Vital Signs: Vital Signs - 24 hr 08/16/23 10:26 08/16/23 12:00 08/16/23 15:57 Temperature 99.2 F 98.7 F Pulse Rate 73 96 Respiratory Rate 16 18 Blood Pressure 111/
--- NOTE | 2023-08-17 10:50 | PM.PNNEP ---
Progress Note: A&P Assessment and Plan (1) Hyponatremia: Code(s): E87.1 - Hypo-osmolality and hyponatremia Status: Acute Assessment and Plan: continues to fluctuate as noted on admission (admission sodium 126) history would suggest hypovolemia as etiology (on admission) from ongoing GI losses/diarrhea however, now partly related to ongoing DREW/ARF as well could be related to medications -- on PPI and venlafaxine (but these are chronic medications) evaluation to date: TSH and cortisol okay urine electrolytes prerenal SPEP/UPEP without M-spike serum/urine osmo pending follow the trend of repeat sodium level (2) DREW (acute kidney injury): Code(s): N17.9 - Acute kidney failure, unspecified Status: Acute Assessment and Plan: continues to worsen.... noted on admission resolved initially with IVF hydration but has been deteriorating as noted by trend of labs since 08/14/23 suspect ongoing volume depletion coupled with infection/sepsis (from C. 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 at risk for [employer]/hemodialysis continue current therapy (3) Sepsis: Code(s): A41.9 - Sepsis, unspecified organism Status: Acute Assessment and Plan: as noted on admission noted elevated WBC, tachycardia, and hypotension presumable source is C. diff colitis +/- UTI culture data noted on antibiotics follow hemodynamics (4) C. difficile colitis: Code(s): A04.72 - Enterocolitis due to Clostridium difficile, not specified as recurrent Status: Acute Assessment and Plan: as noted by testing on oral vancomycin; IV flagyl added follow symptoms and stool output (5) Urinary tract infection: Code(s): N39.0 - Urinary tract infection, site not specified Status: Acute Assessment and Plan: as suggested by admission UA urine culture with E. coli on antibiotics (6) Metabolic acidosis: Code(s): E87.20 - Acidosis, unspecified Status: Acute Assessment and Plan: due to GI losses and ongoing DREW start bicarb gtt + oral sodium bicarbonate to compensate follow lactic acid levels follow trend (7) HTN (hypertension): Code(s): I10 - Essential (primary) hypertension Status: Chronic Assessment and Plan: reasonable control follow trend of hemodynamcis (8) Anemia: Code(s): D64.9 - Anemia, unspecified Status: Chronic Assessment and Plan: likely due to iron deficiency, DREW, and acute illness follow trend of H/H PRBC transfusion per protocol holding IV iron in the setting of acute infection Long extensive discussion (> 20 min) with the patient regarding her ongoing/progressive renal dysfunction despite all conservative therapy to date. I voiced my concerns to her that if her kidney function continues to deteriorate or if she starts to run into problems/issues with critical electrolyte abnormalities, worsening metabolic acidosis unresponsive to medical therapy, volume overload or uremia, then the next likely intervention/step would be renal replacement therapy/dialysis. The patient is well aware of what dialysis is and based on my conversation with her, she does not appear to be interested in pursuing such therapy if it is warranted but she did not definitively say that she would not do it either. Will continue to follow. Subjective Date/time seen: 08/17/23 10:50 Interval history: Follow-up for acute on chronc hyponatremia and acute kidney injury/acute renal failure. Renal function continues to deteriorate despite all therapy/interventons to date; started on bicarb fluids yesterday but acidosis persists; s
--- NOTE | 2023-08-17 10:50 | P.PNNP_ITS ---
Progress Note: A&P Assessment and Plan (1) Hyponatremia: Code(s): E87.1 - Hypo-osmolality and hyponatremia Status: Acute Assessment and Plan: * continues to fluctuate * as noted on admission (admission sodium 126) * history would suggest hypovolemia as etiology (on admission) from ongoing GI losses/diarrhea * however, now partly related to ongoing DREW/ARF as well * could be related to medications -- on PPI and venlafaxine (but these are chronic medications) * evaluation to date: * TSH and cortisol okay * urine electrolytes prerenal * SPEP/UPEP without M-spike * serum/urine osmo pending * follow the trend of repeat sodium level (2) DREW (acute kidney injury): Code(s): N17.9 - Acute kidney failure, unspecified Status: Acute Assessment and Plan: * continues to worsen.... * noted on admission * resolved initially with IVF hydration * but has been deteriorating as noted by trend of labs since 08/14/23 * suspect ongoing volume depletion coupled with infection/sepsis (from C. diff colits + UTI +/- bacteremia) leading to ATN * noted contrast exposure with CT done on 08/11 * evaluation to date: * urine electrolytes prerenal * CT imaging without obstruction of kidneys * UA c/w infection * urine eosinophils not done (would not be informative in the context of UTI) * she remains at risk for [employer]ER/hemodialysis * continue current therapy (3) Sepsis: Code(s): A41.9 - Sepsis, unspecified organism Status: Acute Assessment and Plan: * as noted on admission * noted elevated WBC, tachycardia, and hypotension * presumable source is C. diff colitis +/- UTI * culture data noted * on antibiotics * follow hemodynamics (4) C. difficile colitis: Code(s): A04.72 - Enterocolitis due to Clostridium difficile, not specified as recurrent Status: Acute Assessment and Plan: * as noted by testing * on oral vancomycin; IV flagyl added * follow symptoms and stool output (5) Urinary tract infection: Code(s): N39.0 - Urinary tract infection, site not specified Status: Acute Assessment and Plan: * as suggested by admission UA * urine culture with E. coli * on antibiotics (6) Metabolic acidosis: Code(s): E87.20 - Acidosis, unspecified Status: Acute Assessment and Plan: * due to GI losses and ongoing DREW * start bicarb gtt + oral sodium bicarbonate to compensate * follow lactic acid levels * follow trend (7) HTN (hypertension): Code(s): I10 - Essential (primary) hypertension Status: Chronic Assessment and Plan: * reasonable control * follow trend of hemodynamcis (8) Anemia: Code(s): D64.9 - Anemia, unspecified Status: Chronic Assessment and Plan: * likely due to iron deficiency, DREW, and acute illness * follow trend of H/H * PRBC transfusion per protocol * holding IV iron in the setting of acute infection Long extensive discussion (> 20 min) with the patient regarding her ongoing/progressive renal dysfunction despite all conservative therapy to date. I voiced my concerns to her that if her kidney function continues to deteriorate or if she starts to run into problems/issues with critical electrolyte abnormalities, worsening metabolic acidosis unresponsive to medical therapy, volume overload or uremia, then the next likely intervention/step would be renal replacement therapy/dialysis. The patient is well aware of what dialysis is and based on my conversatio
[2023-08-17 12:00] VITALS: BP 138/61; PULSE 76; RESP 14; TEMP 37.4; O2SAT 98
[2023-08-17] MEDS: SODIUM BICARBONATE 8.4% 75 MEQ in DEXTROSE 5%/0.45% SOD CHL 1,000 ML 70 ML IV CONT (13:39)
--- NOTE | 2023-08-17 14:53 | WPDGIPROGNO ---
Progress Note: A&P Assessment and Plan (1) C. difficile colitis: Code(s): A04.72 - Enterocolitis due to Clostridium difficile, not specified as recurrent Status: Acute Assessment and Plan: now on dificid and iv flagyl she is also on rocephin because uti, hopefully discontinue soon wbc still high but improving (2) Sepsis: Code(s): A41.9 - Sepsis, unspecified organism Status: Acute Assessment and Plan: on rx (3) DREW (acute kidney injury): Code(s): N17.9 - Acute kidney failure, unspecified Status: Acute Assessment and Plan: worsening renal failure nephrology on board (4) Acute hyponatremia: Code(s): E87.1 - Hypo-osmolality and hyponatremia Status: Acute (5) Acute on chronic anemia: Code(s): D64.9 - Anemia, unspecified Status: Acute Assessment and Plan: h/h low but stable no overt gib Subjective Date/time seen: 08/17/23 14:53 Interval history: still with similar diarrhea, no much of abdominal pain and she is eating at least half of meals Review of Systems Review of Systems: All systems reviewed & are unremarkable except as noted in HPI and below Exam Const: General: comfortable HENMT: Face/Nose/Sinus: Normal nares present Eyes: General: appearance normal, both eyes and all related structures Neck: Neck: supple Resp: Effort & Inspection: normal respiratory effort Cardio: Rate: regular rate GI: GI Palp: Yes Soft to palpation, No Tenderness to palpation present (GI) and No Guarding due to palpation present (GI) Auscultation: normal bowel sounds Skin: General skin exam: normal color Neuro: Speech: normal speech Motor exam (neuro): 5/5 motor strength present throughout Extrem: General: pedal edema bilaterally Psych: Mental Status: mental status grossly normal Objective Data Vital Signs Vital Signs: Vital Signs - 24 hr 08/16/23 15:57 08/16/23 20:00 08/16/23 23:23 Temperature 98.7 F 99.5 F Pulse Rate 96 86 83 Respiratory Rate 18 14 Blood Pressure 127/55 L 93/73 L Pulse Oximetry 98 98 98 Oxygen Delivery 08/17/23 00:00 08/17/23 04:00 08/17/23 08:00 Temperature 97.6 F 97.2 F L 98.9 F Pulse Rate 76 69 78 Respiratory Rate 16 16 16 Blood Pressure 134/61 123/50 L 147/57 H Pulse Oximetry 98 97 98 Oxygen Delivery 08/17/23 08:00 08/17/23 12:00 Temperature 99.3 F Pulse Rate 76 Respiratory Rate 14 Blood Pressure 138/61 Pulse Oximetry 98 Oxygen Delivery Room Air Intake/Output Intake/Output: Intake & Output 08/14/23 08/15/23 08/16/23 08/17/23 23:59 23:59 23:59 23:59 Intake Total 5200 3720 640 2261 Balance 5200 3720 640 2261 Meds/Results Medications: Active Medications Generic Name Dose Route Start Last Admin Trade Name Freq PRN Reason Stop Dose Admin Acetaminophen 650 mg 08/11/23 15:21 Acetaminophen 325 Mg Tablet PO Q4H PRN Mild Pain (1-3) or Fever Hydrocodone Bitart/Acetaminophen 1 tab 08/11/23 15:21 Hydrocodone/Acetaminophen (*Crx) 5-325 Mg Tablet PO Q4H PRN Pain Rated 4-6 Aspirin 81 mg 08/13/23 09:00 08/17/23 08:10 Aspirin 81 Mg Enteric Tablet PO 81 mg DAILY NEETA Administration Ferrous Sulfate 325 mg 08/12/23 10:00 08/17/23 08:11 Ferrous Sulfate [address] BY MOUTH 325 mg BID NEETA Administration Fidaxomicin 200 mg 08/16/23 21:00 08/17/23 08:10 Fidaxomicin 200 Mg Tablet PO 200 mg Q12HR NEETA Administration Gabapentin 300 mg 08/12/23 10:00 08/17/23 08:11 Gabapentin 300 Mg Capsule PO 300 mg Q12HR NEETA Administration Hydroxychloroquine Sulfate 400 mg 08/12/23 11:00 08/15/23 08:36 Hydroxychloroquine Sulfate 200 Mg Tablet PO 400 mg Q12HR NEETA Administration Metronidazole 500 mg in 100 mls @ 100 mls/hr 08/15/23 12:00 08/17/23 13:39 Flagyl 500 Mg/Iso Soln 100 Ml IVPB 08/19/23 23:59 100 mls/hr Q8HR NEETA Administration Ceftriaxone Sodium 2 gm in 100 mls @ 200 m
[2023-08-17 16:00] VITALS: BP 131/60; PULSE 78; RESP 16; TEMP 37.2; O2SAT 97
[2023-08-17 20:00] VITALS: BP 156/67; PULSE 92; RESP 16; TEMP 37; O2SAT 100
[2023-08-18] VITALS (7 sets, daily range): BP systolic 121–153; BP diastolic 54–95; PULSE 74–86; RESP 14–18; TEMP 35.9–36.7; O2SAT 94–100
[2023-08-18 01:13] LABS: Glucose Point of Care 101 mg/dl (65-105)
[2023-08-18] MEDS: metroNIDAZOLE 500 MG/ISO 100ML 500 MG/100 ML BAG 100 MG IVPB ×3 (05:09→22:17)
[2023-08-18] MEDS: SODIUM BICARBONATE 8.4% 75 MEQ in DEXTROSE 5%/0.45% SOD CHL 1,000 ML 70 ML IV CONT ×2 (05:11→22:18)
[2023-08-18 06:43] LABS: Glucose Point of Care 82 mg/dl (65-105)
[2023-08-18 06:53] LABS: Basophils Percent Auto 0.2 % (0.2-1.2); Eosinophils Percent Auto 0.1 % (0-4.4); Hematocrit 29.3 % (37.0-47.0); Hemoglobin 9.2 g/dL (12.0-15.0); Immature Granulocyte Percent A 6.8 % (0-0.5); Lymphocytes Absolute Auto 0.58 K/mm3 (0.9-3.2); Lymphocytes Percent Auto 2.2 % (18.3-44.2); Mean Corpuscular HGB Conc 31.4 g/dl (32-36); Mean Corpuscular Hemoglobin 26.1 pg (26-34); Mean Platelet Volume 8.6 fl (7.4-10.4); Monocytes Absolute Auto 1.6 K/mm3 (0.1-0.6); Monocytes Percent Auto 6.2 % (2.6-8.5); Neutrophils Absolute Auto 22.2 K/mm3 (1.3-6.7); Neutrophils Percent Auto 84.5 % (45.5-73.1); Nucleated Red Blood Cells Perc 0.1 % (0.0-0.2); Platelet Count Result 328 k/mm3 (150-375); Red Blood Count 3.53 M/mm3 (4.2-5.4); Red Cell Distribution Width 21.1 % (11.5-14.5); White Blood Count 26.3 K/mm3 (4.5-10.0)
[2023-08-18 07:06] LABS: Alanine Aminotransferase 14 U/L (6-35); Albumin Level 1.8 g/dL (3.5-5.1); Alkaline Phosphatase 56 U/L (38-126); Anion Gap 10 mmol/L (8-16); Aspartate Amino Transferase 17 U/L (14-36); Bilirubin,Total 0.3 mg/dL (0.2-1.3); Blood Urea Nitrogen 36 mg/dL (7-17); Calcium 7.3 mg/dL (8.4-10.2); Carbon Dioxide 13 mmol/L (22-30); Chloride 99 mmol/L (98-107); Estimated CRCL calculation 12 ml/min; Estimated Glomerular Filt Rate 11; Glucose 90 mg/dL (65-110); Potassium 3.9 mmol/L (3.4-5.0); Sodium 122 mmol/L (137-145)
[2023-08-18 07:09] LABS: Lactic Acid Reflex 1.8 mmol/L (0.7-2.0)
[2023-08-18 08:01] LABS: Platelet Estimate Adequate (Adequate); Toxic Granulation Present (NORMAL)
[2023-08-18 08:02] LABS: Burr Cells 2+ (NORMAL); Poikilocytosis 1+ (NORMAL); Schistocytes Rare (NORMAL)
[2023-08-18] MEDS: cefTRIAXone 2 GM/NS 100 ML 2 GM/100 ML BAG IVPB (10:56)
[2023-08-18] MEDS: FERROUS SULFATE 325 MG TABLET DR BY MOUTH ×2 (10:57→17:22)
[2023-08-18] MEDS: SODIUM BICARBONATE TAB 650 MG TABLET 1300 MG PO ×2 (10:57→17:22)
[2023-08-18] MEDS: ASPIRIN 81 MG ENTERIC TABLET PO (10:57)
[2023-08-18] MEDS: VENLAFAXINE HCL XR 75 MG CAP.ER.24H PO (10:57)
[2023-08-18] MEDS: FIDAXOMICIN 200 MG TABLET PO ×2 (10:57→22:17)
[2023-08-18] MEDS: GABAPENTIN 300 MG CAPSULE PO ×2 (11:00→22:17)
[2023-08-18] MEDS: PANTOPRAZOLE 40 MG TABLET PO ×2 (11:00→22:17)
--- NOTE | 2023-08-18 12:00 | PM.IMPN ---
Progress Note: A&P Assessment and Plan (1) Colitis: Code(s): K52.9 - Noninfective gastroenteritis and colitis, unspecified Status: Acute (2) Severe sepsis: Code(s): A41.9 - Sepsis, unspecified organism; R65.20 - Severe sepsis without septic shock Status: Acute (3) Acute on chronic renal failure: Code(s): N17.9 - Acute kidney failure, unspecified; N18.9 - Chronic kidney disease, unspecified Status: Acute (4) Hypotension due to hypovolemia: Code(s): I95.89 - Other hypotension; E86.1 - Hypovolemia Status: Acute (5) Obstructive sleep apnea on CPAP: Code(s): G47.33 - Obstructive sleep apnea (adult) (pediatric); Z99.89 - Dependence on other enabling machines and devices Status: Acute (6) HTN (hypertension): Code(s): I10 - Essential (primary) hypertension Status: Chronic (7) Degenerative joint disease of left hip: Qualifiers: Osteoarthritis type: other secondary Qualified Code(s): M16.7 - Other unilateral secondary osteoarthritis of hip Code(s): M16.12 - Unilateral primary osteoarthritis, left hip Status: Acute (8) Hyponatremia: Code(s): E87.1 - Hypo-osmolality and hyponatremia Status: Acute (9) Acute hyponatremia: Code(s): E87.1 - Hypo-osmolality and hyponatremia Status: Acute (10) Mixed hyperlipidemia: Code(s): E78.2 - Mixed hyperlipidemia Status: Chronic (11) Rheumatoid arthritis with rheumatoid factor of multiple sites without organ or systems involvement: Onset Date: ~1999 Code(s): M05.79 - Rheumatoid arthritis with rheumatoid factor of multiple sites without organ or systems involvement Status: Acute Plan Colitis Cdiff positive Continue Dificid and Flagyl GI following Severe sepsis, Patient has leukocytosis, tachycardia, hypotension, suspecting severe sepsis due to colitis Follow-up blood culture urine culture, urinalysis, stool culture Repeat CT AP no perforations or abscess Continue IV fluid, Deficid and Flagyl, patient will finish Rocephin tomorrow Monitor closely. GI following and appreciate input DREW on CKD, Worsening kidney function, hyponatremia, hypotension, possible due to diarrhea and in adequate intake continue IVF per nephrology Follow-up BMP Avoid nephrotoxic medication Nephrology following Hypertension Monitor Iron-deficiency anemia I set the date, hemoglobin 8.4. Hemoglobin close to baseline Occult blood stool positive However patient has diffuse colitis Venofer 300mg iv once and continue PO replacement GI evaluated and noted patient has recent endoscopy and no need for repeat at this time History of gERD, duodenal ulcer Continue prednisone 40 mg daily p.o. +bc contaminant uti abx hyponatremia, na 123 to 122 nephrology following, fluid management per nephrology DVT prophylaxis on SCDs, no AC due to possible GI bleed Subjective Date/time seen: 08/18/23 12:00 Interval history: patient comfortable at bedside Na 122 from 123, Cr 3.0 from 4.1 diarrhea improving no abd pain Exam Narrative: GENERAL: Well-appearing, well-nourished, and in no acute distress. HEAD: Normocephalic, atraumatic. EYES: PERRLA and EOMI. ENT: Mucous membranes moist. CHEST: Clear to auscultation. No respiratory distress. HEART: Regular rate and rhythm. Normal peripheral pulses. ABDOMEN: Soft, nontender, nondistended. EXTREMITIES: Normal range of motion. No edema. SKIN: Warm, dry, no rash. NEURO: Alert and oriented x3. PSYCH: Normal mood and affect. Objective Data Vital Signs Vital Signs: Vital Signs - 24 hr 08/17/23 16:00 08/17/23 20:00 08/17/23 20:00 Temperature 98.9 F 98.6 F Pulse Rate 78 92 Respiratory Rate 16 16 Blood Pressure 131/60 156/67 H Pulse Oximetry 97 100 100 Oxygen Delivery Room Air 08/18/23 00:00 08/18/23 04:00 08/18/23 08:00 Temperature 97.7 F 96.6 F L 98.0 F Pulse R
[2023-08-18 12:31] LABS: Glucose Point of Care 91 mg/dl (65-105)
--- NOTE | 2023-08-18 12:44 | P.PNNP_ITS ---
Progress Note: A&P Assessment and Plan (1) Hyponatremia: Code(s): E87.1 - Hypo-osmolality and hyponatremia Status: Acute Assessment and Plan: * continues to fluctuate * as noted on admission (admission sodium 126) * history would suggest hypovolemia as etiology (on admission) from ongoing GI losses/diarrhea * however, now partly related to ongoing DREW/ARF as well * could be related to medications -- on PPI and venlafaxine (but these are chronic medications) * evaluation to date: * TSH and cortisol okay * urine electrolytes prerenal * SPEP/UPEP without M-spike * serum/urine osmo pending * follow the trend of repeat sodium level (2) DREW (acute kidney injury): Code(s): N17.9 - Acute kidney failure, unspecified Status: Acute Assessment and Plan: * continues to worsen/deteriorate... * noted on admission * resolved initially with IVF hydration * but has been deteriorating as noted by trend of labs since 08/14/23 * suspect ongoing volume depletion coupled with infection/sepsis (from C. diff colits + UTI +/- bacteremia) leading to ATN * noted contrast exposure with CT done on 08/11 * evaluation to date: * urine electrolytes prerenal * CT imaging without obstruction of kidneys * UA c/w infection * urine eosinophils not done (would not be informative in the context of UTI) * she remains at risk for [employer]/hemodialysis (although she is not interested in this intervention) * continue current therapy (3) Sepsis: Code(s): A41.9 - Sepsis, unspecified organism Status: Acute Assessment and Plan: * as noted on admission * noted elevated WBC, tachycardia, and hypotension * presumable source is C. diff colitis +/- UTI * culture data noted * on antibiotics * follow hemodynamics (4) C. difficile colitis: Code(s): A04.72 - Enterocolitis due to Clostridium difficile, not specified as recurrent Status: Acute Assessment and Plan: * as noted by testing * on dificid and flagyl * Gastroenterology following * follow symptoms and stool output (5) Urinary tract infection: Code(s): N39.0 - Urinary tract infection, site not specified Status: Acute Assessment and Plan: * as suggested by admission UA * urine culture with E. coli * on antibiotics (6) Metabolic acidosis: Code(s): E87.20 - Acidosis, unspecified Status: Acute Assessment and Plan: * due to GI losses and ongoing DREW * on bicarb gtt + oral sodium bicarbonate to compensate * follow lactic acid levels * follow trend (7) HTN (hypertension): Code(s): I10 - Essential (primary) hypertension Status: Chronic Assessment and Plan: * reasonable control * follow trend of hemodynamcis (8) Anemia: Code(s): D64.9 - Anemia, unspecified Status: Chronic Assessment and Plan: * likely due to iron deficiency, DREW, and acute illness * follow trend of H/H * PRBC transfusion per protocol * holding IV iron in the setting of acute infection Patient has informed me that she would not do dialysis under any circumstance and confirmed with nursing that she is also DNR. Will continue to follow. Subjective Date/time seen: 08/18/23 12:44 Interval history: Follow-up for acute on chronc hyponatremia and acute kidney injury/acute renal failure. Still having diarrhea and renal function as well as sodum level continues to worsen; no apparent distress noted at the
--- NOTE | 2023-08-18 12:44 | PM.PNNEP ---
Progress Note: A&P Assessment and Plan (1) Hyponatremia: Code(s): E87.1 - Hypo-osmolality and hyponatremia Status: Acute Assessment and Plan: continues to fluctuate as noted on admission (admission sodium 126) history would suggest hypovolemia as etiology (on admission) from ongoing GI losses/diarrhea however, now partly related to ongoing DREW/ARF as well could be related to medications -- on PPI and venlafaxine (but these are chronic medications) evaluation to date: TSH and cortisol okay urine electrolytes prerenal SPEP/UPEP without M-spike serum/urine osmo pending follow the trend of repeat sodium level (2) DREW (acute kidney injury): Code(s): N17.9 - Acute kidney failure, unspecified Status: Acute Assessment and Plan: continues to worsen/deteriorate... noted on admission resolved initially with IVF hydration but has been deteriorating as noted by trend of labs since 08/14/23 suspect ongoing volume depletion coupled with infection/sepsis (from C. 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 at risk for BACK ROLLER/hemodialysis (although she is not interested in this intervention) continue current therapy (3) Sepsis: Code(s): A41.9 - Sepsis, unspecified organism Status: Acute Assessment and Plan: as noted on admission noted elevated WBC, tachycardia, and hypotension presumable source is C. diff colitis +/- UTI culture data noted on antibiotics follow hemodynamics (4) C. difficile colitis: Code(s): A04.72 - Enterocolitis due to Clostridium difficile, not specified as recurrent Status: Acute Assessment and Plan: as noted by testing on dificid and flagyl Gastroenterology following follow symptoms and stool output (5) Urinary tract infection: Code(s): N39.0 - Urinary tract infection, site not specified Status: Acute Assessment and Plan: as suggested by admission UA urine culture with E. coli on antibiotics (6) Metabolic acidosis: Code(s): E87.20 - Acidosis, unspecified Status: Acute Assessment and Plan: due to GI losses and ongoing DREW on bicarb gtt + oral sodium bicarbonate to compensate follow lactic acid levels follow trend (7) HTN (hypertension): Code(s): I10 - Essential (primary) hypertension Status: Chronic Assessment and Plan: reasonable control follow trend of hemodynamcis (8) Anemia: Code(s): D64.9 - Anemia, unspecified Status: Chronic Assessment and Plan: likely due to iron deficiency, DREW, and acute illness follow trend of H/H PRBC transfusion per protocol holding IV iron in the setting of acute infection Patient has informed me that she would not do dialysis under any circumstance and confirmed with nursing that she is also DNR. Will continue to follow. Subjective Date/time seen: 08/18/23 12:44 Interval history: Follow-up for acute on chronc hyponatremia and acute kidney injury/acute renal failure. Still having diarrhea and renal function as well as sodum level continues to worsen; no apparent distress noted at the time of my visit; still making urine (unable to quantify); no other issues/events overnight or earlier this AM. Exam Narrative: General: elderly but WD/WN female in NAD Heart: normal S1 and S2; no rub Lungs: clear to auscultation Abdomen: soft, nontender, nondistended, positive bowel sounds Extremities: no cyanosis or clubbing; trace - 1+ edema Skin: warm and dry Objective Data Vital Signs Vital Signs: Vital Signs Temp Pulse Resp BP Pulse Ox O2 Del Method 08/18/23 12:00 98.1 F 84 14 121/64
[2023-08-18 16:35] LABS: Glucose Point of Care 81 mg/dl (65-105)
--- NOTE | 2023-08-18 17:47 | WPDGIPROGNO ---
Progress Note: A&P Assessment and Plan (1) C. difficile colitis: Code(s): A04.72 - Enterocolitis due to Clostridium difficile, not specified as recurrent Status: Acute Assessment and Plan: now on dificid and iv flagyl she is also on rocephin because uti, last dose tomorrow wbc still high- continue to monitor (2) Sepsis: Code(s): A41.9 - Sepsis, unspecified organism Status: Acute Assessment and Plan: on treatment (3) DREW (acute kidney injury): Code(s): N17.9 - Acute kidney failure, unspecified Status: Acute Assessment and Plan: worsening renal failure nephrology on board (4) Acute hyponatremia: Code(s): E87.1 - Hypo-osmolality and hyponatremia Status: Acute (5) Acute on chronic anemia: Code(s): D64.9 - Anemia, unspecified Status: Acute Assessment and Plan: h/h low but stable no overt gib no need to repeat scopes Subjective Date/time seen: 08/18/23 17:47 Interval history: similar diarrhea no abdominal pain and she is eating Review of Systems Review of Systems: All systems reviewed & are unremarkable except as noted in HPI and below Exam Const: General: comfortable HENMT: Face/Nose/Sinus: Normal nares present Eyes: General: appearance normal, both eyes and all related structures Neck: Neck: supple Resp: Effort & Inspection: normal respiratory effort Cardio: Rate: regular rate GI: GI Palp: Yes Soft to palpation, No Tenderness to palpation present (GI) and No Guarding due to palpation present (GI) Auscultation: normal bowel sounds Skin: General skin exam: normal color Neuro: Speech: normal speech Motor exam (neuro): 5/5 motor strength present throughout Extrem: General: pedal edema bilaterally Psych: Mental Status: mental status grossly normal Objective Data Vital Signs Vital Signs: Vital Signs - 24 hr 08/17/23 20:00 08/17/23 20:00 08/18/23 00:00 Temperature 98.6 F 97.7 F Pulse Rate 92 86 Respiratory Rate 16 16 Blood Pressure 156/67 H 153/61 H Pulse Oximetry 100 100 98 Oxygen Delivery Room Air 08/18/23 04:00 08/18/23 08:00 08/18/23 12:00 Temperature 96.6 F L 98.0 F 98.1 F Pulse Rate 77 77 84 Respiratory Rate 16 16 14 Blood Pressure 141/54 H 138/54 L 121/64 Pulse Oximetry 94 97 99 Oxygen Delivery 08/18/23 16:00 Temperature 97.3 F L Pulse Rate 74 Respiratory Rate 18 Blood Pressure 148/95 H Pulse Oximetry 100 Oxygen Delivery Intake/Output Intake/Output: Intake & Output 08/15/23 08/16/23 08/17/23 08/18/23 23:59 23:59 23:59 23:59 Intake Total 3720 640 2836 1829 Balance 3720 640 2836 1829 Meds/Results Medications: Active Medications Generic Name Dose Route Start Last Admin Trade Name Freq PRN Reason Stop Dose Admin Acetaminophen 650 mg 08/11/23 15:21 Acetaminophen 325 Mg Tablet PO Q4H PRN Mild Pain (1-3) or Fever Hydrocodone Bitart/Acetaminophen 1 tab 08/11/23 15:21 Hydrocodone/Acetaminophen (*Crx) 5-325 Mg Tablet PO Q4H PRN Pain Rated 4-6 Aspirin 81 mg 08/13/23 09:00 08/18/23 10:57 Aspirin 81 Mg Enteric Tablet PO 81 mg DAILY NEETA Administration Dextrose 12.5 gm 08/18/23 13:06 Dextrose 50% 25 Gm/50 Ml Syringe IV PUSH PRN PRN Hypoglycemia Protocol Ferrous Sulfate 325 mg 08/12/23 10:00 08/18/23 17:22 Ferrous Sulfate [address] BY MOUTH 325 mg BID NEETA Administration Fidaxomicin 200 mg 08/16/23 21:00 08/18/23 10:57 Fidaxomicin 200 Mg Tablet PO 200 mg Q12HR NEETA Administration Gabapentin 300 mg 08/12/23 10:00 08/18/23 11:00 Gabapentin 300 Mg Capsule PO 300 mg Q12HR NEETA Administration Glucagon 1 mg 08/18/23 13:06 Glucagon For Inj 1 Mg Vial IM PRN PRN Hypoglycemia Protocol Glucose 15 gm 08/18/23 13:06 Glucose Oral Gel 15 Gm Of Glucse In 37.5 Gm Tube PO PRN PRN Hypoglycemia Protocol Hydroxychloroquine [place]
[2023-08-18 20:42] LABS: Glucose Point of Care 81 mg/dl (65-105)
[2023-08-19] VITALS: BP 121/64; PULSE 80; RESP 18; TEMP 36.7; O2SAT 99
[2023-08-19 01:09] LABS: Glucose Point of Care 80 mg/dl (65-105)
[2023-08-19] MEDS: SODIUM BICARBONATE 8.4% 75 MEQ in DEXTROSE 5%/0.45% SOD CHL 1,000 ML 70 ML IV CONT ×2 (03:32→21:24)
[2023-08-19 04:00] VITALS: BP 144/54; PULSE 85; RESP 18; TEMP 36.4; O2SAT 98
[2023-08-19 05:00] LABS: Glucose Point of Care 76 mg/dl (65-105)
[2023-08-19] MEDS: metroNIDAZOLE 500 MG/ISO 100ML 500 MG/100 ML BAG 100 MG IVPB ×3 (06:32→21:26)
[2023-08-19 06:58] LABS: Basophils Absolute Auto 0.1 K/mm3 (0.0-0.1); Basophils Percent Auto 0.2 % (0.2-1.2); Hematocrit 27.3 % (37.0-47.0); Hemoglobin 8.8 g/dL (12.0-15.0); Immature Granulocyte Absolute 2.19 K/mm3 (0.00-0.031); Immature Granulocyte Percent A 7.6 % (0-0.5); Lymphocytes Absolute Auto 0.64 K/mm3 (0.9-3.2); Lymphocytes Percent Auto 2.2 % (18.3-44.2); Mean Corpuscular HGB Conc 32.2 g/dl (32-36); Mean Corpuscular Hemoglobin 26.3 pg (26-34); Mean Corpuscular Volume 81.7 fl (80-100); Mean Platelet Volume 8.4 fl (7.4-10.4); Monocytes Absolute Auto 2.2 K/mm3 (0.1-0.6); Monocytes Percent Auto 7.6 % (2.6-8.5); Neutrophils Absolute Auto 23.6 K/mm3 (1.3-6.7); Neutrophils Percent Auto 82.4 % (45.5-73.1); Nucleated Red Blood Cells Perc 0.1 % (0.0-0.2); Platelet Count Result 318 k/mm3 (150-375); Red Blood Count 3.34 M/mm3 (4.2-5.4); White Blood Count 28.6 K/mm3 (4.5-10.0)
[2023-08-19 07:11] LABS: Alanine Aminotransferase 12 U/L (6-35); Albumin Level 1.7 g/dL (3.5-5.1); Alkaline Phosphatase 51 U/L (38-126); Anion Gap 6 mmol/L (8-16); Aspartate Amino Transferase 16 U/L (14-36); Bilirubin,Total 0.3 mg/dL (0.2-1.3); Blood Urea Nitrogen 38 mg/dL (7-17); Calcium 7.2 mg/dL (8.4-10.2); Carbon Dioxide 16 mmol/L (22-30); Chloride 99 mmol/L (98-107); Estimated CRCL calculation 11 ml/min; Estimated Glomerular Filt Rate 9; Glucose 86 mg/dL (65-110); Lactic Acid Reflex 1.1 mmol/L (0.7-2.0); Magnesium 1.8 mg/dL (1.6-2.3); Potassium 3.7 mmol/L (3.4-5.0); Sodium 121 mmol/L (137-145)
[2023-08-19 07:43] VITALS: BP 130/57; PULSE 74; RESP 17; TEMP 36.7; O2SAT 98
[2023-08-19 07:55] LABS: Glucose Point of Care 82 mg/dl (65-105)
[2023-08-19 08:22] LABS: Platelet Estimate Adequate (Adequate)
[2023-08-19 08:24] LABS: Crenated RBC 2+ (NORMAL); Poikilocytosis 1+ (NORMAL); Schistocytes 1+ (NORMAL)
[2023-08-19] MEDS: cefTRIAXone 2 GM/NS 100 ML 2 GM/100 ML BAG IVPB (08:47)
[2023-08-19] MEDS: SODIUM BICARBONATE TAB 650 MG TABLET 1300 MG PO ×2 (08:48→17:27)
[2023-08-19] MEDS: PANTOPRAZOLE 40 MG TABLET PO ×2 (08:48→21:25)
[2023-08-19] MEDS: FERROUS SULFATE 325 MG TABLET DR BY MOUTH ×2 (08:48→17:27)
[2023-08-19] MEDS: ASPIRIN 81 MG ENTERIC TABLET PO (08:49)
[2023-08-19] MEDS: GABAPENTIN 300 MG CAPSULE PO ×2 (08:49→21:25)
[2023-08-19] MEDS: FIDAXOMICIN 200 MG TABLET PO ×2 (08:49→21:25)
[2023-08-19] MEDS: VENLAFAXINE HCL XR 75 MG CAP.ER.24H PO (08:49)
--- NOTE | 2023-08-19 09:07 | WPDGIPROGNO ---
Progress Note: A&P Assessment and Plan (1) C. difficile colitis: Code(s): A04.72 - Enterocolitis due to Clostridium difficile, not specified as recurrent Status: Acute Assessment and Plan: now on dificid and iv flagyl she is also on rocephin because uti- primary will discontinue soon wbc still high- continue to monitor diarrhea seems that is improving (2) Sepsis: Code(s): A41.9 - Sepsis, unspecified organism Status: Acute Assessment and Plan: on treatment (3) DREW (acute kidney injury): Code(s): N17.9 - Acute kidney failure, unspecified Status: Acute Assessment and Plan: worsening renal failure nephrology on board (4) Acute hyponatremia: Code(s): E87.1 - Hypo-osmolality and hyponatremia Status: Acute (5) Acute on chronic anemia: Code(s): D64.9 - Anemia, unspecified Status: Acute Assessment and Plan: h/h low but stable no overt gib no need to repeat scopes Subjective Date/time seen: 08/19/23 09:07 Interval history: finally she says that diarrhea slowing down and more consistent in shape Review of Systems Review of Systems: All systems reviewed & are unremarkable except as noted in HPI and below Exam Const: General: comfortable HENMT: Face/Nose/Sinus: Normal nares present Eyes: General: appearance normal, both eyes and all related structures Neck: Neck: supple Resp: Effort & Inspection: normal respiratory effort Cardio: Rate: regular rate GI: GI Palp: Yes Soft to palpation, No Tenderness to palpation present (GI) and No Guarding due to palpation present (GI) Auscultation: normal bowel sounds Skin: General skin exam: normal color Neuro: Speech: normal speech Motor exam (neuro): 5/5 motor strength present throughout Extrem: General: pedal edema bilaterally Psych: Mental Status: mental status grossly normal Objective Data Vital Signs Vital Signs: Vital Signs - 24 hr 08/18/23 12:00 08/18/23 16:00 08/18/23 20:00 Temperature 98.1 F 97.3 F L 98 F Pulse Rate 84 74 84 Respiratory Rate 14 18 18 Blood Pressure 121/64 148/95 H 138/75 Pulse Oximetry 99 100 97 08/18/23 22:53 08/19/23 00:00 08/19/23 04:00 Temperature 98.1 F 97.5 F L Pulse Rate 81 80 85 Respiratory Rate 18 18 Blood Pressure 121/64 144/54 H Pulse Oximetry 97 99 98 08/19/23 07:43 Temperature 98.1 F Pulse Rate 74 Respiratory Rate 17 Blood Pressure 130/57 L Pulse Oximetry 98 Intake/Output Intake/Output: Intake & Output 08/16/23 08/17/23 08/18/23 08/19/23 23:59 23:59 23:59 23:59 Intake Total 640 2836 3444 1400 Balance 640 2836 3444 1400 Meds/Results Medications: Active Medications Generic Name Dose Route Start Last Admin Trade Name Freq PRN Reason Stop Dose Admin Acetaminophen 650 mg 08/11/23 15:21 Acetaminophen 325 Mg Tablet PO Q4H PRN Mild Pain (1-3) or Fever Hydrocodone Bitart/Acetaminophen 1 tab 08/11/23 15:21 Hydrocodone/Acetaminophen (*Crx) 5-325 Mg Tablet PO Q4H PRN Pain Rated 4-6 Aspirin 81 mg 08/13/23 09:00 08/19/23 08:49 Aspirin 81 Mg Enteric Tablet PO 81 mg DAILY NEETA Administration Dextrose 12.5 gm 08/18/23 13:06 Dextrose 50% 25 Gm/50 Ml Syringe IV PUSH PRN PRN Hypoglycemia Protocol Ferrous Sulfate 325 mg 08/12/23 10:00 08/19/23 08:48 Ferrous Sulfate [address] BY MOUTH 325 mg BID NEETA Administration Fidaxomicin 200 mg 08/16/23 21:00 08/19/23 08:49 Fidaxomicin 200 Mg Tablet PO 200 mg Q12HR NEETA Administration Gabapentin 300 mg 08/12/23 10:00 08/19/23 08:49 Gabapentin 300 Mg Capsule PO 300 mg Q12HR NEETA Administration Glucagon 1 mg 08/18/23 13:06 Glucagon For Inj 1 Mg Vial IM PRN PRN Hypoglycemia Protocol Glucose 15 gm 08/18/23 13:06 Glucose Oral Gel 15 Gm Of Glucse In 37.5 Gm Tube PO PRN PRN Hypoglycemia Protocol Hydroxychloroquine Sulfate 4
--- NOTE | 2023-08-19 11:44 | P.PNNP_ITS ---
Progress Note: A&P Assessment and Plan (1) Hyponatremia: Code(s): E87.1 - Hypo-osmolality and hyponatremia Status: Acute Assessment and Plan: * continues to fluctuate * as noted on admission (admission sodium 126) * history would suggest hypovolemia as etiology (on admission) from ongoing GI losses/diarrhea * however, now related to ongoing DREW/ARF as well * could be related to medications -- on PPI and venlafaxine (but these are chronic medications) * evaluation to date: * TSH and cortisol okay * urine electrolytes prerenal * SPEP/UPEP without M-spike * serum/urine osmo pending * follow the trend of repeat sodium level (2) DREW (acute kidney injury): Code(s): N17.9 - Acute kidney failure, unspecified Status: Acute Assessment and Plan: * continues to worsen/deteriorate... * noted on admission * resolved initially with IVF hydration * but has been deteriorating as noted by trend of labs since 08/14/23 * suspect ongoing volume depletion coupled with infection/sepsis (from C. diff colits + UTI +/- bacteremia) leading to ATN * noted contrast exposure with CT done on 08/11 * evaluation to date: * urine electrolytes prerenal * CT imaging without obstruction of kidneys * UA c/w infection * urine eosinophils not done (would not be informative in the context of UTI) * she remains at risk for RADIOLOGY INTERVENTIONAL PHYSICIAN/hemodialysis (although she is not interested in t his intervention) * continue current therapy (3) Sepsis: Code(s): A41.9 - Sepsis, unspecified organism Status: Acute Assessment and Plan: * as noted on admission * noted elevated WBC, tachycardia, and hypotension * presumable source is C. diff colitis +/- UTI * culture data noted * on antibiotics * follow hemodynamics (4) C. difficile colitis: Code(s): A04.72 - Enterocolitis due to Clostridium difficile, not specified as recurrent Status: Acute Assessment and Plan: * as noted by testing * on dificid and flagyl * Gastroenterology following * follow symptoms and stool output (5) Urinary tract infection: Code(s): N39.0 - Urinary tract infection, site not specified Status: Acute Assessment and Plan: * as suggested by admission UA * urine culture with E. coli * on antibiotics (last dose today) (6) Metabolic acidosis: Code(s): E87.20 - Acidosis, unspecified Status: Acute Assessment and Plan: * due to GI losses and ongoing DREW * on bicarb gtt + oral sodium bicarbonate to compensate * follow lactic acid levels * follow trend (7) HTN (hypertension): Code(s): I10 - Essential (primary) hypertension Status: Chronic Assessment and Plan: * reasonable control * follow trend of hemodynamcis (8) Anemia: Code(s): D64.9 - Anemia, unspecified Status: Chronic Assessment and Plan: * likely due to iron deficiency, DREW, and acute illness * follow trend of H/H * PRBC transfusion per protocol * holding IV iron in the setting of acute infection Will continue to follow. Subjective Date/time seen: 08/19/23 11:44 Interval history: Follow-up for acute on chronc hyponatremia and acute kidney injury/acute renal failure. She staes the diarreha seems to be better but it is still present; renal functon and sodium continue to worsen despite all conservative therapy to date; no new issue or complaints voiced; no events overnight or earlier this AM. Exam
--- NOTE | 2023-08-19 11:44 | PM.PNNEP ---
Progress Note: A&P Assessment and Plan (1) Hyponatremia: Code(s): E87.1 - Hypo-osmolality and hyponatremia Status: Acute Assessment and Plan: continues to fluctuate as noted on admission (admission sodium 126) history would suggest hypovolemia as etiology (on admission) from ongoing GI losses/diarrhea however, now related to ongoing DREW/ARF as well could be related to medications -- on PPI and venlafaxine (but these are chronic medications) evaluation to date: TSH and cortisol okay urine electrolytes prerenal SPEP/UPEP without M-spike serum/urine osmo pending follow the trend of repeat sodium level (2) DREW (acute kidney injury): Code(s): N17.9 - Acute kidney failure, unspecified Status: Acute Assessment and Plan: continues to worsen/deteriorate... noted on admission resolved initially with IVF hydration but has been deteriorating as noted by trend of labs since 08/14/23 suspect ongoing volume depletion coupled with infection/sepsis (from C. 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 diff colitis +/- UTI culture data noted on antibiotics follow hemodynamics (4) C. difficile colitis: Code(s): A04.72 - Enterocolitis due to Clostridium difficile, not specified as recurrent Status: Acute Assessment and Plan: as noted by testing on dificid and flagyl Gastroenterology following follow symptoms and stool output (5) Urinary tract infection: Code(s): N39.0 - Urinary tract infection, site not specified Status: Acute Assessment and Plan: as suggested by admission UA urine culture with E. coli on antibiotics (last dose today) (6) Metabolic acidosis: Code(s): E87.20 - Acidosis, unspecified Status: Acute Assessment and Plan: due to GI losses and ongoing DREW on bicarb gtt + oral sodium bicarbonate to compensate follow lactic acid levels follow trend (7) HTN (hypertension): Code(s): I10 - Essential (primary) hypertension Status: Chronic Assessment and Plan: reasonable control follow trend of hemodynamcis (8) Anemia: Code(s): D64.9 - Anemia, unspecified Status: Chronic Assessment and Plan: likely due to iron deficiency, DREW, and acute illness follow trend of H/H PRBC transfusion per protocol holding IV iron in the setting of acute infection Will continue to follow. Subjective Date/time seen: 08/19/23 11:44 Interval history: Follow-up for acute on chronc hyponatremia and acute kidney injury/acute renal failure. She staes the diarreha seems to be better but it is still present; renal functon and sodium continue to worsen despite all conservative therapy to date; no new issue or complaints voiced; no events overnight or earlier this AM. Exam Narrative: General: elderly but WD/WN female in NAD Heart: normal S1 and S2; no rub Lungs: clear to auscultation Abdomen: soft, nontender, nondistended, positive bowel sounds Extremities: no cyanosis or clubbing; trace - 1+ edema Skin: warm and intact Objective Data Vital Signs Vital Signs: Vital Signs Temp Pulse Resp BP Pulse Ox 08/19/23 11:33 97.9 F 72 17 140/57 L 100 08/19/23 07:43 98.1 F 74 17 130/57 L 98 08/19/23 04:00 97.5 F L 85 18 144/54 H 98 08/19/23 00:00 98.1 F 80
[2023-08-19 12:18] LABS: Glucose Point of Care 99 mg/dl (65-105)
[2023-08-19 12:33] VITALS: BP 140/57; PULSE 72; RESP 17; TEMP 36.6; O2SAT 100
--- NOTE | 2023-08-19 12:40 | PM.IMPN ---
Progress Note: A&P Assessment and Plan (1) Colitis: Code(s): K52.9 - Noninfective gastroenteritis and colitis, unspecified Status: Acute (2) Severe sepsis: Code(s): A41.9 - Sepsis, unspecified organism; R65.20 - Severe sepsis without septic shock Status: Acute (3) Acute on chronic renal failure: Code(s): N17.9 - Acute kidney failure, unspecified; N18.9 - Chronic kidney disease, unspecified Status: Acute (4) Hypotension due to hypovolemia: Code(s): I95.89 - Other hypotension; E86.1 - Hypovolemia Status: Acute (5) Obstructive sleep apnea on CPAP: Code(s): G47.33 - Obstructive sleep apnea (adult) (pediatric); Z99.89 - Dependence on other enabling machines and devices Status: Acute (6) HTN (hypertension): Code(s): I10 - Essential (primary) hypertension Status: Chronic (7) Degenerative joint disease of left hip: Qualifiers: Osteoarthritis type: other secondary Qualified Code(s): M16.7 - Other unilateral secondary osteoarthritis of hip Code(s): M16.12 - Unilateral primary osteoarthritis, left hip Status: Acute (8) Hyponatremia: Code(s): E87.1 - Hypo-osmolality and hyponatremia Status: Acute (9) Acute hyponatremia: Code(s): E87.1 - Hypo-osmolality and hyponatremia Status: Acute (10) Mixed hyperlipidemia: Code(s): E78.2 - Mixed hyperlipidemia Status: Chronic (11) Rheumatoid arthritis with rheumatoid factor of multiple sites without organ or systems involvement: Onset Date: ~1999 Code(s): M05.79 - Rheumatoid arthritis with rheumatoid factor of multiple sites without organ or systems involvement Status: Acute Plan Colitis Cdiff positive Continue Dificid and Flagyl GI following Severe sepsis, resolving Patient has leukocytosis, tachycardia, hypotension, suspecting severe sepsis due to colitis Follow-up blood culture urine culture, urinalysis, stool culture Repeat CT AP no perforations or abscess Continue IV fluid, Deficid and Flagyl, patient will finish Rocephin tomorrow Monitor closely. GI following and appreciate input DREW on CKD, Worsening kidney function, hyponatremia, hypotension, possible due to diarrhea and in adequate intake continue IVF per nephrology Follow-up BMP Avoid nephrotoxic medication Nephrology following Hypertension Monitor Iron-deficiency anemia I set the date, hemoglobin 8.4. Hemoglobin close to baseline Occult blood stool positive However patient has diffuse colitis Venofer 300mg iv once and continue PO replacement GI evaluated and noted patient has recent endoscopy and no need for repeat at this time History of GERD, duodenal ulcer Continue prednisone 40 mg daily p.o. +bc contaminant uti abx hyponatremia, na 123 to 122-->121 nephrology following, fluid management per nephrology Awaiting improvement in renal function for discharge planning DVT prophylaxis on SCDs, no AC due to possible GI bleed Subjective Date/time seen: 08/19/23 12:40 Interval history: Patient noted improving diarrhea but still having diarrhea However renal function is worsening, Cr 4.5 from 4.1 Exam Narrative: GENERAL: Well-appearing, well-nourished, and in no acute distress. HEAD: Normocephalic, atraumatic. EYES: PERRLA and EOMI. ENT: Mucous membranes moist. CHEST: Clear to auscultation. No respiratory distress. HEART: Regular rate and rhythm. Normal peripheral pulses. ABDOMEN: Soft, nontender, nondistended. EXTREMITIES: Normal range of motion. No edema. SKIN: Warm, dry, no rash. NEURO: Alert and oriented x3. PSYCH: Normal mood and affect. Objective Data Vital Signs Vital Signs: Vital Signs - 24 hr 08/18/23 16:00 08/18/23 20:00 08/18/23 22:53 Temperature 97.3 F L 98 F Pulse Rate 74 84 81 Respiratory Rate 18 18 Blood Pressure 148/95 H 138/75 Pulse Oximetry 100 97 97 08/19/23 00:00 08/19/23
[2023-08-19 14:52] LABS: Albumin Level 1.7 g/dL (3.5-5.1); Anion Gap 6 mmol/L (8-16); Blood Urea Nitrogen 41 mg/dL (7-17); Carbon Dioxide 17 mmol/L (22-30); Chloride 99 mmol/L (98-107); Estimated CRCL calculation 12 ml/min; Estimated Glomerular Filt Rate 10; Glucose 100 mg/dL (65-110); Phosphorus 4.4 mg/dL (2.5-4.5); Potassium 3.5 mmol/L (3.4-5.0); Sodium 122 mmol/L (137-145)
[2023-08-19 16:45] VITALS: BP 130/64; PULSE 81; RESP 17; TEMP 36.7; O2SAT 97
[2023-08-19 16:54] LABS: Glucose Point of Care 102 mg/dl (65-105)
[2023-08-19] MEDS: ACETAMINOPHEN 325 MG TABLET 650 MG PO ×2 (17:27→23:22)
[2023-08-19 20:00] VITALS: BP 112/54; PULSE 72; RESP 18; TEMP 36.9; O2SAT 100
[2023-08-19 21:33] LABS: Glucose Point of Care 102 mg/dl (65-105)
[2023-08-20] VITALS (8 sets, daily range): BP systolic 126–162; BP diastolic 46–73; PULSE 66–81; RESP 16–18; TEMP 36.4–36.8; O2SAT 95–100
[2023-08-20 00:38] LABS: Glucose Point of Care 81 mg/dl (65-105)
[2023-08-20 04:44] LABS: Glucose Point of Care 112 mg/dl (65-105)
[2023-08-20 06:48] LABS: Hematocrit 27.3 % (37.0-47.0); Hemoglobin 8.8 g/dL (12.0-15.0); Mean Corpuscular HGB Conc 32.2 g/dl (32-36); Mean Corpuscular Hemoglobin 26.1 pg (26-34); Mean Platelet Volume 9.5 fl (7.4-10.4); Platelet Count Result 350 k/mm3 (150-375); Red Blood Count 3.37 M/mm3 (4.2-5.4); Red Cell Distribution Width 21.2 % (11.5-14.5); White Blood Count 25.6 K/mm3 (4.5-10.0)
[2023-08-20 06:59] LABS: Alanine Aminotransferase 11 U/L (6-35); Albumin Level 1.7 g/dL (3.5-5.1); Alkaline Phosphatase 69 U/L (38-126); Anion Gap 6 mmol/L (8-16); Aspartate Amino Transferase 18 U/L (14-36); Bilirubin,Total 0.3 mg/dL (0.2-1.3); Blood Urea Nitrogen 40 mg/dL (7-17); Calcium 7.1 mg/dL (8.4-10.2); Carbon Dioxide 18 mmol/L (22-30); Chloride 99 mmol/L (98-107); Estimated CRCL calculation 11 ml/min; Estimated Glomerular Filt Rate 9; Glucose 86 mg/dL (65-110); Magnesium 1.8 mg/dL (1.6-2.3); Potassium 3.5 mmol/L (3.4-5.0); Sodium 123 mmol/L (137-145)
[2023-08-20 07:08] LABS: Lactic Acid Reflex 1.2 mmol/L (0.7-2.0)
[2023-08-20 07:11] LABS: Anisocytosis 3+ (NORMAL); Band Neutrophils Percent 6 % (0-6); Lymphocytes Absolute Manual 1.02 K/mm3 (1.1-4.5); Lymphocytes Percent Manual 4 % (18-44); Monocytes Absolute Manual 1.02 K/mm3 (0.1-0.90); Monocytes Percent Manual 4 % (3-9); Myelocytes Percent 1 %; Neutrophils Absolute Manual 23.04 K/mm3 (1.7-7.2); Neutrophils Percent Manual 84 % (46-73); Platelet Estimate Adequate (Adequate); Promyelocytes Percent 1 %; Total Cells Counted 100
[2023-08-20 07:12] LABS: Burr Cells 2+ (NORMAL); Schistocytes 1+ (NORMAL)
[2023-08-20 07:13] LABS: Hypochromasia 1+ (NORMAL)
[2023-08-20] MEDS: ASPIRIN 81 MG ENTERIC TABLET PO (07:59)
[2023-08-20] MEDS: PANTOPRAZOLE 40 MG TABLET PO (07:59)
[2023-08-20] MEDS: SODIUM BICARBONATE TAB 650 MG TABLET 1300 MG PO ×2 (07:59→16:34)
[2023-08-20] MEDS: GABAPENTIN 300 MG CAPSULE PO (07:59)
[2023-08-20] MEDS: FIDAXOMICIN 200 MG TABLET PO (07:59)
[2023-08-20] MEDS: VENLAFAXINE HCL XR 75 MG CAP.ER.24H PO (08:00)
[2023-08-20] MEDS: FERROUS SULFATE 325 MG TABLET DR BY MOUTH ×2 (08:00→16:34)
[2023-08-20] MEDS: ACETAMINOPHEN 325 MG TABLET 650 MG PO (09:08)
--- NOTE | 2023-08-20 09:40 | PCNWS ---
Weekly nutritional screen. Patient is tolerating current heart healthy diet with adequate intake. No weight loss reported. No nutritional needs at this time.
[2023-08-20 10:31] LABS: Glucose Point of Care 85 mg/dl (65-105)
--- NOTE | 2023-08-20 10:55 | PCOTNOTE ---
Attempted to see Patient at this time. Patient verbalized she is feeling horrible and requested therapy come back at a later time.
[2023-08-20 11:59] LABS: Glucose Point of Care 116 mg/dl (65-105)
--- NOTE | 2023-08-20 12:38 | P.PNNP_ITS ---
Progress Note: A&P Assessment and Plan (1) Hyponatremia: Code(s): E87.1 - Hypo-osmolality and hyponatremia Status: Acute Assessment and Plan: * continues to fluctuate * as noted on admission (admission sodium 126) * history would suggest hypovolemia as etiology (on admission) from ongoing GI losses/diarrhea * however, now related to ongoing DREW/ARF as well * could be related to medications -- on PPI and venlafaxine (but these are chronic medications) * evaluation to date: * TSH and cortisol okay * urine electrolytes prerenal * SPEP/UPEP without M-spike * serum/urine osmo pending * follow the trend of repeat sodium level (2) DREW (acute kidney injury): Code(s): N17.9 - Acute kidney failure, unspecified Status: Acute Assessment and Plan: * continues to worsen/deteriorate... * noted on admission * resolved initially with IVF hydration * but has been deteriorating as noted by trend of labs since 08/14/23 * suspect ongoing volume depletion coupled with infection/sepsis (from C. 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 diff colitis +/- UTI * culture data noted * on antibiotics * follow hemodynamics (4) C. difficile colitis: Code(s): A04.72 - Enterocolitis due to Clostridium difficile, not specified as recurrent Status: Acute Assessment and Plan: * as noted by testing * on dificid and flagyl * Gastroenterology following * follow symptoms and stool output (5) Urinary tract infection: Code(s): N39.0 - Urinary tract infection, site not specified Status: Acute Assessment and Plan: * as suggested by admission UA * urine culture with E. coli * completed course of antibiotics (6) Metabolic acidosis: Code(s): E87.20 - Acidosis, unspecified Status: Acute Assessment and Plan: * due to GI losses and ongoing DREW * on bicarb gtt + oral sodium bicarbonate to compensate * follow lactic acid levels * follow trend (7) HTN (hypertension): Code(s): I10 - Essential (primary) hypertension Status: Chronic Assessment and Plan: * reasonable control * follow trend of hemodynamcis (8) Anemia: Code(s): D64.9 - Anemia, unspecified Status: Chronic Assessment and Plan: * likely due to iron deficiency, DREW, and acute illness * follow trend of H/H * PRBC transfusion per protocol * holding IV iron in the setting of acute infection Will continue to follow. Subjective Date/time seen: 08/20/23 09:48 Interval history: Follow-up for acute on chronc hyponatremia and acute kidney injury/acute renal failure. Renal function continues to deteriorate along with fluctuating sodium; metabolic a
--- NOTE | 2023-08-20 12:38 | PM.PNNEP ---
Progress Note: A&P Assessment and Plan (1) Hyponatremia: Code(s): E87.1 - Hypo-osmolality and hyponatremia Status: Acute Assessment and Plan: continues to fluctuate as noted on admission (admission sodium 126) history would suggest hypovolemia as etiology (on admission) from ongoing GI losses/diarrhea however, now related to ongoing DREW/ARF as well could be related to medications -- on PPI and venlafaxine (but these are chronic medications) evaluation to date: TSH and cortisol okay urine electrolytes prerenal SPEP/UPEP without M-spike serum/urine osmo pending follow the trend of repeat sodium level (2) DREW (acute kidney injury): Code(s): N17.9 - Acute kidney failure, unspecified Status: Acute Assessment and Plan: continues to worsen/deteriorate... noted on admission resolved initially with IVF hydration but has been deteriorating as noted by trend of labs since 08/14/23 suspect ongoing volume depletion coupled with infection/sepsis (from C. 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 diff colitis +/- UTI culture data noted on antibiotics follow hemodynamics (4) C. difficile colitis: Code(s): A04.72 - Enterocolitis due to Clostridium difficile, not specified as recurrent Status: Acute Assessment and Plan: as noted by testing on dificid and flagyl Gastroenterology following follow symptoms and stool output (5) Urinary tract infection: Code(s): N39.0 - Urinary tract infection, site not specified Status: Acute Assessment and Plan: as suggested by admission UA urine culture with E. coli completed course of antibiotics (6) Metabolic acidosis: Code(s): E87.20 - Acidosis, unspecified Status: Acute Assessment and Plan: due to GI losses and ongoing DREW on bicarb gtt + oral sodium bicarbonate to compensate follow lactic acid levels follow trend (7) HTN (hypertension): Code(s): I10 - Essential (primary) hypertension Status: Chronic Assessment and Plan: reasonable control follow trend of hemodynamcis (8) Anemia: Code(s): D64.9 - Anemia, unspecified Status: Chronic Assessment and Plan: likely due to iron deficiency, DREW, and acute illness follow trend of H/H PRBC transfusion per protocol holding IV iron in the setting of acute infection Will continue to follow. Subjective Date/time seen: 08/20/23 09:48 Interval history: Follow-up for acute on chronc hyponatremia and acute kidney injury/acute renal failure. Renal function continues to deteriorate along with fluctuating sodium; metabolic acidosis persists despite both oral and IV replacement; still making some urine but appetite is poor; no acute distress noted. Exam Narrative: General: elderly but WD/WN female in NAD Heart: normal S1 and S2; no rub Lungs: clear to auscultation Abdomen: soft, nontender, nondistended, positive bowel sounds Extremities: no cyanosis or clubbing; trace - 1+ edema Skin: warm and intact Objective Data Vital Signs Vital Signs: Vital Signs Temp Pulse Resp BP Pulse Ox O2 Del Method 08/20/23 09:47 97.7 F 6
[2023-08-20] MEDS: SODIUM BICARBONATE 8.4% 75 MEQ in DEXTROSE 5%/0.45% SOD CHL 1,000 ML 70 ML IV CONT (12:46)
--- NOTE | 2023-08-20 14:45 | PCOTNOTE ---
Patient refused this afternoon for therapy services. Patient stated she doesnt feel well and needs more rest. Patient was educated on the importance of movement to strengthening herself.
--- NOTE | 2023-08-20 15:08 | PCPTNOTE ---
Attempted to see patient for PT, however patient declined due to feeling too worn out at this time.
--- NOTE | 2023-08-20 15:28 | PCDIET ---
Spoke with nursing today in regards to Cdiff. Patient started on Banatrol Plus BID for stool bulking. Will continue to monitor oral intake and stool frequency.
[2023-08-20 16:48] LABS: Glucose Point of Care 94 mg/dl (65-105)
[2023-08-20] MEDS: CALCIUM GLUC 2,000 MG/NS 100ML 2,000 MG/100 ML BAG 100 MG IVPB (17:26)
--- NOTE | 2023-08-20 17:40 | PM.IMPN ---
Progress Note: A&P Assessment and Plan (1) C. difficile colitis: Code(s): A04.72 - Enterocolitis due to Clostridium difficile, not specified as recurrent Status: Acute (2) Sepsis: Code(s): A41.9 - Sepsis, unspecified organism Status: Acute (3) DREW (acute kidney injury): Code(s): N17.9 - Acute kidney failure, unspecified Status: Acute (4) Acute on chronic renal failure: Code(s): N17.9 - Acute kidney failure, unspecified; N18.9 - Chronic kidney disease, unspecified Status: Acute (5) HTN (hypertension): Code(s): I10 - Essential (primary) hypertension Status: Chronic (6) Degenerative joint disease of left hip: Qualifiers: Osteoarthritis type: other secondary Qualified Code(s): M16.7 - Other unilateral secondary osteoarthritis of hip Code(s): M16.12 - Unilateral primary osteoarthritis, left hip Status: Acute (7) Hyponatremia: Code(s): E87.1 - Hypo-osmolality and hyponatremia Status: Acute Plan 1. C diff colitis (severe to fulminant) Cdiff positive 08/20: Pt is in severe to fulminant life threatening c diff colitis. The repeat CT shows Small amount of abdominopelvic ascites present, probable mesenteric edema. There is large bowel wall thickening, extensively involving the ascending and transverse colon in particular. No bowel obstruction. No abscess or free air evident. The pt needs urgent escalation of abx. Now will be on oral vancomycin 500 mg qid and iv flagyl 500 q8 for 14 days or until wbc decreases. The pt is at high risk for toxic megacolon based on the CT findings of edema, ascites, and large bowel thickening. Luckily she has no free air NPO except important meds. IVF- Can ct Na with 1 amp of bicarb. Probably can do 2 or 3 amps. Start TPN 2. DREW Deterioration of kidney function from diarrhea and infection NPO. Ct IVF, NaCl with 1 amp of bicarb for metabolic acidosis If she does not recover in a few days, she will need dialysis. She will talk to her family about this. Insert chang, strict i/o, fu urine output 4. Hypertension Can use IV hydralazine 5. Iron-deficiency anemia I set the date, hemoglobin 8.4. Hemoglobin close to baseline Occult blood stool positive However patient has diffuse colitis Venofer 300mg iv once and continue PO replacement GI evaluated and? noted patient has recent endoscopy and no need for repeat at this time 08/20: Does not need blood transfusion at this time. IV protonix 6. Hyponatremia 08/20: Now 123 Trend with daily bmp's Will need daily CBC's and BMP's. Will Order tomorrow to trend At risk of central pontine myelinolysis with quick increase in sodium 7. History of GERD, duodenal ulcer Continue prednisone 40 mg daily p.o. 08/20: Stop prednisone. Contraindicated in life threatening infection ct iv protonix +bc contaminant uti abx 08/20: Ceftriaxone has stopped. DVT prophylaxis on SCDs, no AC due to possible GI bleed Time Spent With Patient Time: 1 hr Subjective Date/time seen: 08/20/23 17:40 Interval history: pt still having diarrhea every 30 min to 1 hr. she still does not want dialysis because she says she is dnr . she will talk with her family if it is a short term emergency. Review of Systems Review of Systems: none additional. Exam Narrative: GENERAL: Well-appearing, well-nourished, and in no acute distress. HEAD: Normocephalic, atraumatic. EYES: PERRLA and EOMI. ENT:? Mucous membranes moist. CHEST: Decreased bs at the bases HEART: Regular rate and rhythm. ? Normal peripheral pulses. ABDOMEN: abd distended with hyperactive bs EXTREMITIES: Normal range of motion.? No edema. SKIN: Warm, dry, no rash. NEURO: Alert and oriented x3. PSYCH: Normal mood and affect. Objective Data Vital Signs Vital Signs: Vital Signs - 24 hr 08/19/23 20:00 08/19/23 20:00 08/20/23 00:00 Temperature 98.5 F 98.1 F Pulse Rate 72 81 Respiratory Rate 18 18
[2023-08-20] MEDS: VANCOMYCIN ORAL 500 MG/10 ML SYRUP PO (18:14)
[2023-08-20] MEDS: metroNIDAZOLE 500 MG/ISO 100ML 500 MG/100 ML BAG 100 MG IVPB (18:31)
[2023-08-20 19:20] LABS: Hematocrit 28.5 % (37.0-47.0); Hemoglobin 9.1 g/dL (12.0-15.0); Mean Corpuscular HGB Conc 31.9 g/dl (32-36); Mean Corpuscular Hemoglobin 26.1 pg (26-34); Mean Corpuscular Volume 81.7 fl (80-100); Mean Platelet Volume 8.9 fl (7.4-10.4); Platelet Count Result 362 k/mm3 (150-375); Red Blood Count 3.49 M/mm3 (4.2-5.4); Red Cell Distribution Width 21.5 % (11.5-14.5); White Blood Count 23.8 K/mm3 (4.5-10.0)
[2023-08-20 19:28] LABS: Partial Thromboplastin Time 28.7 SECONDS (22.3-36.8)
[2023-08-20 19:29] LABS: Alanine Aminotransferase 12 U/L (6-35); Albumin Level 1.9 g/dL (3.5-5.1); Alkaline Phosphatase 61 U/L (38-126); Anion Gap 10 mmol/L (8-16); Aspartate Amino Transferase 20 U/L (14-36); Bilirubin,Total 0.3 mg/dL (0.2-1.3); Blood Urea Nitrogen 42 mg/dL (7-17); Calcium 7.6 mg/dL (8.4-10.2); Carbon Dioxide 15 mmol/L (22-30); Chloride 96 mmol/L (98-107); Estimated CRCL calculation 12 ml/min; Estimated Glomerular Filt Rate 10; Glucose 95 mg/dL (65-110); Magnesium 1.8 mg/dL (1.6-2.3); Potassium 3.8 mmol/L (3.4-5.0); Sodium 121 mmol/L (137-145)
[2023-08-20 20:03] LABS: Transferrin < 80 mg/dL (206-381)
[2023-08-20 20:15] LABS: Band Neutrophils Percent 4 % (0-6); Monocytes Absolute Manual 0.95 K/mm3 (0.1-0.90); Monocytes Percent Manual 4 % (3-9); Neutrophils Absolute Manual 20.94 K/mm3 (1.7-7.2); Neutrophils Percent Manual 84 % (46-73); Total Cells Counted 100
[2023-08-20 20:16] LABS: Platelet Estimate Adequate (Adequate)
[2023-08-20 20:17] LABS: Schistocytes None Seen (NORMAL)
[2023-08-20 20:18] LABS: Anisocytosis 3+ (NORMAL); Hypochromasia 1+ (NORMAL)
[2023-08-20] MEDS: PANTOPRAZOLE SODIUM IV 40 MG VIAL IV PUSH (20:29)
[2023-08-21] VITALS (7 sets, daily range): BP systolic 123–160; BP diastolic 49–89; PULSE 66–74; RESP 14–22; TEMP 35.3–37.1; O2SAT 97–100; BMI 40.4
[2023-08-21] MEDS: VANCOMYCIN ORAL 500 MG/10 ML SYRUP PO ×4 (00:15→18:20)
[2023-08-21] MEDS: metroNIDAZOLE 500 MG/ISO 100ML 500 MG/100 ML BAG 100 MG IVPB ×3 (01:36→18:19)
[2023-08-21 08:11] LABS: Anion Gap 8 mmol/L (8-16); Blood Urea Nitrogen 43 mg/dL (7-17); Calcium 7.2 mg/dL (8.4-10.2); Carbon Dioxide 14 mmol/L (22-30); Chloride 99 mmol/L (98-107); Estimated CRCL calculation 12 ml/min; Estimated Glomerular Filt Rate 10; Glucose 66 mg/dL (65-110); Sodium 121 mmol/L (137-145)
[2023-08-21] MEDS: LIDOCAINE HCL 1% PF INJ 5 ML VIAL INFILTRATE (09:15)
--- NOTE | 2023-08-21 09:50 | P.PNNP_ITS ---
Progress Note: A&P Assessment and Plan (1) DREW (acute kidney injury): Code(s): N17.9 - Acute kidney failure, unspecified Status: Acute Assessment and Plan: * continues to fluctuate (but not really improving) * noted on admission * resolved initially with IVF hydration * but has been deteriorating as noted by trend of labs since 08/14/23 * suspect ongoing volume depletion coupled with infection/sepsis (from C. 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 * however, no acute indication at this time (except for maybe her metabolic acidosis) as no critical electrolytes, volume overload, or uremia currently * continue current therapy (2) Hyponatremia: Code(s): E87.1 - Hypo-osmolality and hyponatremia Status: Acute Assessment and Plan: * continues to fluctuate * as noted on admission (admission sodium 126) * history would suggest hypovolemia as etiology (on admission) from ongoing GI losses/diarrhea * however, now related to ongoing DREW/ARF as well * could be related to medications -- on PPI and venlafaxine (but these are chronic medications) * evaluation to date: * TSH and cortisol okay * urine electrolytes prerenal * SPEP/UPEP without M-spike * serum/urine osmo pending * follow the trend of repeat sodium level (3) Sepsis: Code(s): A41.9 - Sepsis, unspecified organism Status: Acute Assessment and Plan: * as noted on admission * noted elevated WBC, tachycardia, and hypotension * presumable source is C. diff colitis +/- UTI * culture data noted * on antibiotics * follow hemodynamics (4) C. difficile colitis: Code(s): A04.72 - Enterocolitis due to Clostridium difficile, not specified as recurrent Status: Acute Assessment and Plan: * as noted by testing * on dificid and flagyl * Gastroenterology following * follow symptoms and stool output (5) Urinary tract infection: Code(s): N39.0 - Urinary tract infection, site not specified Status: Acute Assessment and Plan: * as suggested by admission UA * urine culture with E. coli * completed course of antibiotics (6) Metabolic acidosis: Code(s): E87.20 - Acidosis, unspecified Status: Acute Assessment and Plan: * due to GI losses and ongoing DREW * on bicarb gtt + oral sodium bicarbonate to compensate * follow lactic acid levels * follow trend (7) HTN (hypertension): Code(s): I10 - Essential (primary) hypertension Status: Chronic Assessment and Plan: * reasonable control * follow trend of hemodynamcis (8) Anemia: Code(s): D64.9 - Anemia, unspecified Status: Chronic Assessment and Plan: * likely due to iron deficiency, DREW, and acute illness * follow trend of H/H * PRBC transfusion per protocol * holding IV iron in the setting of acute infection Will continue to follow. Subjective Date/time seen: 08/21/23 09:50 Interval history: Follow-up for acute on chronc hyponatremia and acute kidney injury/acute renal failure. Renal function a tad better by AM labs and sodium level continues to fluctuate; still having diarrhea (at least 5 BMs if not
--- NOTE | 2023-08-21 09:50 | PM.PNNEP ---
Progress Note: A&P Assessment and Plan (1) DREW (acute kidney injury): Code(s): N17.9 - Acute kidney failure, unspecified Status: Acute Assessment and Plan: continues to fluctuate (but not really improving) noted on admission resolved initially with IVF hydration but has been deteriorating as noted by trend of labs since 08/14/23 suspect ongoing volume depletion coupled with infection/sepsis (from C. 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 however, no acute indication at this time (except for maybe her metabolic acidosis) as no critical electrolytes, volume overload, or uremia currently continue current therapy (2) Hyponatremia: Code(s): E87.1 - Hypo-osmolality and hyponatremia Status: Acute Assessment and Plan: continues to fluctuate as noted on admission (admission sodium 126) history would suggest hypovolemia as etiology (on admission) from ongoing GI losses/diarrhea however, now related to ongoing DREW/ARF as well could be related to medications -- on PPI and venlafaxine (but these are chronic medications) evaluation to date: TSH and cortisol okay urine electrolytes prerenal SPEP/UPEP without M-spike serum/urine osmo pending follow the trend of repeat sodium level (3) Sepsis: Code(s): A41.9 - Sepsis, unspecified organism Status: Acute Assessment and Plan: as noted on admission noted elevated WBC, tachycardia, and hypotension presumable source is C. diff colitis +/- UTI culture data noted on antibiotics follow hemodynamics (4) C. difficile colitis: Code(s): A04.72 - Enterocolitis due to Clostridium difficile, not specified as recurrent Status: Acute Assessment and Plan: as noted by testing on dificid and flagyl Gastroenterology following follow symptoms and stool output (5) Urinary tract infection: Code(s): N39.0 - Urinary tract infection, site not specified Status: Acute Assessment and Plan: as suggested by admission UA urine culture with E. coli completed course of antibiotics (6) Metabolic acidosis: Code(s): E87.20 - Acidosis, unspecified Status: Acute Assessment and Plan: due to GI losses and ongoing DREW on bicarb gtt + oral sodium bicarbonate to compensate follow lactic acid levels follow trend (7) HTN (hypertension): Code(s): I10 - Essential (primary) hypertension Status: Chronic Assessment and Plan: reasonable control follow trend of hemodynamcis (8) Anemia: Code(s): D64.9 - Anemia, unspecified Status: Chronic Assessment and Plan: likely due to iron deficiency, DREW, and acute illness follow trend of H/H PRBC transfusion per protocol holding IV iron in the setting of acute infection Will continue to follow. Subjective Date/time seen: 08/21/23 09:50 Interval history: Follow-up for acute on chronc hyponatremia and acute kidney injury/acute renal failure. Renal function a tad better by AM labs and sodium level continues to fluctuate; still having diarrhea (at least 5 BMs if not more a day); no apparent distress noted; no other acute complaints voiced. Exam Narrative: General: elderly but WD/WN female in NAD Heart: normal S1 and S2; no rub Lungs: clear to auscultation Abdomen: soft, nontender, nondistended, positive bowel sounds Extremities: no cyanosis or clubbing; trace - 1+ edema Skin: no rash Objective Data Vital Signs Vital Signs: Vital Signs Temp Pulse Resp BP Pulse Ox O2 Del Method 08/21/23 08:00 98.7 F 72 18 147/66 H 100 08/21/23 04:00 98.2 F 68 16
[2023-08-21] MEDS: PANTOPRAZOLE SODIUM IV 40 MG VIAL IV PUSH ×2 (10:31→20:29)
--- NOTE | 2023-08-21 11:25 | PCOTNOTE ---
Patient unavailable to be seen at this time. Patient has the RN and occupational health nursing director working with her on medications and IVs.
[2023-08-21] MEDS: AMINO ACIDS 5%/D15W/E-LYTES/CA 2,000 ML with MULTIVITAMINS-12 INJ VIAL 1 2.5 ML, MULTIV... 40 ML IV CONT (11:29)
[2023-08-21] MEDS: CENTRAL LINE FLUSH 10 ML IV PUSH (11:30)
[2023-08-21] MEDS: FAT EMULSIONS IV 20% 250 ML 20.83 ML IVPB (11:30)
--- NOTE | 2023-08-21 15:14 | PCOTNOTE ---
Attempted to see Patient for P.M. treatment session. Patient verbalized she has been busy all day, she received a PiCC line today and that wore her out. Patient also verbalized she started new medications and they have left her feeling tired. Patient refused to participate in any activity this afternoon.
[2023-08-21] MEDS: SODIUM BICARBONATE 8.4% 75 MEQ in DEXTROSE 5%/0.45% SOD CHL 1,000 ML 70 ML IV CONT (15:24)
--- NOTE | 2023-08-21 15:27 | PCPTNOTE ---
The patient treatment was not able to be completed today. Attempted 2x for PT. Patient receiving PIC line placement on first attempt then patient refused PT stating she could not participate. Educated patient in the importance of increasing activity. Will plan to continue treatment per plan of care.
[2023-08-21 15:40] LABS: Creatinine, Random Urine 85 mg/dL (20-275); Total Protein/Creatinine Ratio 2800 mg/g creat (24-184)
[2023-08-21] MEDS: CENTRAL LINE FLUSH 20 ML IV PUSH (17:00)
[2023-08-21 18:04] LABS: Triglycerides 148 mg/dL (<150)
[2023-08-21 18:37] LABS: Glucose Point of Care 82 mg/dl (65-105)
--- NOTE | 2023-08-21 20:12 | PM.IMPN ---
Progress Note: A&P Assessment and Plan (1) C. difficile colitis: Code(s): A04.72 - Enterocolitis due to Clostridium difficile, not specified as recurrent Status: Acute (2) DREW (acute kidney injury): Code(s): N17.9 - Acute kidney failure, unspecified Status: Acute (3) HTN (hypertension): Code(s): I10 - Essential (primary) hypertension Status: Chronic (4) Hypotension due to hypovolemia: Code(s): I95.89 - Other hypotension; E86.1 - Hypovolemia Status: Acute (5) Acute hyponatremia: Code(s): E87.1 - Hypo-osmolality and hyponatremia Status: Acute (6) GERD (gastroesophageal reflux disease): Code(s): K21.9 - Gastro-esophageal reflux disease without esophagitis Status: Acute (7) Urinary tract infection: Code(s): N39.0 - Urinary tract infection, site not specified Status: Acute Plan Plan 1. C diff colitis (severe to fulminant) Cdiff positive 08/20: Pt is in severe to fulminant life threatening c diff colitis. The repeat CT shows ?Small amount of abdominopelvic ascites present, probable mesenteric edema. There is large bowel wall thickening, extensively involving the ascending and transverse colon in particular. No bowel obstruction. No abscess or free air evident. The pt needs urgent escalation of abx. Now will be on oral vancomycin 500 mg qid and iv flagyl 500 q8 for 14 days or until wbc decreases. The pt is at high risk for toxic megacolon based on the CT findings of edema, ascites, and large bowel thickening. Luckily she has no free air NPO except important meds. IVF- Can ct Na with 1 amp of bicarb. Probably can do 2 or 3 amps. Start TPN 08/21: Still having diarrhea. May take a few days to recover. Ct to limit PO meds. 2. DREW Deterioration of kidney function from diarrhea and infection NPO. Ct IVF, NaCl with 1 amp of bicarb for metabolic acidosis If she does not recover in a few days, she will need dialysis. She will talk to her family about this. Insert chang, strict i/o, fu urine output 08/21: Chang had 800 ml output immediately. Perhaps some level of postrenal renal failure ctm creatinine and bmp Decrease fluids to 50 ml/hr 4. Hypertension Can use IV hydralazine 08/21: possibly due to mild volume overload. Again asked her to reconsider temporary dialysis if need be. She will talk to her son. 5. Iron-deficiency anemia I set the date, hemoglobin 8.4. Hemoglobin close to baseline Occult blood stool positive However patient has diffuse colitis Venofer 300mg iv once and continue PO replacement GI evaluated and? noted patient has recent endoscopy and no need for repeat at this time 08/20: Does not need blood transfusion at this time. IV protonix 6. Hyponatremia 08/20: Now 123 Trend with daily bmp's Will need daily CBC's and BMP's. Will Order tomorrow to trend At risk of central pontine myelinolysis with quick increase in sodium 08/21: multifactorial. Address problem after pt stops having diarrhea. complicated by ongoing fluid losses. 7. History of GERD, duodenal ulcer Continue prednisone 40 mg daily p.o. 08/20: Stop prednisone. Contraindicated in life threatening infection ct iv protonix 8. metabolic acidosis on bicarb drip. resumed bicarb tablets. they may help with chloride and hydrogen loss from diarrhea. +bc contaminant uti abx 08/20: Ceftriaxone has stopped. DVT prophylaxis on SCDs, no AC due to possible GI bleed Time Spent With Patient Time: 30 min Subjective Date/time seen: 08/21/23 20:12 Interval history: still having diarrhea, 5 bm's day Review of Systems Review of Systems: no other complaints. Exam Narrative: GENERAL: Well-appearing, well-nourished, and in no acute distress. HEAD: Normocephalic, atraumatic. EYES: PERRLA and EOMI. ENT:? Mucous membranes moist. CHEST: Decreased bs at the bases. some bl upper lung wheezing HEART: Regular rate and rhythm. ? Normal peripheral pulses. ABDOMEN: abd d
[2023-08-22] VITALS: BP 131/66; PULSE 76; RESP 20; TEMP 36.7; O2SAT 100
[2023-08-22 00:50] LABS: Glucose Point of Care 104 mg/dl (65-105)
[2023-08-22] MEDS: VANCOMYCIN ORAL 500 MG/10 ML SYRUP PO ×4 (00:50→17:00)
[2023-08-22] MEDS: metroNIDAZOLE 500 MG/ISO 100ML 500 MG/100 ML BAG 100 MG IVPB ×3 (02:49→17:00)
[2023-08-22 04:00] VITALS: BP 110/77; PULSE 73; RESP 20; TEMP 36.3; O2SAT 99
[2023-08-22 06:23] LABS: Glucose Point of Care 101 mg/dl (65-105)
[2023-08-22] MEDS: CENTRAL LINE FLUSH 10 ML IV PUSH ×3 (06:44→21:18)
[2023-08-22 07:10] LABS: Anion Gap 5 mmol/L (8-16); Blood Urea Nitrogen 45 mg/dL (7-17); Calcium 7.2 mg/dL (8.4-10.2); Carbon Dioxide 19 mmol/L (22-30); Chloride 98 mmol/L (98-107); Estimated CRCL calculation 11 ml/min; Estimated Glomerular Filt Rate 9; Glucose 103 mg/dL (65-110); Magnesium 1.7 mg/dL (1.6-2.3); Phosphorus 5.9 mg/dL (2.5-4.5); Potassium 3.8 mmol/L (3.4-5.0); Sodium 122 mmol/L (137-145)
[2023-08-22 07:23] LABS: Hematocrit 25.4 % (37.0-47.0); Hemoglobin 8.3 g/dL (12.0-15.0); Mean Corpuscular HGB Conc 32.7 g/dl (32-36); Mean Corpuscular Hemoglobin 26.1 pg (26-34); Mean Corpuscular Volume 79.9 fl (80-100); Platelet Count Result 351 k/mm3 (150-375); Red Blood Count 3.18 M/mm3 (4.2-5.4); Red Cell Distribution Width 21.2 % (11.5-14.5); White Blood Count 19.3 K/mm3 (4.5-10.0)
[2023-08-22 08:00] VITALS: BP 134/69; PULSE 7; RESP 18; TEMP 36.7; O2SAT 95
[2023-08-22] MEDS: SODIUM BICARBONATE TAB 650 MG TABLET 1300 MG PO ×2 (08:57→17:00)
[2023-08-22 09:05] LABS: Band Neutrophils Percent 8 % (0-6); Lymphocytes Absolute Manual 0.38 K/mm3 (1.1-4.5); Metamyelocytes Percent 4 %; Monocytes Absolute Manual 0.96 K/mm3 (0.1-0.90); Monocytes Percent Manual 5 % (3-9); Neutrophils Absolute Manual 17.17 K/mm3 (1.7-7.2); Neutrophils Percent Manual 81 % (46-73); Total Cells Counted 100
[2023-08-22 09:06] LABS: Burr Cells 2+ (NORMAL); Platelet Estimate Adequate (Adequate); Poikilocytosis 1+ (NORMAL); Schistocytes Rare (NORMAL)
[2023-08-22] MEDS: PANTOPRAZOLE SODIUM IV 40 MG VIAL IV PUSH ×2 (09:11→21:18)
[2023-08-22 11:41] LABS: Glucose Point of Care 113 mg/dl (65-105)
[2023-08-22 12:00] VITALS: BP 126/45; PULSE 71; RESP 20; TEMP 36.5; O2SAT 100
[2023-08-22] MEDS: FAT EMULSIONS IV 20% 250 ML 20.83 ML IVPB (12:23)
[2023-08-22] MEDS: AMINO ACIDS 5%/D15W/E-LYTES/CA 2,000 ML with MULTIVITAMINS-12 INJ VIAL 1 2.5 ML, MULTIV... 40 ML IV CONT (12:25)
--- NOTE | 2023-08-22 13:47 | PM.PNNEP ---
Progress Note: A&P Assessment and Plan (1) DREW (acute kidney injury): Code(s): N17.9 - Acute kidney failure, unspecified Status: Acute Assessment and Plan: continues to worsen noted on admission resolved initially with IVF hydration but has been deteriorating as noted by trend of labs since 08/14/23 suspect ongoing volume depletion coupled with infection/sepsis (from C. 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 continue current therapy (2) Hyponatremia: Code(s): E87.1 - Hypo-osmolality and hyponatremia Status: Acute Assessment and Plan: continues to fluctuate as noted on admission (admission sodium 126) history would suggest hypovolemia as etiology (on admission) from ongoing GI losses/diarrhea however, now related to ongoing DREW/ARF as well could be related to medications -- on PPI and venlafaxine (but these are chronic medications) evaluation to date: TSH and cortisol okay urine electrolytes prerenal SPEP/UPEP without M-spike serum/urine osmo pending follow the trend of repeat sodium level (3) Sepsis: Code(s): A41.9 - Sepsis, unspecified organism Status: Acute Assessment and Plan: as noted on admission noted elevated WBC, tachycardia, and hypotension presumable source is C. diff colitis +/- UTI culture data noted on antibiotics follow hemodynamics (4) C. difficile colitis: Code(s): A04.72 - Enterocolitis due to Clostridium difficile, not specified as recurrent Status: Acute Assessment and Plan: as noted by testing on oral vancomycin and IV flagyl Gastroenterology following onTPN for nutritional support follow symptoms and stool output (5) Urinary tract infection: Code(s): N39.0 - Urinary tract infection, site not specified Status: Acute Assessment and Plan: as suggested by admission UA urine culture with E. coli completed course of antibiotics (6) Metabolic acidosis: Code(s): E87.20 - Acidosis, unspecified Status: Acute Assessment and Plan: due to GI losses and ongoing DREW oral sodium bicarbonate to compensate off biarb fluids due to edema and SOB follow lactic acid levels intermittently follow trend (7) HTN (hypertension): Code(s): I10 - Essential (primary) hypertension Status: Chronic Assessment and Plan: reasonable control follow trend of hemodynamcis (8) Anemia: Code(s): D64.9 - Anemia, unspecified Status: Chronic Assessment and Plan: likely due to iron deficiency, DREW, and acute illness follow trend of H/H PRBC transfusion per protocol may need to start MORRIS holding IV iron in the setting of acute infection Will continue to follow. Subjective Date/time seen: 08/22/23 13:47 Interval history: Follow-up for acute on chronc hyponatremia and acute kidney injury/acute renal failure. Continues to have diarrhea despite current interventions to date; renal function continues to worsen each day as well (but still making urine); sodium holding relatively stable; wants to eat food; initiated on TPN for nutritional support; noticing LE edema/swelling and mild SOB with exertional activities. Exam Narrative: General: elderly but WD/WN female in NAD Heart: normal S1 and S2; no rub Lungs: clear to auscultation Abdomen: soft, nontender, nondistended, positive bowel
--- NOTE | 2023-08-22 13:47 | P.PNNP_ITS ---
Progress Note: A&P Assessment and Plan (1) DREW (acute kidney injury): Code(s): N17.9 - Acute kidney failure, unspecified Status: Acute Assessment and Plan: * continues to worsen * noted on admission * resolved initially with IVF hydration * but has been deteriorating as noted by trend of labs since 08/14/23 * suspect ongoing volume depletion coupled with infection/sepsis (from C. 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 * continue current therapy (2) Hyponatremia: Code(s): E87.1 - Hypo-osmolality and hyponatremia Status: Acute Assessment and Plan: * continues to fluctuate * as noted on admission (admission sodium 126) * history would suggest hypovolemia as etiology (on admission) from ongoing GI losses/diarrhea * however, now related to ongoing DREW/ARF as well * could be related to medications -- on PPI and venlafaxine (but these are chronic medications) * evaluation to date: * TSH and cortisol okay * urine electrolytes prerenal * SPEP/UPEP without M-spike * serum/urine osmo pending * follow the trend of repeat sodium level (3) Sepsis: Code(s): A41.9 - Sepsis, unspecified organism Status: Acute Assessment and Plan: * as noted on admission * noted elevated WBC, tachycardia, and hypotension * presumable source is C. diff colitis +/- UTI * culture data noted * on antibiotics * follow hemodynamics (4) C. difficile colitis: Code(s): A04.72 - Enterocolitis due to Clostridium difficile, not specified as recurrent Status: Acute Assessment and Plan: * as noted by testing * on oral vancomycin and IV flagyl * Gastroenterology following * onTPN for nutritional support * follow symptoms and stool output (5) Urinary tract infection: Code(s): N39.0 - Urinary tract infection, site not specified Status: Acute Assessment and Plan: * as suggested by admission UA * urine culture with E. coli * completed course of antibiotics (6) Metabolic acidosis: Code(s): E87.20 - Acidosis, unspecified Status: Acute Assessment and Plan: * due to GI losses and ongoing DREW * oral sodium bicarbonate to compensate * off biarb fluids due to edema and SOB * follow lactic acid levels intermittently * follow trend (7) HTN (hypertension): Code(s): I10 - Essential (primary) hypertension Status: Chronic Assessment and Plan: * reasonable control * follow trend of hemodynamcis (8) Anemia: Code(s): D64.9 - Anemia, unspecified Status: Chronic Assessment and Plan: * likely due to iron deficiency, DREW, and acute illness * follow trend of H/H * PRBC transfusion per protocol * may need to start MORRIS * holding IV iron in the setting of acute infection Will continue to follow. Subjective Date/time seen: 08/22/23 13:47 Interval history: Follow-up for acute on chronc hyponatremia
[2023-08-22 16:00] VITALS: BP 150/79; PULSE 71; RESP 18; TEMP 36.2; O2SAT 100
[2023-08-22 17:08] LABS: Glucose Point of Care 85 mg/dl (65-105)
--- NOTE | 2023-08-22 18:34 | PM.IMPN ---
Progress Note: A&P Assessment and Plan (1) C. difficile colitis: Code(s): A04.72 - Enterocolitis due to Clostridium difficile, not specified as recurrent Status: Acute (2) DREW (acute kidney injury): Code(s): N17.9 - Acute kidney failure, unspecified Status: Acute (3) HTN (hypertension): Code(s): I10 - Essential (primary) hypertension Status: Chronic (4) Anemia: Code(s): D64.9 - Anemia, unspecified Status: Chronic (5) Acute hyponatremia: Code(s): E87.1 - Hypo-osmolality and hyponatremia Status: Acute (6) Metabolic acidosis: Code(s): E87.20 - Acidosis, unspecified Status: Acute (7) GERD (gastroesophageal reflux disease): Code(s): K21.9 - Gastro-esophageal reflux disease without esophagitis Status: Acute Plan 1. C diff colitis (severe to fulminant) Cdiff positive 08/20: Pt is in severe to fulminant life threatening c diff colitis. The repeat CT shows ?Small amount of abdominopelvic ascites present, probable mesenteric edema. There is large bowel wall thickening, extensively involving the ascending and transverse colon in particular. No bowel obstruction. No abscess or free air evident. The pt needs urgent escalation of abx. Now will be on oral vancomycin 500 mg qid and iv flagyl 500 q8 for 14 days or until wbc decreases. The pt is at high risk for toxic megacolon based on the CT findings of edema, ascites, and large bowel thickening. Luckily she has no free air NPO except important meds. IVF- Can ct Na with 1 amp of bicarb. Probably can do 2 or 3 amps. Start TPN 08/21: Still having diarrhea. May take a few days to recover. Ct to limit PO meds. 08/22: ct supportive measures. TPN. no more additional IVF. Ct PO vanc. may need 10 days or 17 days depending on how she does. WBC decreased slightly to 19.3 2. DREW Deterioration of kidney function from diarrhea and infection NPO. Ct IVF, NaCl with 1 amp of bicarb for metabolic acidosis If she does not recover in a few days, she will need dialysis. She will talk to her family about this. Insert chang, strict i/o, fu urine output 08/21: Chang had 800 ml output immediately. Perhaps some level of postrenal renal failure ctm creatinine and bmp Decrease fluids to 50 ml/hr 08/22: Cr now 4.8. May need dialysis for volume overload. not uremic. metabolic acidosis improving. 4. Hypertension Can use IV hydralazine 08/21: possibly due to mild volume overload. Again asked her to reconsider temporary dialysis if need be. She will talk to her son. 5. Iron-deficiency anemia I set the date, hemoglobin 8.4. Hemoglobin close to baseline Occult blood stool positive However patient has diffuse colitis Venofer 300mg iv once and continue PO replacement GI evaluated and? noted patient has recent endoscopy and no need for repeat at this time 08/20: Does not need blood transfusion at this time. IV protonix 6. Hyponatremia 08/20: Now 123 Trend with daily bmp's Will need daily CBC's and BMP's. Will Order tomorrow to trend At risk of central pontine myelinolysis with quick increase in sodium 08/21: multifactorial. Address problem after pt stops having diarrhea. complicated by ongoing fluid losses. 7. History of GERD, duodenal ulcer Continue prednisone 40 mg daily p.o. 08/20: Stop prednisone. Contraindicated in life threatening infection ct iv protonix 8. metabolic acidosis on bicarb drip. resumed bicarb tablets. they may help with chloride and hydrogen loss from diarrhea. +bc contaminant uti abx 08/20: Ceftriaxone has stopped. DVT prophylaxis on SCDs, no AC due to possible GI bleed Time Spent With Patient Time: 30 min Subjective Date/time seen: 08/22/23 18:34 Interval history: still having diarrhea. now complaining of LE edema. also exertional sob when she gets up out of bed. wants food, but still having diarrhea while NPO from cdiff colitis. renal nuclear medicine scan done today shows intrinsic renal failure.
[2023-08-22 20:00] VITALS: BP 144/64; PULSE 87; RESP 14; TEMP 36.4; O2SAT 96
[2023-08-22 21:32] LABS: Glucose Point of Care 82 mg/dl (65-105)
[2023-08-23] VITALS: BP 130/57; PULSE 86; RESP 16; TEMP 37.2; O2SAT 100
[2023-08-23] MEDS: VANCOMYCIN ORAL 500 MG/10 ML SYRUP PO ×5 (00:26→23:14)
[2023-08-23 00:55] LABS: Glucose Point of Care 95 mg/dl (65-105)
[2023-08-23] MEDS: metroNIDAZOLE 500 MG/ISO 100ML 500 MG/100 ML BAG 100 MG IVPB ×3 (02:24→17:55)
[2023-08-23 04:00] VITALS: BP 128/50; PULSE 82; RESP 16; TEMP 36.4; O2SAT 100
[2023-08-23] MEDS: CENTRAL LINE FLUSH 10 ML IV PUSH ×3 (05:13→20:31)
[2023-08-23 05:26] LABS: Hepatitis B Core Ab Total Nonreactive (Nonreactive)
[2023-08-23 06:19] LABS: Hematocrit 23.9 % (37.0-47.0); Hemoglobin 7.7 g/dL (12.0-15.0); Mean Corpuscular HGB Conc 32.2 g/dl (32-36); Mean Corpuscular Hemoglobin 26.2 pg (26-34); Mean Corpuscular Volume 81.3 fl (80-100); Mean Platelet Volume 8.7 fl (7.4-10.4); Platelet Count Result 301 k/mm3 (150-375); Red Blood Count 2.94 M/mm3 (4.2-5.4); Red Cell Distribution Width 21.3 % (11.5-14.5); White Blood Count 16.5 K/mm3 (4.5-10.0)
[2023-08-23 06:39] LABS: Alanine Aminotransferase 10 U/L (6-35); Albumin Level 1.6 g/dL (3.5-5.1); Alkaline Phosphatase 39 U/L (38-126); Anion Gap 7 mmol/L (8-16); Aspartate Amino Transferase 20 U/L (14-36); Bilirubin,Total 0.3 mg/dL (0.2-1.3); Blood Urea Nitrogen 49 mg/dL (7-17); Calcium 7.1 mg/dL (8.4-10.2); Carbon Dioxide 18 mmol/L (22-30); Chloride 98 mmol/L (98-107); Estimated CRCL calculation 11 ml/min; Estimated Glomerular Filt Rate 9; Glucose 94 mg/dL (65-110); Magnesium 1.8 mg/dL (1.6-2.3); Phosphorus 6.6 mg/dL (2.5-4.5); Potassium 3.9 mmol/L (3.4-5.0); Sodium 123 mmol/L (137-145)
[2023-08-23 07:13] LABS: Glucose Point of Care 97 mg/dl (65-105)
[2023-08-23 07:18] LABS: Band Neutrophils Percent 5 % (0-6); Lymphocytes Absolute Manual 1.15 K/mm3 (1.1-4.5); Monocytes Absolute Manual 0.49 K/mm3 (0.1-0.90); Monocytes Percent Manual 3 % (3-9); Neutrophils Absolute Manual 14.85 K/mm3 (1.7-7.2); Neutrophils Percent Manual 85 % (46-73); Platelet Estimate Adequate (Adequate); Total Cells Counted 100
[2023-08-23 07:19] LABS: Hypochromasia 2+ (NORMAL); Target Cells 2+ (NORMAL); Tear Drop Cells 1+ (NORMAL)
[2023-08-23 07:20] LABS: Schistocytes Rare (NORMAL)
[2023-08-23 08:00] VITALS: BP 148/59; PULSE 75; RESP 20; TEMP 36.5; O2SAT 99
[2023-08-23] MEDS: PANTOPRAZOLE SODIUM IV 40 MG VIAL IV PUSH ×2 (09:31→20:31)
[2023-08-23] MEDS: SODIUM BICARBONATE TAB 650 MG TABLET 1300 MG PO ×2 (09:31→16:33)
[2023-08-23 11:56] LABS: Glucose Point of Care 89 mg/dl (65-105)
[2023-08-23 12:00] VITALS: BP 140/61; PULSE 81; RESP 20; TEMP 36.5; O2SAT 99
[2023-08-23] MEDS: AMINO ACIDS 5%/D15W/E-LYTES/CA 2,000 ML with MULTIVITAMINS-12 INJ VIAL 1 2.5 ML, MULTIV... 40 ML IV CONT (13:07)
[2023-08-23] MEDS: FAT EMULSIONS IV 20% 250 ML 20.83 ML IVPB (13:08)
[2023-08-23] MEDS: EPOETIN ALFA-EPBX 20,000 UNITS/ML VIAL 20000 UNITS SUB-Q (13:17)
--- NOTE | 2023-08-23 13:35 | P.PNNP_ITS ---
Progress Note: A&P Assessment and Plan (1) DREW (acute kidney injury): Code(s): N17.9 - Acute kidney failure, unspecified Status: Acute Assessment and Plan: * continues to worsen * noted on admission * resolved initially with IVF hydration * but has been deteriorating as noted by trend of labs since 08/14/23 * suspect ongoing volume depletion coupled with infection/sepsis (from C. diff colits + UTI +/- bacteremia) leading to ATN * noted contrast exposure with CT done on 08/11 * evaluation to date: * urine electrolytes prerenal * CT imaging without obstruction of kidneys * UA c/w infection * urine eosinophils not done (would not be informative in the context of UTI) * renal scan noted aw well * she remains at risk for SOFT SUGAR CUTTER/hemodialysis * however, no acute indication at this time (except for maybe her metabolic acidosis) as no critical electrolytes, volume overload, or uremia currently * her UE and LE edema and shortness of breath are concerning.... * consider IV albumin chased by IV diuretics -- this may help mild volume overload symptoms and perhaps minimize worsening renal dysfunction * patient willing to try SOFT SUGAR CUTTER/dialysis if necessary but only as a temporary measure * continue current therapy (2) Hyponatremia: Code(s): E87.1 - Hypo-osmolality and hyponatremia Status: Acute Assessment and Plan: * continues to fluctuate * as noted on admission (admission sodium 126) * history would suggest hypovolemia as etiology (on admission) from ongoing GI losses/diarrhea * however, now related to ongoing DREW/ARF as well * could be related to medications -- on PPI and venlafaxine (but these are chronic medications) * evaluation to date: * TSH and cortisol okay * urine electrolytes prerenal * SPEP/UPEP without M-spike * serum/urine osmo pending * follow the trend of repeat sodium level (3) Sepsis: Code(s): A41.9 - Sepsis, unspecified organism Status: Acute Assessment and Plan: * as noted on admission * noted elevated WBC, tachycardia, and hypotension * presumable source is C. diff colitis +/- UTI * culture data noted * on antibiotics * follow hemodynamics (4) C. difficile colitis: Code(s): A04.72 - Enterocolitis due to Clostridium difficile, not specified as recurrent Status: Acute Assessment and Plan: * as noted by testing * on oral vancomycin and IV flagyl * Gastroenterology following * onTPN for nutritional support * follow symptoms and stool output (5) Urinary tract infection: Code(s): N39.0 - Urinary tract infection, site not specified Status: Acute Assessment and Plan: * as suggested by admission UA * urine culture with E. coli * completed course of antibiotics (6) Metabolic acidosis: Code(s): E87.20 - Acidosis, unspecified Status: Acute Assessment and Plan: * due to GI losses and ongoing DREW * oral sodium bicarbonate to compensate * off biarb fluids due to edema and SOB * follow lactic acid levels intermittently * follow trend (7) HTN (hypertension): Code(s): I10 - Essential (primary) hypertension Status: Chronic Assessment and Plan: * reasonable control * follow trend of hemodynamcis (8) Anemia: Code(s): D64.9 - Anemia, unspecified Status: Chronic Assessment and Plan: * likely due to iron deficiency, DREW, and acute illness * follow trend of H/H * PRBC transfusion per protocol
--- NOTE | 2023-08-23 13:35 | PM.PNNEP ---
Progress Note: A&P Assessment and Plan (1) DREW (acute kidney injury): Code(s): N17.9 - Acute kidney failure, unspecified Status: Acute Assessment and Plan: continues to worsen noted on admission resolved initially with IVF hydration but has been deteriorating as noted by trend of labs since 08/14/23 suspect ongoing volume depletion coupled with infection/sepsis (from C. diff colits + UTI +/- bacteremia) leading to ATN noted contrast exposure with CT done on 08/11 evaluation to date: urine electrolytes prerenal CT imaging without obstruction of kidneys UA c/w infection urine eosinophils not done (would not be informative in the context of UTI) renal scan noted aw well she remains at risk for WASHROOM OPERATOR/hemodialysis however, no acute indication at this time (except for maybe her metabolic acidosis) as no critical electrolytes, volume overload, or uremia currently her UE and LE edema and shortness of breath are concerning.... consider IV albumin chased by IV diuretics -- this may help mild volume overload symptoms and perhaps minimize worsening renal dysfunction patient willing to try WASHROOM OPERATOR/dialysis if necessary but only as a temporary measure continue current therapy (2) Hyponatremia: Code(s): E87.1 - Hypo-osmolality and hyponatremia Status: Acute Assessment and Plan: continues to fluctuate as noted on admission (admission sodium 126) history would suggest hypovolemia as etiology (on admission) from ongoing GI losses/diarrhea however, now related to ongoing DREW/ARF as well could be related to medications -- on PPI and venlafaxine (but these are chronic medications) evaluation to date: TSH and cortisol okay urine electrolytes prerenal SPEP/UPEP without M-spike serum/urine osmo pending follow the trend of repeat sodium level (3) Sepsis: Code(s): A41.9 - Sepsis, unspecified organism Status: Acute Assessment and Plan: as noted on admission noted elevated WBC, tachycardia, and hypotension presumable source is C. diff colitis +/- UTI culture data noted on antibiotics follow hemodynamics (4) C. difficile colitis: Code(s): A04.72 - Enterocolitis due to Clostridium difficile, not specified as recurrent Status: Acute Assessment and Plan: as noted by testing on oral vancomycin and IV flagyl Gastroenterology following onTPN for nutritional support follow symptoms and stool output (5) Urinary tract infection: Code(s): N39.0 - Urinary tract infection, site not specified Status: Acute Assessment and Plan: as suggested by admission UA urine culture with E. coli completed course of antibiotics (6) Metabolic acidosis: Code(s): E87.20 - Acidosis, unspecified Status: Acute Assessment and Plan: due to GI losses and ongoing DREW oral sodium bicarbonate to compensate off biarb fluids due to edema and SOB follow lactic acid levels intermittently follow trend (7) HTN (hypertension): Code(s): I10 - Essential (primary) hypertension Status: Chronic Assessment and Plan: reasonable control follow trend of hemodynamcis (8) Anemia: Code(s): D64.9 - Anemia, unspecified Status: Chronic Assessment and Plan: likely due to iron deficiency, DREW, and acute illness follow trend of H/H PRBC transfusion per protocol start Epogen to compensate holding IV iron in the setting of acute infection Long and extensive discussion (> 20 minutes) with patient as well as family at bedside regarding her renal dysfunction in the context of severe C. diff colitis infection and the possible need for WASHROOM OPERATOR/dialysis if she develops worseninv volume overload, critical electrolytes, and/or uremia. They appeared to voice understanding. Will continue to follow. Subjective Date/time seen: 08/23/23 13:35 Interval history: Follow-up for acute
--- NOTE | 2023-08-23 15:43 | PM.IMPN ---
Progress Note: A&P Assessment and Plan (1) Colitis: Code(s): K52.9 - Noninfective gastroenteritis and colitis, unspecified Status: Acute (2) C. difficile colitis: Code(s): A04.72 - Enterocolitis due to Clostridium difficile, not specified as recurrent Status: Acute (3) Metabolic acidosis: Code(s): E87.20 - Acidosis, unspecified Status: Acute (4) Urinary tract infection: Code(s): N39.0 - Urinary tract infection, site not specified Status: Acute (5) GERD (gastroesophageal reflux disease): Code(s): K21.9 - Gastro-esophageal reflux disease without esophagitis Status: Acute (6) Sepsis: Code(s): A41.9 - Sepsis, unspecified organism Status: Acute (7) DREW (acute kidney injury): Code(s): N17.9 - Acute kidney failure, unspecified Status: Acute (8) Acute hyponatremia: Code(s): E87.1 - Hypo-osmolality and hyponatremia Status: Acute (9) Hypotension due to hypovolemia: Code(s): I95.89 - Other hypotension; E86.1 - Hypovolemia Status: Acute (10) Acute on chronic renal failure: Code(s): N17.9 - Acute kidney failure, unspecified; N18.9 - Chronic kidney disease, unspecified Status: Acute (11) Severe sepsis: Code(s): A41.9 - Sepsis, unspecified organism; R65.20 - Severe sepsis without septic shock Status: Acute (12) Colitis: Code(s): K52.9 - Noninfective gastroenteritis and colitis, unspecified Status: Acute Plan 1. C diff colitis (severe to fulminant) Cdiff positive 08/20: Pt is in severe to fulminant life threatening c diff colitis. The repeat CT shows ?Small amount of abdominopelvic ascites present, probable mesenteric edema. There is large bowel wall thickening, extensively involving the ascending and transverse colon in particular. No bowel obstruction. No abscess or free air evident. The pt needs urgent escalation of abx. Now will be on oral vancomycin 500 mg qid and iv flagyl 500 q8 for 14 days or until wbc decreases. The pt is at high risk for toxic megacolon based on the CT findings of edema, ascites, and large bowel thickening. Luckily she has no free air NPO except important meds. IVF- Can ct Na with 1 amp of bicarb. Probably can do 2 or 3 amps. Start TPN 08/21: Still having diarrhea. May take a few days to recover. Ct to limit PO meds. 08/22: ct supportive measures. TPN. no more additional IVF. Ct PO vanc. may need 10 days or 17 days depending on how she does. WBC decreased slightly to 19.3 08/23: Wbc count decreased to 16.5. still having diarrhea. rectal tube placed. may need oral vancomycin until 09/05 at least (according to up to date). Monitor for pt's diarrhea stopping while NPO, wbc normalizing. 2. DREW Deterioration of kidney function from diarrhea and infection NPO. Ct IVF, NaCl with 1 amp of bicarb for metabolic acidosis If she does not recover in a few days, she will need dialysis. She will talk to her family about this. Insert chang, strict i/o, fu urine output 08/21: Chang had 800 ml output immediately. Perhaps some level of postrenal renal failure ctm creatinine and bmp Decrease fluids to 50 ml/hr 08/22: Cr now 4.8. May need dialysis for volume overload. not uremic. metabolic acidosis improving. 08/23: Cr 4.9. Still making urine however- at least 1L over past 24 hrs. CO2 stable at 18. Na stable, low from DREW. 4. Hypertension Can use IV hydralazine 08/21: possibly due to mild volume overload. Again asked her to reconsider temporary dialysis if need be. She will talk to her son. 08/23: BP better after IVF stopped. 5. Iron-deficiency anemia I set the date, hemoglobin 8.4. Hemoglobin close to baseline Occult blood stool positive However patient has diffuse colitis Venofer 300mg iv once and continue PO replacement GI evaluated and? noted patient has recent endoscopy and no need for repeat at this time 08/20: Does not need blood transfusion at this time. IV protonix 08/23: Nephrology
[2023-08-23 16:00] VITALS: BP 147/66; PULSE 74; RESP 20; TEMP 36.7; O2SAT 100
[2023-08-23] MEDS: CALCIUM GLUC 2,000 MG/NS 100ML 2,000 MG/100 ML BAG 100 MG IVPB (16:32)
[2023-08-23 16:48] LABS: Glucose Point of Care 83 mg/dl (65-105)
--- NOTE | 2023-08-23 17:06 | PCPTNOTE ---
The patient treatment was not able to be completed this A.M. due to with OT for treatment. Will plan to continue treatment per plan of care.
[2023-08-23 20:00] VITALS: BP 134/70; PULSE 85; RESP 18; TEMP 36.8; O2SAT 98
[2023-08-23] MEDS: HEPARIN SODIUM 5,000 UNITS/ML VIAL 5000 UNITS SUB-Q (20:30)
[2023-08-23 21:58] LABS: Glucose Point of Care 81 mg/dl (65-105)
[2023-08-24] VITALS: BP 110/82; PULSE 79; RESP 14; TEMP 36.5; O2SAT 99
[2023-08-24] MEDS: metroNIDAZOLE 500 MG/ISO 100ML 500 MG/100 ML BAG 100 MG IVPB ×3 (01:56→17:36)
[2023-08-24 04:00] VITALS: BP 120/69; PULSE 73; RESP 18; TEMP 36.6; O2SAT 100
[2023-08-24] MEDS: CENTRAL LINE FLUSH 10 ML IV PUSH ×4 (04:38→21:49)
[2023-08-24] MEDS: VANCOMYCIN ORAL 500 MG/10 ML SYRUP PO ×3 (04:38→17:36)
[2023-08-24] MEDS: CENTRAL LINE FLUSH 20 ML IV PUSH (04:39)
[2023-08-24 04:58] LABS: Basophils Absolute Auto 0.1 K/mm3 (0.0-0.1); Hematocrit 22.5 % (37.0-47.0); Hemoglobin 7.3 g/dL (12.0-15.0); Immature Granulocyte Absolute 1.44 K/mm3 (0.00-0.031); Immature Granulocyte Percent A 10.6 % (0-0.5); Lymphocytes Absolute Auto 1.23 K/mm3 (0.9-3.2); Lymphocytes Percent Auto 9.1 % (18.3-44.2); Mean Corpuscular HGB Conc 32.4 g/dl (32-36); Mean Corpuscular Hemoglobin 26.6 pg (26-34); Mean Corpuscular Volume 82.1 fl (80-100); Monocytes Absolute Auto 1.1 K/mm3 (0.1-0.6); Monocytes Percent Auto 8.1 % (2.6-8.5); Neutrophils Absolute Auto 9.6 K/mm3 (1.3-6.7); Neutrophils Percent Auto 71.2 % (45.5-73.1); Platelet Count Result 301 k/mm3 (150-375); Red Blood Count 2.74 M/mm3 (4.2-5.4); Red Cell Distribution Width 21.3 % (11.5-14.5); White Blood Count 13.5 K/mm3 (4.5-10.0)
[2023-08-24 05:10] LABS: Anion Gap 8 mmol/L (8-16); Blood Urea Nitrogen 51 mg/dL (7-17); Calcium 7.2 mg/dL (8.4-10.2); Carbon Dioxide 18 mmol/L (22-30); Chloride 98 mmol/L (98-107); Estimated CRCL calculation 10 ml/min; Estimated Glomerular Filt Rate 8; Glucose 82 mg/dL (65-110); Magnesium 1.7 mg/dL (1.6-2.3); Phosphorus 6.9 mg/dL (2.5-4.5); Potassium 3.9 mmol/L (3.4-5.0); Sodium 124 mmol/L (137-145); Triglycerides 160 mg/dL (<150)
[2023-08-24 05:14] LABS: Vancomycin Random 13.7 ug/mL (10-20)
[2023-08-24 05:29] LABS: Anisocytosis 2+ (NORMAL); Hypochromasia 2+ (NORMAL); Platelet Estimate Adequate (Adequate); Poikilocytosis 2+ (NORMAL); Schistocytes Rare (NORMAL); Target Cells 1+ (NORMAL)
[2023-08-24 06:33] LABS: Glucose Point of Care 92 mg/dl (65-105)
[2023-08-24 08:00] VITALS: BP 123/57; PULSE 74; RESP 18; TEMP 36.9; O2SAT 99
[2023-08-24] MEDS: ALBUMIN HUMAN 25% 12.5 GM/50ML 50 ML IVPB ×3 (08:18→21:48)
[2023-08-24] MEDS: PANTOPRAZOLE SODIUM IV 40 MG VIAL IV PUSH ×2 (08:30→20:00)
[2023-08-24] MEDS: HEPARIN SODIUM 5,000 UNITS/ML VIAL 5000 UNITS SUB-Q ×2 (08:31→19:59)
[2023-08-24] MEDS: SODIUM BICARBONATE TAB 650 MG TABLET 1300 MG PO ×2 (08:31→17:36)
[2023-08-24] MEDS: BUMETANIDE INJ 1 MG/4 ML VIAL 0.5 MG IV PUSH ×3 (09:37→21:48)
--- NOTE | 2023-08-24 10:06 | P.PNIM_ITS ---
Progress Note: A&P Assessment and Plan (1) Colitis: Code(s): K52.9 - Noninfective gastroenteritis and colitis, unspecified Status: Acute (2) C. difficile colitis: Code(s): A04.72 - Enterocolitis due to Clostridium difficile, not specified as recurrent Status: Acute (3) Metabolic acidosis: Code(s): E87.20 - Acidosis, unspecified Status: Acute (4) Urinary tract infection: Code(s): N39.0 - Urinary tract infection, site not specified Status: Acute (5) GERD (gastroesophageal reflux disease): Code(s): K21.9 - Gastro-esophageal reflux disease without esophagitis Status: Acute (6) Sepsis: Code(s): A41.9 - Sepsis, unspecified organism Status: Acute (7) DREW (acute kidney injury): Code(s): N17.9 - Acute kidney failure, unspecified Status: Acute (8) Acute hyponatremia: Code(s): E87.1 - Hypo-osmolality and hyponatremia Status: Acute (9) Hypotension due to hypovolemia: Code(s): I95.89 - Other hypotension; E86.1 - Hypovolemia Status: Acute (10) Acute on chronic renal failure: Code(s): N17.9 - Acute kidney failure, unspecified; N18.9 - Chronic kidney disease, unspecified Status: Acute (11) Severe sepsis: Code(s): A41.9 - Sepsis, unspecified organism; R65.20 - Severe sepsis without septic shock Status: Acute Plan 1. C diff colitis (severe to fulminant) Cdiff positive 08/20: Pt is in severe to fulminant life threatening c diff colitis. Was initially started on fidaxomicin now switched to oral vancomycin The repeat CT shows ?Small amount of abdominopelvic ascites present, probable mesenteric edema. There is large bowel wall thickening, extensively involving the ascending and transverse colon in particular. No bowel obstruction. No abscess or free air evident. The pt needs urgent escalation of abx. Now will be on oral vancomycin 500 mg qid and iv flagyl 500 q8 for 14 days or until wbc decreases. The pt is at high risk for toxic megacolon based on the CT findings of edema, ascites, and large bowel thickening. Luckily she has no free air NPO except important meds. IVF- Can ct Na with 1 amp of bicarb. Probably can do 2 or 3 amps. Start TPN 08/21: Still having diarrhea. May take a few days to recover. Ct to limit PO meds. 08/22: ct supportive measures. TPN. no more additional IVF. Ct PO vanc. may need 10 days or 17 days depending on how she does. WBC decreased slightly to 19.3 08/23: Wbc count decreased to 16.5. still having diarrhea. rectal tube placed. may need oral vancomycin until 09/05 at least (according to up to date). Monitor for pt's diarrhea stopping while NPO, wbc normalizing. 08/24/2023: WBC on admission is 32 K slowly improving hyponatremia acute on chronic, DREW with continued rise of creatinine 5.1 today. Positive for C diff. stool culture negative for Salmonella Shigella Campylobacter. CT abdomen with diffuse colitis 08/11/[address] chest abdomen pelvis 08/15/2023 with similar findings no evidence of abscess or free air. Renal scan 08/22/2023 with markedly delayed time to peak in both kidneys without evidence activity clearance likely related to nonspecific nephropathy. Asymmetric renal activity uptake which is at the upper limits of normal with 59% uptake in the left kidney 41% in the right kidney. Blood culture positive for Staphylococcus epidermidis 10/2508/11/2023 likely contamination. Urine culture 08/11/2023 with E coli pansensitive. Underlying rheumatoid arthritis on Plaquenil. On oral vancomycin and metronidazole IV. TPN. DVT prophylaxis with heparin subQ. Urine output 1 L 550 so far slowl
--- NOTE | 2023-08-24 10:10 | PCNFU ---
Nutrition Follow-Up Complete: Inadequate energy intake related to NPO status as evidenced by diet order and need for parental nutrition Goal: Meet estimated needs, greater than 50% for parental nutrition. - Meeting goal with TPN Pt current nutrition is TPN Clinmix E 03/05 @ 40 ml/h: 1182 kcal, 48 g protein, 1210 ml total volume. Nutrition recommendation: Continue current nutrition care plan and TPN orders Last recorded weight is 106.8 kg. Bowel Motility: Liquid stool per rectal tube Labs Reviewed: Hgb 7.3, Hct 22.5, Alb 1.6, Na 124, GFR 8, BUN 51, Cre 5.1, TRIG 160 Meds Noted: Zofran, Protonix, Bumex, Flagyl, vancomycin Skin: WNL Additional Notes: Kidney function is worsening, may have to have dialysis. If potassium goes up, may need to change to TPN without electrolytes. Continue to monitor Monitor TPN, rate, wt, labs. Follow up every Sunday and Sunday.
--- NOTE | 2023-08-24 10:56 | P.PNNP_ITS ---
Progress Note: A&P Assessment and Plan (1) DREW (acute kidney injury): Code(s): N17.9 - Acute kidney failure, unspecified Status: Acute Assessment and Plan: * continues to worsen * noted on admission * resolved initially with IVF hydration * but has been deteriorating as noted by trend of labs since 08/14/23 * suspect due to volume depletion coupled with infection/sepsis (from C. diff colits + UTI +/- bacteremia) leading to ATN * noted contrast exposure with CT done on 08/11 * evaluation to date: * urine electrolytes prerenal * CT imaging without obstruction of kidneys * UA c/w infection * urine eosinophils not done (would not be informative in the context of UTI) * renal scan noted as well * she remains at risk for BENDING MACHINE OPERATOR/hemodialysis * however, no acute indication at this time as no critical electrolytes, volume overload, or uremia currently * her UE and LE edema and shortness of breath are concerning.... * start IV albumin chased by IV diuretics x 6 doses -- this may help mild volume overload symptoms and perhaps minimize worsening renal dysfunction * patient willing to try BENDING MACHINE OPERATOR/dialysis if necessary but only as a temporary measure * continue current therapy (2) Hyponatremia: Code(s): E87.1 - Hypo-osmolality and hyponatremia Status: Acute Assessment and Plan: * continues to fluctuate * as noted on admission (admission sodium 126) * history would suggest hypovolemia as etiology (on admission) from ongoing GI losses/diarrhea * however, now related to ongoing DREW/ARF as well * could be related to medications -- on PPI and venlafaxine (but these are chronic medications) * evaluation to date: * TSH and cortisol okay * urine electrolytes prerenal * SPEP/UPEP without M-spike * serum/urine osmo pending * follow the trend of repeat sodium level (3) Sepsis: Code(s): A41.9 - Sepsis, unspecified organism Status: Acute Assessment and Plan: * as noted on admission * noted elevated WBC, tachycardia, and hypotension * presumable source is C. diff colitis +/- UTI * culture data noted * on antibiotics * follow hemodynamics (4) C. difficile colitis: Code(s): A04.72 - Enterocolitis due to Clostridium difficile, not specified as recurrent Status: Acute Assessment and Plan: * as noted by testing * on oral vancomycin and IV flagyl * Gastroenterology following * on TPN for nutritional support * follow symptoms and stool output (5) Urinary tract infection: Code(s): N39.0 - Urinary tract infection, site not specified Status: Acute Assessment and Plan: * as suggested by admission UA * urine culture with E. coli * completed course of antibiotics (6) Metabolic acidosis: Code(s): E87.20 - Acidosis, unspecified Status: Acute Assessment and Plan: * due to GI losses and ongoing DREW * oral sodium bicarbonate to compensate * off bicarb fluids due to edema and SOB * follow lactic acid levels intermittently * follow trend (7) HTN (hypertension): Code(s): I10 - Essential (primary) hypertension Status: Chronic Assessment and Plan: * reasonable control * follow trend of hemodynamcis (8) Anemia: Code(s): D64.9 - Anemia, unspecified Status: Chronic Assessment and Plan: * likely due to iron deficiency, DREW, and acute illness * follow trend of H/H * PRBC transfusion per protocol * on Epogen to compensate
--- NOTE | 2023-08-24 10:56 | PM.PNNEP ---
Progress Note: A&P Assessment and Plan (1) DREW (acute kidney injury): Code(s): N17.9 - Acute kidney failure, unspecified Status: Acute Assessment and Plan: continues to worsen noted on admission resolved initially with IVF hydration but has been deteriorating as noted by trend of labs since 08/14/23 suspect due to volume depletion coupled with infection/sepsis (from C. diff colits + UTI +/- bacteremia) leading to ATN noted contrast exposure with CT done on 08/11 evaluation to date: urine electrolytes prerenal CT imaging without obstruction of kidneys UA c/w infection urine eosinophils not done (would not be informative in the context of UTI) renal scan noted as well she remains at risk for COPPER PLATE LITHOGRAPHER/hemodialysis however, no acute indication at this time as no critical electrolytes, volume overload, or uremia currently her UE and LE edema and shortness of breath are concerning.... start IV albumin chased by IV diuretics x 6 doses -- this may help mild volume overload symptoms and perhaps minimize worsening renal dysfunction patient willing to try COPPER PLATE LITHOGRAPHER/dialysis if necessary but only as a temporary measure continue current therapy (2) Hyponatremia: Code(s): E87.1 - Hypo-osmolality and hyponatremia Status: Acute Assessment and Plan: continues to fluctuate as noted on admission (admission sodium 126) history would suggest hypovolemia as etiology (on admission) from ongoing GI losses/diarrhea however, now related to ongoing DREW/ARF as well could be related to medications -- on PPI and venlafaxine (but these are chronic medications) evaluation to date: TSH and cortisol okay urine electrolytes prerenal SPEP/UPEP without M-spike serum/urine osmo pending follow the trend of repeat sodium level (3) Sepsis: Code(s): A41.9 - Sepsis, unspecified organism Status: Acute Assessment and Plan: as noted on admission noted elevated WBC, tachycardia, and hypotension presumable source is C. diff colitis +/- UTI culture data noted on antibiotics follow hemodynamics (4) C. difficile colitis: Code(s): A04.72 - Enterocolitis due to Clostridium difficile, not specified as recurrent Status: Acute Assessment and Plan: as noted by testing on oral vancomycin and IV flagyl Gastroenterology following on TPN for nutritional support follow symptoms and stool output (5) Urinary tract infection: Code(s): N39.0 - Urinary tract infection, site not specified Status: Acute Assessment and Plan: as suggested by admission UA urine culture with E. coli completed course of antibiotics (6) Metabolic acidosis: Code(s): E87.20 - Acidosis, unspecified Status: Acute Assessment and Plan: due to GI losses and ongoing DREW oral sodium bicarbonate to compensate off bicarb fluids due to edema and SOB follow lactic acid levels intermittently follow trend (7) HTN (hypertension): Code(s): I10 - Essential (primary) hypertension Status: Chronic Assessment and Plan: reasonable control follow trend of hemodynamcis (8) Anemia: Code(s): D64.9 - Anemia, unspecified Status: Chronic Assessment and Plan: likely due to iron deficiency, DREW, and acute illness follow trend of H/H PRBC transfusion per protocol on Epogen to compensate holding IV iron in the setting of acute infection Will continue to follow. Subjective Date/time seen: 08/24/23 10:56 Interval history: Follow-up for acute on chronc hyponatremia and acute kidney injury/acute renal failure. Renal function/creatinine slowly rising but continues to have reasonable urine output with relative stability in metabolic acidosis and mild improvement in sodium level; increasing/worsening upper and lower extremity edema noted in association with exertional shortness of breath; remains on TPN s
[2023-08-24] MEDS: EPOETIN ALFA-EPBX 10,000 UNITS/ML VIAL 10000 UNITS SUB-Q (11:00)
[2023-08-24] MEDS: AMINO ACIDS 5%/D15W/E-LYTES/CA 2,000 ML with MULTIVITAMINS-12 INJ VIAL 1 2.5 ML, MULTIV... 40 ML IV CONT (11:01)
[2023-08-24] MEDS: FAT EMULSIONS IV 20% 250 ML 20.83 ML IVPB (11:02)
[2023-08-24 11:25] LABS: Glucose Point of Care 93 mg/dl (65-105)
[2023-08-24 12:00] VITALS: BP 136/50; PULSE 69; RESP 18; TEMP 36.6; O2SAT 100
[2023-08-24 16:00] VITALS: BP 111/85; PULSE 73; RESP 18; TEMP 36.8; O2SAT 100
[2023-08-24 20:00] VITALS: BP 151/80; PULSE 73; PULSE 75; RESP 16; RESP 18; TEMP 35.8; O2SAT 100; O2SAT 99
[2023-08-25] VITALS (11 sets, daily range): BP systolic 101–160; BP diastolic 55–113; PULSE 65–90; RESP 14–20; TEMP 35.6–37.3; O2SAT 97–100
[2023-08-25] MEDS: VANCOMYCIN ORAL 500 MG/10 ML SYRUP PO ×5 (00:17→23:13)
[2023-08-25 02:20] LABS: Glucose Point of Care 97 mg/dl (65-105)
[2023-08-25] MEDS: metroNIDAZOLE 500 MG/ISO 100ML 500 MG/100 ML BAG 100 MG IVPB ×3 (02:44→17:13)
[2023-08-25] MEDS: ALBUMIN HUMAN 25% 12.5 GM/50ML 50 ML IVPB ×3 (05:06→22:04)
[2023-08-25] MEDS: BUMETANIDE INJ 1 MG/4 ML VIAL 0.5 MG IV PUSH ×3 (05:07→23:15)
[2023-08-25] MEDS: CENTRAL LINE FLUSH 10 ML IV PUSH ×4 (05:07→23:15)
[2023-08-25 06:03] LABS: Glucose Point of Care 87 mg/dl (65-105)
[2023-08-25 06:36] LABS: Anion Gap 7 mmol/L (8-16); Blood Urea Nitrogen 56 mg/dL (7-17); Calcium 7.4 mg/dL (8.4-10.2); Carbon Dioxide 19 mmol/L (22-30); Chloride 100 mmol/L (98-107); Estimated CRCL calculation 10 ml/min; Estimated Glomerular Filt Rate 8; Glucose 80 mg/dL (65-110); Phosphorus 7.3 mg/dL (2.5-4.5); Potassium 4.1 mmol/L (3.4-5.0); Sodium 126 mmol/L (137-145)
[2023-08-25 07:32] LABS: Albumin Level 2.1 g/dL (3.5-5.1); Magnesium 1.9 mg/dL (1.6-2.3)
[2023-08-25 07:37] LABS: Hematocrit 21.4 % (37.0-47.0); Mean Corpuscular HGB Conc 31.3 g/dl (32-36); Mean Corpuscular Hemoglobin 26.1 pg (26-34); Mean Corpuscular Volume 83.3 fl (80-100); Mean Platelet Volume 9.3 fl (7.4-10.4); Platelet Count Result 288 k/mm3 (150-375); Red Blood Count 2.57 M/mm3 (4.2-5.4); Red Cell Distribution Width 21.2 % (11.5-14.5)
[2023-08-25 07:56] LABS: Hemoglobin 6.7 g/dL (12.0-15.0)
[2023-08-25 08:19] LABS: Band Neutrophils Percent 6 % (0-6); Basophils Absolute Manual 0.11 K/mm3 (0.0-0.1); Basophils Percent Manual 1 % (0-1); Eosinophils Absolute Manual 0.22 K/mm3 (0.02-0.5); Eosinophils Percent Manual 2 % (0-4); Lymphocytes Absolute Manual 0.66 K/mm3 (1.1-4.5); Metamyelocytes Percent 8 %; Monocytes Absolute Manual 0.22 K/mm3 (0.1-0.90); Monocytes Percent Manual 2 % (3-9); Myelocytes Percent 1 %; Neutrophils Absolute Manual 8.69 K/mm3 (1.7-7.2); Neutrophils Percent Manual 73 % (46-73); Promyelocytes Percent 1 %; Total Cells Counted 100
[2023-08-25 08:20] LABS: Anisocytosis 2+ (NORMAL); Hypochromasia 2+ (NORMAL); Platelet Estimate Adequate (Adequate); Schistocytes Rare (NORMAL); Target Cells 1+ (NORMAL)
[2023-08-25] MEDS: HEPARIN SODIUM 5,000 UNITS/ML VIAL 5000 UNITS SUB-Q ×2 (08:58→22:04)
[2023-08-25] MEDS: SODIUM BICARBONATE TAB 650 MG TABLET 1300 MG PO ×2 (08:58→17:13)
[2023-08-25] MEDS: PANTOPRAZOLE SODIUM IV 40 MG VIAL IV PUSH ×2 (08:58→22:04)
[2023-08-25 11:19] LABS: Glucose Point of Care 93 mg/dl (65-105)
[2023-08-25] MEDS: AMINO ACIDS 5%/D15W/E-LYTES/CA 2,000 ML with MULTIVITAMINS-12 INJ VIAL 1 2.5 ML, MULTIV... 40 ML IV CONT (13:35)
[2023-08-25] MEDS: SODIUM CHLORIDE 0.9% IV 250 ML 30 ML IV CONT (13:35)
[2023-08-25] MEDS: FAT EMULSIONS IV 20% 250 ML 20.83 ML IVPB (13:35)
[2023-08-25] MEDS: TUBING, BLOOD PLUM PUMP TUBING 1 EACH XX (13:35)
--- NOTE | 2023-08-25 14:15 | P.PNNP_ITS ---
Progress Note: A&P Assessment and Plan (1) DREW (acute kidney injury): Code(s): N17.9 - Acute kidney failure, unspecified Status: Acute Assessment and Plan: * Acute kidney injury. * noted on admission * resolved initially with IVF hydration * but has been deteriorating as noted by trend of labs since 08/14/23 * suspect due to volume depletion coupled with infection/sepsis (from C. diff colits + UTI +/- bacteremia) leading to ATN * noted contrast exposure with CT done on 08/11 * evaluation to date: * urine electrolytes prerenal * CT imaging without obstruction of kidneys * UA c/w infection * urine eosinophils not done * renal scan shows uptake without excretion consistent with ATN. * she remains at risk for PATTERN FILER/hemodialysis * however, no acute indication at this time as no critical electrolytes, volume overload, or uremia currently * Discussed with the patient and the son. Hopefully renal function will start to improve soon. * The patient is getting albumin and diuretics. * Creatinine improved to tiny bit today. It may just be lab variation but things seem stable over the last 3 days, which is better than continuing to worsen as it had been before that. * C diff seems to be getting better. Volume is lower. Peripheral white cell count is better. Hopefully this is a sign that her renal function may improve soon as well. (2) Hyponatremia: Code(s): E87.1 - Hypo-osmolality and hyponatremia Status: Acute Assessment and Plan: * Sodium level up a bit more to 126. * as noted on admission (admission sodium 126) * history would suggest hypovolemia as etiology (on admission) from ongoing GI losses/diarrhea * however, now related to ongoing DREW/ARF as well * could be related to medications -- on PPI and venlafaxine (but these are chronic medications) * evaluation to date: * TSH and cortisol okay * urine electrolytes prerenal * SPEP/UPEP without M-spike * serum/urine osmo pending * With improving sodium we can continue watching this. (3) Sepsis: Code(s): A41.9 - Sepsis, unspecified organism Status: Acute Assessment and Plan: * as noted on admission * noted elevated WBC, tachycardia, and hypotension * presumable source is C. diff colitis +/- UTI * 1/2 blood culture showed Staph epi. Urine culture showed E coli. * on IV Flagyl and oral vancomycin. * White cell count improved to 11. (4) C. difficile colitis: Code(s): A04.72 - Enterocolitis due to Clostridium difficile, not specified as recurrent Status: Acute Assessment and Plan: * as noted by testing * on oral vancomycin and IV flagyl * Gastroenterology following * on TPN for nutritional support * Volume of the stools lower and white cell count is lower as well. (5) Urinary tract infection: Code(s): N39.0 - Urinary tract infection, site not specified Status: Acute Assessment and Plan: * as suggested by admission UA * urine culture with E. coli * completed course of antibiotics (6) Metabolic acidosis: Code(s): E87.20 - Acidosis, unspecified Status: Acute Assessment and Plan: * due to GI losses and ongoing DREW * oral sodium bicarbonate to compensate * off bicarb fluids due to edema and SOB * Will check a lactic acid tomorrow. * CO2 improved to 19. (7) HTN (hypertension): Code(s): I10 - Essential (primary) hypertension Status: Chronic Assessment and Plan: * Systolic 131 today
--- NOTE | 2023-08-25 14:15 | PM.PNNEP ---
Progress Note: A&P Assessment and Plan (1) DREW (acute kidney injury): Code(s): N17.9 - Acute kidney failure, unspecified Status: Acute Assessment and Plan: Acute kidney injury. noted on admission resolved initially with IVF hydration but has been deteriorating as noted by trend of labs since 08/14/23 suspect due to volume depletion coupled with infection/sepsis (from C. diff colits + UTI +/- bacteremia) leading to ATN noted contrast exposure with CT done on 08/11 evaluation to date: urine electrolytes prerenal CT imaging without obstruction of kidneys UA c/w infection urine eosinophils not done renal scan shows uptake without excretion consistent with ATN. 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 Hopefully renal function will start to improve soon. The patient is getting albumin and diuretics. Creatinine improved to tiny bit today. It may just be lab variation but things seem stable over the last 3 days, which is better than continuing to worsen as it had been before that. C diff seems to be getting better. Volume is lower. Peripheral white cell count is better. Hopefully this is a sign that her renal function may improve soon as well. (2) Hyponatremia: Code(s): E87.1 - Hypo-osmolality and hyponatremia Status: Acute Assessment and Plan: Sodium level up a bit more to 126. as noted on admission (admission sodium 126) history would suggest hypovolemia as etiology (on admission) from ongoing GI losses/diarrhea however, now related to ongoing DREW/ARF as well could be related to medications -- on PPI and venlafaxine (but these are chronic medications) evaluation to date: TSH and cortisol okay urine electrolytes prerenal SPEP/UPEP without M-spike serum/urine osmo pending With improving sodium we can continue watching this. (3) Sepsis: Code(s): A41.9 - Sepsis, unspecified organism Status: Acute Assessment and Plan: as noted on admission noted elevated WBC, tachycardia, and hypotension presumable source is C. diff colitis +/- UTI 1/2 blood culture showed Staph epi. Urine culture showed E coli. on IV Flagyl and oral vancomycin. White cell count improved to 11. (4) C. difficile colitis: Code(s): A04.72 - Enterocolitis due to Clostridium difficile, not specified as recurrent Status: Acute Assessment and Plan: as noted by testing on oral vancomycin and IV flagyl Gastroenterology following on TPN for nutritional support Volume of the stools lower and white cell count is lower as well. (5) Urinary tract infection: Code(s): N39.0 - Urinary tract infection, site not specified Status: Acute Assessment and Plan: as suggested by admission UA urine culture with E. coli completed course of antibiotics (6) Metabolic acidosis: Code(s): E87.20 - Acidosis, unspecified Status: Acute Assessment and Plan: due to GI losses and ongoing DREW oral sodium bicarbonate to compensate off bicarb fluids due to edema and SOB Will check a lactic acid tomorrow. CO2 improved to 19. (7) HTN (hypertension): Code(s): I10 - Essential (primary) hypertension Status: Chronic Assessment and Plan: Systolic 131 today (8) Anemia: Code(s): D64.9 - Anemia, unspecified Status: Chronic Assessment and Plan: likely due to iron deficiency, DREW, and acute illness follow trend of H/H PRBC transfusion per protocol on Epogen to compensate holding IV iron in the setting of acute infection Subjective Date/time seen: 08/25/23 14:15 Interval history: Son in the room. Patient feels okay today. She has no belly pain (and never did). Volume of diarrhea is down some according to the nurse.
--- NOTE | 2023-08-25 15:21 | PM.IMPN ---
Progress Note: A&P Assessment and Plan (1) Colitis: Code(s): K52.9 - Noninfective gastroenteritis and colitis, unspecified Status: Acute (2) C. difficile colitis: Code(s): A04.72 - Enterocolitis due to Clostridium difficile, not specified as recurrent Status: Acute (3) Metabolic acidosis: Code(s): E87.20 - Acidosis, unspecified Status: Acute (4) Urinary tract infection: Code(s): N39.0 - Urinary tract infection, site not specified Status: Acute (5) GERD (gastroesophageal reflux disease): Code(s): K21.9 - Gastro-esophageal reflux disease without esophagitis Status: Acute (6) Sepsis: Code(s): A41.9 - Sepsis, unspecified organism Status: Acute (7) DREW (acute kidney injury): Code(s): N17.9 - Acute kidney failure, unspecified Status: Acute (8) Acute hyponatremia: Code(s): E87.1 - Hypo-osmolality and hyponatremia Status: Acute (9) Hypotension due to hypovolemia: Code(s): I95.89 - Other hypotension; E86.1 - Hypovolemia Status: Acute (10) Acute on chronic renal failure: Code(s): N17.9 - Acute kidney failure, unspecified; N18.9 - Chronic kidney disease, unspecified Status: Acute (11) Severe sepsis: Code(s): A41.9 - Sepsis, unspecified organism; R65.20 - Severe sepsis without septic shock Status: Acute Plan 1. C diff colitis (severe to fulminant) Cdiff positive 08/20: Pt is in severe to fulminant life threatening c diff colitis. Was initially started on fidaxomicin now switched to oral vancomycin The repeat CT shows ?Small amount of abdominopelvic ascites present, probable mesenteric edema. There is large bowel wall thickening, extensively involving the ascending and transverse colon in particular. No bowel obstruction. No abscess or free air evident. The pt needs urgent escalation of abx. Now will be on oral vancomycin 500 mg qid and iv flagyl 500 q8 for 14 days or until wbc decreases. The pt is at high risk for toxic megacolon based on the CT findings of edema, ascites, and large bowel thickening. Luckily she has no free air NPO except important meds. IVF- Can ct Na with 1 amp of bicarb. Probably can do 2 or 3 amps. Start TPN 08/21: Still having diarrhea. May take a few days to recover. Ct to limit PO meds. 08/22: ct supportive measures. TPN. no more additional IVF. Ct PO vanc. may need 10 days or 17 days depending on how she does. WBC decreased slightly to 19.3 08/23: Wbc count decreased to 16.5. still having diarrhea. rectal tube placed. may need oral vancomycin until 09/05 at least (according to up to date). Monitor for pt's diarrhea stopping while NPO, wbc normalizing. 08/24/2023: WBC on admission is 32 K slowly improving hyponatremia acute on chronic, DREW with continued rise of creatinine 5.1 today. Positive for C diff. stool culture negative for Salmonella Shigella Campylobacter. CT abdomen with diffuse colitis 08/11/[address] chest abdomen pelvis 08/15/2023 with similar findings no evidence of abscess or free air. Renal scan 08/22/2023 with markedly delayed time to peak in both kidneys without evidence activity clearance likely related to nonspecific nephropathy. Asymmetric renal activity uptake which is at the upper limits of normal with 59% uptake in the left kidney 41% in the right kidney. Blood culture positive for Staphylococcus epidermidis 10/2508/11/2023 likely contamination. Urine culture 08/11/2023 with E coli pansensitive. Underlying rheumatoid arthritis on Plaquenil. On oral vancomycin and metronidazole IV. TPN. DVT prophylaxis with heparin subQ. Urine output 1 L 550 so far slowly improved patient was treated with Dificid at some point in the past Continue oral vancomycin with IV Flagyl for fulminant C diff colitis 2. DREW Deterioration of kidney function from diarrhea and infection NPO. Ct IVF, NaCl with 1 amp of bicarb for metabolic acidosis If she does not recover in a few days, sh
[2023-08-25 19:33] LABS: Glucose Point of Care 118 mg/dl (65-105)
[2023-08-25] MEDS: SODIUM CHLORIDE 0.9% INJ 10 ML (22:05)
[2023-08-25] MEDS: TOLNAFTATE 1% POWDER 45 GM BTL 1 APPLIC TOPICAL (22:05)
[2023-08-26] VITALS: BP 101/61; PULSE 83; RESP 18; TEMP 35.9; O2SAT 97
[2023-08-26 00:52] LABS: Glucose Point of Care 96 mg/dl (65-105)
--- NOTE | 2023-08-26 01:07 | PC.NURSE ---
Daylight Savings Time For Daylight Savings Time Ending in the Fall - Clocks are moved back. For Daylight Savings Time Beginning in the Spring - Clocks are moved ahead. For [facility], the time of change occurs at 0200 hrs. Time is taken from the gravity meter observer. This entry on the patient's chart recognizes the change in time reflected during documentation. Example: 2 entries for vital signs may be charted for 0200 hrs.
[2023-08-26] MEDS: metroNIDAZOLE 500 MG/ISO 100ML 500 MG/100 ML BAG 100 MG IVPB ×3 (01:31→17:18)
[2023-08-26 04:00] VITALS: BP 108/65; PULSE 81; RESP 16; TEMP 36.2; O2SAT 98
[2023-08-26] MEDS: CENTRAL LINE FLUSH 20 ML IV PUSH (05:41)
[2023-08-26] MEDS: VANCOMYCIN ORAL 500 MG/10 ML SYRUP PO ×3 (05:41→17:17)
[2023-08-26 06:20] LABS: Hematocrit 22.1 % (37.0-47.0); Mean Corpuscular HGB Conc 31.7 g/dl (32-36); Mean Corpuscular Hemoglobin 26.9 pg (26-34); Mean Platelet Volume 9.4 fl (7.4-10.4); Platelet Count Result 257 k/mm3 (150-375); Red Cell Distribution Width 20.7 % (11.5-14.5); White Blood Count 9.4 K/mm3 (4.5-10.0)
[2023-08-26 06:41] LABS: Alanine Aminotransferase 8 U/L (6-35); Alkaline Phosphatase 31 U/L (38-126); Anion Gap 8 mmol/L (8-16); Aspartate Amino Transferase 19 U/L (14-36); Bilirubin,Total 0.4 mg/dL (0.2-1.3); Blood Urea Nitrogen 57 mg/dL (7-17); Calcium 7.4 mg/dL (8.4-10.2); Carbon Dioxide 19 mmol/L (22-30); Chloride 100 mmol/L (98-107); Estimated CRCL calculation 11 ml/min; Estimated Glomerular Filt Rate 9; Glucose 88 mg/dL (65-110); Magnesium 1.8 mg/dL (1.6-2.3); Phosphorus 7.6 mg/dL (2.5-4.5); Potassium 3.7 mmol/L (3.4-5.0); Sodium 127 mmol/L (137-145); Triglycerides 54 mg/dL (<150)
[2023-08-26 07:01] LABS: Band Neutrophils Percent 2 % (0-6); Eosinophils Absolute Manual 0.18 K/mm3 (0.02-0.5); Eosinophils Percent Manual 2 % (0-4); Lymphocytes Absolute Manual 0.84 K/mm3 (1.1-4.5); Metamyelocytes Percent 3 %; Monocytes Absolute Manual 0.28 K/mm3 (0.1-0.90); Monocytes Percent Manual 3 % (3-9); Myelocytes Percent 1 %; Neutrophils Percent Manual 80 % (46-73); Platelet Estimate Adequate (Adequate); Total Cells Counted 100
[2023-08-26 07:02] LABS: Anisocytosis 1+ (NORMAL); Burr Cells 1+ (NORMAL); Large Platelets Present; Toxic Granulation Present (NORMAL)
[2023-08-26 07:03] LABS: Hypochromasia 1+ (NORMAL); Poikilocytosis 1+ (NORMAL); Schistocytes Rare (NORMAL)
[2023-08-26 07:09] LABS: Glucose Point of Care 87 mg/dl (65-105)
[2023-08-26 08:00] VITALS: BP 145/68; PULSE 77; RESP 16; TEMP 36.4; O2SAT 98
[2023-08-26] MEDS: SODIUM BICARBONATE TAB 650 MG TABLET 1300 MG PO ×2 (08:18→17:17)
[2023-08-26] MEDS: HEPARIN SODIUM 5,000 UNITS/ML VIAL 5000 UNITS SUB-Q ×2 (08:18→21:38)
[2023-08-26] MEDS: PANTOPRAZOLE SODIUM IV 40 MG VIAL IV PUSH ×2 (08:18→21:39)
[2023-08-26] MEDS: TOLNAFTATE 1% POWDER 45 GM BTL 1 APPLIC TOPICAL ×2 (08:19→23:40)
[2023-08-26 11:36] VITALS: BP 145/66; PULSE 96; RESP 16; TEMP 37.2; O2SAT 100
[2023-08-26 11:37] LABS: Glucose Point of Care 150 mg/dl (65-105)
[2023-08-26] MEDS: AMINO ACIDS 5%/D15W/E-LYTES/CA 2,000 ML with MULTIVITAMINS-12 INJ VIAL 1 2.5 ML, MULTIV... 40 ML IV CONT (13:27)
[2023-08-26] MEDS: FAT EMULSIONS IV 20% 250 ML 20.83 ML IVPB (13:28)
[2023-08-26] MEDS: CENTRAL LINE FLUSH 10 ML IV PUSH ×2 (13:29→23:40)
--- NOTE | 2023-08-26 13:30 | P.PNNP_ITS ---
Progress Note: A&P Assessment and Plan (1) DREW (acute kidney injury): Code(s): N17.9 - Acute kidney failure, unspecified Status: Acute Assessment and Plan: * Acute kidney injury. * noted on admission * resolved initially with IVF hydration * Then worsened a bit. * Now improving. * Urine output has improved dramatically over the last 24hours. * evaluation to date: * urine electrolytes prerenal * CT imaging without obstruction of kidneys * UA c/w infection * urine eosinophils not done * renal scan shows uptake without excretion consistent with ATN. * Creatinine is improved. Urine output is better. * Will check another creatinine in the morning. (2) Hyponatremia: Code(s): E87.1 - Hypo-osmolality and hyponatremia Status: Acute Assessment and Plan: * Sodium level up a bit more to 127. * as noted on admission (admission sodium 126) * history would suggest hypovolemia as etiology (on admission) from ongoing GI losses/diarrhea * however, now related to ongoing DREW/ARF as well * could be related to medications -- on PPI and venlafaxine (but these are chronic medications) * evaluation to date: * TSH and cortisol okay * urine electrolytes prerenal * SPEP/UPEP without M-spike * serum/urine osmo pending * Follow along conservatively. * Hopefully will improve as the kidneys improved (3) Sepsis: Code(s): A41.9 - Sepsis, unspecified organism Status: Acute Assessment and Plan: * as noted on admission * noted elevated WBC, tachycardia, and hypotension * presumable source is C. diff colitis +/- UTI * 1/2 blood culture showed Staph epi. Urine culture showed E coli. * on IV Flagyl and oral vancomycin. * White cell count improved to 9.4 (4) C. difficile colitis: Code(s): A04.72 - Enterocolitis due to Clostridium difficile, not specified as recurrent Status: Acute Assessment and Plan: * as noted by testing * on oral vancomycin and IV flagyl * Gastroenterology following * on TPN for nutritional support * No record of volume of stools. (5) Urinary tract infection: Code(s): N39.0 - Urinary tract infection, site not specified Status: Acute Assessment and Plan: * as suggested by admission UA * urine culture with E. coli * completed course of antibiotics (6) Metabolic acidosis: Code(s): E87.20 - Acidosis, unspecified Status: Acute Assessment and Plan: * due to GI losses and ongoing DREW * oral sodium bicarbonate to compensate * off bicarb fluids due to edema and SOB * Will check a lactic acid tomorrow. * CO2 stable (7) HTN (hypertension): Code(s): I10 - Essential (primary) hypertension Status: Chronic Assessment and Plan: * Systolic 100 to 150 (8) Anemia: Code(s): D64.9 - Anemia, unspecified Status: Chronic Assessment and Plan: * likely due to iron deficiency, DREW, and acute illness * hb down to 6.7 yesterday. Received a blood transfusion. * She is on EPO * Now hemoglobin 7 Subjective Date/time seen: 08/26/23 13:30 Interval history: Patient is alert and lying in bed. Son and grandson are in the room. The patient is eating clear liquids and it is staying down. No belly pain. Exam Narrative: General: elderly but WD/WN female in NAD Heart: normal S1 and S2; no rub or gallop Lungs: clear bilaterally Abdomen: soft, nont
--- NOTE | 2023-08-26 13:30 | PM.PNNEP ---
Progress Note: A&P Assessment and Plan (1) DREW (acute kidney injury): Code(s): N17.9 - Acute kidney failure, unspecified Status: Acute Assessment and Plan: Acute kidney injury. noted on admission resolved initially with IVF hydration Then worsened a bit. Now improving. Urine output has improved dramatically over the last 24hours. evaluation to date: urine electrolytes prerenal CT imaging without obstruction of kidneys UA c/w infection urine eosinophils not done renal scan shows uptake without excretion consistent with ATN. Creatinine is improved. Urine output is better. Will check another creatinine in the morning. (2) Hyponatremia: Code(s): E87.1 - Hypo-osmolality and hyponatremia Status: Acute Assessment and Plan: Sodium level up a bit more to 127. as noted on admission (admission sodium 126) history would suggest hypovolemia as etiology (on admission) from ongoing GI losses/diarrhea however, now related to ongoing DREW/ARF as well could be related to medications -- on PPI and venlafaxine (but these are chronic medications) evaluation to date: TSH and cortisol okay urine electrolytes prerenal SPEP/UPEP without M-spike serum/urine osmo pending Follow along conservatively. Hopefully will improve as the kidneys improved (3) Sepsis: Code(s): A41.9 - Sepsis, unspecified organism Status: Acute Assessment and Plan: as noted on admission noted elevated WBC, tachycardia, and hypotension presumable source is C. diff colitis +/- UTI 1/2 blood culture showed Staph epi. Urine culture showed E coli. on IV Flagyl and oral vancomycin. White cell count improved to 9.4 (4) C. difficile colitis: Code(s): A04.72 - Enterocolitis due to Clostridium difficile, not specified as recurrent Status: Acute Assessment and Plan: as noted by testing on oral vancomycin and IV flagyl Gastroenterology following on TPN for nutritional support No record of volume of stools. (5) Urinary tract infection: Code(s): N39.0 - Urinary tract infection, site not specified Status: Acute Assessment and Plan: as suggested by admission UA urine culture with E. coli completed course of antibiotics (6) Metabolic acidosis: Code(s): E87.20 - Acidosis, unspecified Status: Acute Assessment and Plan: due to GI losses and ongoing DREW oral sodium bicarbonate to compensate off bicarb fluids due to edema and SOB Will check a lactic acid tomorrow. CO2 stable (7) HTN (hypertension): Code(s): I10 - Essential (primary) hypertension Status: Chronic Assessment and Plan: Systolic 100 to 150 (8) Anemia: Code(s): D64.9 - Anemia, unspecified Status: Chronic Assessment and Plan: likely due to iron deficiency, DREW, and acute illness hb down to 6.7 yesterday. Received a blood transfusion. She is on EPO Now hemoglobin 7 Subjective Date/time seen: 08/26/23 13:30 Interval history: Patient is alert and lying in bed. Son and grandson are in the room. The patient is eating clear liquids and it is staying down. No belly pain. Exam Narrative: General: elderly but WD/WN female in NAD Heart: normal S1 and S2; no rub or gallop Lungs: clear bilaterally Abdomen: soft, nontender, nondistended, positive bowel sounds Extremities: no cyanosis or clubbing; 1+ edema (in UEs and LEs) Skin: No rash or subQ nodules Objective Data Vital Signs Vital Signs: Vital Signs - 24 hr 08/25/23 16:00 08/25/23 20:00 08/25/23 20:00 Temperature 98.2 F 97.0 F L Pulse Rate 70 79 Respiratory Rate 16 14 Blood Pressure 143/76 H 101/69 Pulse Oximetry 99 97 Oxygen Delivery Room Air 08/25/23 23:45 08/26/23 00:00 08/26/23 04:00 Temperature 96.6 F L 97.1 F L Pulse Rate 83 81 Respiratory Rate 18 16 Blood Pressure 101/61 108/65
[2023-08-26 16:00] VITALS: BP 139/67; PULSE 77; RESP 16; TEMP 37.6; O2SAT 100
[2023-08-26 17:27] LABS: Glucose Point of Care 95 mg/dl (65-105)
[2023-08-26 20:00] VITALS: BP 130/55; PULSE 89; RESP 20; TEMP 37.4; O2SAT 96
[2023-08-26 23:58] LABS: Glucose Point of Care 105 mg/dl (65-105)
[2023-08-27] VITALS: BP 128/59; PULSE 90; RESP 18; TEMP 37.3; O2SAT 98
[2023-08-27] MEDS: VANCOMYCIN ORAL 500 MG/10 ML SYRUP PO ×4 (01:40→17:21)
[2023-08-27] MEDS: metroNIDAZOLE 500 MG/ISO 100ML 500 MG/100 ML BAG 100 MG IVPB ×3 (01:43→17:21)
[2023-08-27 04:00] VITALS: BP 127/50; PULSE 78; RESP 20; TEMP 37; O2SAT 97
[2023-08-27 04:57] LABS: Basophils Absolute Auto 0.1 K/mm3 (0.0-0.1); Basophils Percent Auto 1.1 % (0.2-1.2); Hematocrit 22.1 % (37.0-47.0); Hemoglobin 7.1 g/dL (12.0-15.0); Immature Granulocyte Absolute 0.83 K/mm3 (0.00-0.031); Immature Granulocyte Percent A 8.3 % (0-0.5); Mean Corpuscular HGB Conc 32.1 g/dl (32-36); Mean Corpuscular Hemoglobin 26.8 pg (26-34); Mean Corpuscular Volume 83.4 fl (80-100); Mean Platelet Volume 9.6 fl (7.4-10.4); Monocytes Absolute Auto 1.1 K/mm3 (0.1-0.6); Monocytes Percent Auto 10.5 % (2.6-8.5); Neutrophils Absolute Auto 6.5 K/mm3 (1.3-6.7); Neutrophils Percent Auto 65.1 % (45.5-73.1); Nucleated Red Blood Cells Perc 0.2 % (0.0-0.2); Platelet Count Result 262 k/mm3 (150-375); Red Blood Count 2.65 M/mm3 (4.2-5.4)
[2023-08-27 05:02] LABS: Alanine Aminotransferase 9 U/L (6-35); Albumin Level 1.9 g/dL (3.5-5.1); Alkaline Phosphatase 34 U/L (38-126); Anion Gap 7 mmol/L (8-16); Aspartate Amino Transferase 27 U/L (14-36); Bilirubin,Total 0.2 mg/dL (0.2-1.3); Blood Urea Nitrogen 56 mg/dL (7-17); Calcium 7.3 mg/dL (8.4-10.2); Carbon Dioxide 19 mmol/L (22-30); Chloride 101 mmol/L (98-107); Estimated CRCL calculation 13 ml/min; Estimated Glomerular Filt Rate 11; Glucose 88 mg/dL (65-110); INR 1.2; Magnesium 1.6 mg/dL (1.6-2.3); Potassium 3.5 mmol/L (3.4-5.0); Prothrombin Time 16.2 Seconds (11.1-14.7); Sodium 127 mmol/L (137-145)
[2023-08-27 05:03] LABS: Partial Thromboplastin Time 33.9 SECONDS (22.3-36.8)
[2023-08-27 05:20] LABS: Platelet Estimate Adequate (Adequate)
[2023-08-27 05:22] LABS: Anisocytosis 2+ (NORMAL); Burr Cells 1+ (NORMAL); Hypochromasia 2+ (NORMAL); Poikilocytosis 1+ (NORMAL); Schistocytes None Seen (NORMAL)
[2023-08-27 05:38] LABS: Transferrin < 80 mg/dL (206-381)
[2023-08-27 06:07] LABS: Vancomycin Random 12.2 ug/mL (10-20)
[2023-08-27] MEDS: CENTRAL LINE FLUSH 10 ML IV PUSH ×4 (06:13→20:27)
[2023-08-27 06:24] LABS: Glucose Point of Care 106 mg/dl (65-105)
[2023-08-27] MEDS: PANTOPRAZOLE SODIUM IV 40 MG VIAL IV PUSH ×2 (08:09→20:23)
[2023-08-27] MEDS: HEPARIN SODIUM 5,000 UNITS/ML VIAL 5000 UNITS SUB-Q ×2 (08:09→20:23)
[2023-08-27] MEDS: EPOETIN ALFA-EPBX 10,000 UNITS/ML VIAL 10000 UNITS SUB-Q (08:09)
[2023-08-27] MEDS: TOLNAFTATE 1% POWDER 45 GM BTL 1 APPLIC TOPICAL ×2 (08:09→20:28)
[2023-08-27] MEDS: SODIUM BICARBONATE TAB 650 MG TABLET 1300 MG PO ×2 (08:09→17:21)
--- NOTE | 2023-08-27 10:52 | P.PNNP_ITS ---
Progress Note: A&P Assessment and Plan (1) DREW (acute kidney injury): Code(s): N17.9 - Acute kidney failure, unspecified Status: Acute Assessment and Plan: * slow improvement * noted on admission * resolved initially with IVF hydration * hen worsened... * now improving * s/p IV albumin + IV bumex * good urine output noted * evaluation to date: * urine electrolytes prerenal * CT imaging without obstruction of kidneys * UA c/w infection * urine eosinophils not done * renal scan shows uptake without excretion consistent with ATN * follow repeat labs and UOP (2) Hyponatremia: Code(s): E87.1 - Hypo-osmolality and hyponatremia Status: Acute Assessment and Plan: * improvement noted * as noted on admission (admission sodium 126) * history would suggest hypovolemia as etiology (on admission) from ongoing GI losses/diarrhea * however, now likely related to DREW/ARF as well * could be related to medications -- on PPI and venlafaxine (but these are chronic medications) * evaluation to date: * TSH and cortisol okay * urine electrolytes prerenal * SPEP/UPEP without M-spike * serum/urine osmo pending * follow trend (3) Sepsis: Code(s): A41.9 - Sepsis, unspecified organism Status: Acute Assessment and Plan: * improving - WBC trending down * as noted on admission * noted elevated WBC, tachycardia, and hypotension * presumable source is C. diff colitis +/- UTI * 1/2 blood culture showed Staph epi. Urine culture showed E coli. (4) C. difficile colitis: Code(s): A04.72 - Enterocolitis due to Clostridium difficile, not specified as recurrent Status: Acute Assessment and Plan: * as noted by testing * on oral vancomycin and IV flagyl * Gastroenterology following * on TPN for nutritional support (5) Urinary tract infection: Code(s): N39.0 - Urinary tract infection, site not specified Status: Acute Assessment and Plan: * as suggested by admission UA * urine culture with E. coli * completed course of antibiotics (6) Metabolic acidosis: Code(s): E87.20 - Acidosis, unspecified Status: Acute Assessment and Plan: * due to GI losses and ongoing DREW * oral sodium bicarbonate to compensate * off bicarb fluids due to edema and SOB * CO2 stable (7) HTN (hypertension): Code(s): I10 - Essential (primary) hypertension Status: Chronic Assessment and Plan: * reasonable control * follow trend of hemodyamics (8) Anemia: Code(s): D64.9 - Anemia, unspecified Status: Chronic Assessment and Plan: * likely due to iron deficiency, DREW, and acute illness * PRBC transfusion per protocol * on Epogen * follow H/H Will continue to follow. Subjective Date/time seen: 08/27/23 10:32 Interval history: Follow-up for acute on chronc hyponatremia and acute kidney injury/acute renal failure. Since last seen, renal function appears to be doing better/improving; responded to IV albumin + IV bumex on Sunday/Sunday and continues to make good urine output as this time; sodium slowly improving as well; stool output seems to be better as well per patient. Exam Narrative: General: elderly but WD/WN female in NAD Heart: normal S1 and S2; no rub Lungs: clear bilaterally Abdomen: soft, nontender, nondistended, positive bowel sounds Extremities: no cyanosis or cl
--- NOTE | 2023-08-27 10:52 | PM.PNNEP ---
Progress Note: A&P Assessment and Plan (1) DREW (acute kidney injury): Code(s): N17.9 - Acute kidney failure, unspecified Status: Acute Assessment and Plan: slow improvement noted on admission resolved initially with IVF hydration hen worsened... now improving s/p IV albumin + IV bumex good urine output noted evaluation to date: urine electrolytes prerenal CT imaging without obstruction of kidneys UA c/w infection urine eosinophils not done renal scan shows uptake without excretion consistent with ATN follow repeat labs and UOP (2) Hyponatremia: Code(s): E87.1 - Hypo-osmolality and hyponatremia Status: Acute Assessment and Plan: improvement noted as noted on admission (admission sodium 126) history would suggest hypovolemia as etiology (on admission) from ongoing GI losses/diarrhea however, now likely related to DREW/ARF as well could be related to medications -- on PPI and venlafaxine (but these are chronic medications) evaluation to date: TSH and cortisol okay urine electrolytes prerenal SPEP/UPEP without M-spike serum/urine osmo pending follow trend (3) Sepsis: Code(s): A41.9 - Sepsis, unspecified organism Status: Acute Assessment and Plan: improving - WBC trending down as noted on admission noted elevated WBC, tachycardia, and hypotension presumable source is C. diff colitis +/- UTI 1/2 blood culture showed Staph epi. Urine culture showed E coli. (4) C. difficile colitis: Code(s): A04.72 - Enterocolitis due to Clostridium difficile, not specified as recurrent Status: Acute Assessment and Plan: as noted by testing on oral vancomycin and IV flagyl Gastroenterology following on TPN for nutritional support (5) Urinary tract infection: Code(s): N39.0 - Urinary tract infection, site not specified Status: Acute Assessment and Plan: as suggested by admission UA urine culture with E. coli completed course of antibiotics (6) Metabolic acidosis: Code(s): E87.20 - Acidosis, unspecified Status: Acute Assessment and Plan: due to GI losses and ongoing DREW oral sodium bicarbonate to compensate off bicarb fluids due to edema and SOB CO2 stable (7) HTN (hypertension): Code(s): I10 - Essential (primary) hypertension Status: Chronic Assessment and Plan: reasonable control follow trend of hemodyamics (8) Anemia: Code(s): D64.9 - Anemia, unspecified Status: Chronic Assessment and Plan: likely due to iron deficiency, DREW, and acute illness PRBC transfusion per protocol on Epogen follow H/H Will continue to follow. Subjective Date/time seen: 08/27/23 10:32 Interval history: Follow-up for acute on chronc hyponatremia and acute kidney injury/acute renal failure. Since last seen, renal function appears to be doing better/improving; responded to IV albumin + IV bumex on Sunday/Sunday and continues to make good urine output as this time; sodium slowly improving as well; stool output seems to be better as well per patient. Exam Narrative: General: elderly but WD/WN female in NAD Heart: normal S1 and S2; no rub Lungs: clear bilaterally Abdomen: soft, nontender, nondistended, positive bowel sounds Extremities: no cyanosis or clubbing; trace edema (in UEs and LEs) Skin: Warm and dry Objective Data Vital Signs Vital Signs: Vital Signs Temp Pulse Resp BP Pulse Ox O2 Del Method 08/27/23 08:00 Room Air 08/27/23 04:00 98.6 F 78 20 127/50 L 97 08/27/23 00:00 99.2 F 90 18 128/59 L 98 08/26/23 20:00 99.4 F 89 20 130/55 L 96 08/26/23 16:00 99.6 F 77 16 139/67 100 08/26/23 11:36 98.9 F 96 16 145/66 H 100 Intake/Output Intake/Output: Intake & Output 08/25/23 08/26/23 08/26/23 08/27/23 00:59 00:59 23:59 23:59 Intake Tota
[2023-08-27 11:31] LABS: Glucose Point of Care 97 mg/dl (65-105)
[2023-08-27 14:00] VITALS: BP 157/80; PULSE 85; RESP 20; TEMP 37.4; O2SAT 98
[2023-08-27] MEDS: AMINO ACIDS 5%/D15W/E-LYTES/CA 2,000 ML with MULTIVITAMINS-12 INJ VIAL 1 2.5 ML, MULTIV... 40 ML IV CONT (14:04)
[2023-08-27] MEDS: FAT EMULSIONS IV 20% 250 ML 20.83 ML IVPB (14:04)
[2023-08-27 17:51] LABS: Glucose Point of Care 104 mg/dl (65-105)
[2023-08-27 19:05] LABS: Triglycerides 132 mg/dL (<150)
[2023-08-27 22:00] VITALS: BP 101/81; PULSE 88; RESP 16; TEMP 37.2; O2SAT 98
[2023-08-28] VITALS (8 sets, daily range): BP systolic 123–148; BP diastolic 55–88; PULSE 85–92; RESP 14–20; TEMP 36.6–38.2; O2SAT 96–100
[2023-08-28] MEDS: VANCOMYCIN ORAL 500 MG/10 ML SYRUP PO ×5 (00:20→23:08)
[2023-08-28 01:46] LABS: Glucose Point of Care 123 mg/dl (65-105)
[2023-08-28] MEDS: metroNIDAZOLE 500 MG/ISO 100ML 500 MG/100 ML BAG 100 MG IVPB ×3 (02:02→21:15)
[2023-08-28] MEDS: CENTRAL LINE FLUSH 10 ML IV PUSH ×3 (05:12→21:22)
[2023-08-28] MEDS: CENTRAL LINE FLUSH 20 ML IV PUSH (05:12)
[2023-08-28 05:53] LABS: Basophils Absolute Auto 0.1 K/mm3 (0.0-0.1); Basophils Percent Auto 1.1 % (0.2-1.2); Hematocrit 21.8 % (37.0-47.0); Immature Granulocyte Absolute 0.58 K/mm3 (0.00-0.031); Immature Granulocyte Percent A 6.3 % (0-0.5); Lymphocytes Absolute Auto 1.76 K/mm3 (0.9-3.2); Lymphocytes Percent Auto 19.2 % (18.3-44.2); Mean Corpuscular HGB Conc 31.7 g/dl (32-36); Mean Corpuscular Hemoglobin 26.7 pg (26-34); Mean Corpuscular Volume 84.5 fl (80-100); Mean Platelet Volume 9.2 fl (7.4-10.4); Monocytes Absolute Auto 1.2 K/mm3 (0.1-0.6); Monocytes Percent Auto 13.3 % (2.6-8.5); Neutrophils Absolute Auto 5.5 K/mm3 (1.3-6.7); Neutrophils Percent Auto 60.1 % (45.5-73.1); Nucleated Red Blood Cells Perc 0.2 % (0.0-0.2); Platelet Count Result 262 k/mm3 (150-375); Red Blood Count 2.58 M/mm3 (4.2-5.4); White Blood Count 9.2 K/mm3 (4.5-10.0)
[2023-08-28 05:57] LABS: Hemoglobin 6.9 g/dL (12.0-15.0)
[2023-08-28 06:03] LABS: Alanine Aminotransferase 9 U/L (6-35); Albumin Level 1.9 g/dL (3.5-5.1); Alkaline Phosphatase 45 U/L (38-126); Anion Gap 6 mmol/L (8-16); Aspartate Amino Transferase 19 U/L (14-36); Bilirubin,Total 0.2 mg/dL (0.2-1.3); Blood Urea Nitrogen 54 mg/dL (7-17); Calcium 7.2 mg/dL (8.4-10.2); Carbon Dioxide 21 mmol/L (22-30); Chloride 102 mmol/L (98-107); Estimated CRCL calculation 16 ml/min; Estimated Glomerular Filt Rate 14; Glucose 88 mg/dL (65-110); Magnesium 1.6 mg/dL (1.6-2.3); Potassium 3.3 mmol/L (3.4-5.0); Sodium 129 mmol/L (137-145)
[2023-08-28 07:03] LABS: Glucose Point of Care 104 mg/dl (65-105)
[2023-08-28 07:55] LABS: Platelet Estimate Adequate (Adequate)
[2023-08-28 07:56] LABS: Anisocytosis 1+ (NORMAL); Burr Cells 1+ (NORMAL); Hypochromasia 2+ (NORMAL); Poikilocytosis 1+ (NORMAL)
[2023-08-28 07:57] LABS: Schistocytes None Seen (NORMAL)
[2023-08-28] MEDS: POTASSIUM CHLORIDE 20 MEQ ER TABLET 40 MEQ PO (09:30)
[2023-08-28] MEDS: SODIUM BICARBONATE TAB 650 MG TABLET 1300 MG PO ×2 (09:31→16:51)
[2023-08-28] MEDS: HEPARIN SODIUM 5,000 UNITS/ML VIAL 5000 UNITS SUB-Q (09:31)
[2023-08-28] MEDS: PANTOPRAZOLE SODIUM IV 40 MG VIAL IV PUSH (09:32)
[2023-08-28] MEDS: TOLNAFTATE 1% POWDER 45 GM BTL 1 APPLIC TOPICAL ×2 (09:33→21:21)
--- NOTE | 2023-08-28 10:25 | PM.PNNEP ---
Progress Note: A&P Assessment and Plan (1) DREW (acute kidney injury): Code(s): N17.9 - Acute kidney failure, unspecified Status: Acute Assessment and Plan: slow improvement noted on admission resolved initially with IVF hydration hen worsened... now improving s/p IV albumin + IV bumex good urine output noted evaluation to date: urine electrolytes prerenal CT imaging without obstruction of kidneys UA c/w infection urine eosinophils not done renal scan shows uptake without excretion consistent with ATN follow repeat labs and UOP (2) Hyponatremia: Code(s): E87.1 - Hypo-osmolality and hyponatremia Status: Acute Assessment and Plan: improvement noted as noted on admission (admission sodium 126) history would suggest hypovolemia as etiology (on admission) from ongoing GI losses/diarrhea however, now likely related to DREW/ARF as well could be related to medications -- on PPI and venlafaxine (but these are chronic medications) evaluation to date: TSH and cortisol okay urine electrolytes prerenal SPEP/UPEP without M-spike follow trend (3) Sepsis: Code(s): A41.9 - Sepsis, unspecified organism Status: Acute Assessment and Plan: improving - WBC trending down/normalized as noted on admission noted elevated WBC, tachycardia, and hypotension presumable source is C. diff colitis +/- UTI 1/2 blood culture showed Staph epi; urine culture showed E coli. (4) C. difficile colitis: Code(s): A04.72 - Enterocolitis due to Clostridium difficile, not specified as recurrent Status: Acute Assessment and Plan: as noted by testing on oral vancomycin and IV flagyl Gastroenterology following on TPN for nutritional support (5) Urinary tract infection: Code(s): N39.0 - Urinary tract infection, site not specified Status: Acute Assessment and Plan: as suggested by admission UA urine culture with E. coli completed course of antibiotics (6) Metabolic acidosis: Code(s): E87.20 - Acidosis, unspecified Status: Acute Assessment and Plan: due to GI losses and ongoing DREW oral sodium bicarbonate to compensate off bicarb fluids due to edema and SOB CO2 stable (7) HTN (hypertension): Code(s): I10 - Essential (primary) hypertension Status: Chronic Assessment and Plan: reasonable control follow trend of hemodyamics (8) Anemia: Code(s): D64.9 - Anemia, unspecified Status: Chronic Assessment and Plan: likely due to iron deficiency, DREW, and acute illness PRBC transfusion per protocol on Epogen follow H/H Will continue to follow. Subjective Date/time seen: 08/28/23 10:25 Interval history: Follow-up for acute on chronc hyponatremia and acute kidney injury/acute renal failure. Renal function as well as sodium continue to improve in association with good urine output; H/H low again as noted by AM labs; no apparent distress or acute complaints to report; no issues/events overnight or earlier this morning. Exam Narrative: General: elderly but WD/WN female in NAD Heart: normal S1 and S2; no rub Lungs: clear bilaterally Abdomen: soft, nontender, nondistended, positive bowel sounds Extremities: no cyanosis or clubbing; trace edema (in UEs and LEs) Skin: Warm and intact Objective Data Vital Signs Vital Signs: Vital Signs Temp Pulse Resp BP Pulse Ox O2 Del Method 08/28/23 10:17 99.0 F 86 16 130/56 L 100 08/28/23 06:00 97.8 F 86 18 123/62 97 08/27/23 22:00 98.9 F 88 16 101/81 98 08/27/23 20:00 Room Air 08/27/23 14:00 99.3 F 85 20 157/80 H 98 Intake/Output Intake/Output: Intake & Output 08/26/23 08/26/23 08/27/23 08/28/23 00:59 23:59 23:59 23:59 Intake Total 3275 470 Output Total 2350 2950 Balance 925 -2480 Meds/Results Medications: Active
--- NOTE | 2023-08-28 10:25 | P.PNNP_ITS ---
Progress Note: A&P Assessment and Plan (1) DREW (acute kidney injury): Code(s): N17.9 - Acute kidney failure, unspecified Status: Acute Assessment and Plan: * slow improvement * noted on admission * resolved initially with IVF hydration * hen worsened... * now improving * s/p IV albumin + IV bumex * good urine output noted * evaluation to date: * urine electrolytes prerenal * CT imaging without obstruction of kidneys * UA c/w infection * urine eosinophils not done * renal scan shows uptake without excretion consistent with ATN * follow repeat labs and UOP (2) Hyponatremia: Code(s): E87.1 - Hypo-osmolality and hyponatremia Status: Acute Assessment and Plan: * improvement noted * as noted on admission (admission sodium 126) * history would suggest hypovolemia as etiology (on admission) from ongoing GI losses/diarrhea * however, now likely related to DREW/ARF as well * could be related to medications -- on PPI and venlafaxine (but these are chronic medications) * evaluation to date: * TSH and cortisol okay * urine electrolytes prerenal * SPEP/UPEP without M-spike * follow trend (3) Sepsis: Code(s): A41.9 - Sepsis, unspecified organism Status: Acute Assessment and Plan: * improving - WBC trending down/normalized * as noted on admission * noted elevated WBC, tachycardia, and hypotension * presumable source is C. diff colitis +/- UTI * 1/2 blood culture showed Staph epi; urine culture showed E coli. (4) C. difficile colitis: Code(s): A04.72 - Enterocolitis due to Clostridium difficile, not specified as recurrent Status: Acute Assessment and Plan: * as noted by testing * on oral vancomycin and IV flagyl * Gastroenterology following * on TPN for nutritional support (5) Urinary tract infection: Code(s): N39.0 - Urinary tract infection, site not specified Status: Acute Assessment and Plan: * as suggested by admission UA * urine culture with E. coli * completed course of antibiotics (6) Metabolic acidosis: Code(s): E87.20 - Acidosis, unspecified Status: Acute Assessment and Plan: * due to GI losses and ongoing DREW * oral sodium bicarbonate to compensate * off bicarb fluids due to edema and SOB * CO2 stable (7) HTN (hypertension): Code(s): I10 - Essential (primary) hypertension Status: Chronic Assessment and Plan: * reasonable control * follow trend of hemodyamics (8) Anemia: Code(s): D64.9 - Anemia, unspecified Status: Chronic Assessment and Plan: * likely due to iron deficiency, DREW, and acute illness * PRBC transfusion per protocol * on Epogen * follow H/H Will continue to follow. Subjective Date/time seen: 08/28/23 10:25 Interval history: Follow-up for acute on chronc hyponatremia and acute kidney injury/acute renal failure. Renal function as well as sodium continue to improve in association with good ur ine output; H/H low again as noted by AM labs; no apparent distress or acute complaints to report; no issues/events overnight or earlier this morning. Exam Narrative: General: elderly but WD/WN female in NAD Heart: normal S1 and S2; no rub Lungs: clear bilaterally Abdomen: soft, nontender, nondistended, positive bowel sounds Extremities: no cyanosis or clubbing; trace edema (in UEs and LEs) Skin: Warm and intac
--- NOTE | 2023-08-28 10:31 | PCNFU ---
Nutrition Follow-Up Complete: Inadequate energy intake related to NPO status as evidenced by diet order and need for parental nutrition Goal:Meet estimated needs Pt current nutrition is Low fiber diet, TPN running at 40ml/hr. Nutrition recommendation: D/c TPN at this time Last recorded weight is 109.3 kg. Bowel Motility: +BM 08/26 Labs Reviewed: Hgb:6.9, HCT:24.8, Alb:1.9, NA:129, K:3.3, GFR:14, BUN:54, Cr:3.2 Meds Noted: zofran, protonix Skin: no skin issues noted Additional Notes: Pt has been advanced to a low fiber diet, tolerating well with good intake at 50-75% of meals. TPN remains in place at 40ml/hr, no orders to continue, agree with d/c of TPN as pt is tolerating po diet well. Stool more solid. Monitor TPN, rate, wt, labs, diet order and intake. Follow up in 3 days.
[2023-08-28 11:51] LABS: Glucose Point of Care 102 mg/dl (65-105)
--- NOTE | 2023-08-28 11:57 | PCPTNOTE ---
Patient declined PT today. Patient states she is not having a good day and would like to take the day off. Patient states she has been limited in her activity for over a year and she is tired trying. PT will continue to follow and encourage participation. RN present for refusal.
[2023-08-28] MEDS: SODIUM CHLORIDE 0.9% IV 250 ML 30 ML IV CONT (11:59)
[2023-08-28 15:44] LABS: Hematocrit 25.1 % (37.0-47.0); Hemoglobin 8.2 g/dL (12.0-15.0)
[2023-08-28 18:09] LABS: Glucose Point of Care 131 mg/dl (65-105)
[2023-08-28] MEDS: PANTOPRAZOLE 40 MG TABLET PO (21:14)
[2023-08-28] MEDS: ACETAMINOPHEN 325 MG TABLET 650 MG PO (23:07)
[2023-08-29 00:07] VITALS: TEMP 38.1
[2023-08-29 00:32] LABS: Glucose Point of Care 98 mg/dl (65-105)
[2023-08-29 06:00] VITALS: BP 133/67; PULSE 101; RESP 20; TEMP 36.2; O2SAT 92
[2023-08-29] MEDS: CENTRAL LINE FLUSH 10 ML IV PUSH ×3 (06:20→21:20)
[2023-08-29 06:21] LABS: Glucose Point of Care 102 mg/dl (65-105)
[2023-08-29] MEDS: VANCOMYCIN ORAL 500 MG/10 ML SYRUP PO ×4 (06:21→23:00)
[2023-08-29] MEDS: metroNIDAZOLE 500 MG/ISO 100ML 500 MG/100 ML BAG 100 MG IVPB ×3 (06:21→21:20)
[2023-08-29 06:47] LABS: Anion Gap 6 mmol/L (8-16); Blood Urea Nitrogen 48 mg/dL (7-17); Calcium 7.4 mg/dL (8.4-10.2); Carbon Dioxide 21 mmol/L (22-30); Chloride 103 mmol/L (98-107); Estimated CRCL calculation 21 ml/min; Estimated Glomerular Filt Rate 19; Glucose 92 mg/dL (65-110); Potassium 3.5 mmol/L (3.4-5.0); Sodium 130 mmol/L (137-145); Triglycerides 108 mg/dL (<150)
[2023-08-29] MEDS: SODIUM BICARBONATE TAB 650 MG TABLET 1300 MG PO ×2 (08:55→17:32)
[2023-08-29] MEDS: PANTOPRAZOLE 40 MG TABLET PO ×2 (08:56→21:20)
[2023-08-29] MEDS: VENLAFAXINE HCL XR 75 MG CAP.ER.24H PO (08:56)
[2023-08-29] MEDS: EPOETIN ALFA-EPBX 10,000 UNITS/ML VIAL 10000 UNITS SUB-Q (08:57)
[2023-08-29] MEDS: TOLNAFTATE 1% POWDER 45 GM BTL 1 APPLIC TOPICAL ×2 (08:58→21:20)
[2023-08-29] MEDS: ACETAMINOPHEN 325 MG TABLET 650 MG PO (09:14)
--- NOTE | 2023-08-29 11:51 | PC.NURSE ---
This nurse Talked to Dr. Langley around 09 about pt rectal tube coming out on its own by pt turning in bed. Dr. morrow with tube being out at this time.
--- NOTE | 2023-08-29 13:03 | P.PNNP_ITS ---
Progress Note: A&P Assessment and Plan (1) DREW (acute kidney injury): Code(s): N17.9 - Acute kidney failure, unspecified Status: Acute Assessment and Plan: * slow and steady improvement * noted on admission * resolved initially with IVF hydration * hen worsened... * now improving * s/p IV albumin + IV bumex * good urine output noted * evaluation to date: * urine electrolytes prerenal * CT imaging without obstruction of kidneys * UA c/w infection * urine eosinophils not done * renal scan shows uptake without excretion consistent with ATN * follow repeat labs and UOP (2) Hyponatremia: Code(s): E87.1 - Hypo-osmolality and hyponatremia Status: Acute Assessment and Plan: * slow improvement noted * as noted on admission (admission sodium 126) * history would suggest hypovolemia as etiology (on admission) from ongoing GI losses/diarrhea * however, now likely related to DREW/ARF as well * could be related to medications -- on PPI and venlafaxine (but these are chronic medications) * evaluation to date: * TSH and cortisol okay * urine electrolytes prerenal * SPEP/UPEP without M-spike * follow trend (3) Sepsis: Code(s): A41.9 - Sepsis, unspecified organism Status: Acute Assessment and Plan: * improving - WBC trending down/normalized * as noted on admission * noted elevated WBC, tachycardia, and hypotension * presumable source is C. diff colitis +/- UTI * 1/2 blood culture showed Staph epi; urine culture showed E coli. (4) C. difficile colitis: Code(s): A04.72 - Enterocolitis due to Clostridium difficile, not specified as recurrent Status: Acute Assessment and Plan: * as noted by testing * on oral vancomycin and IV flagyl * Gastroenterology following * on TPN for nutritional support (5) Urinary tract infection: Code(s): N39.0 - Urinary tract infection, site not specified Status: Acute Assessment and Plan: * as suggested by admission UA * urine culture with E. coli * completed course of antibiotics (6) Metabolic acidosis: Code(s): E87.20 - Acidosis, unspecified Status: Acute Assessment and Plan: * due to GI losses and ongoing DREW * oral sodium bicarbonate to compensate * off bicarb fluids due to edema and SOB * CO2 stable (7) HTN (hypertension): Code(s): I10 - Essential (primary) hypertension Status: Chronic Assessment and Plan: * reasonable control * follow trend of hemodyamics (8) Anemia: Code(s): D64.9 - Anemia, unspecified Status: Chronic Assessment and Plan: * likely due to iron deficiency, DREW, and acute illness * PRBC transfusion per protocol * on Epogen * follow H/H Will continue to follow. Subjective Date/time seen: 08/29/23 13:03 Interval history: Follow-up for acute on chronc hyponatremia and acute kidney injury/acute renal failure. Creatinine/renal function continues to improve with excellent urine output as well; sodium also improving each day as well; tolerated PRBC transfusion yesterday with appropriate increment in H/H; no apparent distress noted; feels that she is getting better albeit slowly. Exam Narrative: General: elderly but WD/WN female in NAD Heart: normal S1 and S2; no rub Lungs: clear bilaterally Abdomen: soft, nontender, nondistended, positive bowel sounds Extremities: no cyanosis or clu
--- NOTE | 2023-08-29 13:03 | PM.PNNEP ---
Progress Note: A&P Assessment and Plan (1) DREW (acute kidney injury): Code(s): N17.9 - Acute kidney failure, unspecified Status: Acute Assessment and Plan: slow and steady improvement noted on admission resolved initially with IVF hydration hen worsened... now improving s/p IV albumin + IV bumex good urine output noted evaluation to date: urine electrolytes prerenal CT imaging without obstruction of kidneys UA c/w infection urine eosinophils not done renal scan shows uptake without excretion consistent with ATN follow repeat labs and UOP (2) Hyponatremia: Code(s): E87.1 - Hypo-osmolality and hyponatremia Status: Acute Assessment and Plan: slow improvement noted as noted on admission (admission sodium 126) history would suggest hypovolemia as etiology (on admission) from ongoing GI losses/diarrhea however, now likely related to DREW/ARF as well could be related to medications -- on PPI and venlafaxine (but these are chronic medications) evaluation to date: TSH and cortisol okay urine electrolytes prerenal SPEP/UPEP without M-spike follow trend (3) Sepsis: Code(s): A41.9 - Sepsis, unspecified organism Status: Acute Assessment and Plan: improving - WBC trending down/normalized as noted on admission noted elevated WBC, tachycardia, and hypotension presumable source is C. diff colitis +/- UTI 1/2 blood culture showed Staph epi; urine culture showed E coli. (4) C. difficile colitis: Code(s): A04.72 - Enterocolitis due to Clostridium difficile, not specified as recurrent Status: Acute Assessment and Plan: as noted by testing on oral vancomycin and IV flagyl Gastroenterology following on TPN for nutritional support (5) Urinary tract infection: Code(s): N39.0 - Urinary tract infection, site not specified Status: Acute Assessment and Plan: as suggested by admission UA urine culture with E. coli completed course of antibiotics (6) Metabolic acidosis: Code(s): E87.20 - Acidosis, unspecified Status: Acute Assessment and Plan: due to GI losses and ongoing DREW oral sodium bicarbonate to compensate off bicarb fluids due to edema and SOB CO2 stable (7) HTN (hypertension): Code(s): I10 - Essential (primary) hypertension Status: Chronic Assessment and Plan: reasonable control follow trend of hemodyamics (8) Anemia: Code(s): D64.9 - Anemia, unspecified Status: Chronic Assessment and Plan: likely due to iron deficiency, DREW, and acute illness PRBC transfusion per protocol on Epogen follow H/H Will continue to follow. Subjective Date/time seen: 08/29/23 13:03 Interval history: Follow-up for acute on chronc hyponatremia and acute kidney injury/acute renal failure. Creatinine/renal function continues to improve with excellent urine output as well; sodium also improving each day as well; tolerated PRBC transfusion yesterday with appropriate increment in H/H; no apparent distress noted; feels that she is getting better albeit slowly. Exam Narrative: General: elderly but WD/WN female in NAD Heart: normal S1 and S2; no rub Lungs: clear bilaterally Abdomen: soft, nontender, nondistended, positive bowel sounds Extremities: no cyanosis or clubbing; trace edema (in UEs and LEs) Skin: no rash Objective Data Vital Signs Vital Signs: Vital Signs Temp Pulse Resp BP Pulse Ox 08/29/23 13:00 98.4 F 85 20 153/67 H 97 08/29/23 06:00 97.2 F L 101 H 20 133/67 92 08/29/23 00:07 100.5 F H 08/28/23 23:07 100.7 F H 08/28/23 22:00 100.7 F H 91 20 148/78 H 96 Intake/Output Intake/Output: Intake & Output 08/26/23 08/27/23 08/28/23 08/29/23 23:59 23:59 23:59 23:59 Intake Total 3275 1380 320 Output Total 2350 4050 4450 Balance 254 -9819 -8354
[2023-08-29 14:00] VITALS: BP 153/67; PULSE 85; RESP 20; TEMP 36.9; O2SAT 97
[2023-08-29 20:00] VITALS: O2SAT 97
[2023-08-29 20:33] VITALS: BP 134/74; PULSE 82; RESP 16; TEMP 37.3; O2SAT 99
[2023-08-30 04:32] VITALS: BP 145/57; PULSE 84; RESP 16; TEMP 37.1; O2SAT 98
[2023-08-30] MEDS: VANCOMYCIN ORAL 500 MG/10 ML SYRUP PO ×3 (05:02→17:00)
[2023-08-30] MEDS: metroNIDAZOLE 500 MG/ISO 100ML 500 MG/100 ML BAG 100 MG IVPB ×3 (05:02→20:56)
[2023-08-30] MEDS: CENTRAL LINE FLUSH 10 ML IV PUSH ×3 (05:02→20:57)
[2023-08-30 07:22] LABS: Basophils Absolute Auto 0.1 K/mm3 (0.0-0.1); Hematocrit 23.8 % (37.0-47.0); Hemoglobin 7.7 g/dL (12.0-15.0); Immature Granulocyte Percent A 2.3 % (0-0.5); Lymphocytes Absolute Auto 1.39 K/mm3 (0.9-3.2); Lymphocytes Percent Auto 15.9 % (18.3-44.2); Mean Corpuscular HGB Conc 32.4 g/dl (32-36); Mean Corpuscular Hemoglobin 26.8 pg (26-34); Mean Corpuscular Volume 82.9 fl (80-100); Mean Platelet Volume 9.3 fl (7.4-10.4); Monocytes Percent Auto 11.9 % (2.6-8.5); Neutrophils Percent Auto 68.9 % (45.5-73.1); Platelet Count Result 259 k/mm3 (150-375); Red Blood Count 2.87 M/mm3 (4.2-5.4); Red Cell Distribution Width 21.5 % (11.5-14.5); White Blood Count 8.8 K/mm3 (4.5-10.0)
[2023-08-30 07:31] LABS: Alanine Aminotransferase 9 U/L (6-35); Alkaline Phosphatase 36 U/L (38-126); Anion Gap 5 mmol/L (8-16); Aspartate Amino Transferase 20 U/L (14-36); Bilirubin,Total 0.3 mg/dL (0.2-1.3); Blood Urea Nitrogen 38 mg/dL (7-17); Calcium 7.4 mg/dL (8.4-10.2); Carbon Dioxide 23 mmol/L (22-30); Chloride 103 mmol/L (98-107); Estimated CRCL calculation 28 ml/min; Estimated Glomerular Filt Rate 26; Glucose 75 mg/dL (65-110); Magnesium 1.3 mg/dL (1.6-2.3); Potassium 3.2 mmol/L (3.4-5.0); Sodium 131 mmol/L (137-145)
[2023-08-30] MEDS: TOLNAFTATE 1% POWDER 45 GM BTL 1 APPLIC TOPICAL ×2 (08:05→21:09)
[2023-08-30] MEDS: SODIUM BICARBONATE TAB 650 MG TABLET 1300 MG PO ×2 (08:05→16:45)
[2023-08-30] MEDS: PANTOPRAZOLE 40 MG TABLET PO ×2 (08:05→20:56)
[2023-08-30] MEDS: VENLAFAXINE HCL XR 75 MG CAP.ER.24H PO (08:05)
[2023-08-30] MEDS: ONDANSETRON INJ 4 MG/2 ML VIAL IV PUSH (11:14)
[2023-08-30] MEDS: ACETAMINOPHEN 325 MG TABLET 650 MG PO (12:21)
--- NOTE | 2023-08-30 13:40 | PM.PNNEP ---
Progress Note: A&P Assessment and Plan (1) DREW (acute kidney injury): Code(s): N17.9 - Acute kidney failure, unspecified Status: Acute Assessment and Plan: slow improvement by trend of labs noted on admission resolved initially with IVF hydration hen worsened... now improving s/p IV albumin + IV bumex good urine output noted evaluation to date: urine electrolytes prerenal CT imaging without obstruction of kidneys UA c/w infection urine eosinophils not done renal scan shows uptake without excretion consistent with ATN follow repeat labs and UOP (2) Hyponatremia: Code(s): E87.1 - Hypo-osmolality and hyponatremia Status: Acute Assessment and Plan: improvement noted as noted on admission (admission sodium 126) history would suggest hypovolemia as etiology (on admission) from ongoing GI losses/diarrhea however, now likely related to DREW/ARF as well could be related to medications -- on PPI and venlafaxine (but these are chronic medications) evaluation to date: TSH and cortisol okay urine electrolytes prerenal SPEP/UPEP without M-spike follow trend (3) Sepsis: Code(s): A41.9 - Sepsis, unspecified organism Status: Acute Assessment and Plan: improving - WBC trending down/normalized as noted on admission noted elevated WBC, tachycardia, and hypotension presumable source is C. diff colitis +/- UTI 1/2 blood culture showed Staph epi; urine culture showed E coli. (4) C. difficile colitis: Code(s): A04.72 - Enterocolitis due to Clostridium difficile, not specified as recurrent Status: Acute Assessment and Plan: as noted by testing on oral vancomycin and IV flagyl Gastroenterology following on TPN for nutritional support (5) Urinary tract infection: Code(s): N39.0 - Urinary tract infection, site not specified Status: Acute Assessment and Plan: as suggested by admission UA urine culture with E. coli completed course of antibiotics (6) Metabolic acidosis: Code(s): E87.20 - Acidosis, unspecified Status: Acute Assessment and Plan: due to GI losses and ongoing DREW oral sodium bicarbonate to compensate off bicarb fluids due to edema and SOB CO2 stable (7) HTN (hypertension): Code(s): I10 - Essential (primary) hypertension Status: Chronic Assessment and Plan: reasonable control follow trend of hemodyamics (8) Anemia: Code(s): D64.9 - Anemia, unspecified Status: Chronic Assessment and Plan: likely due to iron deficiency, DREW, and acute illness PRBC transfusion per protocol on Epogen follow H/H Will continue to follow. Subjective Date/time seen: 08/30/23 13:40 Interval history: Follow-up for acute on chronc hyponatremia and acute kidney injury/acute renal failure. Continues to make slow and steady improvement in general; both creatinine/renal function as well as sodium level are improving with excellent urine output; no apparent distress voiced at the time of my visit; asking me about potential discharge as well. Exam Narrative: General: elderly but WD/WN female in NAD Heart: normal S1 and S2; no rub Lungs: clear bilaterally Abdomen: soft, nontender, nondistended, positive bowel sounds Extremities: no cyanosis or clubbing; minimal edema Skin: no nodules Objective Data Vital Signs Vital Signs: Vital Signs Temp Pulse Resp BP Pulse Ox O2 Del Method 08/30/23 13:00 98.6 F 77 18 102/77 98 08/30/23 04:32 98.8 F 84 16 145/57 H 98 08/29/23 20:33 99.2 F 82 16 134/74 99 08/29/23 20:00 97 Room Air Intake/Output Intake/Output: Intake & Output 08/27/23 08/28/23 08/29/23 08/30/23 23:59 23:59 23:59 23:59 Intake Total 3275 1877 429 5597 Output Total 2350 4050 4600 1100 Balance 533 -6863 -1952 100 Meds/Results Medications: Active Med
--- NOTE | 2023-08-30 13:40 | P.PNNP_ITS ---
Progress Note: A&P Assessment and Plan (1) DREW (acute kidney injury): Code(s): N17.9 - Acute kidney failure, unspecified Status: Acute Assessment and Plan: * slow improvement by trend of labs * noted on admission * resolved initially with IVF hydration * hen worsened... * now improving * s/p IV albumin + IV bumex * good urine output noted * evaluation to date: * urine electrolytes prerenal * CT imaging without obstruction of kidneys * UA c/w infection * urine eosinophils not done * renal scan shows uptake without excretion consistent with ATN * follow repeat labs and UOP (2) Hyponatremia: Code(s): E87.1 - Hypo-osmolality and hyponatremia Status: Acute Assessment and Plan: * improvement noted * as noted on admission (admission sodium 126) * history would suggest hypovolemia as etiology (on admission) from ongoing GI losses/diarrhea * however, now likely related to DREW/ARF as well * could be related to medications -- on PPI and venlafaxine (but these are chronic medications) * evaluation to date: * TSH and cortisol okay * urine electrolytes prerenal * SPEP/UPEP without M-spike * follow trend (3) Sepsis: Code(s): A41.9 - Sepsis, unspecified organism Status: Acute Assessment and Plan: * improving - WBC trending down/normalized * as noted on admission * noted elevated WBC, tachycardia, and hypotension * presumable source is C. diff colitis +/- UTI * 1/2 blood culture showed Staph epi; urine culture showed E coli. (4) C. difficile colitis: Code(s): A04.72 - Enterocolitis due to Clostridium difficile, not specified as recurrent Status: Acute Assessment and Plan: * as noted by testing * on oral vancomycin and IV flagyl * Gastroenterology following * on TPN for nutritional support (5) Urinary tract infection: Code(s): N39.0 - Urinary tract infection, site not specified Status: Acute Assessment and Plan: * as suggested by admission UA * urine culture with E. coli * completed course of antibiotics (6) Metabolic acidosis: Code(s): E87.20 - Acidosis, unspecified Status: Acute Assessment and Plan: * due to GI losses and ongoing DREW * oral sodium bicarbonate to compensate * off bicarb fluids due to edema and SOB * CO2 stable (7) HTN (hypertension): Code(s): I10 - Essential (primary) hypertension Status: Chronic Assessment and Plan: * reasonable control * follow trend of hemodyamics (8) Anemia: Code(s): D64.9 - Anemia, unspecified Status: Chronic Assessment and Plan: * likely due to iron deficiency, DREW, and acute illness * PRBC transfusion per protocol * on Epogen * follow H/H Will continue to follow. Subjective Date/time seen: 08/30/23 13:40 Interval history: Follow-up for acute on chronc hyponatremia and acute kidney injury/acute renal failure. Continues to make slow and steady improvement in general; both creatinine/renal function as well as sodium level are improving with excellent urine output; no apparent distress voiced at the time of my visit; asking me about potential discharge as well. Exam Narrative: General: elderly but WD/WN female in NAD Heart: normal S1 and S2; no rub Lungs: clear bilaterally Abdomen: soft, nontender, nondistended, positive bowel sounds Extremities: no cyanosis or clubbing; minimal cindy
[2023-08-30 14:00] VITALS: BP 102/77; PULSE 77; RESP 18; TEMP 37; O2SAT 98
--- NOTE | 2023-08-30 18:02 | PM.IMPN ---
Progress Note: A&P Assessment and Plan (1) Colitis: Code(s): K52.9 - Noninfective gastroenteritis and colitis, unspecified Status: Acute (2) C. difficile colitis: Code(s): A04.72 - Enterocolitis due to Clostridium difficile, not specified as recurrent Status: Acute (3) Metabolic acidosis: Code(s): E87.20 - Acidosis, unspecified Status: Acute (4) Urinary tract infection: Code(s): N39.0 - Urinary tract infection, site not specified Status: Acute (5) GERD (gastroesophageal reflux disease): Code(s): K21.9 - Gastro-esophageal reflux disease without esophagitis Status: Acute (6) Sepsis: Code(s): A41.9 - Sepsis, unspecified organism Status: Acute (7) DREW (acute kidney injury): Code(s): N17.9 - Acute kidney failure, unspecified Status: Acute (8) Acute hyponatremia: Code(s): E87.1 - Hypo-osmolality and hyponatremia Status: Acute (9) Hypotension due to hypovolemia: Code(s): I95.89 - Other hypotension; E86.1 - Hypovolemia Status: Acute (10) Acute on chronic renal failure: Code(s): N17.9 - Acute kidney failure, unspecified; N18.9 - Chronic kidney disease, unspecified Status: Acute (11) Severe sepsis: Code(s): A41.9 - Sepsis, unspecified organism; R65.20 - Severe sepsis without septic shock Status: Acute Plan 1. C diff colitis (severe to fulminant) Cdiff positive 08/20: Pt is in severe to fulminant life threatening c diff colitis. Was initially started on fidaxomicin now switched to oral vancomycin The repeat CT shows ?Small amount of abdominopelvic ascites present, probable mesenteric edema. There is large bowel wall thickening, extensively involving the ascending and transverse colon in particular. No bowel obstruction. No abscess or free air evident. The pt needs urgent escalation of abx. Now will be on oral vancomycin 500 mg qid and iv flagyl 500 q8 for 14 days or until wbc decreases. The pt is at high risk for toxic megacolon based on the CT findings of edema, ascites, and large bowel thickening. Luckily she has no free air NPO except important meds. IVF- Can ct Na with 1 amp of bicarb. Probably can do 2 or 3 amps. Start TPN 08/21: Still having diarrhea. May take a few days to recover. Ct to limit PO meds. 08/22: ct supportive measures. TPN. no more additional IVF. Ct PO vanc. may need 10 days or 17 days depending on how she does. WBC decreased slightly to 19.3 08/23: Wbc count decreased to 16.5. still having diarrhea. rectal tube placed. may need oral vancomycin until 09/05 at least (according to up to date). Monitor for pt's diarrhea stopping while NPO, wbc normalizing. 08/24/2023: WBC on admission is 32 K slowly improving hyponatremia acute on chronic, DREW with continued rise of creatinine 5.1 today. Positive for C diff. stool culture negative for Salmonella Shigella Campylobacter. CT abdomen with diffuse colitis 08/11/[address] chest abdomen pelvis 08/15/2023 with similar findings no evidence of abscess or free air. Renal scan 08/22/2023 with markedly delayed time to peak in both kidneys without evidence activity clearance likely related to nonspecific nephropathy. Asymmetric renal activity uptake which is at the upper limits of normal with 59% uptake in the left kidney 41% in the right kidney. Blood culture positive for Staphylococcus epidermidis 10/2508/11/2023 likely contamination. Urine culture 08/11/2023 with E coli pansensitive. Underlying rheumatoid arthritis on Plaquenil. On oral vancomycin and metronidazole IV. TPN. DVT prophylaxis with heparin subQ. Urine output 1 L 550 so far slowly improved patient was treated with Dificid at some point in the past Continue oral vancomycin with IV Flagyl for fulminant C diff colitis WBC count has normalized 08/26/2023 Will advance her diet to low residue diet. Tolerating well will stop TPN 08/29/23:On Vancomycin, Flagyl 08/30/23: Continue Antibiotics; To
[2023-08-30 21:05] VITALS: BP 158/93; PULSE 84; RESP 18; TEMP 36.4; O2SAT 99
[2023-08-31] MEDS: VANCOMYCIN ORAL 500 MG/10 ML SYRUP PO ×5 (00:16→23:29)
[2023-08-31 04:50] VITALS: BP 131/73; PULSE 79; RESP 16; TEMP 36.3; O2SAT 99
[2023-08-31] MEDS: CENTRAL LINE FLUSH 10 ML IV PUSH ×3 (05:39→21:28)
[2023-08-31] MEDS: metroNIDAZOLE 500 MG/ISO 100ML 500 MG/100 ML BAG 100 MG IVPB ×3 (05:39→21:27)
[2023-08-31 05:43] LABS: Basophils Absolute Auto 0.1 K/mm3 (0.0-0.1); Basophils Percent Auto 1.2 % (0.2-1.2); Eosinophils Percent Auto 0.3 % (0-4.4); Hematocrit 25.4 % (37.0-47.0); Hemoglobin 7.9 g/dL (12.0-15.0); Immature Granulocyte Absolute 0.14 K/mm3 (0.00-0.031); Immature Granulocyte Percent A 2.1 % (0-0.5); Lymphocytes Absolute Auto 1.12 K/mm3 (0.9-3.2); Lymphocytes Percent Auto 16.5 % (18.3-44.2); Mean Corpuscular HGB Conc 31.1 g/dl (32-36); Mean Corpuscular Hemoglobin 26.6 pg (26-34); Mean Corpuscular Volume 85.5 fl (80-100); Mean Platelet Volume 9.1 fl (7.4-10.4); Monocytes Absolute Auto 0.7 K/mm3 (0.1-0.6); Monocytes Percent Auto 10.6 % (2.6-8.5); Neutrophils Absolute Auto 4.7 K/mm3 (1.3-6.7); Neutrophils Percent Auto 69.3 % (45.5-73.1); Platelet Count Result 274 k/mm3 (150-375); Red Blood Count 2.97 M/mm3 (4.2-5.4); Red Cell Distribution Width 21.2 % (11.5-14.5); White Blood Count 6.8 K/mm3 (4.5-10.0)
[2023-08-31 05:54] LABS: Alanine Aminotransferase 10 U/L (6-35); Albumin Level 2.1 g/dL (3.5-5.1); Alkaline Phosphatase 35 U/L (38-126); Anion Gap 5 mmol/L (8-16); Aspartate Amino Transferase 23 U/L (14-36); Bilirubin,Total 0.3 mg/dL (0.2-1.3); Blood Urea Nitrogen 30 mg/dL (7-17); Calcium 7.4 mg/dL (8.4-10.2); Carbon Dioxide 25 mmol/L (22-30); Chloride 103 mmol/L (98-107); Estimated CRCL calculation 33 ml/min; Estimated Glomerular Filt Rate 31; Glucose 77 mg/dL (65-110); Sodium 133 mmol/L (137-145)
[2023-08-31 08:00] VITALS: PULSE 79; RESP 16; O2SAT 99
[2023-08-31] MEDS: POTASSIUM CHLORIDE 20 MEQ ER TABLET 40 MEQ PO (08:09)
[2023-08-31] MEDS: TOLNAFTATE 1% POWDER 45 GM BTL 1 APPLIC TOPICAL ×2 (08:10→22:37)
[2023-08-31] MEDS: PANTOPRAZOLE 40 MG TABLET PO ×2 (08:10→21:27)
[2023-08-31] MEDS: SODIUM BICARBONATE TAB 650 MG TABLET 1300 MG PO (08:10)
[2023-08-31] MEDS: VENLAFAXINE HCL XR 75 MG CAP.ER.24H PO (08:10)
--- NOTE | 2023-08-31 11:02 | PM.PNNEP ---
Progress Note: A&P Assessment and Plan (1) DREW (acute kidney injury): Code(s): N17.9 - Acute kidney failure, unspecified Status: Acute Assessment and Plan: slow improvement by trend of labs noted on admission resolved initially with IVF hydration hen worsened... now improving s/p IV albumin + IV bumex good urine output noted evaluation to date: urine electrolytes prerenal CT imaging without obstruction of kidneys UA c/w infection urine eosinophils not done renal scan shows uptake without excretion consistent with ATN follow repeat labs and UOP (2) Hyponatremia: Code(s): E87.1 - Hypo-osmolality and hyponatremia Status: Acute Assessment and Plan: improvement noted as noted on admission (admission sodium 126) history would suggest hypovolemia as etiology (on admission) from ongoing GI losses/diarrhea however, now likely related to DREW/ARF as well could be related to medications -- on PPI and venlafaxine (but these are chronic medications) evaluation to date: TSH and cortisol okay urine electrolytes prerenal SPEP/UPEP without M-spike follow trend (3) Sepsis: Code(s): A41.9 - Sepsis, unspecified organism Status: Acute Assessment and Plan: improving - WBC trending down/normalized as noted on admission noted elevated WBC, tachycardia, and hypotension presumable source is C. diff colitis +/- UTI 1/2 blood culture showed Staph epi; urine culture showed E coli. (4) C. difficile colitis: Code(s): A04.72 - Enterocolitis due to Clostridium difficile, not specified as recurrent Status: Acute Assessment and Plan: as noted by testing on oral vancomycin and IV flagyl Gastroenterology following off TPN -- follow oral intake (5) Urinary tract infection: Code(s): N39.0 - Urinary tract infection, site not specified Status: Acute Assessment and Plan: as suggested by admission UA urine culture with E. coli completed course of antibiotics (6) Metabolic acidosis: Code(s): E87.20 - Acidosis, unspecified Status: Acute Assessment and Plan: due to GI losses and ongoing DREW was on oral sodium bicarbonate to compensate -- will attempt to wean off bicarb fluids due to edema and SOB CO2 stable (7) HTN (hypertension): Code(s): I10 - Essential (primary) hypertension Status: Chronic Assessment and Plan: reasonable control follow trend of hemodyamics (8) Anemia: Code(s): D64.9 - Anemia, unspecified Status: Chronic Assessment and Plan: likely due to iron deficiency, DREW, and acute illness PRBC transfusion per protocol on Epogen -- will likely wean off as renal function improving follow H/H Will continue to follow. Subjective Date/time seen: 08/31/23 11:02 Interval history: Follow-up for acute on chronc hyponatremia and acute kidney injury/acute renal failure. Renal function/creatinine/sodium all improving as noted by trend of labs in the last few days in association with good urine output as well; still having diarrhea despite all current interventions/therapy to date; no acute distress voiced at the time of my visit. Exam Narrative: General: elderly but WD/WN female in NAD Heart: normal S1 and S2; no rub Lungs: clear bilaterally Abdomen: soft, nontender, nondistended, positive bowel sounds Extremities: no cyanosis or clubbing; minimal edema Skin: warm and dry Objective Data Vital Signs Vital Signs: Vital Signs Temp Pulse Resp BP Pulse Ox O2 Del Method 08/31/23 08:00 79 16 99 Room Air 08/31/23 04:50 97.4 F L 79 16 131/73 99 08/30/23 21:05 97.6 F 84 18 158/93 H 99 08/30/23 14:00 98.6 F 77 18 102/77 98 Intake/Output Intake/Output: Intake & Output 08/28/23 08/29/23 08/30/23 08/31/23 23:59 23:59 23:59 23:59 Intake Total 0991 946 1456 Output T
--- NOTE | 2023-08-31 11:02 | P.PNNP_ITS ---
Progress Note: A&P Assessment and Plan (1) DREW (acute kidney injury): Code(s): N17.9 - Acute kidney failure, unspecified Status: Acute Assessment and Plan: * slow improvement by trend of labs * noted on admission * resolved initially with IVF hydration * hen worsened... * now improving * s/p IV albumin + IV bumex * good urine output noted * evaluation to date: * urine electrolytes prerenal * CT imaging without obstruction of kidneys * UA c/w infection * urine eosinophils not done * renal scan shows uptake without excretion consistent with ATN * follow repeat labs and UOP (2) Hyponatremia: Code(s): E87.1 - Hypo-osmolality and hyponatremia Status: Acute Assessment and Plan: * improvement noted * as noted on admission (admission sodium 126) * history would suggest hypovolemia as etiology (on admission) from ongoing GI losses/diarrhea * however, now likely related to DREW/ARF as well * could be related to medications -- on PPI and venlafaxine (but these are chronic medications) * evaluation to date: * TSH and cortisol okay * urine electrolytes prerenal * SPEP/UPEP without M-spike * follow trend (3) Sepsis: Code(s): A41.9 - Sepsis, unspecified organism Status: Acute Assessment and Plan: * improving - WBC trending down/normalized * as noted on admission * noted elevated WBC, tachycardia, and hypotension * presumable source is C. diff colitis +/- UTI * 1/2 blood culture showed Staph epi; urine culture showed E coli. (4) C. difficile colitis: Code(s): A04.72 - Enterocolitis due to Clostridium difficile, not specified as recurrent Status: Acute Assessment and Plan: * as noted by testing * on oral vancomycin and IV flagyl * Gastroenterology following * off TPN -- follow oral intake (5) Urinary tract infection: Code(s): N39.0 - Urinary tract infection, site not specified Status: Acute Assessment and Plan: * as suggested by admission UA * urine culture with E. coli * completed course of antibiotics (6) Metabolic acidosis: Code(s): E87.20 - Acidosis, unspecified Status: Acute Assessment and Plan: * due to GI losses and ongoing DREW * was on oral sodium bicarbonate to compensate -- will attempt to wean * off bicarb fluids due to edema and SOB * CO2 stable (7) HTN (hypertension): Code(s): I10 - Essential (primary) hypertension Status: Chronic Assessment and Plan: * reasonable control * follow trend of hemodyamics (8) Anemia: Code(s): D64.9 - Anemia, unspecified Status: Chronic Assessment and Plan: * likely due to iron deficiency, DREW, and acute illness * PRBC transfusion per protocol * on Epogen -- will likely wean off as renal function improving * follow H/H Will continue to follow. Subjective Date/time seen: 08/31/23 11:02 Interval history: Follow-up for acute on chronc hyponatremia and acute kidney injury/acute renal failure. Renal function/creatinine/sodium all improving as noted by trend of labs in the last few days in association with good urine output as well; still having diarrhea despite all current interventions/therapy to date; no acute distress voiced at the time of my visit. Exam Narrative: General: elderly but WD/WN female in NAD Heart: normal S1 and S2; no rub Lungs: clear bilaterally Abdomen: soft, nontender
[2023-08-31 11:42] LABS: Magnesium 1.3 mg/dL (1.6-2.3)
[2023-08-31] MEDS: POTASSIUM CHLORIDE INJ 40 MEQ in SODIUM CHLORIDE 0.9% IV 500 ML 130 MEQ IVPB (12:11)
[2023-08-31] MEDS: MAGNESIUM SULF 4 GM/WATER100ML 4 GM/100 ML BAG IVPB (12:11)
[2023-08-31] MEDS: EPOETIN ALFA-EPBX 10,000 UNITS/ML VIAL 10000 UNITS SUB-Q (12:13)
--- NOTE | 2023-08-31 13:27 | PCPTNOTE ---
Attempted PT re-evaluation, pt refused stating I just don't feel good. RN aware. Will follow.
[2023-08-31 14:00] VITALS: BP 123/86; PULSE 81; RESP 14; TEMP 37.1; O2SAT 98
--- NOTE | 2023-08-31 14:11 | WPDGIPROGNO ---
Progress Note: A&P Assessment and Plan (1) C. difficile colitis: Code(s): A04.72 - Enterocolitis due to Clostridium difficile, not specified as recurrent Status: Acute Assessment and Plan: she received dificid, currently on oral vancomycin and iv flagyl still with diarrhea I will favor long taper vancomycin and then consider voswt (liver fecal microbiota spores) at the end of treatment tolerating diet (2) DREW (acute kidney injury): Code(s): N17.9 - Acute kidney failure, unspecified Status: Acute Assessment and Plan: this has improved (3) Acute hyponatremia: Code(s): E87.1 - Hypo-osmolality and hyponatremia Status: Acute Assessment and Plan: stable (4) Occult blood in stools: Code(s): R19.5 - Other fecal abnormalities Status: Acute Assessment and Plan: from colitis had recent colonoscopy, no need to repeat (5) Acute on chronic anemia: Code(s): D64.9 - Anemia, unspecified Status: Acute Assessment and Plan: had recent scopes earlier this year Subjective Date/time seen: 08/31/23 14:11 Interval history: I was called again because she still has diarrhea, now on flagyl and oral vancomycin (previously was on dificid). Renal function has improved, still with significant edema. She has good appetite and denies abdominal pain Review of Systems Review of Systems: All systems reviewed & are unremarkable except as noted in HPI and below Exam Const: General: comfortable and no acute distress HENMT: Face/Nose/Sinus: Normal nares present Eyes: Sclera: sclerae normal Neck: Neck: supple Resp: Effort & Inspection: normal respiratory effort Cardio: Rate: regular rate GI: GI Palp: Yes Soft to palpation, No Tenderness to palpation present (GI) and No Guarding due to palpation present (GI) Auscultation: normal bowel sounds Skin: General skin exam: normal color Neuro: Speech: normal speech Motor exam (neuro): 5/5 motor strength present throughout Extrem: Other: leg edema 3+ Psych: Affect: normal affect Objective Data Vital Signs Vital Signs: Vital Signs - 24 hr 08/30/23 21:05 08/31/23 04:50 08/31/23 08:00 Temperature 97.6 F 97.4 F L Pulse Rate 84 79 79 Respiratory Rate 18 16 16 Blood Pressure 158/93 H 131/73 Pulse Oximetry 99 99 99 Oxygen Delivery Room Air Intake/Output Intake/Output: Intake & Output 08/28/23 08/29/23 08/30/23 08/31/23 23:59 23:59 23:59 23:59 Intake Total 4565 751 7221 240 Output Total 4050 4600 2350 1250 [facility] [place] [phone] Meds/Results Medications: Active Medications Generic Name Dose Route Start Last Admin Trade Name Singh PRN Reason Stop Dose Admin Acetaminophen 650 mg 08/11/23 15:21 08/30/23 12:21 Acetaminophen 325 Mg Tablet PO 650 mg Q4H PRN Administration Mild Pain (1-3) or Fever Aspirin 81 mg 08/13/23 09:00 08/20/23 07:59 Aspirin 81 Mg Enteric Tablet PO 81 mg DAILY NEETA Administration Dextrose 12.5 gm 08/18/23 13:06 Dextrose 50% 25 Gm/50 Ml Syringe IV PUSH PRN PRN Hypoglycemia Protocol Epoetin Eric-epbx 10,000 units 08/24/23 09:00 08/31/23 12:13 Epoetin Eric-Epbx 10,000 Units/Ml Vial SUB-Q 10,000 units MOWEFR@09 NEETA Administration Ferrous Sulfate 325 mg 08/12/23 10:00 08/20/23 16:34 Ferrous Sulfate [address] BY MOUTH 325 mg BID NEETA Administration Gabapentin 300 mg 08/12/23 10:00 08/20/23 07:59 Gabapentin 300 Mg Capsule PO 300 mg Q12HR NEETA Administration Glucagon 1 mg 08/18/23 13:06 Glucagon For Inj 1 Mg Vial IM PRN PRN Hypoglycemia Protocol Glucose 15 gm 08/18/23 13:06 Glucose Oral Gel 15 Gm Of Glucse In 37.5 Gm Tube PO PRN PRN Hypoglycemia Protocol Heparin Sodium (Porcine) 5,000 units 08/23/23 21:00 08/28/23 09:31 Heparin Sodium 5,000 Units/Ml Vial SUB-Q 5,000 units Q12HR NEETA Administration
[2023-08-31] MEDS: ACETAMINOPHEN 325 MG TABLET 650 MG PO (14:36)
--- NOTE | 2023-08-31 15:06 | PCOTNOTE ---
PT was able to get their Re-evaluation completed this P.M. Patient was then attempted for an OT treatment session at this time. Patient refused, stating, she has done enough for today, she doesn't feel well .
[2023-08-31] MEDS: IRON SUCROSE COMPLEX 300 MG in SODIUM CHLORIDE 0.9% IV 250 ML 176.67 MG IVPB (16:47)
[2023-08-31 18:57] LABS: Triglycerides 41 mg/dL (<150)
[2023-08-31 21:40] VITALS: BP 169/85; PULSE 73; RESP 16; TEMP 35.8; O2SAT 98
[2023-09-01] MEDS: metroNIDAZOLE 500 MG/ISO 100ML 500 MG/100 ML BAG 100 MG IVPB ×3 (05:49→21:32)
[2023-09-01 06:00] VITALS: BP 141/78; PULSE 73; RESP 18; TEMP 35.9; O2SAT 97
[2023-09-01 06:07] LABS: Basophils Absolute Auto 0.1 K/mm3 (0.0-0.1); Basophils Percent Auto 1.9 % (0.2-1.2); Eosinophils Percent Auto 0.4 % (0-4.4); Hematocrit 26.7 % (37.0-47.0); Hemoglobin 8.2 g/dL (12.0-15.0); Immature Granulocyte Absolute 0.08 K/mm3 (0.00-0.031); Immature Granulocyte Percent A 1.5 % (0-0.5); Lymphocytes Absolute Auto 1.06 K/mm3 (0.9-3.2); Lymphocytes Percent Auto 20.2 % (18.3-44.2); Mean Corpuscular HGB Conc 30.7 g/dl (32-36); Mean Corpuscular Hemoglobin 26.5 pg (26-34); Mean Corpuscular Volume 86.4 fl (80-100); Mean Platelet Volume 9.4 fl (7.4-10.4); Monocytes Absolute Auto 0.7 K/mm3 (0.1-0.6); Neutrophils Absolute Auto 3.3 K/mm3 (1.3-6.7); Platelet Count Result 286 k/mm3 (150-375); Red Blood Count 3.09 M/mm3 (4.2-5.4); Red Cell Distribution Width 21.6 % (11.5-14.5); White Blood Count 5.3 K/mm3 (4.5-10.0)
[2023-09-01 06:17] LABS: Alanine Aminotransferase 8 U/L (6-35); Albumin Level 2.1 g/dL (3.5-5.1); Alkaline Phosphatase 38 U/L (38-126); Anion Gap 4 mmol/L (8-16); Aspartate Amino Transferase 25 U/L (14-36); Bilirubin,Total 0.3 mg/dL (0.2-1.3); Blood Urea Nitrogen 22 mg/dL (7-17); Calcium 7.3 mg/dL (8.4-10.2); Carbon Dioxide 26 mmol/L (22-30); Chloride 104 mmol/L (98-107); Estimated CRCL calculation 38 ml/min; Estimated Glomerular Filt Rate 40; Glucose 74 mg/dL (65-110); Potassium 3.3 mmol/L (3.4-5.0); Sodium 134 mmol/L (137-145)
--- NOTE | 2023-09-01 08:27 | WPDGIPROGNO ---
Progress Note: A&P Assessment and Plan (1) C. difficile colitis: Code(s): A04.72 - Enterocolitis due to Clostridium difficile, not specified as recurrent Status: Acute Assessment and Plan: She has been placed on IV Flagyl and high-dose oral vancomycin. Dificid was stopped after about 4 days and it is not clear why still with diarrhea I will favor long taper vancomycin and then consider voswt (liver fecal microbiota spores) at the end of treatment tolerating diet (2) DREW (acute kidney injury): Code(s): N17.9 - Acute kidney failure, unspecified Status: Acute Assessment and Plan: this has improved (3) Acute hyponatremia: Code(s): E87.1 - Hypo-osmolality and hyponatremia Status: Acute Assessment and Plan: stable (4) Occult blood in stools: Code(s): R19.5 - Other fecal abnormalities Status: Acute Assessment and Plan: from colitis had recent colonoscopy, no need to repeat Subjective Date/time seen: 09/01/23 08:27 she states that her diarrhea persists. She cannot give me a number of bowel movements because it loses out all day. She is not having abdominal pain. Exam Const: General: cooperative and healthy appearing Orientation/consciousness: patient oriented x3 HENMT: Head: normal to inspection Ears: hearing grossly normal bilaterally Mouth: Yes Normal oral and palatal mucosa present Eyes: General: appearance normal, both eyes and all related structures Neck: Neck: normal visual inspection Chest: Chest palpation & inspection: normal inspection of the chest Resp: Effort & Inspection: normal respiratory effort Auscultation: clear to auscultation bilaterally Cardio: Rate: regular rate Rhythm: regular rhythm GI: Inspection: normal to inspection GI Palp: Yes No hepatosplenomegaly present Auscultation: normal bowel sounds Skin: General skin exam: normal color and no jaundice Neuro: General: patient oriented x3 Speech: normal speech Objective Data Vital Signs Vital Signs: Vital Signs - 24 hr 08/31/23 14:15 08/31/23 14:00 08/31/23 21:40 Temperature 37.1 C 35.8 C L Pulse Rate 81 73 Respiratory Rate 14 16 Blood Pressure 123/86 169/85 H Pulse Oximetry 98 98 Oxygen Delivery Room Air 09/01/23 06:00 Temperature 35.9 C L Pulse Rate 73 Respiratory Rate 18 Blood Pressure 141/78 H Pulse Oximetry 97 Oxygen Delivery Intake/Output Intake/Output: Intake & Output 08/29/23 08/30/23 08/31/23 09/01/23 23:59 23:59 23:59 23:59 Intake Total 660 1780 780 200 Output Total 4600 2350 2250 1400 [facility] -[phone] Meds/Results Medications: Active Medications Generic Name Dose Route Start Last Admin Trade Name Freq PRN Reason Stop Dose Admin Acetaminophen 650 mg 08/11/23 15:21 08/31/23 14:36 Acetaminophen 325 Mg Tablet PO 650 mg Q4H PRN Administration Mild Pain (1-3) or Fever Aspirin 81 mg 08/13/23 09:00 08/20/23 07:59 Aspirin 81 Mg Enteric Tablet PO 81 mg DAILY NEETA Administration Dextrose 12.5 gm 08/18/23 13:06 Dextrose 50% 25 Gm/50 Ml Syringe IV PUSH PRN PRN Hypoglycemia Protocol Epoetin Eric-epbx 10,000 units 08/24/23 09:00 08/31/23 12:13 Epoetin Eric-Epbx 10,000 Units/Ml Vial SUB-Q 10,000 units MOWEFR@09 NEETA Administration Ferrous Sulfate 325 mg 08/12/23 10:00 08/20/23 16:34 Ferrous Sulfate [address] BY MOUTH 325 mg BID NEETA Administration Gabapentin 300 mg 08/12/23 10:00 08/20/23 07:59 Gabapentin 300 Mg Capsule PO 300 mg Q12HR NEETA Administration Glucagon 1 mg 08/18/23 13:06 Glucagon For Inj 1 Mg Vial IM PRN PRN Hypoglycemia Protocol Glucose 15 gm 08/18/23 13:06 Glucose Oral Gel 15 Gm Of Glucse In 37.5 Gm Tube PO PRN PRN Hypoglycemia Protocol Heparin Sodium (Porcine) 5,000 units 08/23/23 21:00 08/28/23 09:31 Heparin Sodium 5,000 Units/Ml Vial SUB-Q
[2023-09-01] MEDS: PANTOPRAZOLE 40 MG TABLET PO ×2 (09:26→21:32)
[2023-09-01] MEDS: CENTRAL LINE FLUSH 10 ML IV PUSH ×3 (09:26→21:33)
[2023-09-01] MEDS: VENLAFAXINE HCL XR 75 MG CAP.ER.24H PO (09:26)
[2023-09-01] MEDS: TOLNAFTATE 1% POWDER 45 GM BTL 1 APPLIC TOPICAL ×2 (09:26→22:20)
[2023-09-01] MEDS: POTASSIUM CHLORIDE 20 MEQ ER TABLET 40 MEQ PO ×2 (09:38→12:47)
--- NOTE | 2023-09-01 12:57 | PM.PNNEP ---
Progress Note: A&P Assessment and Plan (1) DREW (acute kidney injury): Code(s): N17.9 - Acute kidney failure, unspecified Status: Acute Assessment and Plan: slow improvement by trend of labs noted on admission resolved initially with IVF hydration hen worsened... now improving s/p IV albumin + IV bumex good urine output noted evaluation to date: urine electrolytes prerenal CT imaging without obstruction of kidneys UA c/w infection urine eosinophils not done renal scan shows uptake without excretion consistent with ATN follow repeat labs and UOP (2) Hyponatremia: Code(s): E87.1 - Hypo-osmolality and hyponatremia Status: Acute Assessment and Plan: continues to improve as renal function does as noted on admission (admission sodium 126) history would suggest hypovolemia as etiology (on admission) from ongoing GI losses/diarrhea however, also related to her DREW/ARF as well could be related to medications -- on PPI and venlafaxine (but these are chronic medications) evaluation to date: TSH and cortisol okay urine electrolytes prerenal SPEP/UPEP without M-spike follow trend (3) Sepsis: Code(s): A41.9 - Sepsis, unspecified organism Status: Acute Assessment and Plan: improving - WBC trending down/normalized as noted on admission noted elevated WBC, tachycardia, and hypotension presumable source is C. diff colitis +/- UTI 1/2 blood culture showed Staph epi; urine culture showed E coli (4) C. difficile colitis: Code(s): A04.72 - Enterocolitis due to Clostridium difficile, not specified as recurrent Status: Acute Assessment and Plan: as noted by testing on oral vancomycin and IV flagyl Gastroenterology following off TPN -- follow oral intake (5) Urinary tract infection: Code(s): N39.0 - Urinary tract infection, site not specified Status: Acute Assessment and Plan: as suggested by admission UA urine culture with E. coli completed course of antibiotics (6) Metabolic acidosis: Code(s): E87.20 - Acidosis, unspecified Status: Acute Assessment and Plan: due to GI losses and ongoing DREW was on oral sodium bicarbonate to compensate -- currently off off bicarb fluids due to edema and SOB CO2 stable (7) HTN (hypertension): Code(s): I10 - Essential (primary) hypertension Status: Chronic Assessment and Plan: reasonable control follow trend of hemodyamics (8) Anemia: Code(s): D64.9 - Anemia, unspecified Status: Chronic Assessment and Plan: likely due to iron deficiency, DREW, and acute illness PRBC transfusion per protocol on Epogen -- will likely wean off as renal function improving follow H/H Will continue to follow. Subjective Date/time seen: 09/01/23 12:57 Interval history: Follow-up for acute on chronc hyponatremia and acute kidney injury/acute renal failure. Renal function/creatinine/sodium all improving as noted by trend of labs in the last few days in association with good urine output as well; still having diarrhea despite all current interventions/therapy to date; no acute distress voiced at the time of my visit. Exam Narrative: General: elderly but WD/WN female in NAD Heart: normal S1 and S2; no rub Lungs: clear bilaterally Abdomen: soft, nontender, nondistended, positive bowel sounds Extremities: no cyanosis or clubbing; minimal edema Skin: warm and intact Objective Data Vital Signs Vital Signs: Vital Signs Temp Pulse Resp BP Pulse Ox O2 Del Method 09/01/23 12:00 98.1 F 91 18 135/64 98 09/01/23 08:00 Room Air 09/01/23 06:00 96.7 F L 73 18 141/78 H 97 08/31/23 21:40 96.5 F L 73 16 169/85 H 98 Intake/Output Intake/Output: Intake & Output 08/29/23 08/30/23 08/31/23 09/01/23 23:59 23:59 23:59 23:59 Intake Total 660 1780 7
--- NOTE | 2023-09-01 12:57 | P.PNNP_ITS ---
Progress Note: A&P Assessment and Plan (1) DREW (acute kidney injury): Code(s): N17.9 - Acute kidney failure, unspecified Status: Acute Assessment and Plan: * slow improvement by trend of labs * noted on admission * resolved initially with IVF hydration * hen worsened... * now improving * s/p IV albumin + IV bumex * good urine output noted * evaluation to date: * urine electrolytes prerenal * CT imaging without obstruction of kidneys * UA c/w infection * urine eosinophils not done * renal scan shows uptake without excretion consistent with ATN * follow repeat labs and UOP (2) Hyponatremia: Code(s): E87.1 - Hypo-osmolality and hyponatremia Status: Acute Assessment and Plan: * continues to improve as renal function does * as noted on admission (admission sodium 126) * history would suggest hypovolemia as etiology (on admission) from ongoing GI losses/diarrhea * however, also related to her DREW/ARF as well * could be related to medications -- on PPI and venlafaxine (but these are chronic medications) * evaluation to date: * TSH and cortisol okay * urine electrolytes prerenal * SPEP/UPEP without M-spike * follow trend (3) Sepsis: Code(s): A41.9 - Sepsis, unspecified organism Status: Acute Assessment and Plan: * improving - WBC trending down/normalized * as noted on admission * noted elevated WBC, tachycardia, and hypotension * presumable source is C. diff colitis +/- UTI * 1/2 blood culture showed Staph epi; urine culture showed E coli (4) C. difficile colitis: Code(s): A04.72 - Enterocolitis due to Clostridium difficile, not specified as recurrent Status: Acute Assessment and Plan: * as noted by testing * on oral vancomycin and IV flagyl * Gastroenterology following * off TPN -- follow oral intake (5) Urinary tract infection: Code(s): N39.0 - Urinary tract infection, site not specified Status: Acute Assessment and Plan: * as suggested by admission UA * urine culture with E. coli * completed course of antibiotics (6) Metabolic acidosis: Code(s): E87.20 - Acidosis, unspecified Status: Acute Assessment and Plan: * due to GI losses and ongoing DREW * was on oral sodium bicarbonate to compensate -- currently off * off bicarb fluids due to edema and SOB * CO2 stable (7) HTN (hypertension): Code(s): I10 - Essential (primary) hypertension Status: Chronic Assessment and Plan: * reasonable control * follow trend of hemodyamics (8) Anemia: Code(s): D64.9 - Anemia, unspecified Status: Chronic Assessment and Plan: * likely due to iron deficiency, DREW, and acute illness * PRBC transfusion per protocol * on Epogen -- will likely wean off as renal function improving * follow H/H Will continue to follow. Subjective Date/time seen: 09/01/23 12:57 Interval history: Follow-up for acute on chronc hyponatremia and acute kidney injury/acute renal failure. Renal function/creatinine/sodium all improving as noted by trend of labs in the last few days in association with good urine output as well; still having diarrhea despite all current interventions/therapy to date; no acute distress voiced at the time of my visit. Exam Narrative: General: elderly but WD/WN female in NAD Heart: normal S1 and S2; no rub Lungs: clear bilaterally Abdomen:
[2023-09-01 14:00] VITALS: BP 135/64; PULSE 91; RESP 18; TEMP 36.7; O2SAT 98
[2023-09-01] MEDS: FUROSEMIDE INJ 40 MG/4 ML VIAL IV PUSH (14:04)
--- NOTE | 2023-09-01 15:43 | PCOTNOTE ---
Attempted to see pt for Occupational Therapy treatment. Pt declined to participate in therapeutic exercises/tasks or get out of bed. Pt states that she was in the recliner for almost 8 hours yesterday and it bothered her butt too much. Pt also states that since she has company right now she is too tired for it. Pt is educated on the importance of continued participation in therapy. Pt verbally understands but feels that when she transfers to SNF possibly on Sunday that will be a fine time to continue with therapy. Will continue per poc duration/frequency tomorrow.
[2023-09-01 21:25] VITALS: BP 138/81; PULSE 86; RESP 20; TEMP 36.3; O2SAT 99
[2023-09-01] MEDS: HEPARIN SODIUM 5,000 UNITS/ML VIAL 5000 UNITS SUB-Q (21:32)
[2023-09-02 06:00] VITALS: BP 138/70; PULSE 78; RESP 16; TEMP 36.6; O2SAT 97
[2023-09-02 06:15] LABS: Basophils Absolute Auto 0.1 K/mm3 (0.0-0.1); Basophils Percent Auto 1.7 % (0.2-1.2); Eosinophils Percent Auto 0.4 % (0-4.4); Hematocrit 26.6 % (37.0-47.0); Hemoglobin 8.1 g/dL (12.0-15.0); Immature Granulocyte Absolute 0.06 K/mm3 (0.00-0.031); Immature Granulocyte Percent A 1.1 % (0-0.5); Lymphocytes Absolute Auto 1.21 K/mm3 (0.9-3.2); Lymphocytes Percent Auto 23.1 % (18.3-44.2); Mean Corpuscular HGB Conc 30.5 g/dl (32-36); Mean Corpuscular Hemoglobin 26.5 pg (26-34); Mean Corpuscular Volume 86.9 fl (80-100); Mean Platelet Volume 9.2 fl (7.4-10.4); Monocytes Absolute Auto 0.6 K/mm3 (0.1-0.6); Monocytes Percent Auto 11.3 % (2.6-8.5); Neutrophils Absolute Auto 3.3 K/mm3 (1.3-6.7); Neutrophils Percent Auto 62.4 % (45.5-73.1); Platelet Count Result 288 k/mm3 (150-375); Red Blood Count 3.06 M/mm3 (4.2-5.4); Red Cell Distribution Width 21.8 % (11.5-14.5); White Blood Count 5.2 K/mm3 (4.5-10.0)
[2023-09-02] MEDS: metroNIDAZOLE 500 MG/ISO 100ML 500 MG/100 ML BAG 100 MG IVPB ×3 (06:18→21:41)
[2023-09-02] MEDS: CENTRAL LINE FLUSH 10 ML IV PUSH ×3 (06:19→21:43)
[2023-09-02 06:28] LABS: Alanine Aminotransferase 9 U/L (6-35); Albumin Level 2.2 g/dL (3.5-5.1); Alkaline Phosphatase 39 U/L (38-126); Anion Gap 5 mmol/L (8-16); Aspartate Amino Transferase 22 U/L (14-36); Bilirubin,Total 0.3 mg/dL (0.2-1.3); Blood Urea Nitrogen 17 mg/dL (7-17); Calcium 7.4 mg/dL (8.4-10.2); Carbon Dioxide 26 mmol/L (22-30); Chloride 105 mmol/L (98-107); Estimated CRCL calculation 43 ml/min; Estimated Glomerular Filt Rate 48; Glucose 80 mg/dL (65-110); Potassium 3.5 mmol/L (3.4-5.0); Sodium 136 mmol/L (137-145)
[2023-09-02 06:29] LABS: Phosphorus 3.5 mg/dL (2.5-4.5)
--- NOTE | 2023-09-02 08:06 | WPDGIPROGNO ---
Progress Note: A&P Assessment and Plan (1) C. difficile colitis: Code(s): A04.72 - Enterocolitis due to Clostridium difficile, not specified as recurrent Status: Acute Assessment and Plan: She has been placed on IV Flagyl and high-dose oral vancomycin( 500 mg q.6 hours) Dificid was stopped after about 4 days and it is not clear why. Today I spoke to the pharmacist. Trying to determine why she was taken off Dificid. Perhaps had something to do with her renal function at that time. The pharmacist stated that it was the infectious disease pharmacist to made those changes but there is no note indicate why. Will restart Dificid today and I asked pharmacy to discuss this with Dr. Snyder tomorrow (2) DREW (acute kidney injury): Code(s): N17.9 - Acute kidney failure, unspecified Status: Acute Assessment and Plan: creatinine was as high as 5. Now it is down to 1.1. Therefore DREW has resolved. (3) Occult blood in stools: Code(s): R19.5 - Other fecal abnormalities Status: Acute Assessment and Plan: this is almost certainly due to the fact that she has acute C difficile colitis She did have a recent colonoscopy, no need to repeat Plan restart Dificid unless pharmacy has a reason she should not be on it. Subjective Date/time seen: 09/02/23 08:06 no significant change. Remains afebrile. Renal function has improved, creatinine down to 1.1 having been as high as 5. Exam Const: General: cooperative and healthy appearing Orientation/consciousness: patient oriented x3 HENMT: Head: normal to inspection Ears: hearing grossly normal bilaterally Mouth: Yes Normal oral and palatal mucosa present Eyes: General: appearance normal, both eyes and all related structures Neck: Neck: normal visual inspection Chest: Chest palpation & inspection: normal inspection of the chest Resp: Effort & Inspection: normal respiratory effort Auscultation: clear to auscultation bilaterally Cardio: Rate: regular rate Rhythm: regular rhythm GI: Inspection: normal to inspection GI Palp: Yes No hepatosplenomegaly present Auscultation: normal bowel sounds Skin: General skin exam: normal color and no jaundice Neuro: General: patient oriented x3 Speech: normal speech Objective Data Vital Signs Vital Signs: Vital Signs - 24 hr 09/01/23 14:00 09/01/23 21:25 09/02/23 06:00 Temperature 36.7 C 36.3 C L 36.6 C Pulse Rate 91 86 78 Respiratory Rate 18 20 16 Blood Pressure 135/64 138/81 138/70 Pulse Oximetry 98 99 97 Intake/Output Intake/Output: Intake & Output 08/30/23 08/31/23 09/01/23 09/02/23 23:59 23:59 23:59 23:59 Intake Total 1780 780 980 100 Output Total 2350 2250 3600 1600 Pbmnjes -060 -2793 -5687 -0667 Meds/Results Medications: Active Medications Generic Name Dose Route Start Last Admin Trade Name Freq PRN Reason Stop Dose Admin Acetaminophen 650 mg 08/11/23 15:21 08/31/23 14:36 Acetaminophen 325 Mg Tablet PO 650 mg Q4H PRN Administration Mild Pain (1-3) or Fever Aspirin 81 mg 08/13/23 09:00 08/20/23 07:59 Aspirin 81 Mg Enteric Tablet PO 81 mg DAILY NEETA Administration Dextrose 12.5 gm 08/18/23 13:06 Dextrose 50% 25 Gm/50 Ml Syringe IV PUSH PRN PRN Hypoglycemia Protocol Epoetin Eric-epbx 10,000 units 08/24/23 09:00 08/31/23 12:13 Epoetin Eric-Epbx 10,000 Units/Ml Vial SUB-Q 10,000 units MOWEFR@09 NEETA Administration Ferrous Sulfate 325 mg 08/12/23 10:00 08/20/23 16:34 Ferrous Sulfate [address] BY MOUTH 325 mg BID NEETA Administration Fidaxomicin 200 mg 09/02/23 09:00 Fidaxomicin 200 Mg Tablet PO Q12HR NEETA Gabapentin 300 mg 08/12/23 10:00 08/20/23 07:59 Gabapentin 300 Mg Capsule PO 300 mg Q12HR NEETA Administration Glucagon 1 mg 08/18/23 13:06 Glucagon For Inj 1 Mg Vial IM PRN PRN Hypoglycemia Protocol Glucose 15 gm
[2023-09-02] MEDS: PANTOPRAZOLE 40 MG TABLET PO ×2 (09:13→21:42)
[2023-09-02] MEDS: HEPARIN SODIUM 5,000 UNITS/ML VIAL 5000 UNITS SUB-Q ×2 (09:13→21:42)
[2023-09-02] MEDS: TOLNAFTATE 1% POWDER 45 GM BTL 1 APPLIC TOPICAL ×2 (09:13→21:42)
[2023-09-02] MEDS: VENLAFAXINE HCL XR 75 MG CAP.ER.24H PO (09:13)
[2023-09-02] MEDS: FIDAXOMICIN 200 MG TABLET PO ×2 (09:24→21:42)
--- NOTE | 2023-09-02 11:46 | PM.IMPN ---
Progress Note: A&P Assessment and Plan (1) Colitis: Code(s): K52.9 - Noninfective gastroenteritis and colitis, unspecified Status: Acute (2) C. difficile colitis: Code(s): A04.72 - Enterocolitis due to Clostridium difficile, not specified as recurrent Status: Acute Assessment and Plan: She has been placed on IV Flagyl and high-dose oral vancomycin( 500 mg q.6 hours) Patient is on Dificid: Continue current treatment.. (3) Metabolic acidosis: Code(s): E87.20 - Acidosis, unspecified Status: Acute Assessment and Plan: Improving, continue current treatment (4) Urinary tract infection: Code(s): N39.0 - Urinary tract infection, site not specified Status: Acute Assessment and Plan: Improving, continue current treatment (5) GERD (gastroesophageal reflux disease): Code(s): K21.9 - Gastro-esophageal reflux disease without esophagitis Status: Acute Assessment and Plan: Stable current meds, could and treatment (6) Sepsis: Code(s): A41.9 - Sepsis, unspecified organism Status: Acute Assessment and Plan: Patient is getting better, continue current treatment (7) DREW (acute kidney injury): Code(s): N17.9 - Acute kidney failure, unspecified Status: Acute Assessment and Plan: creatinine was as high as 5. Now it is down to 1.1. Therefore DREW has resolved. (8) Acute hyponatremia: Code(s): E87.1 - Hypo-osmolality and hyponatremia Status: Acute Assessment and Plan: Stable, continue current treatment (9) Hypotension due to hypovolemia: Code(s): I95.89 - Other hypotension; E86.1 - Hypovolemia Status: Acute Assessment and Plan: Improved. (10) Acute on chronic renal failure: Code(s): N17.9 - Acute kidney failure, unspecified; N18.9 - Chronic kidney disease, unspecified Status: Acute Assessment and Plan: Improved. (11) Severe sepsis: Code(s): A41.9 - Sepsis, unspecified organism; R65.20 - Severe sepsis without septic shock Status: Acute Assessment and Plan: Much better, continue current treatment (12) Occult blood in stools: Code(s): R19.5 - Other fecal abnormalities Status: Acute Assessment and Plan: this is almost certainly due to the fact that she has acute C difficile colitis She did have a recent colonoscopy, no need to repeat Plan 1. C diff colitis (severe to fulminant) Cdiff positive 08/20: Pt is in severe to fulminant life threatening c diff colitis. Was initially started on fidaxomicin now switched to oral vancomycin The repeat CT shows ?Small amount of abdominopelvic ascites present, probable mesenteric edema. There is large bowel wall thickening, extensively involving the ascending and transverse colon in particular. No bowel obstruction. No abscess or free air evident. The pt needs urgent escalation of abx. Now will be on oral vancomycin 500 mg qid and iv flagyl 500 q8 for 14 days or until wbc decreases. The pt is at high risk for toxic megacolon based on the CT findings of edema, ascites, and large bowel thickening. Luckily she has no free air NPO except important meds. IVF- Can ct Na with 1 amp of bicarb. Probably can do 2 or 3 amps. Start TPN 08/21: Still having diarrhea. May take a few days to recover. Ct to limit PO meds. 08/22: ct supportive measures. TPN. no more additional IVF. Ct PO vanc. may need 10 days or 17 days depending on how she does. WBC decreased slightly to 19.3 08/23: Wbc count decreased to 16.5. still having diarrhea. rectal tube placed. may need oral vancomycin until 09/05 at least (according to up to date). Monitor for pt's diarrhea stopping while NPO, wbc normalizing. 08/24/2023: WBC on admission is 32 K slowly improving hyponatremia acute on chronic, DREW with continued rise of creatinine 5.1 today. Positive for C diff. stool culture negative for Salmonella Shigella Campylobacte
--- NOTE | 2023-09-02 13:21 | P.PNNP_ITS ---
Progress Note: A&P Assessment and Plan (1) DREW (acute kidney injury): Code(s): N17.9 - Acute kidney failure, unspecified Status: Acute Assessment and Plan: * slow improvement by trend of labs * noted on admission * resolved initially with IVF hydration * hen worsened... * now improving * s/p IV albumin + IV bumex * good urine output noted * evaluation to date: * urine electrolytes prerenal * CT imaging without obstruction of kidneys * UA c/w infection * urine eosinophils not done * renal scan shows uptake without excretion consistent with ATN * follow repeat labs and UOP (2) Hyponatremia: Code(s): E87.1 - Hypo-osmolality and hyponatremia Status: Acute Assessment and Plan: * continues to improve as renal function does * as noted on admission (admission sodium 126) * history would suggest hypovolemia as etiology (on admission) from ongoing GI losses/diarrhea * however, also related to her DREW/ARF as well * could be related to medications -- on PPI and venlafaxine (but these are chronic medications) * evaluation to date: * TSH and cortisol okay * urine electrolytes prerenal * SPEP/UPEP without M-spike * follow trend (3) Sepsis: Code(s): A41.9 - Sepsis, unspecified organism Status: Acute Assessment and Plan: * improving - WBC trending down/normalized * as noted on admission * noted elevated WBC, tachycardia, and hypotension * presumable source is C. diff colitis +/- UTI * 1/2 blood culture showed Staph epi; urine culture showed E coli (4) C. difficile colitis: Code(s): A04.72 - Enterocolitis due to Clostridium difficile, not specified as recurrent Status: Acute Assessment and Plan: * as noted by testing * on oral dificid and IV flagyl * Gastroenterology following * off TPN -- follow oral intake (5) Urinary tract infection: Code(s): N39.0 - Urinary tract infection, site not specified Status: Acute Assessment and Plan: * as suggested by admission UA * urine culture with E. coli * completed course of antibiotics (6) Metabolic acidosis: Code(s): E87.20 - Acidosis, unspecified Status: Acute Assessment and Plan: * due to GI losses and ongoing DREW * was on oral sodium bicarbonate to compensate -- currently off * off bicarb fluids due to edema and SOB * CO2 stable (7) HTN (hypertension): Code(s): I10 - Essential (primary) hypertension Status: Chronic Assessment and Plan: * reasonable control * follow trend of hemodyamics (8) Anemia: Code(s): D64.9 - Anemia, unspecified Status: Chronic Assessment and Plan: * likely due to iron deficiency, DREW, and acute illness * PRBC transfusion per protocol * on Epogen -- will d/c given improvement in renal function * follow trend of H/H Not much else to add -- will continue to follow intermittently. Subjective Date/time seen: 09/02/23 13:21 Interval history: Follow-up for acute on chronic hyponatremia and acute kidney injury/acute renal failure. Still with diarrhea although medication adjustments noted by Gastroenterology in the hopes of improving this symptom; renal function continues to improve with good urine output along with normalization of sodium level; other than generalized weakness, no other apparent complaints/issues. Exam Narrative: General: elderly but WD/WN female in NAD Heart: norm
--- NOTE | 2023-09-02 13:21 | PM.PNNEP ---
Progress Note: A&P Assessment and Plan (1) DREW (acute kidney injury): Code(s): N17.9 - Acute kidney failure, unspecified Status: Acute Assessment and Plan: slow improvement by trend of labs noted on admission resolved initially with IVF hydration hen worsened... now improving s/p IV albumin + IV bumex good urine output noted evaluation to date: urine electrolytes prerenal CT imaging without obstruction of kidneys UA c/w infection urine eosinophils not done renal scan shows uptake without excretion consistent with ATN follow repeat labs and UOP (2) Hyponatremia: Code(s): E87.1 - Hypo-osmolality and hyponatremia Status: Acute Assessment and Plan: continues to improve as renal function does as noted on admission (admission sodium 126) history would suggest hypovolemia as etiology (on admission) from ongoing GI losses/diarrhea however, also related to her DREW/ARF as well could be related to medications -- on PPI and venlafaxine (but these are chronic medications) evaluation to date: TSH and cortisol okay urine electrolytes prerenal SPEP/UPEP without M-spike follow trend (3) Sepsis: Code(s): A41.9 - Sepsis, unspecified organism Status: Acute Assessment and Plan: improving - WBC trending down/normalized as noted on admission noted elevated WBC, tachycardia, and hypotension presumable source is C. diff colitis +/- UTI 1/2 blood culture showed Staph epi; urine culture showed E coli (4) C. difficile colitis: Code(s): A04.72 - Enterocolitis due to Clostridium difficile, not specified as recurrent Status: Acute Assessment and Plan: as noted by testing on oral dificid and IV flagyl Gastroenterology following off TPN -- follow oral intake (5) Urinary tract infection: Code(s): N39.0 - Urinary tract infection, site not specified Status: Acute Assessment and Plan: as suggested by admission UA urine culture with E. coli completed course of antibiotics (6) Metabolic acidosis: Code(s): E87.20 - Acidosis, unspecified Status: Acute Assessment and Plan: due to GI losses and ongoing DREW was on oral sodium bicarbonate to compensate -- currently off off bicarb fluids due to edema and SOB CO2 stable (7) HTN (hypertension): Code(s): I10 - Essential (primary) hypertension Status: Chronic Assessment and Plan: reasonable control follow trend of hemodyamics (8) Anemia: Code(s): D64.9 - Anemia, unspecified Status: Chronic Assessment and Plan: likely due to iron deficiency, DREW, and acute illness PRBC transfusion per protocol on Epogen -- will d/c given improvement in renal function follow trend of H/H Not much else to add -- will continue to follow intermittently. Subjective Date/time seen: 09/02/23 13:21 Interval history: Follow-up for acute on chronic hyponatremia and acute kidney injury/acute renal failure. Still with diarrhea although medication adjustments noted by Gastroenterology in the hopes of improving this symptom; renal function continues to improve with good urine output along with normalization of sodium level; other than generalized weakness, no other apparent complaints/issues. Exam Narrative: General: elderly but WD/WN female in NAD Heart: normal S1 and S2; no rub Lungs: clear bilaterally Abdomen: soft, nontender, nondistended, positive bowel sounds Extremities: no cyanosis or clubbing; minimal edema Skin: warm and intact Objective Data Vital Signs Vital Signs: Vital Signs Temp Pulse Resp BP Pulse Ox O2 Del Method 09/02/23 08:00 Room Air 09/02/23 06:00 97.9 F 78 16 138/70 97 09/01/23 21:25 97.3 F L 86 20 138/81 99 Intake/Output Intake/Output: Intake & Output 08/30/23 08/31/23 09/01/23 09/02/23 23:59 23:59 23:59 23:59 Intake T
[2023-09-02 14:00] VITALS: BP 147/73; PULSE 87; RESP 20; TEMP 36.9; O2SAT 98
[2023-09-02 16:22] LABS: Triglycerides 85 mg/dL (<150)
[2023-09-02 21:45] VITALS: BP 132/74; PULSE 78; RESP 18; TEMP 36.2; O2SAT 98
[2023-09-03] MEDS: metroNIDAZOLE 500 MG/ISO 100ML 500 MG/100 ML BAG 100 MG IVPB ×2 (05:59→13:49)
[2023-09-03] MEDS: CENTRAL LINE FLUSH 10 ML IV PUSH ×3 (06:00→21:08)
[2023-09-03 06:19] VITALS: BP 142/72; PULSE 81; RESP 20; TEMP 35.9; O2SAT 99
[2023-09-03 06:28] LABS: Basophils Absolute Auto 0.1 K/mm3 (0.0-0.1); Basophils Percent Auto 1.6 % (0.2-1.2); Eosinophils Absolute Auto 0.1 K/mm3 (0-0.3); Hematocrit 26.4 % (37.0-47.0); Hemoglobin 8.3 g/dL (12.0-15.0); Immature Granulocyte Absolute 0.04 K/mm3 (0.00-0.031); Immature Granulocyte Percent A 0.7 % (0-0.5); Lymphocytes Absolute Auto 1.37 K/mm3 (0.9-3.2); Mean Corpuscular HGB Conc 31.4 g/dl (32-36); Mean Corpuscular Hemoglobin 26.9 pg (26-34); Mean Corpuscular Volume 85.7 fl (80-100); Mean Platelet Volume 9.3 fl (7.4-10.4); Monocytes Absolute Auto 0.6 K/mm3 (0.1-0.6); Monocytes Percent Auto 10.3 % (2.6-8.5); Neutrophils Absolute Auto 3.6 K/mm3 (1.3-6.7); Neutrophils Percent Auto 62.4 % (45.5-73.1); Platelet Count Result 309 k/mm3 (150-375); Red Blood Count 3.08 M/mm3 (4.2-5.4); White Blood Count 5.7 K/mm3 (4.5-10.0)
[2023-09-03 06:39] LABS: INR 1.2; Prothrombin Time 16.2 Seconds (11.1-14.7)
[2023-09-03 06:40] LABS: Partial Thromboplastin Time 28.9 SECONDS (22.3-36.8)
[2023-09-03 06:44] LABS: Alanine Aminotransferase 9 U/L (6-35); Albumin Level 2.2 g/dL (3.5-5.1); Alkaline Phosphatase 42 U/L (38-126); Anion Gap 6 mmol/L (8-16); Aspartate Amino Transferase 21 U/L (14-36); Bilirubin,Total 0.3 mg/dL (0.2-1.3); Blood Urea Nitrogen 13 mg/dL (7-17); Calcium 7.5 mg/dL (8.4-10.2); Carbon Dioxide 25 mmol/L (22-30); Chloride 104 mmol/L (98-107); Estimated CRCL calculation 48 ml/min; Estimated Glomerular Filt Rate 54; Glucose 79 mg/dL (65-110); Magnesium 1.3 mg/dL (1.6-2.3); Potassium 3.1 mmol/L (3.4-5.0); Sodium 135 mmol/L (137-145)
[2023-09-03] MEDS: TOLNAFTATE 1% POWDER 45 GM BTL 1 APPLIC TOPICAL ×2 (08:19→21:10)
[2023-09-03] MEDS: EPOETIN ALFA-EPBX 10,000 UNITS/ML VIAL 10000 UNITS SUB-Q (08:20)
[2023-09-03] MEDS: MAGNESIUM SULF 2 GM/WATER 50ML 2 GM/50 ML BAG IVPB (08:20)
[2023-09-03] MEDS: PANTOPRAZOLE 40 MG TABLET PO ×2 (08:21→21:07)
[2023-09-03] MEDS: VENLAFAXINE HCL XR 75 MG CAP.ER.24H PO (08:21)
[2023-09-03] MEDS: POTASSIUM CHLORIDE 20 MEQ ER TABLET 40 MEQ PO ×2 (08:21→12:29)
[2023-09-03] MEDS: FIDAXOMICIN 200 MG TABLET PO (08:21)
[2023-09-03] MEDS: HEPARIN SODIUM 5,000 UNITS/ML VIAL 5000 UNITS SUB-Q ×2 (08:22→21:07)
[2023-09-03 09:58] LABS: Transferrin < 80 mg/dL (206-381)
--- NOTE | 2023-09-03 11:02 | PCNFU ---
Nutrition Follow-Up Complete: Inadequate energy intake related to NPO status as evidenced by diet order and need for parental nutrition Goal:Meet estimated needs Pt current nutrition is low fiber, Nutrition recommendation: Add Ensure compact BID for an additional 220kcals, 9g protein Last recorded weight is 99.7 kg. Bowel Motility: +BM 09/03 Labs Reviewed: Hgb:8.3, HCT:26.4, Alb:2.2, NA:135, K:3.1, GFR:54 Meds Noted: zofran, protonix, flagyl Skin: WNL Additional Notes: Pt no longer on TPN. Low fiber diet, intake 50-100%. More solid bowel movements. Will add Ensure compact BID for supplementation. Monitor intake, wt, labs. Follow up in 5 days.
--- NOTE | 2023-09-03 11:38 | PM.IMPN ---
Progress Note: A&P Assessment and Plan (1) GERD (gastroesophageal reflux disease): Code(s): K21.9 - Gastro-esophageal reflux disease without esophagitis Status: Acute (2) Urinary tract infection: Code(s): N39.0 - Urinary tract infection, site not specified Status: Acute (3) C. difficile colitis: Code(s): A04.72 - Enterocolitis due to Clostridium difficile, not specified as recurrent Status: Acute (4) Colitis: Code(s): K52.9 - Noninfective gastroenteritis and colitis, unspecified Status: Acute (5) DREW (acute kidney injury): Code(s): N17.9 - Acute kidney failure, unspecified Status: Acute (6) Hyponatremia: Code(s): E87.1 - Hypo-osmolality and hyponatremia Status: Acute (7) Hypokalemia due to excessive gastrointestinal loss of potassium: Code(s): E87.6 - Hypokalemia Status: Acute (8) Hypomagnesemia with secondary hypocalcemia: Code(s): E83.42 - Hypomagnesemia; E83.51 - Hypocalcemia Status: Acute (9) Diarrhea: Code(s): R19.7 - Diarrhea, unspecified Status: Acute Plan 1. C diff colitis (severe to fulminant) Cdiff positive 08/20: Pt is in severe to fulminant life threatening c diff colitis.? Was initially started on fidaxomicin now switched to oral vancomycin The repeat CT shows ?Small amount of abdominopelvic ascites present, probable mesenteric edema. There is large bowel wall thickening, extensively involving the ascending and transverse colon in particular. No bowel obstruction. No abscess or free air evident. The pt needs urgent escalation of abx. Now will be on oral vancomycin 500 mg qid and iv flagyl 500 q8 for 14 days or until wbc decreases. The pt is at high risk for toxic megacolon based on the CT findings of edema, ascites, and large bowel thickening. Luckily she has no free air NPO except important meds. IVF- Can ct Na with 1 amp of bicarb. Probably can do 2 or 3 amps. Start TPN 08/21: Still having diarrhea. May take a few days to recover. Ct to limit PO meds. 08/22: ct supportive measures. TPN. no more additional IVF. Ct PO vanc. may need 10 days or 17 days depending on how she does. WBC decreased slightly to 19.3 08/23: Wbc count decreased to 16.5. still having diarrhea.? rectal tube placed. may need oral vancomycin until 09/05 at least (according to up to date). Monitor for pt's diarrhea stopping while NPO, wbc normalizing. 08/24/2023:? WBC on admission is 32 K slowly improving hyponatremia acute on chronic, DREW with continued rise of creatinine 5.1 today.? Positive for C diff. stool culture negative for Salmonella Shigella Campylobacter.? CT abdomen with diffuse colitis 08/11/[address] chest abdomen pelvis 08/15/2023 with similar findings no evidence of abscess or free air.? Renal scan 08/22/2023 with markedly delayed time to peak in both kidneys without evidence activity clearance likely related to nonspecific nephropathy.? Asymmetric renal activity uptake which is at the upper limits of normal with 59% uptake in the left kidney 41% in the right kidney.? Blood culture positive for Staphylococcus epidermidis 10/2508/11/2023 likely contamination.? Urine culture 08/11/2023 with E coli pansensitive.? Underlying rheumatoid arthritis on Plaquenil.? On oral vancomycin and metronidazole IV.? TPN.? DVT prophylaxis with heparin subQ.? Urine output 1 L 550 so far slowly improved patient was treated with Dificid at some point in the past Continue oral vancomycin with IV Flagyl for fulminant C diff colitis WBC count has normalized 08/26/2023 Will advance her diet to low residue diet.? Tolerating well will stop TPN 08/29/23:On Vancomycin, Flagyl 08/30/23: Continue Antibiotics; 08/31/23 GI reconsulted and recommends long vancomycin taper with FMT.? At the end of vancomycin treatment to consider voswt. GI following 09/03: Ct vancomycin 250 mg q6 until 09/15 per GI. F/u stat cdiff. if negative, can dc to snf. if positive, needs to be here. unsafe
[2023-09-03] MEDS: CALCIUM GLUC 1,000 MG/NS 50 ML 1,000 MG/50 ML BAG 100 MG IVPB (12:31)
[2023-09-03 14:00] VITALS: BP 156/81; PULSE 90; RESP 20; TEMP 36.6; O2SAT 100
[2023-09-03 14:41] LABS: Toxigenic C. Diff NEGATIVE (NEGATIVE)
--- NOTE | 2023-09-03 14:49 | WPDGIPROGNO ---
Progress Note: A&P Assessment and Plan (1) C. difficile colitis: Code(s): A04.72 - Enterocolitis due to Clostridium difficile, not specified as recurrent Status: Acute Assessment and Plan: she received dificid (changed by ID recommendation back to vancomycin because initial presentation of severe c diff) currently on oral vancomycin and iv flagyl less diarrhea and overall better, no abdominal pain and tolerating diet I will favor long taper vancomycin and then consider voswt (liver fecal microbiota spores) at the end of treatment tolerating diet (2) DREW (acute kidney injury): Code(s): N17.9 - Acute kidney failure, unspecified Status: Acute Assessment and Plan: creatinine is back to normal (3) Occult blood in stools: Code(s): R19.5 - Other fecal abnormalities Status: Acute Assessment and Plan: from colitis had recent colonoscopy, no need to repeat (4) Acute on chronic anemia: Code(s): D64.9 - Anemia, unspecified Status: Acute Assessment and Plan: had recent scopes earlier this year Subjective Date/time seen: 09/03/23 14:49 Interval history: she says that less frequent BM, now 3-4 daily with more consistency Review of Systems Review of Systems: All systems reviewed & are unremarkable except as noted in HPI and below Exam Const: General: comfortable and no acute distress HENMT: Face/Nose/Sinus: Normal nares present Eyes: Sclera: sclerae normal Neck: Neck: supple Resp: Effort & Inspection: normal respiratory effort Cardio: Rate: regular rate GI: GI Palp: Yes Soft to palpation, No Tenderness to palpation present (GI) and No Guarding due to palpation present (GI) Auscultation: normal bowel sounds Skin: General skin exam: normal color Neuro: Speech: normal speech Motor exam (neuro): 5/5 motor strength present throughout Extrem: Other: leg edema 2+ Psych: Affect: normal affect Objective Data Vital Signs Vital Signs: Vital Signs - 24 hr 09/02/23 21:45 09/03/23 06:19 09/03/23 08:00 Temperature 97.2 F L 96.7 F L Pulse Rate 78 81 Respiratory Rate 18 20 Blood Pressure 132/74 142/72 H Pulse Oximetry 98 99 Oxygen Delivery Room Air Intake/Output Intake/Output: Intake & Output 08/31/23 09/01/23 09/02/2309/03/23 23:59 23:59 23:59 23:59 Intake Total 780 980 880 830 Output Total 2250 3600 3200 1900 Balance -0700 -9874 -5462 -7766 Meds/Results Medications: Active Medications Generic Name Dose Route Start Last Admin Trade Name Freq PRN Reason Stop Dose Admin Acetaminophen 650 mg 08/11/23 15:21 08/31/23 14:36 Acetaminophen 325 Mg Tablet PO 650 mg Q4H PRN Administration Mild Pain (1-3) or Fever Aspirin 81 mg 08/13/23 09:00 08/20/23 07:59 Aspirin 81 Mg Enteric Tablet PO 81 mg DAILY NEETA Administration Dextrose 12.5 gm 08/18/23 13:06 Dextrose 50% 25 Gm/50 Ml Syringe IV PUSH PRN PRN Hypoglycemia Protocol Epoetin Eric-epbx 10,000 units 08/24/23 09:00 09/03/23 08:20 Epoetin Eric-Epbx 10,000 Units/Ml Vial SUB-Q 10,000 units MOWEFR@09 NEETA Administration Ferrous Sulfate 325 mg 08/12/23 10:00 08/20/23 16:34 Ferrous Sulfate [address] BY MOUTH 325 mg BID NEETA Administration Gabapentin 300 mg 08/12/23 10:00 08/20/23 07:59 Gabapentin 300 Mg Capsule PO 300 mg Q12HR NEETA Administration Glucagon 1 mg 08/18/23 13:06 Glucagon For Inj 1 Mg Vial IM PRN PRN Hypoglycemia Protocol Glucose 15 gm 08/18/23 13:06 Glucose Oral Gel 15 Gm Of Glucse In 37.5 Gm Tube PO PRN PRN Hypoglycemia Protocol Heparin Sodium (Porcine) 5,000 units 08/23/23 21:00 09/03/23 08:22 Heparin Sodium 5,000 Units/Ml Vial SUB-Q 5,000 units Q12HR NEETA Administration Hydralazine HCl 10 mg 08/20/23 17:49 Hydralazine Hcl 20 Mg/Ml Vial IV PUSH Q6H PRN Blood Pressure - High Hydroxychloroqu
[2023-09-03] MEDS: metroNIDAZOLE 250 MG TABLET 500 MG PO (21:07)
[2023-09-03 22:00] VITALS: BP 172/92; PULSE 94; RESP 16; TEMP 36.3; O2SAT 99
[2023-09-04 05:48] VITALS: BP 172/92; PULSE 100; RESP 20; TEMP 35.5; O2SAT 99
[2023-09-04] MEDS: metroNIDAZOLE 250 MG TABLET 500 MG PO ×2 (06:06→14:49)
[2023-09-04] MEDS: CENTRAL LINE FLUSH 10 ML IV PUSH ×2 (06:07→14:49)
[2023-09-04 06:39] LABS: Basophils Absolute Auto 0.1 K/mm3 (0.0-0.1); Basophils Percent Auto 1.2 % (0.2-1.2); Eosinophils Percent Auto 0.4 % (0-4.4); Hematocrit 28.5 % (37.0-47.0); Hemoglobin 8.9 g/dL (12.0-15.0); Immature Granulocyte Absolute 0.04 K/mm3 (0.00-0.031); Immature Granulocyte Percent A 0.6 % (0-0.5); Lymphocytes Absolute Auto 1.37 K/mm3 (0.9-3.2); Lymphocytes Percent Auto 20.2 % (18.3-44.2); Mean Corpuscular HGB Conc 31.2 g/dl (32-36); Mean Corpuscular Hemoglobin 26.8 pg (26-34); Mean Corpuscular Volume 85.8 fl (80-100); Mean Platelet Volume 9.3 fl (7.4-10.4); Monocytes Absolute Auto 0.7 K/mm3 (0.1-0.6); Monocytes Percent Auto 9.6 % (2.6-8.5); Neutrophils Absolute Auto 4.6 K/mm3 (1.3-6.7); Platelet Count Result 326 k/mm3 (150-375); Red Blood Count 3.32 M/mm3 (4.2-5.4); White Blood Count 6.8 K/mm3 (4.5-10.0)
[2023-09-04 06:51] LABS: Alanine Aminotransferase 10 U/L (6-35); Albumin Level 2.4 g/dL (3.5-5.1); Alkaline Phosphatase 47 U/L (38-126); Anion Gap 8 mmol/L (8-16); Aspartate Amino Transferase 22 U/L (14-36); Bilirubin,Total 0.3 mg/dL (0.2-1.3); Blood Urea Nitrogen 10 mg/dL (7-17); Calcium 7.8 mg/dL (8.4-10.2); Carbon Dioxide 25 mmol/L (22-30); Chloride 103 mmol/L (98-107); Estimated CRCL calculation 47 ml/min; Estimated Glomerular Filt Rate 54; Glucose 81 mg/dL (65-110); Potassium 3.5 mmol/L (3.4-5.0); Sodium 136 mmol/L (137-145)
[2023-09-04] MEDS: PANTOPRAZOLE 40 MG TABLET PO (08:20)
[2023-09-04] MEDS: HEPARIN SODIUM 5,000 UNITS/ML VIAL 5000 UNITS SUB-Q (08:20)
[2023-09-04] MEDS: VENLAFAXINE HCL XR 75 MG CAP.ER.24H PO (08:21)
[2023-09-04] MEDS: TOLNAFTATE 1% POWDER 45 GM BTL 1 APPLIC TOPICAL (08:22)
[2023-09-04 14:00] VITALS: BP 131/58; PULSE 104; RESP 20; TEMP 36.9; O2SAT 100
--- NOTE | 2023-09-04 14:23 | PM.DS ---
DS: Admitting Diagnosis Discharge Date 09/04/23 Admitting Diagnosis diarrhea DS: Discharge Diagnosis Discharge Diagnosis (1) Diarrhea: Code(s): R19.7 - Diarrhea, unspecified Status: Acute (2) GERD (gastroesophageal reflux disease): Code(s): K21.9 - Gastro-esophageal reflux disease without esophagitis Status: Acute (3) C. difficile colitis: Code(s): A04.72 - Enterocolitis due to Clostridium difficile, not specified as recurrent Status: Acute (4) Sepsis: Code(s): A41.9 - Sepsis, unspecified organism Status: Acute (5) DREW (acute kidney injury): Code(s): N17.9 - Acute kidney failure, unspecified Status: Acute DS: Summary Hospital Course Hospital Course: 77F admitted with fulminant c diff colitis. she was treated with abx, a final regimen of PO vancomycin and metronidazole to continue for another 10 days as an outpatient as she is being dc'ed to acute SNF rehab. she developed multiple serious sequelae of c diff including acute renal failure, hyponatremia, hypomagnesemia, all which resolved. her aspirin was stopped. she has chronic anemia and was found to have occult stool positive. gi was consulted and since she had recent EGD's they elected to not pursue more procedures. she is to follow up with them anyhow for this fulminant c diff and possible microbiata transplant. she will be dc'ed on her usual protonix po bid. her lisinopril was stopped and can be restarted once cleared by pcp. nifedipine was continued however 2/2 high blood pressures she was DNR during her stay. she is to f/u with PCP and GI. she knows to reports any new symptoms to her half-way staff. she is in agreement with the discharge plan. More than 30 minutes spent on discharge planning and documentation. Time Spent with Patient Time attestation: Total time spent providing and/or coordinating discharge services: DS: Data Data Completed and Pending Labs on day of discharge: Labs from last 24 hours 09/04/23 09/03/23 06:21 13:41 WBC 6.8 RBC 3.32 L Hgb 8.9 L Hct 28.5 L MCV 85.8 MCH 26.8 MCHC 31.2 L RDW 22.0 H Plt Count 326 MPV 9.3 Immature Gran % (Auto) 0.6 H Neut % (Auto) 68.0 Lymph % (Auto) 20.2 Island % (Auto) 9.6 H Eos % (Auto) 0.4 Baso % (Auto) 1.2 Lymph # (Auto) 1.37 Island # (Auto) 0.7 H Eos # (Auto) 0.0 Baso # (Auto) 0.1 Abs Immat Gran (auto) 0.04 H Absolute Neuts (auto) 4.6 Absolute Nucleated RBC 0.0 Nucleated RBC % 0.0 Sodium 136 L Potassium 3.5 Chloride 103 Carbon Dioxide 25 Anion Gap 8 BUN 10 Creatinine 1.00 Estim Creat Clear Calc 47 Estimated GFR 54 L Glucose 81 Calcium 7.8 L Total Bilirubin 0.3 AST 22 ALT 10 Alkaline Phosphatase 47 Total Protein 5.0 L Albumin 2.4 L C. difficile (PCR) Negative Discharge Plan Discharge Attending physician on discharge: Valentina Bose Consulting providers: Michael Ye; Sulaiman Carson Discharging Clinician: Valentina Bose Patient Disposition: Inpatient Rehab Facility Activity: february shower Diet: regular Patient Instructions: C. Diff (Clostridioides Difficile) Infection (DC) Stand Alone Forms: General Discharge Information Follow-up/Referrals: Sulaiman Carson MD [Physician] - 4 Weeks (fulminant c diff, follow up) Freya Hernandez DO [Primary Care Provider] - 2 Weeks Discharge Medications: New metronidazole 250 mg Tablet 500 mg PO Q8HR 10 Days Qty: 60 0RF vancomycin 250 mg capsule 250 mg PO Q6H 10 Days Qty: 40 0RF Retacrit 10,000 unit/mL Solution 10,000 unit subcut MOWEFR@09 Qty: 10 0RF Continued gabapentin 300 mg capsule 300 mg PO Q12H nifedipine 60 mg tablet extended release 24hr 60 mg PO DAILY Rx Instructions: Hold if SBP<90 pantoprazole [Protonix] 40 mg tablet,delayed release (DR/EC) 40 mg PO Q12H hydroxychloroquine [Plaquenil] 200 mg tablet
--- NOTE | 2023-09-04 14:44 | WPDGIPROGNO ---
Progress Note: A&P Assessment and Plan (1) C. difficile colitis: Code(s): A04.72 - Enterocolitis due to Clostridium difficile, not specified as recurrent Status: Acute Assessment and Plan: diarrhea has improved, repeat c diff negative she can go with 10 more days of oral vancomycin and follow-up in office no abdominal pain and good appetite also renal function is back to normal. (2) DREW (acute kidney injury): Code(s): N17.9 - Acute kidney failure, unspecified Status: Acute Assessment and Plan: creatinine is back to normal (3) Occult blood in stools: Code(s): R19.5 - Other fecal abnormalities Status: Acute Assessment and Plan: from colitis and c diff had recent colonoscopy, no need to repeat (4) Acute on chronic anemia: Code(s): D64.9 - Anemia, unspecified Status: Acute Assessment and Plan: had recent scopes earlier this year h/h low but stable Subjective Date/time seen: 09/04/23 14:44 Interval history: diarrhea has improved, good appetite and she is leaving the hospital today repeat c diff negative Review of Systems Review of Systems: All systems reviewed & are unremarkable except as noted in HPI and below Exam Const: General: comfortable and no acute distress HENMT: Face/Nose/Sinus: Normal nares present Eyes: Sclera: sclerae normal Neck: Neck: supple Resp: Effort & Inspection: normal respiratory effort Cardio: Rate: regular rate GI: GI Palp: Yes Soft to palpation, No Tenderness to palpation present (GI) and No Guarding due to palpation present (GI) Auscultation: normal bowel sounds Skin: General skin exam: normal color Neuro: Speech: normal speech Motor exam (neuro): 5/5 motor strength present throughout Extrem: Other: leg edema 2+ Psych: Affect: normal affect Objective Data Vital Signs Vital Signs: Vital Signs - 24 hr 09/03/23 22:00 09/04/23 05:48 Temperature 97.4 F L 96 F L Pulse Rate 94 100 Respiratory Rate 16 20 Blood Pressure 172/92 H 172/92 H Pulse Oximetry 99 99 Intake/Output Intake/Output: Intake & Output 09/01/23 09/02/23 09/03/23 09/04/23 23:59 23:59 23:59 23:59 Intake Total 250 580 8960 870 Output Total 3600 3200 3000 Balance -2620 -4898 -2599 870 Meds/Results Medications: Active Medications Generic Name Dose Route Start Last Admin Trade Name Freq PRN Reason Stop Dose Admin Acetaminophen 650 mg 08/11/23 15:21 08/31/23 14:36 Acetaminophen 325 Mg Tablet PO 650 mg Q4H PRN Administration Mild Pain (1-3) or Fever Aspirin 81 mg 08/13/23 09:00 08/20/23 07:59 Aspirin 81 Mg Enteric Tablet PO 81 mg DAILY NEETA Administration Dextrose 12.5 gm 08/18/23 13:06 Dextrose 50% 25 Gm/50 Ml Syringe IV PUSH PRN PRN Hypoglycemia Protocol Epoetin Eric-epbx 10,000 units 08/24/23 09:00 09/03/23 08:20 Epoetin Eric-Epbx 10,000 Units/Ml Vial SUB-Q 10,000 units MOWEFR@09 NEETA Administration Ferrous Sulfate 325 mg 08/12/23 10:00 08/20/23 16:34 Ferrous Sulfate [address] BY MOUTH 325 mg BID NEETA Administration Gabapentin 300 mg 08/12/23 10:00 08/20/23 07:59 Gabapentin 300 Mg Capsule PO 300 mg Q12HR NEETA Administration Glucagon 1 mg 08/18/23 13:06 Glucagon For Inj 1 Mg Vial IM PRN PRN Hypoglycemia Protocol Glucose 15 gm 08/18/23 13:06 Glucose Oral Gel 15 Gm Of Glucse In 37.5 Gm Tube PO PRN PRN Hypoglycemia Protocol Heparin Sodium (Porcine) 5,000 units 08/23/23 21:00 09/04/23 08:20 Heparin Sodium 5,000 Units/Ml Vial SUB-Q 5,000 units Q12HR NEETA Administration Hydralazine HCl 10 mg 08/20/23 17:49 Hydralazine Hcl 20 Mg/Ml Vial IV PUSH Q6H PRN Blood Pressure - High Hydroxychloroquine Sulfate 400 mg 08/12/23 11:00 08/15/23 08:36 Hydroxychloroquine Sulfate 200 Mg Tablet PO 400 mg Q12HR NEETA Administration Dextrose 1,000 mls @
[2023-09-04] MEDS: MAGNESIUM SULF 4 GM/WATER100ML 4 GM/100 ML BAG IVPB (14:49)
[2023-09-04 16:04] LABS: SARS-CoV-2 RNA PCR Negative (Negative)
[2023-09-04 17:33] LABS: Magnesium 2.3 mg/dL (1.6-2.3)
== END 2023-09-04 20:15 | DRG 872 ==
LOC: ANHED 12:49 → ANHIMU 16:08 → ANH3MEDSUR 08-12 15:26
PROVIDERS: Chiropractor; Internal Medicine; Internal Medicine Nephrology; Nurse Practitioner; Admitting Provider Hospitalist; Emergency Provider Emergency Medicine; PCP Family Medicine; Visit Provider General Practice
DX: A41.9 Sepsis, unspecified organism (principal); A04.72 Enterocolitis due to Clostridium difficile, not specified as recurrent; N17.9 Acute kidney failure, unspecified; E87.1 Hypo-osmolality and hyponatremia; E87.20 Acidosis, unspecified; R65.20 Severe sepsis without septic shock; D63.1 Anemia in chronic kidney disease; D50.9 Iron deficiency anemia, unspecified; E11.22 Type 2 diabetes mellitus with diabetic chronic kidney disease; E55.9 Vitamin D deficiency, unspecified; E86.1 Hypovolemia; E86.0 Dehydration; E78.2 Mixed hyperlipidemia; G47.33 Obstructive sleep apnea (adult) (pediatric); I12.9 Hypertensive chronic kidney disease with stage 1 through stage 4 chronic kidney disease, or unspecified chronic kidney disease; I95.89 Other hypotension; K21.9 Gastro-esophageal reflux disease without esophagitis; K58.9 Irritable bowel syndrome, unspecified; M06.9 Rheumatoid arthritis, unspecified; M16.12 Unilateral primary osteoarthritis, left hip; M47.816 Spondylosis without myelopathy or radiculopathy, lumbar region; N18.30 Chronic kidney disease, stage 3 unspecified; Z90.49 Acquired absence of other specified parts of digestive tract; Z11.52 Encounter for screening for COVID-19; Z79.82 Long term (current) use of aspirin; Z96.642 Presence of left artificial hip joint; Z90.710 Acquired absence of both cervix and uterus; Z98.41 Cataract extraction status, right eye; Z98.42 Cataract extraction status, left eye; Z99.89 Dependence on other enabling machines and devices; Z96.1 Presence of intraocular lens; Z85.42 Personal history of malignant neoplasm of other parts of uterus; Z87.891 Personal history of nicotine dependence; Z66 Do not resuscitate
CPT/HCPCS: 36415; 36430; 36569; 71045; 71250; 74176; 74177; 78707; 80048; 80053; 80069; 80202; 81001; 81050; 82040; 82274; 82533; 82570; 82728; 82948; 83540; 83550; 83605; 83690; 83735; 83883; 83930; 83935; 84100; 84155; 84156; 84165; 84166; 84300; 84443; 84466; 84478; 84540; 85014; 85018; 85025; 85610; 85730; 85999; 86704; 86706; 86850; 86900; 86901; 86923; 87040; 87045; 87077; 87086; 87088; 87186; 87340; 87427; 87449; 87493; 87635; 96361; 96365; 96366; 97110; 97161; 97164; 97166; 97530; 97535; 99285; A9270; A9562; C9113; G0378; J0612; J0613; J0696; J1644; J1756; J1836; J1940; J2405; J2543; J3370; J3475; J3480; J7030; J7040; J7042; J7050; P9016; P9047; Q5105; Q5106; Q9967

== ENCOUNTER 2023-10-21 13:18 | Inpatient (IN) | payer MEDICARE, SELFPAY ==
[2023-10-21 13:20] VITALS: BP 139/47; PULSE 92; RESP 18; TEMP 36.4; O2SAT 100
[2023-10-21 13:36] LABS: Basophils Absolute Auto 0.1 K/mm3 (0.0-0.1); Basophils Percent Auto 0.4 % (0.2-1.2); Eosinophils Percent Auto 0.2 % (0-4.4); Hematocrit 32.8 % (37.0-47.0); Hemoglobin 10.3 g/dL (12.0-15.0); Immature Granulocyte Absolute 0.27 K/mm3 (0.00-0.031); Immature Granulocyte Percent A 1.6 % (0-0.5); Lymphocytes Absolute Auto 2.46 K/mm3 (0.9-3.2); Lymphocytes Percent Auto 14.7 % (18.3-44.2); Mean Corpuscular HGB Conc 31.4 g/dl (32-36); Mean Corpuscular Hemoglobin 29.1 pg (26-34); Mean Corpuscular Volume 92.7 fl (80-100); Monocytes Absolute Auto 1.1 K/mm3 (0.1-0.6); Monocytes Percent Auto 6.6 % (2.6-8.5); Neutrophils Absolute Auto 12.8 K/mm3 (1.3-6.7); Neutrophils Percent Auto 76.5 % (45.5-73.1); Platelet Count Result 407 k/mm3 (150-375); Red Blood Count 3.54 M/mm3 (4.2-5.4); Red Cell Distribution Width 18.3 % (11.5-14.5); White Blood Count 16.8 K/mm3 (4.5-10.0)
[2023-10-21 13:55] LABS: Alanine Aminotransferase 13 U/L (6-35); Alkaline Phosphatase 67 U/L (38-126); Anion Gap 7 mmol/L (8-16); Aspartate Amino Transferase 22 U/L (14-36); Bilirubin,Total 0.3 mg/dL (0.2-1.3); Blood Urea Nitrogen 13 mg/dL (7-17); Calcium 8.2 mg/dL (8.4-10.2); Carbon Dioxide 27 mmol/L (22-30); Chloride 97 mmol/L (98-107); Estimated CRCL calculation 57 ml/min; Estimated Glomerular Filt Rate > 60; Glucose 83 mg/dL (65-110); Lipase 44 U/L (23-300); Potassium 2.7 mmol/L (3.4-5.0); Sodium 131 mmol/L (137-145)
[2023-10-21 14:55] VITALS: BP 112/47; PULSE 84; RESP 19; O2SAT 97
[2023-10-21 15:14] LABS: Appearance Urine Clear (Clear); Bacteria Urine None Seen /hpf; Bilirubin Urine Negative (Negative); Blood Urine Trace (Negative); Color Urine Yellow (Yellow); Glucose Urine UA Negative (Negative); Ketones Urine Negative (Negative); Leukocyte Esterase Ur Negative LEU/UL (Negative); Need Manual Microscopic Reviewed; Nitrate Urine Negative (Negative); Protein Urine Negative (Negative); Specific Grav Ur 1.012 (1.001-1.035); Squamous Epithelial Cell Urine None seen /hpf (Few); Urobilinogen Urine 0.2 mg/dL (<2.0); WBC Urine 0-5 /hpf; pH Urine 6.5 (5.0-9.0)
[2023-10-21 15:15] LABS: Add Urine Microscopic? YES
--- NOTE | 2023-10-21 15:23 | ED.NAVMDI ---
HPI - Nausea/Vomiting/Diarrhea General Chief complaint: Nausea/Vomiting/Diarrhea Stated complaint: cdiff Time Seen by Provider: 10/21/23 14:04 History of Present Illness HPI Narrative: Patient is a 78-year-old female presenting with diarrhea. States that she was hospitalized here for several weeks a couple of months ago for C diff. States that she was doing well until the last few days she is again been having profuse diarrhea. States that she has not been eating much because it just causes diarrhea. Denies abdominal pain, nausea vomiting, dysuria. She is concerned that she again has C diff so wanted to come in for evaluation. No further complaints. Related Data Home Medications Medication Instructions Recorded Confirmed gabapentin 300 mg capsule 300 mg PO Q12H 08/11/23 10/21/23 hydroxychloroquine 200 mg tablet 200 mg PO Q12H 08/11/23 10/21/23 (Plaquenil) nifedipine 60 mg tablet,extended 60 mg PO DAILY 08/11/23 10/21/23 release 24 hr atorvastatin 40 mg tablet 40 mg PO DAILY 10/02/23 10/21/23 cholecalciferol (vitamin D3) 250 250 mcg PO DAILY 10/02/23 10/21/23 mcg (10,000 unit) capsule upadacitinib 15 mg tablet,extended 15 mg PO DAILY 10/02/23 10/21/23 release 24 hr (Rinvoq) Allergies Allergy/AdvReac Type Severity Reaction Status Date / Time No Known Allergies Allergy Verified 10/11/23 14:11 Review of Systems Review of Systems: All systems reviewed & are unremarkable except as noted in HPI and below PMFSH Past Medical History Medical History Adhesive capsulitis of left shoulder (06/2021) C. 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 Depression Duodenal ulcer Endometrial cancer Gastroesophageal reflux disease Generalized osteoarthritis of multiple sites Hypertension Irritable bowel syndrome Lumbar radiculopathy Metabolic syndrome Obstructive sleep apnea on CPAP Occult blood in stools Panic attack Recurrent falls Rheumatoid arthritis with rheumatoid factor of multiple sites without organ or systems involvement (~1999) Rotator cuff arthropathy of left shoulder Stage II pressure ulcer Vitamin D deficiency Surgical History Surgical History History of appendectomy History of bilateral carpal tunnel release History of cholecystectomy History of dilatation and curettage History of left hip replacement History of total hysterectomy with bilateral salpingo-oophorectomy (BSO) History of umbilical hernia repair Status post cataract extraction of both eyes with insertion of intraocular lens Family History Family History Father Family history of elevated blood lipids, Onset Age: 74 Diabetes mellitus Acute myocardial infarction, Onset Age: 74 Family history of coronary artery disease Hypertension Cerebrovascular accident Mother Family history of primary malignant neoplasm of liver Family history of malignant neoplasm of ovary Family history of elevated blood lipids Hypertension Cerebrovascular accident Son Cancer Social History Social History Social History: Surrogate decision maker: nixon Petty. Code status: Full code. Smoking packs per day: 0.4 Smoking cigarettes per day: 8.0 Years smoked: 4 Smoking pack-years: 1.60 Smoking status: Former smoker Alcohol intake: current Drinks per week: 1 Alcohol use details: Mixed drinks occasionally Substance use: current Substance use type: marijuana Other substance usage details: Gummies Last use: 10/20/23 Do You Feel Safe in your Home?: Yes Lack of Transportation: No Lack of Food: Never True Current Housing: I Have Housing Concerned About Future Housing: No Difficulty
[2023-10-21] MEDS: SODIUM CHLORIDE 0.9% IV 1,000 ML 999 ML IV CONT (15:41)
[2023-10-21] MEDS: POTASSIUM CHLORIDE INJ 40 MEQ in SODIUM CHLORIDE 0.9% IV 500 ML 130 MEQ IVPB (15:43)
[2023-10-21 17:54] VITALS: BP 124/56; PULSE 88; RESP 19; O2SAT 100
--- NOTE | 2023-10-21 18:04 | PM.IMHP ---
H&P: HPI History of Present Illness Date/Time: 10/21/23 21:00 Chief Complaint: Diarrhea. Narrative: This is a 78-year-old female with history of C diff colitis, rheumatoid arthritis on immunosuppressive therapy, gastroesophageal reflux disease, hypertension, hyperlipidemia, obstructive sleep apnea on CPAP, depression, and anxiety who presented to the emergency department via private vehicle for evaluation of diarrhea. The patient provides the following history. She is known to the hospitalist service from a lengthy stay in July at which time she was admitted with sepsis, acute kidney injury, and C diff colitis which was treated with vancomycin and metronidazole. She has been doing well since that time but the last several days she once again started to have innumerable bouts of watery diarrhea, at times admixed with mucus. Her appetite has not been great an oral intake has been poor. She denies fever, chills, sweats, abdominal pain, and blood in the stool. In the ED: She was afebrile on arrival with stable vital signs. Labs were significant for WBC count of 16.8, hemoglobin 10.3, sodium 131, potassium 2.7, chloride 97, total protein 6.0, albumin 3.0. She was given a L of normal saline, 40 mEq of potassium, and she is being admitted in this setting for further treatment of presumed recurrent C difficile diarrhea. Review of Systems Review of Systems: Twelve systems were reviewed and are negative except for as per HPI. [facility] Past Medical History Medical History Adhesive capsulitis of left shoulder (06/2021) C. 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 Depression Duodenal ulcer Endometrial cancer Gastroesophageal reflux disease Generalized osteoarthritis of multiple sites Hypertension Irritable bowel syndrome Lumbar radiculopathy Metabolic syndrome Obstructive sleep apnea on CPAP Occult blood in stools Panic attack Recurrent falls Rheumatoid arthritis with rheumatoid factor of multiple sites without organ or systems involvement (~1999) Rotator cuff arthropathy of left shoulder Stage II pressure ulcer Vitamin D deficiency Surgical History Surgical History History of appendectomy History of bilateral carpal tunnel release History of cholecystectomy History of dilatation and curettage History of left hip replacement History of total hysterectomy with bilateral salpingo-oophorectomy (BSO) History of umbilical hernia repair Status post cataract extraction of both eyes with insertion of intraocular lens Family History Family History Father Family history of elevated blood lipids, Onset Age: 74 Diabetes mellitus Acute myocardial infarction, Onset Age: 74 Family history of coronary artery disease Hypertension Cerebrovascular accident Mother Family history of primary malignant neoplasm of liver Family history of malignant neoplasm of ovary Family history of elevated blood lipids Hypertension Cerebrovascular accident Son Cancer Social History Social History Social History: Surrogate decision maker: Stoney Hester, nixon. Code status: Full code. Smoking packs per day: 0.4 Smoking cigarettes per day: 8.0 Years smoked: 4 Smoking pack-years: 1.60 Smoking status: Former smoker Alcohol intake: current Drinks per week: 1 Alcohol use details: Mixed drinks occasionally Substance use: current Substance use type: marijuana Other substance usage details: Gumdeborah Last use: 10/20/23 Do You Feel Safe in your Home?: Yes Lack of Transportation: No Lack of Food: Never True Current Housing: I Have Housing Concerned About Future Housing: No Diff
--- NOTE | 2023-10-21 18:25 | PC.NURSE ---
This patient, Shiloh Hester, was admitted to Medical Room 244-. Patient/family oriented to hospital policies and general routines including ID bracelet, bed and alarms, visiting hours, pain management, procedures, bathroom and other care routines, personal items, smoking policy, room service/diet, and visiting hours. Information on how to activate the Rapid Response Team has been discussed. Patient/Family are encouraged to report perceived risks to care and to ask questions if they do not understand what they are told or what they should do.
[2023-10-21 18:31] VITALS: BMI 28.3
[2023-10-21 18:41] VITALS: BP 115/50; PULSE 88; RESP 16; TEMP 37.2; O2SAT 100
[2023-10-21 19:46] VITALS: BP 102/77; PULSE 88; RESP 18; TEMP 36.5; O2SAT 99
[2023-10-21 20:00] VITALS: PULSE 88; PULSE 89; RESP 18; O2SAT 99
[2023-10-21 20:28] LABS: Anion Gap 6 mmol/L (8-16); Blood Urea Nitrogen 10 mg/dL (7-17); Carbon Dioxide 28 mmol/L (22-30); Chloride 98 mmol/L (98-107); Estimated CRCL calculation 65 ml/min; Estimated Glomerular Filt Rate > 60; Glucose 75 mg/dL (65-110); Magnesium 1.8 mg/dL (1.6-2.3); Potassium 3.1 mmol/L (3.4-5.0); Sodium 132 mmol/L (137-145)
[2023-10-21] MEDS: FIDAXOMICIN 200 MG TABLET PO (21:02)
[2023-10-21] MEDS: GABAPENTIN 300 MG CAPSULE PO (23:12)
[2023-10-21] MEDS: SODIUM CHLORIDE 0.9% IV 1,000 ML 75 ML IV CONT (23:12)
[2023-10-21] MEDS: POTASSIUM CHLORIDE 20 MEQ ER TABLET 40 MEQ PO (23:12)
[2023-10-21] MEDS: PANTOPRAZOLE 40 MG TABLET PO (23:12)
[2023-10-22] VITALS (9 sets, daily range): BP systolic 120–127; BP diastolic 50–59; PULSE 86–95; RESP 16–18; TEMP 35.8–37.6; O2SAT 96–99
[2023-10-22 03:47] LABS: Toxigenic C. Diff POSITIVE (NEGATIVE)
[2023-10-22 08:49] LABS: Basophils Absolute Auto 0.1 K/mm3 (0.0-0.1); Basophils Percent Auto 0.6 % (0.2-1.2); Eosinophils Percent Auto 0.2 % (0-4.4); Hematocrit 29.7 % (37.0-47.0); Hemoglobin 9.3 g/dL (12.0-15.0); Immature Granulocyte Absolute 0.66 K/mm3 (0.00-0.031); Immature Granulocyte Percent A 3.4 % (0-0.5); Lymphocytes Absolute Auto 1.55 K/mm3 (0.9-3.2); Lymphocytes Percent Auto 7.9 % (18.3-44.2); Mean Corpuscular HGB Conc 31.3 g/dl (32-36); Mean Corpuscular Hemoglobin 29.3 pg (26-34); Mean Corpuscular Volume 93.7 fl (80-100); Mean Platelet Volume 9.4 fl (7.4-10.4); Monocytes Absolute Auto 1.5 K/mm3 (0.1-0.6); Monocytes Percent Auto 7.5 % (2.6-8.5); Neutrophils Absolute Auto 15.9 K/mm3 (1.3-6.7); Neutrophils Percent Auto 80.4 % (45.5-73.1); Platelet Count Result 394 k/mm3 (150-375); Red Blood Count 3.17 M/mm3 (4.2-5.4); Red Cell Distribution Width 18.3 % (11.5-14.5); White Blood Count 19.7 K/mm3 (4.5-10.0)
[2023-10-22 09:01] LABS: Anion Gap 5 mmol/L (8-16); Blood Urea Nitrogen 9 mg/dL (7-17); Calcium 7.9 mg/dL (8.4-10.2); Carbon Dioxide 25 mmol/L (22-30); Chloride 102 mmol/L (98-107); Estimated CRCL calculation 66 ml/min; Estimated Glomerular Filt Rate > 60; Glucose 72 mg/dL (65-110); Potassium 3.1 mmol/L (3.4-5.0); Sodium 132 mmol/L (137-145)
[2023-10-22] MEDS: VENLAFAXINE HCL XR 75 MG CAP.ER.24H PO (09:43)
[2023-10-22] MEDS: GABAPENTIN 300 MG CAPSULE PO ×2 (09:43→20:45)
[2023-10-22] MEDS: FIDAXOMICIN 200 MG TABLET PO ×2 (09:43→20:45)
[2023-10-22] MEDS: ATORVASTATIN 40 MG TABLET PO (09:43)
[2023-10-22] MEDS: NIFEdipine 30 MG TAB.ER.24 60 MG PO (09:43)
[2023-10-22] MEDS: FERROUS GLUCONATE 324 MG TABLET PO ×2 (09:43→17:29)
[2023-10-22] MEDS: PANTOPRAZOLE 40 MG TABLET PO ×2 (09:43→20:45)
[2023-10-22] MEDS: ENOXAPARIN 40 MG/0.4 ML SYRINGE SUB-Q (09:44)
--- NOTE | 2023-10-22 12:55 | PM.IMPN ---
Progress Note: A&P Assessment and Plan (1) Diarrhea: Code(s): R19.7 - Diarrhea, unspecified Status: Acute Assessment and Plan: previously hospitalized with fulminant C diff in July c. diff this admission positive started on dificid GI consulted tolerating full liquids at this time (2) Hypokalemia: Code(s): E87.6 - Hypokalemia Status: Acute Assessment and Plan: Potassium 3.1 Continue to replace and monitor (3) Dehydration: Code(s): E86.0 - Dehydration Status: Acute Assessment and Plan: IVF (4) Hypertension: Code(s): I10 - Essential (primary) hypertension Status: Chronic Assessment and Plan: Blood pressures were reviewed and they have been stable. (5) Rheumatoid arthritis: Code(s): M06.9 - Rheumatoid arthritis, unspecified Status: Chronic Assessment and Plan: Hold Rinvoq for now given recent, severe C diff infection. Plan Continue Plaquenil. Subjective Date/time seen: 10/22/23 12:55 Interval history: Patient is sitting up eating jello upon exam. No acute distress. She reports abdominal pain only with BM. She had a bout of diarrhea today. C. diff positive, continue Dificid. Tolerating full liquids at this time. GI consulted, as they saw with her previous admission in July for c. diff. Will replete with PO potassium and continue to monitor. Review of Systems Review of Systems: All systems reviewed & are unremarkable except as noted in HPI and below Exam Narrative: General: Well-developed, nontoxic-appearing female. No acute distress. HEENT: PERRL, EOMI. Neck: Supple. Respiratory: Lungs are clear to auscultation bilaterally. Cardiovascular: RRR with S1-S2. Gastrointestinal: Abdomen is soft, nontender, and nondistended with hyperactive bowel sounds. Skin: Warm and dry. No rash or lesions on limited exam. Extremities: No cyanosis, clubbing, or significant edema. Radial and pedal pulses intact. Neurological: A&O x3. Cranial nerves 2-12 are grossly intact. No gross focal deficits to casual conversation. Psychiatric: Pleasant and cooperative with normal mood and affect. Judgment and insight intact. Objective Data Vital Signs Vital Signs: Vital Signs - 24 hr 10/21/23 13:20 10/21/23 14:55 10/21/23 17:54 Temperature 97.6 F Pulse Rate 92 84 88 Respiratory Rate 18 19 19 Blood Pressure 139/47 L 112/47 L 124/56 L Pulse Oximetry 100 97 100 Oxygen Delivery Room Air 10/21/23 18:41 10/21/23 19:46 10/21/23 20:00 Temperature 98.9 F 97.7 F Pulse Rate 88 88 89 Respiratory Rate 16 18 Blood Pressure 115/50 L 102/77 Pulse Oximetry 100 99 Oxygen Delivery 10/21/23 20:00 10/22/23 00:00 10/22/23 04:00 Temperature Pulse Rate 88 89 88 Respiratory Rate 18 Blood Pressure Pulse Oximetry 99 Oxygen Delivery Room Air 10/22/23 06:00 10/22/23 08:15 Temperature 99.7 F H Pulse Rate 92 Respiratory Rate 18 Blood Pressure 120/50 L Pulse Oximetry 97 Oxygen Delivery Room Air Intake/Output Intake/Output: Intake & Output 10/19/23 10/20/23 10/21/23 10/22/23 23:59 23:59 23:59 23:59 Intake Total 1520 420 Balance 1520 420 Meds/Results Medications: Active Medications Generic Name Dose Route Start Last Admin Trade Name Freq PRN Reason Stop Dose Admin Atorvastatin Calcium 40 mg 10/22/23 09:00 10/22/23 09:43 Atorvastatin 40 Mg Tablet PO 40 mg DAILY NEETA Administration Enoxaparin Sodium 40 mg 10/22/23 09:00 10/22/23 09:44 Enoxaparin 40 Mg/0.4 Ml Syringe SUB-Q 40 mg DAILY NEETA Administration Ferrous Gluconate 324 mg 10/22/23 09:00 10/22/23 09:43 Ferrous Gluconate 324 Mg Tablet PO 324 mg BID NEETA Administration Fidaxomicin 200 mg 10/21/23 21:00 10/22/23 09:43 Fidaxomicin 200 Mg Tablet PO 10/31/23 20:59 200 mg Q12HR NEETA Administration Gabapentin 300 mg 10/21/23 22:15 10/22/23 09:43 Gabapentin
[2023-10-22] MEDS: SODIUM CHLORIDE 0.9% IV 1,000 ML 75 ML IV CONT (15:04)
[2023-10-22] MEDS: POTASSIUM CHLORIDE 20 MEQ PACKET (FOR LIQUID) 40 MEQ PO (15:04)
[2023-10-23] VITALS (9 sets, daily range): BP systolic 95–121; BP diastolic 46–54; PULSE 82–92; RESP 16–18; TEMP 36.5–37; O2SAT 98–100; BMI 28.8
[2023-10-23] MEDS: SODIUM CHLORIDE 0.9% IV 1,000 ML 75 ML IV CONT ×2 (05:11→21:38)
[2023-10-23 06:00] LABS: Basophils Absolute Auto 0.1 K/mm3 (0.0-0.1); Basophils Percent Auto 0.7 % (0.2-1.2); Eosinophils Absolute Auto 0.1 K/mm3 (0-0.3); Eosinophils Percent Auto 0.5 % (0-4.4); Hematocrit 29.7 % (37.0-47.0); Hemoglobin 9.2 g/dL (12.0-15.0); Immature Granulocyte Absolute 0.61 K/mm3 (0.00-0.031); Immature Granulocyte Percent A 4.2 % (0-0.5); Lymphocytes Absolute Auto 1.74 K/mm3 (0.9-3.2); Lymphocytes Percent Auto 12.1 % (18.3-44.2); Mean Corpuscular Hemoglobin 28.9 pg (26-34); Mean Corpuscular Volume 93.4 fl (80-100); Mean Platelet Volume 9.2 fl (7.4-10.4); Monocytes Absolute Auto 1.4 K/mm3 (0.1-0.6); Monocytes Percent Auto 9.8 % (2.6-8.5); Neutrophils Absolute Auto 10.5 K/mm3 (1.3-6.7); Neutrophils Percent Auto 72.7 % (45.5-73.1); Platelet Count Result 369 k/mm3 (150-375); Red Blood Count 3.18 M/mm3 (4.2-5.4); Red Cell Distribution Width 18.1 % (11.5-14.5); White Blood Count 14.4 K/mm3 (4.5-10.0)
[2023-10-23 06:17] LABS: Anion Gap 3 mmol/L (8-16); Blood Urea Nitrogen 7 mg/dL (7-17); Calcium 7.9 mg/dL (8.4-10.2); Carbon Dioxide 24 mmol/L (22-30); Chloride 104 mmol/L (98-107); Estimated CRCL calculation 77 ml/min; Estimated Glomerular Filt Rate > 60; Glucose 83 mg/dL (65-110); Potassium 3.2 mmol/L (3.4-5.0); Sodium 131 mmol/L (137-145)
--- NOTE | 2023-10-23 06:53 | WPDGICN ---
Assessment and Plan Assessment and plan (1) Diarrhea: Code(s): R19.7 - Diarrhea, unspecified Status: Acute Assessment and Plan: the patient has recurrence of C diff colitis. This is of course not surprising given the fact that our previous recommendations were not followed. She is now taking Dificid which is the preferred first-line therapy and hopefully will not be again discontinued by some ID pharmacist (2) C. difficile colitis: Code(s): A04.72 - Enterocolitis due to Clostridium difficile, not specified as recurrent Status: Acute Assessment and Plan: currently on therapy with Dificid. If she fails or relapse ease and if vancomycin is use it would need to be a long taper. This is not 10 days as an outpatient but several months gradually reducing the dose. (3) Rheumatoid arthritis: Code(s): M06.9 - Rheumatoid arthritis, unspecified Status: Chronic Assessment and Plan: She is on therapy with hydroxychloroquine and Rinvoq (4) Immunosuppressed status: Code(s): D84.9 - Immunodeficiency, unspecified Status: Acute Assessment and Plan: this probably contributes to least in part to her tendency to develop C diff colitis. Plan Please contact us if he you have any questions or if again our recommendations do not fit with those of the other clinicians in bowel. This is infectious disease problem now, will defer to Infectious Disease. Contact us if you need help GI Consult Note Consult date/time: 10/23/23 06:53 HPI: Shiloh Hester is a 78 year old female Who was admitted at this time because of diarrhea. She was found to have a recurrence of C diff colitis. Unfortunate she had a prolonged hospitalization in July occluding sepsis and severe C diff colitis. We had started her then on Dificid but for some reason an unnamed, face less id pharmacist discontinued it and placed her back on vancomycin. She was last seen by our service a few days later by Dr. Snyder who recommended a long taper of vancomycin possibly followed by liver fecal microbioda Spore therapy. A few days later I see that she was discharged and although the clinician doing the discharge summary spent apparently over 30 minutes on discharge the patient was sent home with final regimen of p.o. vancomycin and metronidazole to continue for 10 days as an outpatient. Obviously our recommendations were totally overlooked and ignored and consequently the patient not surprisingly has recurrence. The patient herself states that she took antibiotics for maybe a week after discharge. Compounding all this is the fact that she has immunosuppressive therapy for severe rheumatoid arthritis. She is not having significant pain now she has no vomiting or nausea. She would like to try eating solid food. Review of Systems Review of Systems: All systems reviewed & are unremarkable except as noted in HPI and below PMFSH Past Medical History Medical History Adhesive capsulitis of left shoulder (06/2021) C. 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 Depression Duodenal ulcer Endometrial cancer Gastroesophageal reflux disease Generalized osteoarthritis of multiple sites Hypertension Irritable bowel syndrome Lumbar radiculopathy Metabolic syndrome Obstructive sleep apnea on CPAP Occult blood in stools Panic attack Recurrent falls Rheumatoid arthritis with rheumatoid factor of multiple sites without organ or systems involvement (~1999) Rotator cuff arthropathy of left shoulder Stage II pressure ulcer Vitamin D deficiency Surgical History Surgical History History of appendectomy History of bilateral carpal tunnel release History of cholecystectomy History of d
[2023-10-23] MEDS: PANTOPRAZOLE 40 MG TABLET PO ×2 (09:00→21:32)
[2023-10-23] MEDS: VENLAFAXINE HCL XR 75 MG CAP.ER.24H PO (09:00)
[2023-10-23] MEDS: GABAPENTIN 300 MG CAPSULE PO ×2 (09:00→21:33)
[2023-10-23] MEDS: POTASSIUM CHLORIDE 20 MEQ PACKET (FOR LIQUID) 40 MEQ PO (09:01)
[2023-10-23] MEDS: NIFEdipine 30 MG TAB.ER.24 60 MG PO (09:01)
[2023-10-23] MEDS: FIDAXOMICIN 200 MG TABLET PO ×2 (09:01→21:32)
[2023-10-23] MEDS: FERROUS GLUCONATE 324 MG TABLET PO ×2 (09:01→17:55)
[2023-10-23] MEDS: ENOXAPARIN 40 MG/0.4 ML SYRINGE SUB-Q (09:01)
[2023-10-23] MEDS: ATORVASTATIN 40 MG TABLET PO (09:01)
--- NOTE | 2023-10-23 14:02 | PM.IMPN ---
Progress Note: A&P Assessment and Plan (1) Diarrhea: Code(s): R19.7 - Diarrhea, unspecified Status: Acute Assessment and Plan: previously hospitalized with fulminant C diff in July c. diff this admission is positive continue Dificid GI consulted - feels more appropriate for ID at this time due to insufficient treatment at last admission tolerating full liquids, will advance to bland diet (2) Hypokalemia: Code(s): E87.6 - Hypokalemia Status: Acute Assessment and Plan: Potassium 3.2 Continue to replace and monitor (3) Dehydration: Code(s): E86.0 - Dehydration Status: Acute Assessment and Plan: IVF (4) Hypertension: Code(s): I10 - Essential (primary) hypertension Status: Chronic Assessment and Plan: Blood pressures were reviewed and they have been stable. (5) Rheumatoid arthritis: Code(s): M06.9 - Rheumatoid arthritis, unspecified Status: Chronic Assessment and Plan: Hold Rinvoq for now given recent, severe C diff infection. Plan Continue Plaquenil. Subjective Date/time seen: 10/23/23 14:02 Interval history: Patient is in no acute distress this morning, has tolerated full liquids and would like to try eating more. Will advance to bland diet and see show she does. She reports abdominal pain only with BM. She continues to have multiple episodes of diarrhea. C. diff positive, continue Dificid. GI consulted, as they saw with her previous admission in July for c. diff. [place] she was more appropriate for ID as her treatment was not sufficient to prevent relapse at last discharge. Will continue to monitor her electrolytes. Review of Systems Review of Systems: All systems reviewed & are unremarkable except as noted in HPI and below Exam Narrative: General: Well-developed, nontoxic-appearing female. No acute distress. HEENT: PERRL, EOMI. Neck: Supple. Respiratory: Lungs are clear to auscultation bilaterally. Cardiovascular: RRR with S1-S2. Gastrointestinal: Abdomen is soft, nontender, and nondistended with hyperactive bowel sounds. Skin: Warm and dry. No rash or lesions on limited exam. Extremities: No cyanosis, clubbing, or significant edema. Radial and pedal pulses intact. Neurological: A&O x3. Cranial nerves 2-12 are grossly intact. No gross focal deficits to casual conversation. Psychiatric: Pleasant and cooperative with normal mood and affect. Judgment and insight intact. Objective Data Vital Signs Vital Signs: Vital Signs - 24 hr 10/22/23 16:00 10/22/23 20:41 10/22/23 20:00 Temperature 98.6 F Pulse Rate 90 90 86 Respiratory Rate 17 Blood Pressure 123/52 L Pulse Oximetry 96 Oxygen Delivery 10/22/23 20:00 10/23/23 00:00 10/23/23 04:00 Temperature Pulse Rate 90 83 82 Respiratory Rate 17 Blood Pressure Pulse Oximetry 96 Oxygen Delivery Room Air 10/23/23 05:06 10/23/23 08:00 Temperature 98.6 F Pulse Rate 91 Respiratory Rate 18 Blood Pressure 121/46 L Pulse Oximetry 99 Oxygen Delivery Room Air Intake/Output Intake/Output: Intake & Output 10/20/23 10/21/23 10/22/23 10/23/23 23:59 23:59 23:59 23:59 Intake Total 1520 2630 2580 Balance 1520 2630 2580 Meds/Results Medications: Active Medications Generic Name Dose Route Start Last Admin Trade Name Freq PRN Reason Stop Dose Admin Atorvastatin Calcium 40 mg 10/22/23 09:00 10/23/23 09:01 Atorvastatin 40 Mg Tablet PO 40 mg DAILY NEETA Administration Enoxaparin Sodium 40 mg 10/22/23 09:00 10/23/23 09:01 Enoxaparin 40 Mg/0.4 Ml Syringe SUB-Q 40 mg DAILY NEETA Administration Ferrous Gluconate 324 mg 10/22/23 09:00 10/23/23 09:01 Ferrous Gluconate 324 Mg Tablet PO 324 mg BID NEETA Administration Fidaxomicin 200 mg 10/21/23 21:00 10/23/23 09:01 Fidaxomicin 200 Mg Tablet PO 10/31/23 20:59 200 mg Q12HR NEETA Administration Gabapenti
[2023-10-24] VITALS (9 sets, daily range): BP systolic 109–117; BP diastolic 57–77; PULSE 79–90; RESP 16–18; TEMP 36–37.2; O2SAT 98–99
[2023-10-24 07:24] LABS: Basophils Absolute Auto 0.1 K/mm3 (0.0-0.1); Basophils Percent Auto 0.7 % (0.2-1.2); Eosinophils Percent Auto 0.3 % (0-4.4); Hematocrit 29.9 % (37.0-47.0); Hemoglobin 9.6 g/dL (12.0-15.0); Immature Granulocyte Absolute 0.64 K/mm3 (0.00-0.031); Immature Granulocyte Percent A 5.3 % (0-0.5); Lymphocytes Absolute Auto 1.89 K/mm3 (0.9-3.2); Lymphocytes Percent Auto 15.5 % (18.3-44.2); Mean Corpuscular HGB Conc 32.1 g/dl (32-36); Mean Corpuscular Hemoglobin 29.6 pg (26-34); Mean Corpuscular Volume 92.3 fl (80-100); Mean Platelet Volume 9.2 fl (7.4-10.4); Monocytes Absolute Auto 1.3 K/mm3 (0.1-0.6); Monocytes Percent Auto 10.6 % (2.6-8.5); Neutrophils Absolute Auto 8.2 K/mm3 (1.3-6.7); Neutrophils Percent Auto 67.6 % (45.5-73.1); Platelet Count Result 355 k/mm3 (150-375); Red Blood Count 3.24 M/mm3 (4.2-5.4); Red Cell Distribution Width 18.3 % (11.5-14.5); White Blood Count 12.2 K/mm3 (4.5-10.0)
[2023-10-24 07:40] LABS: Anion Gap 6 mmol/L (8-16); Blood Urea Nitrogen 8 mg/dL (7-17); Calcium 7.8 mg/dL (8.4-10.2); Carbon Dioxide 21 mmol/L (22-30); Chloride 107 mmol/L (98-107); Estimated CRCL calculation 66 ml/min; Estimated Glomerular Filt Rate > 60; Glucose 78 mg/dL (65-110); Potassium 3.6 mmol/L (3.4-5.0); Sodium 134 mmol/L (137-145)
[2023-10-24] MEDS: NIFEdipine 30 MG TAB.ER.24 60 MG PO (08:52)
[2023-10-24] MEDS: FIDAXOMICIN 200 MG TABLET PO ×2 (08:52→21:22)
[2023-10-24] MEDS: PANTOPRAZOLE 40 MG TABLET PO ×2 (08:52→21:22)
[2023-10-24] MEDS: ATORVASTATIN 40 MG TABLET PO (08:52)
[2023-10-24] MEDS: GABAPENTIN 300 MG CAPSULE PO ×2 (08:52→21:22)
[2023-10-24] MEDS: FERROUS GLUCONATE 324 MG TABLET PO ×2 (08:52→17:39)
[2023-10-24] MEDS: ENOXAPARIN 40 MG/0.4 ML SYRINGE SUB-Q (08:52)
[2023-10-24] MEDS: VENLAFAXINE HCL XR 75 MG CAP.ER.24H PO (08:52)
[2023-10-24] MEDS: POTASSIUM CHLORIDE 20 MEQ PACKET (FOR LIQUID) 40 MEQ PO (08:52)
--- NOTE | 2023-10-24 13:32 | PM.IMPN ---
Progress Note: A&P Assessment and Plan (1) Diarrhea: Code(s): R19.7 - Diarrhea, unspecified Status: Acute Assessment and Plan: previously hospitalized with fulminant C diff in July c. diff this admission is positive continue Dificid GI consulted - feels more appropriate for ID at this time due to insufficient treatment at last admission tolerating bland diet (2) Hypokalemia: Code(s): E87.6 - Hypokalemia Status: Acute Assessment and Plan: Potassium 3.6 today Continue to monitor (3) Dehydration: Code(s): E86.0 - Dehydration Status: Acute Assessment and Plan: gentle IVF (4) Hypertension: Code(s): I10 - Essential (primary) hypertension Status: Chronic Assessment and Plan: Blood pressures were reviewed and they have been stable. (5) Rheumatoid arthritis: Code(s): M06.9 - Rheumatoid arthritis, unspecified Status: Chronic Assessment and Plan: Hold Rinvoq for now given recent, severe C diff infection. Plan Continue Plaquenil. Subjective Date/time seen: 10/24/23 13:32 Interval history: Patient is in no acute distress this morning, tolerating bland diet. She continues to have multiple episodes of diarrhea, but is improving a little. C. diff positive, continue Dificid. GI consulted, as they saw with her previous admission in July for c. diff. [place] she was more appropriate for ID as her treatment was not sufficient to prevent relapse at last discharge. Will continue to monitor her electrolytes. Care coordination spoke with patient about cost of treatment at d/c. Patient okay with this. Will plan for d/c tomorrow if continuing to improve. Review of Systems Review of Systems: All systems reviewed & are unremarkable except as noted in HPI and below Exam Narrative: General: Well-developed, nontoxic-appearing female. No acute distress. HEENT: PERRL, EOMI. Neck: Supple. Respiratory: Lungs are clear to auscultation bilaterally. Cardiovascular: RRR with S1-S2. Gastrointestinal: Abdomen is soft, nontender, and nondistended with hyperactive bowel sounds. Skin: Warm and dry. No rash or lesions on limited exam. Extremities: No cyanosis, clubbing, or significant edema. Radial and pedal pulses intact. Neurological: A&O x3. Cranial nerves 2-12 are grossly intact. No gross focal deficits to casual conversation. Psychiatric: Pleasant and cooperative with normal mood and affect. Judgment and insight intact. Objective Data Vital Signs Vital Signs: Vital Signs - 24 hr 10/23/23 14:20 10/23/23 16:00 10/23/23 20:47 Temperature 97.7 F 97.8 F Pulse Rate 92 91 87 Respiratory Rate 16 17 Blood Pressure 95/54 L 106/51 L Pulse Oximetry 100 98 Oxygen Delivery 10/23/23 20:00 10/23/23 20:00 10/24/23 00:00 Temperature Pulse Rate 90 89 Respiratory Rate Blood Pressure Pulse Oximetry Oxygen Delivery Room Air 10/24/23 05:02 10/24/23 04:00 10/24/23 08:00 Temperature 98.6 F Pulse Rate 87 89 79 Respiratory Rate 18 Blood Pressure 109/58 L Pulse Oximetry 99 Oxygen Delivery 10/24/23 08:00 Temperature Pulse Rate Respiratory Rate Blood Pressure Pulse Oximetry Oxygen Delivery Room Air Intake/Output Intake/Output: Intake & Output 10/21/23 10/22/23 10/23/23 10/24/23 23:59 23:59 23:59 23:59 Intake Total 1520 2630 4100 970 Balance 1520 2630 4100 970 Meds/Results Medications: Active Medications Generic Name Dose Route Start Last Admin Trade Name Freq PRN Reason Stop Dose Admin Atorvastatin Calcium 40 mg 10/22/23 09:00 10/24/23 08:52 Atorvastatin 40 Mg Tablet PO 40 mg DAILY NEETA Administration Enoxaparin Sodium 40 mg 10/22/23 09:00 10/24/23 08:52 Enoxaparin 40 Mg/0.4 Ml Syringe SUB-Q 40 mg DAILY NEETA Administration Ferrous Gluconate 324 mg 10/22/23 09:00 10/24/23 08:52 Ferrous Gluconate 324 Mg Tablet PO 324 mg
[2023-10-24] MEDS: SODIUM CHLORIDE 0.9% IV 1,000 ML 75 ML IV CONT (14:25)
[2023-10-25] VITALS: PULSE 84
[2023-10-25 04:00] VITALS: PULSE 83
[2023-10-25] MEDS: SODIUM CHLORIDE 0.9% IV 1,000 ML 75 ML IV CONT (04:05)
[2023-10-25 06:00] VITALS: BP 97/67; PULSE 80; RESP 18; TEMP 36.7; O2SAT 98
[2023-10-25 06:25] LABS: Hematocrit 27.6 % (37.0-47.0); Hemoglobin 8.6 g/dL (12.0-15.0); Mean Corpuscular HGB Conc 31.2 g/dl (32-36); Mean Corpuscular Hemoglobin 29.4 pg (26-34); Mean Corpuscular Volume 94.2 fl (80-100); Mean Platelet Volume 9.2 fl (7.4-10.4); Platelet Count Result 341 k/mm3 (150-375); Red Blood Count 2.93 M/mm3 (4.2-5.4); Red Cell Distribution Width 18.5 % (11.5-14.5); White Blood Count 10.5 K/mm3 (4.5-10.0)
[2023-10-25 06:34] LABS: Anion Gap 5 mmol/L (8-16); Blood Urea Nitrogen 8 mg/dL (7-17); Calcium 7.7 mg/dL (8.4-10.2); Carbon Dioxide 20 mmol/L (22-30); Chloride 107 mmol/L (98-107); Estimated CRCL calculation 67 ml/min; Estimated Glomerular Filt Rate > 60; Glucose 87 mg/dL (65-110); Potassium 3.5 mmol/L (3.4-5.0); Sodium 132 mmol/L (137-145)
[2023-10-25 08:00] VITALS: PULSE 84
[2023-10-25] MEDS: PANTOPRAZOLE 40 MG TABLET PO (09:35)
[2023-10-25] MEDS: FERROUS GLUCONATE 324 MG TABLET PO ×2 (09:35→16:27)
[2023-10-25] MEDS: ATORVASTATIN 40 MG TABLET PO (09:36)
[2023-10-25] MEDS: VENLAFAXINE HCL XR 75 MG CAP.ER.24H PO (09:36)
[2023-10-25] MEDS: NIFEdipine 30 MG TAB.ER.24 60 MG PO (09:36)
[2023-10-25] MEDS: GABAPENTIN 300 MG CAPSULE PO (09:36)
[2023-10-25] MEDS: POTASSIUM CHLORIDE 20 MEQ PACKET (FOR LIQUID) 40 MEQ PO (09:36)
[2023-10-25] MEDS: ENOXAPARIN 40 MG/0.4 ML SYRINGE SUB-Q (09:36)
[2023-10-25] MEDS: FIDAXOMICIN 200 MG TABLET PO (09:36)
[2023-10-25 12:00] VITALS: PULSE 86
[2023-10-25 14:00] VITALS: BP 123/54; PULSE 89; RESP 18; TEMP 37.1; O2SAT 99
--- NOTE | 2023-10-25 14:19 | PM.DS ---
DS: Admitting Diagnosis Discharge Date 10/25/23 Admitting Diagnosis Diarrhea Hypokalemia Dehydration Hypertension Rheumatoid arthritis DS: Discharge Diagnosis Discharge Diagnosis (1) Diarrhea: Code(s): R19.7 - Diarrhea, unspecified Status: Acute (2) Hypokalemia: Code(s): E87.6 - Hypokalemia Status: Acute (3) Dehydration: Code(s): E86.0 - Dehydration Status: Acute (4) Hypertension: Code(s): I10 - Essential (primary) hypertension Status: Chronic (5) Rheumatoid arthritis: Code(s): M06.9 - Rheumatoid arthritis, unspecified Status: Chronic DS: Summary Hospital Course Reason for hospitalization: Diarrhea Hypokalemia Dehydration Hospital Course: This is a 78-year-old female presented to the hospital on 10/21/2023 for evaluation of diarrhea. She was just in hospital for the stay in July with C diff colitis was treated with vancomycin and Flagyl. She was discharged on Dificid at that time. She was doing well up until when she started in with watery diarrhea and became dehydrated. She received IV fluids and was started on Dificid. GI was consulted and recommends that the patient see Infectious Disease on an outpatient basis if this bout of C diff does not clear with the Dificid. On examination today patient is alert oriented x3, lying in the bed. Labs today show a white blood cell count of 10.5, hemoglobin of 8.6, hematocrit 27.6, sodium level of 132, potassium is 3.5, bicarb is 20, calcium is 7.7. She denies any nausea, vomiting, abdominal pain, chest pain, shortness a breath, fever, chills. She has still been having some diarrhea but it has been a lot less than when she 1st presented. Patient stable for discharge at this. She was given information for an infectious disease specialist in the area and will follow up as necessary with him if the C diff continues. She will also need to follow up with her primary care physician in 1 week. Status at Discharge Cognitive/behavioral status at discharge: Alert oriented x3 Functional status at discharge: independent ambulation Overall status at discharge: patient is progressing back to baseline Time Spent with Patient Time attestation: Total time spent providing and/or coordinating discharge services: Time spent: Greater than 30 minutes Exam Narrative: General: In no acute distress, well nourished Head: atraumatic, no encephalopathy Eyes: EOMI, PERRLA, sclera clear ENT: moist mucous membranes, nasal passages clear Neck: supple, no JVD, no adenopathy, trachea midline Cardiac: Normal S1 and S2. No murmur, gallops or friction rubs, peripheral pulses intact. Respiratory: Lungs clear to auscultation, no adventitious lung sounds Gastrointestinal: soft, non-distended, non-tender, normoactive bowel sounds. Passing gas. Reports : voiding without difficulty. Extremities: moves all extremities well, no edema, good ROM, strength 5/5 Skin: clean, dry, intact. No wounds or lesions. Neuro: Alert and oriented x4, cranial nerves intact, no neuro deficits. Psych: normal mood, normal affect, interactive DS: Data Data Completed and Pending Completed studies during hospitalization: None Pending studies at discharge: None Labs on day of discharge: Labs from last 24 hours 10/25/23 05:50 WBC 10.5 H RBC 2.93 L Hgb 8.6 L Hct 27.6 L MCV 94.2 MCH 29.4 MCHC 31.2 L RDW 18.5 H Plt Count 341 MPV 9.2 Sodium 132 L Potassium 3.5 Chloride 107 Carbon Dioxide 20 L Anion Gap 5 L BUN 8 Creatinine 0.60 L Estim Creat Clear Calc 67 Estimated GFR > 60 Glucose 87 Calcium 7.7 L Procedures/Treatments: None Discharge Plan Discharge Attending physician on discharge: Mitchell Chandler Consulting providers: Sulaiman Carson Discharging Clinician: Suma Jin Anticipated Discharge Date/Time: 10/25/23 14:00 Patient Disposition: Home Health Service Activity: as tolerated D
== END 2023-10-25 18:20 | disposition home health service (06) | DRG 372 ==
LOC: ANHED 15:05 → ANH2MED 18:08
PROVIDERS: Nurse Practitioner; Physician Assistant; Admitting Provider Family Medicine; Emergency Provider Emergency Medicine; PCP Family Medicine; Visit Provider Nurse Practitioner Acute Care
DX: A04.71 Enterocolitis due to Clostridium difficile, recurrent (principal); D84.9 Immunodeficiency, unspecified; E86.0 Dehydration; E87.6 Hypokalemia; I12.9 Hypertensive chronic kidney disease with stage 1 through stage 4 chronic kidney disease, or unspecified chronic kidney disease; N18.30 Chronic kidney disease, stage 3 unspecified; K21.9 Gastro-esophageal reflux disease without esophagitis; M15.9 Polyosteoarthritis, unspecified; M47.816 Spondylosis without myelopathy or radiculopathy, lumbar region; E88.810 Metabolic syndrome; G47.33 Obstructive sleep apnea (adult) (pediatric); M05.79 Rheumatoid arthritis with rheumatoid factor of multiple sites without organ or systems involvement; Z85.89 Personal history of malignant neoplasm of other organs and systems; Z90.49 Acquired absence of other specified parts of digestive tract; Z96.642 Presence of left artificial hip joint; Z90.710 Acquired absence of both cervix and uterus; Z90.722 Acquired absence of ovaries, bilateral; Z96.1 Presence of intraocular lens; Z98.42 Cataract extraction status, left eye; Z98.41 Cataract extraction status, right eye; Z87.891 Personal history of nicotine dependence
CPT/HCPCS: 36415; 80048; 80053; 81001; 83690; 83735; 85025; 85027; 87045; 87427; 87449; 87493; 89055; 96361; 96365; 96366; 96372; 99285; A9270; G0378; J1650; J3480; J7030; J7040

== ENCOUNTER 2023-12-28 14:34 | Outpatient (CLI) | payer MEDICARE, SELFPAY ==
--- NOTE | ~2023-12-28 | MM_ITS ---
EXAMINATION: MM screening [facility] BI w george HISTORY: Screening mammogram TECHNIQUE: Craniocaudal and mediolateral oblique 3-D tomosynthesis images were obtained and synthetic 2-D images were generated. CAD analysis was submitted and interpreted. COMPARISON: 03/28/2022, 11/16/2020 bilateral screening mammogram examinations BREAST PARENCHYMAL COMPOSITION: The breasts are almost entirely fatty. FINDINGS: There is no evidence of suspicious mass, calcification, or architectural distortion to sugg est malignancy in either breast. There has been no suspicious interval change. IMPRESSION: 1. No mammographic evidence of malignancy. 2. Recommend routine screening mammography in one year. BI-RADS Category 1: Negative Reviewed, dictated and finalized at location A. OGY PROFESSOR
== END 2023-12-28 14:35 | disposition home or self-care (01) ==
LOC: ANHIMG 14:36
PROVIDERS: PCP Family Medicine; Visit Provider Nurse Practitioner
DX: Z12.31 Encounter for screening mammogram for malignant neoplasm of breast (principal)
CPT/HCPCS: 77063; 77067

== ENCOUNTER 2024-02-14 14:58 | Outpatient (CLI) | payer MEDICARE, SELFPAY ==
--- NOTE | ~2024-02-14 | XR_ITS ---
EXAMINATION: XR knee RT 3V DATE: 02/14/2024 15:38 INDICATION: Right knee pain. TECHNIQUE: 4 views of right knee were obtained. COMPARISON: Right knee radiographs 09/26/2021 FINDINGS: Bone alignment is normal. No fracture. There is severe osteoarthritis of medial and patello femoral compartments and moderate osteoarthritis of lateral compartment. There is a moderate-sized kn ee joint effusion. IMPRESSION: 1. Severe right knee osteoarthritis. 2. Moderate-sized right knee joint effusion. Reviewed, dictated and finalized at location E.
== END 2024-02-14 14:59 ==
PROVIDERS: PCP Family Medicine; Visit Provider Nurse Practitioner
DX: M25.561 Pain in right knee (principal); M17.11 Unilateral primary osteoarthritis, right knee; M25.461 Effusion, right knee
CPT/HCPCS: 73562

== ENCOUNTER 2025-04-02 09:33 | Outpatient (CLI) | payer MEDICARE, SELFPAY ==
--- NOTE | ~2025-04-02 | MM_ITS ---
EXAMINATION: MM screening murray BI w george HISTORY: Screening TECHNIQUE: Craniocaudal and mediolateral oblique 3-D tomosynthesis images were obtained and synthetic 2-D images were generated. CAD analysis was submitted and interpreted. COMPARISON: Comparison to multiple prior studies sequentially, with oldest reviewed study dated 09/21. BREAST PARENCHYMAL COMPOSITION: Not Dense: The breasts are almost entirely fatty. FINDINGS: There is no evidence of suspicious mass, calcification, or architectural distortion to sugg est malignancy in either breast. There has been no suspicious interval change. IMPRESSION: 1. No mammographic evidence of malignancy. 2. Recommend routine screening mammography in one year. BI-RADS Category 1: Negative Reviewed, dictated and finalized at location B.
--- OUTSIDE RECORDS SUMMARY | 2025-04-02 10:15 | XMS_ITS | Encounter Summary ---
Author Organization [employer] Address 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
--- OUTSIDE RECORDS SUMMARY | 2025-04-02 10:15 | XMS_ITS | Data Portability ---
Author Organization [place] [facility], Main Office Address [address] [place] [address] Care Team Providers Care Lift Driver Name Role Phone OMAIRA THOMPSON Primary Care Provider [phone] OMAIRA THOMPSON Referring Provider [phone] Assessment Encounter Date Assessment Date Assessment LastModified by Organization Details LastModified Time 02/20/2024 02/20/2024 78-year-old female presents for evaluation of her right knee. She has a history of knee arthritis, that was treated conservatively with a another provider. She has had a course of PT, is unable take anti-inflammatori es because of stomach ulcer, but using topicals and taking Tylenol. She also had an injection last week for her knee. Since then, she has had significant amounts of swelling in the knee. She saw her primary doctor and was told that it needed to be drained. She reports 10/10 pain and difficulty with walking. She reports she has had multiple injections, and only last her 4-5 weeks. She presents in a wheelchair. 2+ effusion. Range of motion 10-100. Tenderness over the medial and lateral joint line. Review of systems per patient questionnaire X-rays were reviewed, demonstrating severe degenerative changes with joint space narrowing, osteophytes, sclerosis She has right knee osteoarthritis. I discussed with her that I would not recommend aspiration of the knee, since it would likely just reaccumulate. If the cortisone injections are not effective for her, only lasting a few weeks, then the next step would be to consider gel injections. She wanted to proceed down this route. We discussed that the ultimate treatment would be arthroplasty. She has a history of a left hip arthroplasty not long ago, and had several complications including bleeding gastric ulcers and C diff for which she was hospitalized for extended period of time. We will plan to see her back after getting approval for the gel injections. Not available 02/20/2024 12:47:18 05/01/2024 05/01/2024 the patient has severe primary osteoarthritis right knee joint. Under sterile conditions I injected the patient's right knee joint in the office today with Euflexxa injection number 1 From the specialty pharmacy. I will see her back next week for the 2nd injection right knee. She voiced understanding and agrees with the above plan she will call for any further problems difficulties or questions. Not available 05/01/2024 13:50:31 05/08/2024 05/08/2024 The patient has severe primary osteoarthritis right knee joint. Under sterile conditions I injected the patient's right knee joint in the office with Euflexxa injection number 2 from the specialty pharmacy. The patient tolerated the procedure well. I will see her back for 3rd injection soon, she will give the shots time to work see if this does help but she knows she may not get full or great relief due to the severity of the osteoarthritis. She is trying to avoid total knee arthroplasty as she recently had a total hip arthroplasty and had some medical complications after that surgery including a bleeding ulcer and C diff. the patient voiced understanding agrees above plan she will call for any further problems difficulties or questions. Not available 05/08/2024 13:46:54 05/22/2024 05/22/2024 the patient has severe primary osteoarthritis right knee joint under sterile conditions I injected the patient's right knee joint in the office today with Euflexxa injection number 3 from the specialty pharmacy. The patient tolerated the procedure well. She is going to give it time see how things go I will see her back again as needed we can do this yet in 6 months versus doing cortisone in between now and then we will see how she does she will let us know when she needs anything else she voiced understanding and agrees with the above plan she will call for any further problems difficulties or questions. Not available 05/22/2024 13:46:47 Plan of Treatment Reminders Order Date Submit Date Provider Last Modified By Organization Details Last Modified Time Details Appointments None recorded. Lab None recorded. Referral None recorded. Procedures injection/a spiration joint/bursa (PROC) - in office procedure, administere d by provider 2023 024 [email or web address] In-Office Order, Internal Use Only DO Not Attach Compendium DO Not Attach Compendium, Do Not Delete/merge, [id number] 13:38:23 knee aspiration/ injection (PROC) 2023 024 [email or web address] In-Office Order, Internal Use Only DO Not Attach Compendium DO Not Attach Compendium, Do Not Delete/merge, [id number] 13:36:11 knee aspiration/ injection (PROC) 2023 024 [email or web address] In-Office Order, Internal Use Only DO Not Attach Compendium DO Not Attach Compendium, Do Not Delete/merge, [id number] 13:34:52 Surgeries None recorded. Imaging None recorded. Medication Orders None recorded. Patient TargetsNo targets recorded. Patient Instructions Encounter Date Encounter Id Patient Instructions Last Modified By Organization Details Last Modified Time 02/20/2024 [id number] viscosupplementa tion treatment* - R knee. Follow up with víctor once approved Not available 02/27/2024 00:25:35 Reason for Referral None Reported. Results Created Date Observation Date Name Description Value Unit Range Abnormal Flag Note LastModifiedBy Organization Detail LastModifiedTime 02/21/20 24 02/14/2024 XR, knee No observ ation record ed. [email or web address] Not Available 2023 07:20:26 Result Notes None recorded. Problems Name Problem SNOMED Code Status Onset Date Resolution Date Notes Provider Name and Address Organization Details Recorded Time Pain of right knee joint 4033283549727 00 Active 2023 NEWTON Krueger null, [facility] 4 10:32:55 Osteoarthri tis of right knee joint 0093782326980 00 Active 2023 Aman Damian MD [address] [address], [place], [address] , [place] 4 12:47:26 Problem Notes None recorded. Medical Equipment None Reported. Allergies No known drug allergies Medications Name Sig Start Date Stop Date Status Note LastModified by Organization Details LastModified Time atorvastati n 40 mg tablet TAKE 1 TABLET BY MOUTH DAILY active Not Available Not Available No t Available venlafaxine ER 75 mg capsule,ext ended release 24 hr active Not Available Not Available Not Available clindamycin HCl 300 mg capsule TAKE 1 CAPSULE BY MOUTH EVERY 6 HOURS active Not Available Not Available No t Available Klor-Con 20 mEq oral packet DISSOLVE CONTENTS OF 1 PACKET IN LIQUID AND DRINK BY MOUTH DAILY FOR HYPOKALEM IA active Not Available Not Available No t Available nifedipine ER 60 mg tablet,exte nded release 24 hr active Not Available Not Available Not Available cephalexin 500 mg capsule TAKE 1 CAPSULE BY MOUTH EVERY 8 HOURS FOR 7 DAYS 02/19 completed Not Available Not Available Not Available pantoprazol e 40 mg tablet,anne yed release TAKE 1 TABLET BY MOUTH EVERY 12 HOURS active Not Available Not Available No t Available gabapentin 300 mg capsule TAKE 1 CAPSULE BY MOUTH EVERY 12 HOURS active Not Available Not Available No t Available mupirocin 2 % topical ointment APPLY TOPICALLY TO THE AFFECTED AREA OF LEFT HIP WOUND TWICE DAILY 02/19 completed Not Available Not Available Not Available furosemide 20 mg tablet TAKE 1 TABLET BY MOUTH TWICE DAILY active Not Available Not Available No t Available hydroxychlo roquine 200 mg tablet active Not Available Not Available No t Available lisinopril 40 mg tablet active Not Available Not Available Not Available Euflexxa 10 mg/mL (mw 2.4-3.6 million) intra-artic ular syringe Inject 2 mL by intra-art icular route as directed for 21 days, for right knee osteoarth ritis. 2023 active Not Available Not Available Not Avai lable ferrous sulfate 324 mg (65 mg iron) tablet,anne yed release active Not Available Not Available Not Available Dificid 200 mg tablet TAKE 1 TABLET BY MOUTH EVERY 12 HOURS FOR CAPSULE-D IFF active Not Available Not Available No t Available Vitals Date Recorded Body height Body mass index (BMI) Body weight Provider Name and Address Organization Details Last Updated DateTime 02/20/2024 162.56 cm 28.3 kg/m2 54067.74 g NEWTON Krueger [facility] 02/20/2024 10:30:21 Date Recorded Body height Provider Name an d Address Organization Details Last Updated DateTime 05/01/2024 162.56 cm Halie Baum [facility] 05/01/2024 13:33:50 Date Recorded Body height Body mass index (BMI) Body weight Provider Name and Address Organization Details Last Updated DateTime 05/08/2024 162.56 cm 28.8 kg/m2 83539.52 g Halie Baum [facility] 05/08/2024 13:34:50 Date Recorded Body height Body mass index (BMI) Body weight Provider Name and Address Organization Details Last Updated DateTime 05/22/2024 162.56 cm 28.8 kg/m2 60242.52 g Radha SantanaTONYA chambers [facility] 05/22/2024 13:37:39 Social History Question Answer Notes LastModified by [facility] Travel Details LastModified Time Tobacco Smoking Status Unknown If Ever Smoked NEWTON Krueger [facility] 02/20/2024 10:31:59 What Was The Date Of Your Most Recent Tobacco Screening? 02/20/2024 [email or web address] Information not available 02/20/2024 Sex: Unknown Functional Status Question Answer Note LastModified by [facility] Travel Details LastModified Time What is your level of alcohol consumption? Occasional [email or web address] Information not available 02/20/2024 Mental Status None recorded. Family History Relationship Description Onset Age of this Age Resolved Age Notes LastModified by Organization Details LastModified Time Mother Family history of malignant neoplasm [email or web address] Not available 2023 10:31:25 Father Diabetes mellitus [email or web address] Not available 2023 10:31:32 Father Family history of stroke [email or web address] Not available 2023 10:31:43 Medical History Condition Response CANCER: SPECIFY Y URINARY/BLADDER/KIDNEY PROBLEMS Y HYPERTENSION Y Gynecological HistoryNo gynecological history recorded. Obstetrics History GPAL:G 0 P 0 0 0 0 Past Encounters Encounter ID Performer Location Encounter Start Date Encounter Closed Date Diagnosis/Indication Diagnosis SNOMED-CT Code Diagnosis ICD10 Code Diagnosis Note [id number] Aman Damian MD [facility] [address] [place] [address] 02/20/2024 10:08:34 02/20/2024 11:12:39 Pain of right knee joint [id number] 83865 M25.561 Osteoarthr itis of right knee joint 1786930316 87669 M17.11 [id number] Aman Damian MD [facility] [place] [address] [place] [address] 05/01/2024 13:32:23 05/01/2024 14:23:31 Osteoarthritis of right knee joint 1403262231 68799 M17.11 Pain of ri ght knee joint 1425539154 90634 M25.734 [id number] Aman Damian MD [facility] [place] [address] [place] [address] 05/08/2024 13:28:46 05/08/2024 13:53:38 Osteoarthritis of right knee joint 4765722174 35619 M17.11 Pain of ri ght knee joint 3988014333 86973 M25.831 [id number] Aman Damian MD [facility] [place] [address] [place] [address] 05/22/2024 13:35:48 05/22/2024 14:17:00 Osteoarthritis of right knee joint 5470053680 20202 M17.11 Pain of ri ght knee joint 0519613866 58158 M25.561 Health Concerns Section Related Observation LastModified by Organization Detai ls LastModified Time None Recorded Concern Status LastModified by Organization Details LastModified Time None Recorded Advance Directives Directive None Recorded Payers Insurance Date Sequence Insurance Name Policy Number Policy Vazquez Covered Member ID Vazquez Member ID Guarantor Name 05/22/2024 1 [employer] (MEDICARE REPLACEMENT/ ADVANTAGE - PPO) [id number] Shiloh Hester [id number] Shiloh Hester Notes Date Note Type Note Provider Name and Address Organization Details Recorded Time 05/01/2024 text/html Patient returns for Euflexxa injection number 1 right knee. The patient brings the medication from the specialty pharmacy. She has severe primary osteoarthritis tricompartmental in nature she is failed other conservative measures. She is unable to take anti-inflammatory medications she has been through therapy takes Tylenol and has tried cortisone also. Dr. Damian has recommended gel shots she comes in today for the 1st 1. CINDY Martinez [address] [facility], [address], [place], [address], [facility] 05/01/2024 13:50:41 05/08/2024 text/html Patient returns for Euflexxa injection number 2 right knee, she brings her medication from the specialty pharmacy. She has not gotten much relief from the 1st injection she will give it more time. She does have fairly severe primary osteoarthritis tricompartmental in nature. She denies any erythema effusion or signs of infection today. CINDY Martinez [address], [address], [place], [address], [place] 05/08/2024 13:47:05 05/22/2024 text/html Patient returns for Euflexxa injection number 3 right knee she brings a medication for the specialty pharmacy. She has severe primary osteoarthritis tricompartmental in nature. She states she gets some swelling in the knee occasionally it comes and goes today is a better day for her yesterday she was having aching pain having a hard time getting around. I have advised her to give it a little more time to see how the medication takes effect over the next couple of weeks. In the meantime her knee does not look very puffy today only minimally so. There is no erythema heat or other signs of infection. CINDY Martinez [address], [address], [place], [address], [employer] 05/22/2024 13:47:03 OBGyn Episode No OBEpisode recorded.
--- OUTSIDE RECORDS SUMMARY | 2025-04-02 10:15 | XMS_ITS | Referral Summary ---
Author Organization [facility] Address [address] [place] [address] Care Team Providers Care Exercise Physiologist Certified Name Role Phone YanickmalathiFreya yancey Primary Care Provider [phone] Allergies No known active allergies Medications atorvastatin (LIPITOR) 40 mg tablet 01/06/2022 Active HYDROcodone-acet aminophen (NORCO) 5-325 mg per tablet Take by mouth every 6 (six) hours as needed 02/02/2022 Active lisinopriL (PRINIVIL,ZESTRI L) 40 mg tablet 12/02/2021 Act glen NIFEdipine XL 60 mg 24 hr tablet 01/06/2022 Act glen venlafaxine XR (EFFEXOR-XR) 75 mg 24 hr capsule 01/06/2022 Ac tive diclofenac sodium (VOLTAREN) 1 % gel 01/06/2022 Active meloxicam (MOBIC) 15 mg tablet Take 15 mg by mouth daily 01/30/2022 Active nitrofurantoin monohydrate (MACROBID) 100 mg capsule TAKE 1 CAPSULE BY MOUTH EVERY 12 HOURS FOR 5 DAYS 01/17/2022 Active cyclobenzaprine (FLEXERIL) 10 mg tablet TAKE 1 TABLET BY MOUTH THREE TIMES DAILY FOR 10 DAYS NEEDED FOR MUSCLE SPASM 01/10/2022 Active hydrOXYchloroQUI NE (PLAQUENIL) 200 mg tablet 02/23/2022 Activ e oxyCODONE-acetam inophen (PERCOCET) 7.5-325 mg per tablet Take by mouth every 6 (six) hours as needed 11/17/2022 Active senna 8.6 mg tablet TAKE 1 TABLET BY MOUTH TWICE DAILY 11/17/2022 Active aspirin 81 mg enteric coated tablet Take 81 mg by mouth daily Active acetaminophen ER (TYLENOL) 650 mg 8 hr tablet Take 650 mg by mouth every 8 (eight) hours as needed for pain Active cholecalciferol, vitamin D3, (VITAMIN D3 ORAL) Take by mouth Active polyethylene glycol (MIRALAX) 17 gram packetIndication s:constipation Take 17 g by mouth daily Active Active Problems Problem Noted Date Diagnosed Date Preoperative cardiovascular examination 11/28/19 23 Essential hypertension 11/28/2022 Hypercholesterolemia 11/28/2022 Avascular necrosis of bone of left hip 3 Rheumatoid arthritis 11/28/2022 Resolved Problems Problem Noted Date Diagnosed Date Resolved Date Osteoarthritis of left hip 11/28/2022 0 11/28/2022 Social History Tobacco Use Types Packs/Day Years Used Date Smoking Tobacco: Former Tobacco Cessation:Counseling Given: Not Answered AUDIT-C Answer Date Recorded Q1: How often do you have a drink containing alc ohol? Never 02/28/2022 Average Number of Drinks Not on file 022 Frequency of Binge Drinking Not on file 02/19 Comments Unknown Sex and Gender Information Value Date Recorded Sex Assigned at Not on file Legal Sex Female 11:42 PM SOLAR PROJECT ENGINEER Gender Identity Not on file Sexual Orientation Not on file Last Filed Vital Signs Vital Sign Reading Time Taken Comments Blood Pressure 128/58 11/28/2022 8:11 AM SOLAR PROJECT ENGINEER Pulse 81 11/28/2022 8:11 AM SOLAR PROJECT ENGINEER Temperature - - Respiratory Rate - - Oxygen Saturation 97% 11/28/2022 8:11 AM SOLAR PROJECT ENGINEER Inhaled Oxygen Concentration - - Weight 86.2 kg (190 lb) 11/28/2022 8:11 AM SOLAR PROJECT ENGINEER Height 157.5 cm (5' 2) 11/28/2022 8:11 AM SOLAR PROJECT ENGINEER Body Mass Index 34.75 11/28/2022 8:11 AM SOLAR PROJECT ENGINEER Plan of Treatment Not on file Insurance [facility] [employer] MEDICARE Care Teams Exercise Physiologist Certified Relationship Specialty Start Date End Date Freya Hernandez DO PCP - General Family Medicine 02/28/22
--- OUTSIDE RECORDS SUMMARY | 2025-04-02 10:15 | XMS_ITS | Clinical Summary ---
Author Organization [facility] Address [address] [facility] Attn: Epic Prelude ADT YULI [facility] [address] Care Team Providers Care Aircraft Log Clerk Name Role Phone Unavailable Primary Care Provider Unavailabl e Social History Tobacco Use Types Packs/Day Years Used Date Smoking Tobacco: Never Assessed Comments Unknown Sex and Gender Information Value Date Recorded Sex Assigned at Not on file Legal Sex Female 3:33 AM RELAY OPERATOR Gender Identity Not on file Sexual Orientation Not on file Plan of Treatment Health Maintenance Due Date Last Done Comments DTAP/TDAP/TD VACCINES (1 - Tdap) 1964 PNEUMOCOCCAL VACCINE 50+ YEARS (1 of 1 - PCV) 09/27/19 95 ZOSTER VACCINE (1 of 2) 1995 OSTEOPOROSIS SCREENING 2010 RSV VACCINE (60+ or ) (1 - 1-dose 75+ series) 2020 INFLUENZA VACCINE (#1) 2024
--- OUTSIDE RECORDS SUMMARY | 2025-04-02 10:15 | XMS_ITS | Clinical Summary ---
Author Organization [facility] Address [address] [place] [address] Care Team Providers Care District Superintendent Name Role Phone YanickmalathiFreya yancey Primary Care Provider [phone]- [phone] Allergies No known active allergies Medications atorvastatin [...] Osteoarthritis of left hip 11/28/2022 0 11/28/2022 Surgical History Surgery Date Site/Laterality Comments CHOLECYSTECTOMY APPENDECTOMY DILATION AND CURETTAGE OF UTERUS BUNIONETTE EXCISION Left CARPAL TUNNEL RELEASE HYSTERECTOMY HERNIA REPAIR CATARACT EXTRACTION, BILATERAL Medical History Medical History Date Comments Hypertension Hypercholesteremia Rheumatoid arthritis (HCC) Sleep apnea Endometrial cancer (HCC) GERD (gastroesophageal reflux disease) DJD (degenerative joint disease) Anxiety Family History Medical History Relation Name Comments Diabetes Brother Diabetes Father Heart attack Father Cause of Cancer Mother Cause of Relation Name Status Comments Brother Father Mother Social History Tobacco Use Types Packs/Day Years [...] on file Legal Sex Female 11:42 PM SPECIAL NEEDS LIBRARIAN Gender Identity Not on file Sexual Orientation Not on file Obstetrics History Last Filed Vital Signs Vital Sign Reading Time Taken Comments Blood Pressure 128/58 11/28/2022 8:11 AM SPECIAL NEEDS LIBRARIAN Pulse 81 11/28/2022 8:11 AM SPECIAL NEEDS LIBRARIAN Temperature - - Respiratory Rate - - Oxygen Saturation 97% 11/28/2022 8:11 AM SPECIAL NEEDS LIBRARIAN Inhaled Oxygen Concentration - - Weight 86.2 kg (190 lb) 11/28/2022 8:11 AM SPECIAL NEEDS LIBRARIAN Height 157.5 cm (5' 2) 11/28/2022 8:11 AM SPECIAL NEEDS LIBRARIAN Body Mass Index 34.75 11/28/2022 8:11 AM SPECIAL NEEDS LIBRARIAN Plan of Treatment Health Maintenance Due Date Last Done Comments Depression Screening 1945 Fall Risk Assessment 1945 Hepatitis C Screening 1945 Osteoporosis Screening-Bone Density Scan 1945 Hepatitis B Screening 1963 Pneumococcal vaccine 65+ (1 of 2 - PCV) 1964 Well Visit 65+ 2010 Zoster Vaccine (1 of 2) 10/12/2015 08/17/2015 DTaP/Tdap/Td Vaccine (1 - Tdap) 10/21/2019 9 Covid-19 Vaccine (4 - 2023-2 5 season) 2024 08/10/2021, 01/09/2021, 12/19/2020 Influenza Vaccine (Season Ended) 2025 08/09/2021, 07/22/2020, 06/16/2019, Additional history exists Insurance [facility] [employer] [facility] [employer] MEDICARE Care Teams District Superintendent Relationship Specialty Start Date End Date Freya Hernandez DO PCP - General Family Medicine 02/28/22
== END 2025-04-02 09:34 | disposition home or self-care (01) ==
LOC: ANHIMG 09:34
PROVIDERS: PCP Family Medicine; Visit Provider Nurse Practitioner
DX: Z12.31 Encounter for screening mammogram for malignant neoplasm of breast (principal)
CPT/HCPCS: 77063; 77067

== ENCOUNTER 2025-08-20 11:06 | Outpatient (NON) | payer MEDICARE, SELFPAY ==
[2025-08-20 11:41] LABS: IFOB Positive Control Positive; Immunochemical Fecal Occult Bl Positive (N)
--- OUTSIDE RECORDS SUMMARY | 2025-08-20 12:18 | XMS_ITS | Clinical Summary ---
Author Organization [facility] Address [address] [place] [address] Care Team Providers Care Pediatric Physician Name Role Phone YanickmalathiFreya yancey Primary Care Provider [phone]- [phone] Allergies No known active allergies Medications atorvastatin [...] Rheumatoid arthritis (HCC) Sleep apnea Endometrial cancer GERD (gastroesophageal reflux disease) DJD (degenerative joint [...] on file Legal Sex Female 11:42 PM COPY MESSENGER Gender Identity Not on file Sexual Orientation Not on file Obstetrics History Last Filed Vital Signs Vital Sign Reading Time Taken Comments Blood Pressure 128/58 11/28/2022 8:11 AM COPY MESSENGER Pulse 81 11/28/2022 8:11 AM COPY MESSENGER Temperature - - Respiratory Rate - - Oxygen Saturation 97% 11/28/2022 8:11 AM COPY MESSENGER Inhaled Oxygen Concentration - - Weight 86.2 kg (190 lb) 11/28/2022 8:11 AM COPY MESSENGER Height 157.5 cm (5' 2) 11/28/2022 8:11 AM COPY MESSENGER Body Mass Index 34.75 11/28/2022 8:11 AM COPY MESSENGER Plan of Treatment Health Maintenance Due Date Last Done Comments Depression Screening 1945 Fall Risk Assessment 1945 Hepatitis C Screening 1945 Osteoporosis Screening-Bone Density Scan 1945 Hepatitis B Screening 1963 Pneumococcal vaccine 65+ (1 of 2 - PCV) 1964 Well Visit 65+ 2010 Zoster Vaccine (1 of 2) 10/12/2015 08/17/2015 DTaP/Tdap/Td Vaccine (1 - Tdap) 10/21/2019 9 Covid-19 Vaccine (4 - 2024-2 6 season) 2025 08/10/2021, 01/09/2021, 12/19/2020 Influenza Vaccine (#1) 2025 , 07/22/2020, 06/16/2019, Additional history exists Insurance [facility] [employer] [facility] [employer] MEDICARE Care Teams Pediatric Physician Relationship Specialty Start Date End Date Freya Hernandez DO PCP - General Family Medicine 02/28/22
--- OUTSIDE RECORDS SUMMARY | 2025-08-20 12:18 | XMS_ITS | Encounter Summary ---
Author Organization [facility] Address [address] [place] [address] Care Team Providers Care Bioinformatics Support Specialist Name Role Phone Unavailable Primary Care Provider Unavailabl e Encounter Details Date Type Department Care Team (Late st Contact Info) Description 03/29/1999 Outpatient Historical [facility] MRI DEPT (Excluded Provider) [place] [id number] [facility] [address] [place] [address] Pain in limb (Primary Dx) Social History Tobacco Use Types Packs/Day Years Used Date Smoking Tobacco: Never Assessed Comments Unknown Sex and Gender Information Value Date Recorded Sex Assigned at Not on file Legal Sex Female 3:33 AM [employer] S[employer] OFFIC[employer] Gender Identity Not on file Sexual Orientation Not on file documented as of this encounter Plan of Treatment Not on file documented as of this encounter Visit Diagnoses Diagnosis Pain in limb- Primary documented in this encounter
--- OUTSIDE RECORDS SUMMARY | 2025-08-20 12:18 | XMS_ITS | Clinical Summary ---
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
== END 2025-08-20 11:07 | disposition home or self-care (01) ==
PROVIDERS: PCP Family Medicine; Visit Provider Family Medicine
DX: D64.9 Anemia, unspecified (principal)
CPT/HCPCS: 82274